=== PATIENT | male | born 1960 | race Caucasian/White ===

== ENCOUNTER 2022-02-07 10:43 | Emergency (ER) | payer MEDICAID ==
[2022-02-07 10:54] VITALS: TEMP 97.6
--- NOTE | 2022-02-07 11:25 | ED ---
General Adult HPI - General Chief complaint: Shortness of Breath Stated complaint: JT Time Seen by Provider: 02/07/22 11:04 Source: patient Mode of arrival: ambulatory Limitations: no limitations - History of Present Illness Initial comments: This 61-year-old male with past medical history of stage III throat cancer. The emergency department with increased shortness of breath. Patient states over the last 3 days he has been having increased trouble breathing. Patient states his breathing gets worse tonight when he lies flat on his back. Patient states he did take an albuterol nebulized treatments morning which did slightly help. Patient states he was diagnosed with throat cancer about one month ago and has an appointment with [facility] oncology department tomorrow morning to possibly start radiation therapy. Patient states he is able to swallow and eat, however he just feels like his throat is swollen. Patient states his throat is sore and painful, however that is not any different from when he was diagnosed with cancer 1 month ago. Patient states he is still drinking plenty of water. Patient denies using any oxygen at home. Patient denies any chest pain, fever, nausea, vomiting, back pain, abdominal pain, change in bowel or bladder, headache, lightheadedness, dizziness, change in vision. - Related Data Home Medications Medication Instructions Recorded Confirmed Atorvastatin Calcium [Lipitor] 40 mg PO DAILY 02/07/22 02/07/22 Cyanocobalamin [Vitamin B-12] 500 mcg PO DAILY 02/07/22 02/07/22 HYDROcodone/APAP 10-325MG [Muse 1 tab PO Q4HR PRN 02/07/22 02/07/22 10-325] Metoprolol Tartrate [Lopressor] 25 mg PO BID 02/07/22 02/07/22 Multivitamins, Thera [Multivitamin 1 tab PO DAILY 02/07/22 02/07/22 (formulary)] Allergies Allergy/AdvReac Type Severity Reaction Status Date / Time No Known Allergies Allergy Verified 02/07/22 14:50 Review of Systems ROS Statement: Those systems with pertinent positive or pertinent negative responses have been documented in the HPI. ROS Other: All systems not noted in ROS Statement are negative. Past Medical History Past Medical History: Hyperlipidemia, Hypertension Additional Past Medical History / Comment(s): Throat CA History of Any Multi-Drug Resistant Organisms: None Reported Past Surgical History: Orthopedic Surgery Past Psychological History: No Psychological Hx Reported Smoking Status: Never smoker Past Alcohol Use History: None Reported Past Drug Use History: Marijuana General Exam Limitations: no limitations General appearance: alert, in no apparent distress Head exam: Present: atraumatic, normocephalic, normal inspection Eye exam: Present: normal appearance, PERRL, EOMI. Absent: scleral icterus, conjunctival injection, periorbital swelling Pupils: Present: normal accommodation ENT exam: Present: normal exam, normal oropharynx (Unable to visualize any lesions, growths, exudates or abscesses. Uvula midline.), mucous membranes moist, other (Painful to palpation on the outside lateral sides and anterior surface of neck) Neck exam: Present: normal inspection, full ROM. Absent: tenderness, meningismus, lymphadenopathy Respiratory exam: Present: normal lung sounds bilaterally, other (Patient mild increased work of breathing, however he states this is how he has been for the last 3 days-no stridor present. Voice slightly raspy- patient states this has been there over the last couple of months as he has been diagnosed with throat cancer.). Absent: respiratory distress, wheezes, rales, rhonchi, stridor, chest wall tenderness Cardiovascular Exam: Present: regular rate, normal rhythm, normal heart sounds. Absent: systolic murmur, diastolic murmur, rubs, gallop, clicks GI/Abdominal exam: Present: soft, normal bowel sounds. Absent: distended, tenderness, guarding, rebound, rigid Extremities exam: Present: normal inspection, full ROM, normal capillary refill. Absent: tenderness, pedal edema, joint swelling, calf tenderness Back exam: Present: normal inspection, full ROM. Absent: CVA tenderness (R), CVA tenderness (L), paraspinal tenderness, vertebral tenderness Neurological exam: Present: alert, oriented X3, CN II-XII intact Psychiatric exam: Present: normal affect, normal mood Skin exam: Present: warm, dry, intact, normal color. Absent: rash Course Vital Signs 02/07/22 02/07/22 02/07/22 10:51 12:37 15:00 Temperature 97.6 F Pulse Rate 76 83 88 Respiratory 24 20 18 Rate Blood Pressure 132/69 123/67 132/70 O2 Sat by Pulse 96 99 96 Oximetry EKG Findings - EKG Comments: EKG Findings:: EKG impression: Sinus rhythm. Ventricular rate 86 bpm. LA interval 135. QRS duration 85. QT/QTc 358/402 Medical Decision Making - Medical Decision Making This 61-year-old male with a past medical history of recent stage III throat cancer presents emergency Department with increased difficulty breathing- worsening over the last 3 days. Vital signs stable. Labs with leukocytosis. Coagulation unremarkable. Chemistry unremarkable. Troponin less than 0.012. Chest x-ray impression: No acute cardiopulmonary process. CT soft tissue neck with contrast impression: Large laryngeal mass markedly restricting and nearly occluding the airway at the level of the cricoid cartilage as described above. There is a large irregular mass of the larynx measuring 4.42.32.7 cm appears to be centered on the left focal cord. It displaces the airway to the right of the midline at the level of the cricoid cartilage, airways markedly restricted and nearly occluded. Spoke with from [facility] who accepted patient to the emergency department. Patient will be life flighted to [facility] for probable tracheostomy placement. Patient verbally agree to be life flighted to [facility] for further evaluation, workup and treatment. Discussed case in detail my attending, Dr. Cruz who agreed to plan. - Lab Data Result diagrams: 02/07/22 11:25 02/07/22 11:25 Lab Results 02/07/22 02/07/22 02/07/22 Range/Units 11:25 11:25 11:25 WBC 9.7 (3.8-10.6) k/uL RBC 3.65 L (4.30-5.90) m/uL Hgb 11.5 L (13.0-17.5) gm/dL Hct 35.0 L (39.0-53.0) % MCV 96.1 (80.0-100.0) fL MCH 31.7 (25.0-35.0) pg MCHC 33.0 (31.0-37.0) g/dL RDW 12.4 (11.5-15.5) % Plt Count 511 H (150-450) k/uL MPV 6.4 Neutrophils % 75 % Lymphocytes % 14 % Monocytes % 7 % Eosinophils % 2 % Basophils % 1 % Neutrophils # 7.3 (1.3-7.7) k/uL Lymphocytes # 1.3 (1.0-4.8) k/uL Monocytes # 0.7 (0-1.0) k/uL Eosinophils # 0.2 (0-0.7) k/uL Basophils # 0.1 (0-0.2) k/uL PT 9.7 (9.0-12.0) sec INR 0.9 (<1.2) APTT 28.6 (22.0-30.0) sec Sodium 138 (137-145) mmol/L Potassium 4.2 (3.5-5.1) mmol/L Chloride 101 (98-107) mmol/L Carbon Dioxide 30 (22-30) mmol/L Anion Gap 7 mmol/L BUN 16 (9-20) mg/dL Creatinine 0.72 (0.66-1.25) mg/dL Est GFR (CKD-EPI)AfAm >90 (>60 ml/min/1.73 sqM) Est GFR (CKD-EPI)NonAf >90 (>60 ml/min/1.73 sqM) Glucose 113 H (74-99) mg/dL Plasma Lactic Acid Marciano (0.7-2.0) mmol/L Calcium 8.8 (8.4-10.2) mg/dL Total Bilirubin 0.4 (0.2-1.3) mg/dL AST 24 (17-59) U/L ALT 20 (4-49) U/L Alkaline Phosphatase 98 (38-126) U/L Troponin I (0.000-0.034) ng/mL Total Protein 6.8 (6.3-8.2) g/dL Albumin 3.8 (3.5-5.0) g/dL 02/07/22 02/07/22 Range/Units 11:25 11:25 WBC (3.8-10.6) k/uL RBC (4.30-5.90) m/uL Hgb (13.0-17.5) gm/dL Hct (39.0-53.0) % MCV (80.0-100.0) fL MCH (25.0-35.0) pg MCHC (31.0-37.0) g/dL RDW (11.5-15.5) % Plt Count (150-450) k/uL MPV Neutrophils % % Lymphocytes % % Monocytes % % Eosinophils % % Basophils % % Neutrophils # (1.3-7.7) k/uL Lymphocytes # (1.0-4.8) k/uL Monocytes # (0-1.0) k/uL Eosinophils # (0-0.7) k/uL Basophils # (0-0.2) k/uL PT (9.0-12.0) sec INR (<1.2) APTT (22.0-30.0) sec Sodium (137-145) mmol/L Potassium (3.5-5.1) mmol/L Chloride (98-107) mmol/L Carbon Dioxide (22-30) mmol/L Anion Gap mmol/L BUN (9-20) mg/dL Creatinine (0.66-1.25) mg/dL Est GFR (CKD-EPI)AfAm (>60 ml/min/1.73 sqM) Est GFR (CKD-EPI)NonAf (>60 ml/min/1.73 sqM) Glucose (74-99) mg/dL Plasma Lactic Acid Marciano 0.9 (0.7-2.0) mmol/L Calcium (8.4-10.2) mg/dL Total Bilirubin (0.2-1.3) mg/dL AST (17-59) U/L ALT (4-49) U/L Alkaline Phosphatase (38-126) U/L Troponin I <0.012 (0.000-0.034) ng/mL Total Protein (6.3-8.2) g/dL Albumin (3.5-5.0) g/dL Disposition Clinical Impression: Laryngeal mass, History of throat cancer, Increasing shortness of breath Disposition: OTHER INSTITUTION NOT DEFINED Condition: Serious Referrals: Nonstaff,Physician [REFERRING] - 1-2 days - Out of Hospital Transfer - Req. Specs Out of Hospital Transfer - Requested Specifics: Other Emergency Center ([facility])
[2022-02-07 11:36] LABS: Basophils # (A) 0.1 k/uL (0-0.2); Basophils % (A) 1 %; Eosinophils # (A) 0.2 k/uL (0-0.7); Eosinophils % (A) 2 %; HGB 11.5 gm/dL (13.0-17.5); Lymphocytes # (A) 1.3 k/uL (1.0-4.8); Lymphocytes % (A) 14 %; MCH 31.7 pg (25.0-35.0); MCV 96.1 fL (80.0-100.0); Mean Platelet Volume 6.4; Monocytes # (A) 0.7 k/uL (0-1.0); Monocytes % (A) 7 %; Neutrophils # (A) 7.3 k/uL (1.3-7.7); Neutrophils % (A) 75 %; Platelet Count 511 k/uL (150-450); RBC 3.65 m/uL (4.30-5.90); RDW 12.4 % (11.5-15.5); WBC 9.7 k/uL (3.8-10.6)
[2022-02-07 11:56] LABS: ALT 20 U/L (4-49); AST 24 U/L (17-59); African American GFR (CKD) >90 (>60 ml/min/1.73 sqM); Albumin 3.8 g/dL (3.5-5.0); Alkaline Phosphatase 98 U/L (38-126); Anion Gap 7 mmol/L; Blood Urea Nitrogen 16 mg/dL (9-20); Calcium 8.8 mg/dL (8.4-10.2); Carbon Dioxide 30 mmol/L (22-30); Chloride 101 mmol/L (98-107); Glucose 113 mg/dL (74-99); Non-African American GFR(CKD) >90 (>60 ml/min/1.73 sqM); Potassium 4.2 mmol/L (3.5-5.1); Sodium 138 mmol/L (137-145); Total Bilirubin 0.4 mg/dL (0.2-1.3); Total Protein 6.8 g/dL (6.3-8.2)
[2022-02-07] MEDS ORDERED: DEXAMETHASONE SOD PHOSPHATE 10 MG/ML 1 ML VIAL IVP STA (11:57)
[2022-02-07] MEDS ORDERED: SODIUM CHLORIDE 0.9% 1,000 ML IV STA (11:58)
--- NOTE | 2022-02-07 12:11 | XR ---
EXAMINATION TYPE: XR chest 2V DATE OF EXAM: 02/07/2022 COMPARISON: NONE HISTORY: Cough TECHNIQUE: Frontal and lateral views of the chest are obtained. FINDINGS: There is no focal air space opacity, pleural effusion, or pneumothorax seen. The cardiac silhouette size is within normal limits. The osseous structures are intact. IMPRESSION: No acute cardiopulmonary process.
[2022-02-07 12:12] LABS: INR 0.9 (<1.2); Partial Thromboplastin Time 28.6 sec (22.0-30.0); Prothrombin Time 9.7 sec (9.0-12.0)
--- NOTE | 2022-02-07 12:29 | CT ---
EXAMINATION TYPE: CT soft tissue neck w con DATE OF EXAM: 02/07/2022 12:20 PM COMPARISON: None HISTORY: DIIB. History of throat cancer. CT DLP: 241.4 mGycm Automated exposure control for dose reduction was used. CONTRAST: CT scan of the neck is performed following with IV Contrast, patient injected with 100 mL of Isovue 3 00. Axial images are obtained, coronal and sagittal reformatted images are reviewed. FINDINGS: There is a large irregular mass of the larynx measuring 4.4 x 2.3 x 2.7 cm.. It appears to be centere d on the left vocal cord. It displaces the airway to the right of midline and, at the level of the cr icoid cartilage, the airway is markedly restricted and nearly occluded. The thyroid, arytenoid and cricoid cartilages are intact. The thyroid gland is normal in size and homogeneous. Tongue base, epiglottis aryepiglottic folds, piriform sinuses and vallecula are normal and symmetric. The parotid and submandibular glands are normal and symmetric. The pharynx and parapharyngeal soft tissues are normal. There is no adenopathy within the neck. Visualized osseous structures are intact. IMPRESSION: Large laryngeal mass markedly restricting and nearly occluding the airway at the level of the cricoid cartilage as described above.
[2022-02-07] MEDS ORDERED: MORPHINE SULFATE 4 MG/ML SYRINGE IVP STA (14:55)
[2022-02-07] MEDS ORDERED: ALBUTEROL HFA INHALER INHALATION STA (14:55)
[2022-02-07 15:06] VITALS: RESP 18
[2022-02-07 16:38] VITALS: BP 134/84; PULSE 82
== END 2022-02-07 16:45 | disposition other institution (70) ==
LOC: EC 10:43
DX: J38.7 Other diseases of larynx (principal); I10 Essential (primary) hypertension; E78.5 Hyperlipidemia, unspecified; F12.90 Cannabis use, unspecified, uncomplicated; Z79.899 Other long term (current) drug therapy; Z85.01 Personal history of malignant neoplasm of esophagus
CPT/HCPCS: 36415; 94640; 93005; 80053; 83605; 84484; 85025; 85610; 85730; 71046; 70491; 99285; 96374; 96375; 96361 ×4; J2270; J1100

== ENCOUNTER 2022-05-30 13:49 | Emergency (ER) | payer OTHER ==
[2022-05-30 14:08] VITALS: TEMP 97.6
--- NOTE | 2022-05-30 14:48 | XR ---
EXAMINATION TYPE: XR KUB DATE OF EXAM: 05/30/2022 COMPARISON: NONE HISTORY: PEG tube placement TECHNIQUE: Single view FINDINGS: 2 views upright were obtained. There is no sign of intestinal obstruction or pneumoperitone um. Fecal pattern is normal. There is gastrostomy tube over the left upper quadrant. Lung bases are c lear. No calcifications seen over the kidneys. IMPRESSION: Nonacute abdomen.
--- NOTE | 2022-05-30 16:04 | ED ---
Recheck HPI - General Chief Complaint: Recheck/Abnormal Lab/Rx Stated Complaint: problems with feeding tube Time Seen by Provider: 05/30/22 15:18 Source: patient, family, RN notes reviewed Mode of arrival: ambulatory - History of Present Illness Initial Comments: This is a 61-year-old male who presents to the emergency department for feeding tube difficulties. Patient had a PEG tube placed 12 weeks ago. This was placed at [facility] in [place]. Patient states that he is being treated for throat cancer and does not currently have much in the way of taste. States that this causes him to have problems eating. The PEG tube will likely be temporary. He has a follow-up with the provider on June 04. States that he has had some abdominal discomfort, and he wonders if the tube may be out of place. States that he accidentally pulled it and believes that it may have become dislodged. Denies any fevers, chills, sore throat, cough, dyspnea, chest pain, palp itations, nausea, vomiting, diarrhea, back pain, or headaches. MD Complaint: other (PEG tube problems) - Related Data Home Medications Medication Instructions Recorded Confirmed Atorvastatin Calcium [Lipitor] 40 mg PO DAILY 02/07/22 02/07/22 Cyanocobalamin [Vitamin B-12] 500 mcg PO DAILY 02/07/22 02/07/22 HYDROcodone/APAP 10-325MG [Chase 1 tab PO Q4HR PRN 02/07/22 02/07/22 10-325] Metoprolol Tartrate [Lopressor] 25 mg PO BID 02/07/22 02/07/22 Multivitamins, Thera [Multivitamin 1 tab PO DAILY 02/07/22 02/07/22 (formulary)] Previous Rx's Medication Instructions Recorded Sulfamethox-Tmp 800-160Mg [Bactrim 2 tab PO Q12HR 7 Days #28 tab 05/30/22 DS 800-160 mg] Allergies Allergy/AdvReac Type Severity Reaction Status Date / Time No Known Allergies Allergy Verified 05/30/22 14:08 Review of Systems ROS Statement: Those systems with pertinent positive or pertinent negative responses have been documented in the HPI. ROS Other: All systems not noted in ROS Statement are negative. Past Medical History Past Medical History: Hyperlipidemia, Hypertension Additional Past Medical History / Comment(s): Throat CA, trach, feeding tbube History of Any Multi-Drug Resistant Organisms: None Reported Past Surgical History: Orthopedic Surgery Past Psychological History: No Psychological Hx Reported Smoking Status: Never smoker Past Alcohol Use History: None Reported Past Drug Use History: Marijuana General Exam General appearance: alert, in no apparent distress Head exam: Present: atraumatic, normocephalic, normal inspection Respiratory exam: Present: normal lung sounds bilaterally. Absent: respiratory distress, wheezes, rales, rhonchi, stridor Cardiovascular Exam: Present: regular rate, normal rhythm, normal heart sounds. Absent: systolic murmur, diastolic murmur, rubs, gallop, clicks GI/Abdominal exam: Present: other (PEG tube in place with healing stoma. Purulent discharge around the stoma and tenderness to palpation.) Neurological exam: Present: alert, oriented X3, CN II-XII intact Psychiatric exam: Present: normal affect, normal mood Skin exam: Present: warm, dry, intact, normal color. Absent: rash Course Vital Signs 05/30/22 14:04 Temperature 97.6 F Pulse Rate 66 Respiratory 16 Rate Blood Pressure 93/59 O2 Sat by Pulse 99 Oximetry Medical Decision Making - Medical Decision Making This is a 61-year-old male who presents to the emergency department for PEG tube difficulties. His PEG tube appeared to have surrounding drainage and erythema, concerning for an infection. Aerobic and anaerobic cultures were obtained. The PEG tube was removed and replaced with a new one of the same size, 20-Mongolian. KUB with dye injection was obtained afterwards, verifying correct placement of the PEG tube. Prescription for Bactrim was provided to be taken for 7 days. Starter pack provided in the emergency department, as the patient's pharmacy is currently closed. Return precautions reviewed in depth, the patient is instructed to return to the emergency department with any new, worsening, or concerning symptoms. Patient verbalized understanding. This case was discussed in detail with the attending ED physician. Presentation, findings, and treatment plan discussed in detail as well. - Radiology Data Radiology results: report reviewed, image reviewed Disposition Clinical Impression: Pain around PEG tube site Disposition: HOME SELF-CARE Instructions (If sedation given, give patient instructions): Percutaneous Endoscopic Gastrostomy (ED), How to Use and Care for Your PEG Tube (ED) Additional Instructions: Return to the emergency department with any new, worsening, or concerning symptoms. Take the antibiotic as prescribed for 7 days. Prescriptions: Sulfamethox-Tmp 800-160Mg [Bactrim DS 800-160 mg] 2 tab PO Q12HR 7 Days #28 tab Is patient prescribed a controlled substance at d/c from ED?: No Referrals: Ye Mane MD [Primary Care Provider] - 1-2 days
--- NOTE | 2022-05-30 16:54 | XR ---
EXAMINATION TYPE: XR KUB DATE OF EXAM: 05/30/2022 COMPARISON: NONE HISTORY: Peg tube placement TECHNIQUE: Single view FINDINGS: Contrast was injected into the gastrostomy tube. There is opacification of the stomach. No evidence of a leak. IMPRESSION: Gastrostomy tube is in good position.
[2022-05-30] MEDS ORDERED: SULFAMETH-TMP DS STARTER PACK 2 TAB BTL PO STA (17:03)
[2022-05-30 17:48] VITALS: BP 107/73; PULSE 72; RESP 15
== END 2022-05-30 17:48 | disposition home or self-care (01) ==
LOC: EC 13:49
DX: K94.23 Gastrostomy malfunction (principal); I10 Essential (primary) hypertension; E78.5 Hyperlipidemia, unspecified; Z79.899 Other long term (current) drug therapy
CPT/HCPCS: 87070; 87205; 87075; 87077; 87186; 74018; 99283; 43762; Q9967

== ENCOUNTER → 2022-07-09 | Outpatient (CLI) | payer OTHER ==
--- NOTE | 2022-07-13 11:51 | PE ---
EXAMINATION TYPE: PET CT fusion skull to thigh DATE OF EXAM: 07/09/2022 CLINICAL INDICATION:Male, 61 years old with history of C76.0 head and neck ca; TECHNIQUE: Following the intravenous administration of 10.8 mCi of F-18 FDG, whole body images are performed from the skull base to the midthigh. Images are reviewed on the computer in the coronal, a xial, and sagittal planes. Reconstructed rotating images are created on independent workstation and reviewed on the computer. A non-contrast CT is performed in conjunction with the PET scan. Glucose level 82 mg/dL COMPARISON: CT 02/07/2022, PET/CT 11/06/2021, FINDINGS: Mediastinal SUV mean is 1.5. Hepatic parenchyma SUV mean is 1.9. SKULL BASE AND NECK: Increased radiotracer uptake around the tracheostomy cannula insertion with max SUV 5.3. Additionally there is FDG uptake around the larynx primarily along the left aspect max SUV 5.5 previously 5.4. Area extends towards the thyroid cartilage on the left. Evaluation slightly limi checo given noncontrast and PET/CT technique. CHEST, MEDIASTINUM, AND HILAR REGION: No suspicious FDG activity. ABDOMEN AND PELVIS: No suspicious FDG activity. OSSEOUS STRUCTURES: No suspicious FDG activity. OTHER CT: Tracheostomy cannula with tip in appropriate position. At sclerosis of the arterial vascula ture including the carotid arteries and carotid bifurcations. Moderate emphysema changes.1 PEG tube i n place in appropriate position. 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 No convincing evidence for metastatic disease within the chest, abdomen or pelvis or osseous structures. Evaluation of the soft tissues is limited given noncontrast and PET/CT technique.
== END | disposition home or self-care (01) ==
LOC: RADXRMAIN 13:11
PROVIDERS: ATTEND Internal Medicine Hematology & Oncology
DX: C76.0 Malignant neoplasm of head, face and neck (principal)
CPT/HCPCS: 78815; A9552

== ENCOUNTER → 2022-11-03 | Outpatient (CLI) | payer OTHER ==
--- NOTE | 2022-11-03 14:09 | CT ---
EXAMINATION TYPE: CT neck chest w con CT DLP: 667.1 mGycm, Automated exposure control for dose reduction was used. 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 Hx of melanoma. TECHNIQUE: Multiple axial images were obtained through the chest. Sagittal and coronal reformats were created for review. Contrast used:70ml mL of Isovue 300 with IV Contrast Oral contrast used: none. FINDINGS: Brain: Visualized portions are grossly unremarkable. Orbits: Unremarkable Sinuses: Grossly unremarkable. Spaces of the neck: Extensive soft tissue fullness within the trachea/larynx region with narrowing of the airway at that level. This is increased from 07/09/2022. There is some soft tissue anasarca along the anterior neck. Musculoskeletal: No acute osseous pathology. Mild multilevel disc degeneration changes. Lymph nodes: Multiple nonenlarged lymph nodes are seen along both anterior chains of the neck. Vascular structures: Visualized major arteries are patent without evidence of aneurysm. Atheroscleros is at the carotid bifurcations. There is at least 50% stenosis of the right carotid bifurcation. The left carotid bifurcation appears patent. Thoracic Inlet/airway: Airway is patent. The lung apices are clear. Soft tissues/Thyroid: Thyroid and remainder of the soft tissues are unremarkable. Other: none. LUNGS/ PLEURA: Anterior right lower lobe opacities. AIRWAY: Tracheostomy tube terminates within the trachea. HEART: Atherosclerosis of the arterial vasculature. There is coronary artery atherosclerosis present. The heart is within normal limits for size. Aortic valve cusp calcifications are present. MEDIASTINUM: No gross evidence of adenopathy. VASCULATURE: No aortic aneurysm. MUSCULOSKELETAL: No acute osseous abnormalities scattered multilevel disc degeneration changes are pr esent. SOFT TISSUES/LYMPH NODES: Unremarkable. UPPER ABDOMEN: No significant findings. IMPRESSION 1. Extensive soft tissue fullness within the trachea/larynx region which is increased from prior PET on 07/09/2022 and could represent progressive disease versus edema. There is narrowing of the airway at that level. Attention on follow-up PET/CT for metabolic activity. 2. No evidence for metastatic disease within the pneumothorax. 3. No greater than 1.0 cm in short axis lymph nodes identified. 4. Anterior aspect of the right lower lobe airspace opacities could represent an infectious/inflamma tory process. Clinical correlation advised. 5. Atherosclerosis at the carotid bifurcations with at least 50% stenosis on the right.
== END | disposition home or self-care (01) ==
LOC: RADCTMAIN 12:59
PROVIDERS: ATTEND Radiology Radiation Oncology
DX: C32.1 Malignant neoplasm of supraglottis (principal); C43.72 Malignant melanoma of left lower limb, including hip; R91.8 Other nonspecific abnormal finding of lung field; I65.21 Occlusion and stenosis of right carotid artery; Z92.3 Personal history of irradiation; Z98.890 Other specified postprocedural states; Z85.820 Personal history of malignant melanoma of skin
CPT/HCPCS: 70491; 71260; Q9967

== ENCOUNTER → 2023-05-13 | Outpatient (CLI) | payer OTHER ==
--- NOTE | 2023-05-16 07:08 | PE ---
EXAMINATION TYPE: PET CT fusion skull to thigh DATE OF EXAM: 05/13/2023 COMPARISON: 11/03/22 CT neck and chest Prior PET/CT: 11/19/2022 HISTORY: Neck cancer TECHNIQUE: Following the intravenous administration of 8.27 mCi of F-18 FDG, whole body images are p erformed from the skull base to the midthigh. Images are reviewed on the computer in the coronal, ax ial, and sagittal planes. Reconstructed rotating images are created on independent workstation and r eviewed on the computer. A localization and attenuation correction CT is performed in conjunction w ith the PET scan. DLP: 395.7 mGycm SCAN: Subsequent Blood glucose: 91 mg/dL Average Mediastinum SUV: 1.3 Average Liver SUV: 1.58 FINDINGS: Head: No suspicious uptake within the head and proximal neck. NECK: There is intense uptake at the level of the vocal cords. The cord level appears asymmetric wit h displacement towards the left. Uptake centrally is 4.23 within the left infrahilar region measures 3.63 SUV. Image 48. Some posterior uptake is present at the level of the vocal cord and the posterior right region, image 52 SUV 4.92. There is a small area of increased uptake within the left posterior lateral larynx and SUV of 3.3, image 53. There is a new focal uptake between the first and second right ribs with an SUV value of 3.11, image 61. THORAX: There is an area of new increased uptake within the posterior lateral right apical infiltrate with an SUV of 2.75. There is intense uptake within the left anterolateral lung mass with an SUV maria guadalupe ue of 3.65. Image 108. There is mild uptake within a punctate nodular density within the left lower l obe. SUV 1.39, image 120. This may not have marked increased intensity due to the small size should b e considered potentially suspicious for neoplastic process. ABDOMEN: No abnormal uptake PELVIS: There is intense uptake within the cecum. This could be physiologic. Evaluation for underlyin g ascending colon neoplasm is recommended. OSSEOUS STRUCTURES: No suspicious uptake LOCALIZATION CT: Tracheostomy tube is present with some adjacent uptake likely related to inflammator y change. This is greater towards the left. COMPARISON: Uptake within the left neck has largely resolved. Uptake at the level of vocal cords is m ore intense but covers a smaller area. Previous peripheral uptake within the adenopathy is not identi fied. Uptake between first and second rib and uptake within the right lateral apex are new. Two areas of uptake within the anterolateral left lower lung field are new. IMPRESSION: 1. On the areas surrounding the abnormal vocal cord are smaller and more discrete but have increased in SUV values. 2. New areas of abnormal uptake within the lungs suspicious for metastasis including lateral right ap ex and lingula. 3. New area of increased uptake within the intercostal space between the first and second right ribs suspicious for metastasis 4. Increasing intensity within the cecum and ascending colon region. While this can be physiologic, c onsider evaluation for neoplasm.
== END | disposition home or self-care (01) ==
LOC: RADPETMAIN 15:10
PROVIDERS: ATTEND Radiology Radiation Oncology
DX: C32.1 Malignant neoplasm of supraglottis (principal); Z98.890 Other specified postprocedural states; Z92.3 Personal history of irradiation
CPT/HCPCS: 78815; A9552

== ENCOUNTER → 2023-06-20 | Outpatient (CLI) | payer OTHER ==
--- NOTE | 2023-06-20 13:14 | CT ---
EXAMINATION TYPE: CT chest w con DATE OF EXAM: 06/20/2023 COMPARISON: November 03, [address] 05/13/2023 HISTORY: abnormal chest findings, hx of throat ca CT DLP: 132.1 mGycm Automated exposure control for dose reduction was used. CONTRAST: CT scan of the chest is performed with IV Contrast, patient injected with 100 mL of Isovue 370. FINDINGS: LUNGS: Thick-walled cystic structure right apical region measuring 5.9 x 3.1 cm with mural thickening noted reflect cavitary neoplasm versus infection. There is adjacent pleural thickening and nodular thickeni ng at the first and second as well as the second and third intercostal spaces. There is a new mass in the region of the left upper lobe with wedge-shaped appearance and central necrosis measuring approx imately 4.2 x 3.5 cm. Additional new mass is noted in the region of the lingula central necrosis seen . The mass measures approximately 7.0 x 5.4 x 5.7 cm. There is adjacent pleural thickening and nodula rity within the adjacent intercostal space. MEDIASTINUM: New subcarinal adenopathy measuring 1.2 cm. AP window adenopathy measuring 9.3 mm. Subce ntimeter low right paratracheal lymph node. No pericardial effusion is seen. Thoracic aorta is of no rmal caliber. The heart is not enlarged. UPPER ABDOMEN: No significant abnormality appreciated. OTHER: No additional significant abnormality is seen. IMPRESSION: 1. New necrotic masses left upper lobe and left lingula as discussed above associated pleural thicken ing and intercostal nodularity. 2. Thick-walled cystic structure right upper lobe may reflect cavitary neoplasm versus infection. The re is associated pleural thickening and intercostal nodularity as discussed. 3. New areas of adenopathy as noted.
== END | disposition home or self-care (01) ==
LOC: RADCTMAIN 12:35
PROVIDERS: ATTEND Radiology Radiation Oncology
DX: C32.1 Malignant neoplasm of supraglottis (principal); C43.72 Malignant melanoma of left lower limb, including hip; J94.8 Other specified pleural conditions; Z85.21 Personal history of malignant neoplasm of larynx; Z92.3 Personal history of irradiation; Z98.890 Other specified postprocedural states; R59.9 Enlarged lymph nodes, unspecified; R91.8 Other nonspecific abnormal finding of lung field
CPT/HCPCS: 71260; Q9967

== ENCOUNTER 2023-07-31 15:16 | Inpatient (IN) | payer OTHER ==
--- NOTE | 2023-07-31 16:10 | ED ---
General Adult HPI - General Chief complaint: Shortness of Breath Stated complaint: pneumonia Time Seen by Provider: 07/31/23 15:43 Source: patient Mode of arrival: wheelchair Limitations: no limitations - History of Present Illness Initial comments: Dictation was produced using [employer] dictation software. please excuse any grammatical, word or spelling errors. Chief Complaint: 62-year-old male with history of lung empyema presents with chest pain and shortness of breath History of Present Illness: 62-year-old male with a history of lung empyema, throat cancer and recent admission for pneumonia presents to the ER for chest pain shortness of breath. Patient was just discharged approximately 2 weeks ago. States that her last one to 2 days he began developing chest pain and shortness of breath denies any fever or constitutional symptoms. The ROS documented in this emergency department record has been reviewed and confirmed by me. Those systems with pertinent positive or negative responses have been documented in the HPI. All other systems are other negative and/or noncontributory. - Related Data Home Medications Medication Instructions Recorded Confirmed Atorvastatin Calcium [Lipitor] 40 mg PO HS 02/07/22 07/31/23 HYDROcodone/APAP 10-325MG [[place] 1 tab PO Q4HR PRN 02/07/22 07/31/23 10-325] Omeprazole [PriLOSEC] 20 mg PO DAILY 07/04/23 07/31/23 Metoprolol Tartrate [Lopressor] 12.5 mg PO BID 07/31/23 07/31/23 oxyCODONE-APAP 10-325MG [Percocet 1 tab PO Q4HR PRN 07/31/23 07/31/23 10-325 mg] Previous Rx's Medication Instructions Recorded Aspirin 81 mg PO DAILY #30 tab 07/15/23 Ipratropium-Albuterol Nebulize 3 ml INHALATION RT-Q4H PRN #100 07/15/23 [Duoneb 0.5 mg-3 mg/3 ml Soln] each Amoxic-Pot Clav 875-125Mg 1 tab PO Q12HR 14 Days #28 tab 07/16/23 [Augmentin 875-125] Furosemide [Lasix] 40 mg PO DAILY #30 tablet 07/16/23 Allergies Allergy/AdvReac Type Severity Reaction Status Date / Time No Known Allergies Allergy Verified 07/31/23 16:48 Review of Systems ROS Statement: Those systems with pertinent positive or pertinent negative responses have been documented in the HPI. ROS Other: All systems not noted in ROS Statement are negative. Past Medical History Past Medical History: Cancer, CVA/TIA, Hyperlipidemia, Hypertension Additional Past Medical History / Comment(s): Throat CA, status post chemotherapy, radiation, tracheostomy tube placement, feeding tube with subsequent removal History of Any Multi-Drug Resistant Organisms: None Reported Past Surgical History: Orthopedic Surgery Additional Past Surgical History / Comment(s): History of left carotid endarterectomy, status post tracheostomy placement Past Anesthesia/Blood Transfusion Reactions: No Reported Reaction Past Psychological History: No Psychological Hx Reported Smoking Status: Former smoker Past Alcohol Use History: None Reported Past Drug Use History: None Reported, Marijuana - Past Family History Mother Family Medical History: Dementia Father Family Medical History: Cancer (Lung cancer) General Exam - General Exam Comments Initial Comments: PHYSICAL EXAM: General Impression: Alert and oriented x3, not in acute distress HEENT: Normocephalic atraumatic, extra-ocular movements intact, pupils equal and reactive to light bilaterally, mucous membranes moist. Cardiovascular: Heart regular rate and rhythm Chest: Able to complete full sentences, no retractions, no tachypnea Abdomen: abdomen soft, non-tender, non-distended, no organomegaly Musculoskeletal: Pulses present and equal in all extremities, no peripheral edema Motor: no focal deficits noted Neurological: CN II-XII grossly intact, no focal motor or sensory deficits noted Skin: Intact with no visualized rashes Psych: Normal affect and mood Limitations: no limitations Course Vital Signs 07/31/23 07/31/23 07/31/23 15:36 15:42 15:46 Temperature 98 F Pulse Rate 109 H 100 Respiratory 22 18 18 Rate Blood Pressure 120/67 128/78 O2 Sat by Pulse 98 98 Oximetry 07/31/23 07/31/23 07/31/23 16:00 16:30 17:00 Temperature Pulse Rate 103 H 108 H 106 H Respiratory 20 18 18 Rate Blood Pressure 128/78 129/81 123/72 O2 Sat by Pulse 96 97 96 Oximetry EKG Findings - EKG Comments: EKG Findings:: My EKG interpretation: Ventricular rate 103, sinus tachycardia,. 124, QRS 87, QTC 378. No DC prolongation, no QTC prolongation, no ST or T-wave changes noted. . Overall, this EKG is unremarkable Medical Decision Making - Medical Decision Making Was pt. sent in by a medical professional or institution ([facility], [facility], urgent care, hospital, or [place] [facility] facility...) When possible be specific @ -No Did you speak to anyone other than the patient for history (EMS, parent, family, police, friend...)? What history was obtained from this source @ -No Did you review nursing and triage notes (agree or disagree)? Why? @ -I reviewed and agree with nursing and triage notes Were old charts reviewed (outside hosp., previous admission, EMS record, old E KG, old radiological studies, urgent care reports/EKG's, [place] [facility] facility records)? Report findings @ -Previous admission notes were reviewed showing the patient has history of loculated pleural fluid Differential Diagnosis (chest pain, altered mental status, abdominal pain women, abdominal pain men, vaginal bleeding, musculoskeletal, weakness, fever, dyspnea, syncope, headache, dizziness, GI bleed, back pain, seizure, CVA, palpatations, mental health)? @ -Differential Dyspnea: Coronary syndrome, arrhythmia, tamponade, asthma, COPD, pulmonary embolism, pneumonia, pneumothorax, pulmonary effusion, anaphylaxis, diabetic ketoacidosis, flailed chest, pulmonary contusion, diaphragmatic rupture, anemia, neuromuscular, this is not meant to be an all-inclusive list. EKG interpreted by me (3pts min.). @ -See above X-rays interpreted by me (1pt min.). @ -Chest x-ray shows interval decrease in size of the loculated left lung base collection CT interpreted by me (1pt min.). @ -Angiography shows persistent loculated air-fluid level at the left lateral lung base. There is also incidental finding of moderately large pericardial effusion U/S interpreted by me (1pt. min.). @ -None done What testing was considered but not performed or refused? (CT, X-rays, U/S, labs)? Why? @ -None What meds were considered but not given or refused? Why? @ -None Did you discuss the management of the patient with other professionals (professionals i.e. [facility], C[facility], lab, RT, psych nurse, clinical social work aide, auto damage trainee, teacher, parking officer, pillowcase cutter)? Give summary @ -Discussed with hospitalist for admission they did request CT angiography for rule out pulmonary embolism Was smoking cessation discussed for >3mins.? @ -No Was critical care preformed (if so, how long)? @ -No Were there social determinants of health that impacted care today? How? (Homelessness, low income, unemployed, alcoholism, drug addiction, transportation, low edu. Level, literacy, decrease access to med. care, half-way, r ehab)? @ -No Was there de-escalation of care discussed even if they declined (Discuss DNR or withdrawal of care, Hospice)? DNR status @ -No What co-morbidities impacted this encounter? (DM, HTN, Smoking, COPD, CAD, Cancer, CVA, ARF, Chemo, Hep., AIDS, mental health diagnosis, sleep apnea, morbid obesity)? @ -None Was patient admitted / discharged? Hospital course, mention meds given and route, prescriptions, significant lab abnormalities, going to OR and other pertinent info. @ -62-year-old male with recent history of complex pleural fluid presents to the ER for chest pain shortness of breath that he is worried about recurrence. He did have this fluid drained by specialist. Laboratory evaluation was obtained. Leukocytosis O.1 hemoglobin 9.2. Metabolic panel within acceptable limits. Imaging studies do not appear to be significantly changed. Given the patient is symptomatic he will be admitted with consultation to pulmonology. Patient put on broad-spectrum antibiotics for concern of recurrence given that patient is having recurrent respiratory symptoms along with constitutional symptoms. Undiagnosed new problem with uncertain prognosis? @ -No Drug Therapy requiring intensive monitoring for toxicity (Heparin, Nitro, Insulin, Cardizem)? @ -No Were any procedures done? @ -No Diagnosis/symptom? Acute, or Chronic, or Acute on Chronic? Uncomplicated (without systemic symptoms) or Complicated (systemic symptoms)? @ -Loculated pleural fluid Side effects of treatment? @ -No Exacerbation, Progression, or Severe Exacerbation? @ -No Poses a threat to life or bodily function? How? (Chest pain, USA, IA, pneumonia, PE, COPD, DKA, ARF, appy, cholecystitis, CVA, Diverticulitis, Homicidal, Suicidal, threat to staff... and all critical care pts) @ -yes - Lab Data Result diagrams: 07/31/23 16:06 07/31/23 16:06 Lab Results 07/31/23 07/31/23 07/31/23 Range/Units 16:06 16:06 16:06 WBC 12.1 H (3.8-10.6) k/uL RBC 3.46 L (4.30-5.90) m/uL Hgb 9.2 L (13.0-17.5) gm/dL Hct 29.6 L (39.0-53.0) % MCV 85.5 (80.0-100.0) fL MCH 26.6 (25.0-35.0) pg MCHC 31.1 (31.0-37.0) g/dL RDW 18.4 H (11.5-15.5) % Plt Count 931 H (150-450) k/uL MPV 6.3 Neutrophils % 85 % Lymphocytes % 5 % Monocytes % 7 % Eosinophils % 1 % Basophils % 0 % Neutrophils # 10.3 H (1.3-7.7) k/uL Lymphocytes # 0.7 L (1.0-4.8) k/uL Monocytes # 0.8 (0-1.0) k/uL Eosinophils # 0.2 (0-0.7) k/uL Basophils # 0.1 (0-0.2) k/uL Hypochromasia Moderate Anisocytosis Slight Sodium 139 (137-145) mmol/L Potassium 4.7 (3.5-5.1) mmol/L Chloride 99 (98-107) mmol/L Carbon Dioxide 26 (22-30) mmol/L Anion Gap 14 mmol/L BUN 25 H (9-20) mg/dL Creatinine 1.01 (0.66-1.25) mg/dL Est GFR (CKD-EPI)AfAm >90 (>60 ml/min/1.73 sqM) Est GFR (CKD-EPI)NonAf 80 (>60 ml/min/1.73 sqM) Glucose 120 H (74-99) mg/dL Plasma Lactic Acid Marciano 1.8 (0.7-2.0) mmol/L Calcium 9.6 (8.4-10.2) mg/dL Total Bilirubin 0.4 (0.2-1.3) mg/dL AST 20 (17-59) U/L ALT 18 (4-49) U/L Alkaline Phosphatase 121 (38-126) U/L Total Protein 8.1 (6.3-8.2) g/dL Albumin 3.8 (3.5-5.0) g/dL Disposition Clinical Impression: Loculated pleural effusion Disposition: ADMITTED IP TO THIS HOSP Condition: Serious Referrals: Ye Mane MD [Primary Care Provider] - 1-2 days Decision Time: 19:27
--- NOTE | 2023-07-31 16:17 | XR ---
EXAMINATION TYPE: XR chest 2V DATE OF EXAM: 07/31/2023 4:15 PM CLINICAL INDICATION:Male, 62 years old with history of chest pain; H COMPARISON: Chest radiographs from TECHNIQUE: XR chest 2V Frontal and lateral views of the chest. FINDINGS: Lungs/Pleura: There is redemonstration of hazy airspace opacity and loculated fluid collection within the left lung base. The gas in the left lung base is decreased in volume compared to prior study. No evidence of pneumothorax. Pulmonary vascularity: Unremarkable. Heart/mediastinum: Cardiomediastinal silhouette is unremarkable. Musculoskeletal: No acute osseous pathology. Other findings: Tracheostomy tube in place. IMPRESSION: Interval decrease in size of the loculated left lung base collection.
[2023-07-31 16:23] LABS: Anisocytosis Slight; Basophils # (A) 0.1 k/uL (0-0.2); Basophils % (A) 0 %; Eosinophils # (A) 0.2 k/uL (0-0.7); Eosinophils % (A) 1 %; HCT 29.6 % (39.0-53.0); HGB 9.2 gm/dL (13.0-17.5); Hypochromasia Moderate; Lymphocytes # (A) 0.7 k/uL (1.0-4.8); Lymphocytes % (A) 5 %; MCH 26.6 pg (25.0-35.0); MCHC 31.1 g/dL (31.0-37.0); MCV 85.5 fL (80.0-100.0); Mean Platelet Volume 6.3; Monocytes # (A) 0.8 k/uL (0-1.0); Monocytes % (A) 7 %; Neutrophils # (A) 10.3 k/uL (1.3-7.7); Neutrophils % (A) 85 %; Platelet Count 931 k/uL (150-450); RBC 3.46 m/uL (4.30-5.90); RDW 18.4 % (11.5-15.5); WBC 12.1 k/uL (3.8-10.6)
[2023-07-31 16:29] LABS: ALT 18 U/L (4-49); AST 20 U/L (17-59); African American GFR (CKD) >90 (>60 ml/min/1.73 sqM); Albumin 3.8 g/dL (3.5-5.0); Alkaline Phosphatase 121 U/L (38-126); Anion Gap 14 mmol/L; Blood Urea Nitrogen 25 mg/dL (9-20); Calcium 9.6 mg/dL (8.4-10.2); Carbon Dioxide 26 mmol/L (22-30); Chloride 99 mmol/L (98-107); Glucose 120 mg/dL (74-99); Non-African American GFR(CKD) 80 (>60 ml/min/1.73 sqM); Potassium 4.7 mmol/L (3.5-5.1); Sodium 139 mmol/L (137-145); Total Bilirubin 0.4 mg/dL (0.2-1.3); Total Protein 8.1 g/dL (6.3-8.2)
[2023-07-31] MEDS ORDERED: MORPHINE SULFATE 4 MG/ML SYRINGE IV STA (16:36)
--- NOTE | 2023-07-31 18:37 | CT ---
CT CHEST FOR PULMONARY EMBOLISM. EXAMINATION TYPE: CT angio chest DATE OF EXAM: 07/31/2023 INDICATION: chest pain and SOB. Recently had pneumonia CT DLP: 233.2 mGycm, Automated exposure control for dose reduction was used. CONTRAST: Patient injected with 63ml mL of Isovue 370. COMPARISON: 07/11/2023, 07/09/2023 TECHNIQUE: CT of the chest is performed on a spiral scan at 2 mm thick sections. Study is performed with intravenous contrast timed for evaluation for pulmonary embolism. This will limit additional po rtions of the evaluation. 3-D MIP images reconstructed by the technologist are reviewed on the compu ter in the coronal and sagittal planes. FINDINGS: Tracheostomy tube is in the midline. Portion of the thyroid visualized appears normal. No persistent filling defects are evident to suggest an acute pulmonary embolism. No mediastinal or hilar adenopathy enlarged by CT criteria is evident. The ascending aorta diameter at the level of the main pulmonary artery is 3.3 cm. The main pulmonary artery diameter at the bifur cation is 2.3 cm. Moderately large pericardial effusion is present. Some minimal residual subcutaneous emphysema is present. The loculated collection, patient's previous empyema, remains present at the left lateral lung base. This is diminished from the prior examinatio n. There is persistence of the cavitary lesion in the anterior lateral left lung. The cavitary lesion at the right apex likewise appears similar. Limited CT section through the upper abdomen are unremarkable. IMPRESSION: 1. Persistent loculated air-fluid level left lateral lung base at the patient's previous empyema. Thi s is smaller than comparison studies. 2. Cavitary lesions remain present anterior lateral left lung and right upper lobe similar to compari son. 3. Developing moderately large pericardial effusion
[2023-07-31] MEDS ORDERED: HYDROmorphone 1 MG/ML 1 ML SYRINGE IVP STA (19:14)
[2023-07-31] MEDS ORDERED: VANCOMYCIN IV PER PHARMACY 1 EACH MISC MISCELLANE PRN (19:17)
[2023-07-31] MEDS ORDERED: VANCOMYCIN 1,000 MG in SODIUM CHLORIDE 0.9% 250 ML IVPB STA (19:21)
[2023-07-31] MEDS ORDERED: NALOXONE 0.4 MG/ML 1 ML VIAL IV PRN (19:22)
[2023-07-31] MEDS ORDERED: AMPICILLIN-SULBACTAM 3 GM in SODIUM CHLORIDE 0.9% 100 ML IVPB ONE (19:30)
[2023-07-31] MEDS: SODIUM CHLORIDE 0.9% 1,000 ML IV SCH (19:41)
[2023-07-31] MEDS: HYDROmorphone 1 MG/ML 1 ML SYRINGE IVP PRN (22:12)
[2023-08-01] MEDS: HYDROmorphone 1 MG/ML 1 ML SYRINGE IVP PRN ×8 (01:29→23:56)
[2023-08-01] MEDS: AMPICILLIN-SULBACTAM 3 GM in SODIUM CHLORIDE 0.9% 100 ML IVPB SCH ×3 (03:10→20:58)
[2023-08-01] MEDS ORDERED: VANCOMYCIN IV PER PHARMACY 1 EACH MISC MISCELLANE PRN (05:38)
--- NOTE | 2023-08-01 05:39 | P.HPIM ---
History of Present Illness H&P Date: 07/31/23 Chief Complaint: shortness of breath 62 year old male with throat cancer s/p trach. patient was recently hospitalized for pneumonia and discharged about 2 weeks ago . now returning for shortness of breath , he reports that he suddenly strated experiencing chest pressure that makes it difficult to breath not related to activity , denies any fever, chills, nausea vomiting, coughing, abd pain or changes in bowel or urinary habits. he reports history of stroke when he was 50 but denies any cardiac history . he does have hypertension and emphysema and claims to be compliant with his meds. he denies any smoking , illicit drugs or alcohol he was concerned regarding recurrent pneumonia and decided to come in for evaluation , as he had a pleural effusion related to his infection last time which was drained and he was concerned that it has recurred review of systems Pertinent positives as noted in HPI. All other systems were reviewed and are negative on exam Constitutional: No acute distress, conversant, pleasant, wearing trach collar Eyes: Anicteric sclerae, moist conjunctiva, Pupils equal round reactive to light ENMT: NC/AT Oropharynx clear, no erythema, or exudates Neck: Supple, no masses, or JVD No carotid bruits No thyromegaly Lungs: decrease breath sounds at lung bases Clear to percussion Normal respiratory effort, no accessory muscle use Cardiovascular: Heart regular in rate and rhythm, No murmurs, gallops, or rubs No peripheral edema Abdominal: Soft Nontender, no guarding, rebound or rigidity Abdomen moving with respiration Normoactive bowel sounds No hepatomegaly, No splenomegaly No palpable mass No abdominal wall hernia noted Extremities: No digital cyanosis No clubbing Pedal pulses intact and symmetrical Radial pulses intact and symmetrical No calf tenderness Psychiatric: Alert and oriented to person, place and time Neuro Muscles Strength 5/5 in all 4 extremities Sensation to light touch grossly present throughout Cranial nerves II-XII grossly intact Lymphatics: no palpable cervical or supraclavicular lymph nodes Past Medical History Past Medical History: Cancer, CVA/TIA, Hyperlipidemia, Hypertension Additional Past Medical History / Comment(s): Throat CA, status post chemotherapy, radiation, tracheostomy tube placement, feeding tube with s ubsequent removal History of Any Multi-Drug Resistant Organisms: None Reported Past Surgical History: Orthopedic Surgery Additional Past Surgical History / Comment(s): History of left carotid endarterectomy, status post tracheostomy placement Past Anesthesia/Blood Transfusion Reactions: No Reported Reaction Past Psychological History: No Psychological Hx Reported Smoking Status: Former smoker Past Alcohol Use History: None Reported Past Drug Use History: None Reported, Marijuana - Past Family History Mother Family Medical History: Dementia Father Family Medical History: Cancer (Lung cancer) Medications and Allergies Home Medications Medication Instructions Recorded Confirmed Type Atorvastatin Calcium [Lipitor] 40 mg PO HS 02/07/22 07/31/23 History HYDROcodone/APAP 10-325MG [[place] 1 tab PO Q4HR PRN 02/07/22 07/31/23 History 10-325] Omeprazole [PriLOSEC] 20 mg PO DAILY 07/04/23 07/31/23 History Aspirin 81 mg PO DAILY #30 tab 07/15/23 07/31/23 Rx Ipratropium-Albuterol Nebulize 3 ml INHALATION RT-Q4H PRN #100 07/15/23 07/31/23 Rx [Duoneb 0.5 mg-3 mg/3 ml Soln] each Amoxic-Pot Clav 875-125Mg 1 tab PO Q12HR 14 Days #28 tab 07/16/23 07/31/23 Rx [Augmentin 875-125] Furosemide [Lasix] 40 mg PO DAILY #30 tablet 07/16/23 07/31/23 Rx Metoprolol Tartrate [Lopressor] 12.5 mg PO BID 07/31/23 07/31/23 History oxyCODONE-APAP 10-325MG [Percocet 1 tab PO Q4HR PRN 07/31/23 07/31/23 History 10-325 mg] Allergies Allergy/AdvReac Type Severity Reaction Status Date / Time No Known Allergies Allergy Verified 07/31/23 16:48 Physical Exam Vitals: Vital Signs Temp Pulse Resp BP Pulse Ox 08/01/23 03:00 95 18 98/72 08/01/23 02:00 95 18 114/74 08/01/23 01:00 96 20 114/74 98 07/31/23 23:00 99 20 129/82 98 07/31/23 19:30 108 H 17 122/73 07/31/23 19:00 99 20 125/76 98 07/31/23 18:00 18 134/75 96 07/31/23 17:30 102 H 18 141/88 96 07/31/23 17:00 106 H 18 123/72 96 07/31/23 16:30 108 H 18 129/81 97 07/31/23 16:00 103 H 20 128/78 96 07/31/23 15:46 100 18 128/78 98 07/31/23 15:42 18 07/31/23 15:36 98 F 109 H 22 120/67 98 Intake and Output 07/31/23 07/31/23 08/01/23 14:59 22:59 06:59 Other: Weight 58.967 kg Results CBC & Chem 7: 07/31/23 16:06 07/31/23 16:06 Labs: Abnormal Lab Results - Last 24 Hours (Table) 07/31/23 07/31/23 Range/Units 16:06 16:06 WBC 12.1 H (3.8-10.6) k/uL RBC 3.46 L (4.30-5.90) m/uL Hgb 9.2 L (13.0-17.5) gm/dL Hct 29.6 L (39.0-53.0) % RDW 18.4 H (11.5-15.5) % Plt Count 931 H (150-450) k/uL Neutrophils # 10.3 H (1.3-7.7) k/uL Lymphocytes # 0.7 L (1.0-4.8) k/uL BUN 25 H (9-20) mg/dL Glucose 120 H (74-99) mg/dL Assessment and Plan Assessment: 62 year old male with throat cancer, s/p trach collar, emphysema , recently hospitalized for pneumonia and pleural effusion which was drained, he returns today with recurrent chest pain and SOB, with concerns regarding recurrence of pneumonia . CT imaging showed moderately large pericardial effusion and recurrence of loculated left plerual effusion however smaller size. I discussed the case with ED doc and I accepted the admission for pulmonary and cardio evaluation of pericardial effusion and recurrent loculated pleural effusion shortness of breath with recurrent pleural effusion new moderately large pericardial effusion check echocardiogram cardio consult pulmonary consult CT of the chest showing recurrent smaller loculated air fluid level left lateral lung base , cavitary lesion remain present anterior lateral left lung and right upper lobe similar to before, and new moderately large pericardial effusion leukocytosis WBC 12 continue with unasyn 3 gm q 8hr continue with vanco dosing by pharma h/o throat cancer s/p tach collar anemia Hgb 9.2 denies any bleeding hypertension controlled resume metoprolol hyperllipidemia resume statin full code DVT PPX heparin sc tid
[2023-08-01] MEDS ORDERED: VANCOMYCIN 1,000 MG in SODIUM CHLORIDE 0.9% 250 ML IVPB SCH ×2 (06:00→12:00)
[2023-08-01] MEDS ORDERED: HEPARIN SODIUM,PORCINE 5,000 UNIT/ML 1 ML VIAL SQ SCH (08:00)
[2023-08-01] MEDS: PANTOPRAZOLE 40 MG TABLET PO SCH (08:11)
[2023-08-01] MEDS: ASPIRIN 81 MG PO SCH (08:11)
[2023-08-01] MEDS: FUROSEMIDE 40 MG TAB PO SCH (08:12)
[2023-08-01] MEDS: METOPROLOL TARTRATE 12.5 MG TAB PO SCH ×2 (08:12→20:56)
[2023-08-01] MEDS: SODIUM CHLORIDE 0.9% 1,000 ML IV SCH ×2 (08:22→23:37)
--- NOTE | 2023-08-01 10:03 | P.CRDCN ---
History of Present Illness Consult date: 08/01/23 Reason for Consult (text): Pericardial effusion History of present illness: History of present illness: This is a 62-year-old man with no previous cardiac history and does not follow with a infection control nurse. Patient has history of laryngeal cancer status post chemotherapy, tracheostomy, PEG tube reversal, hypertension, hyperlipidemia, history of CVA at age 50 with minimal left-sided residual weakness remote history of tobacco use quit 2 years ago. Patient follows with Celestino beard and Dr. Stephens locally. We have been asked to evaluate the patient for pericardial effusion. Patient had a recent hospitalization this month for left lung empyema status post pigtail catheter insertion for drainage, pneumonia, acute kidney injury. Patient states he came in the hospital due to chest pain and low back pain. Chest pain is worse when he takes a breath. He thought it was his pneumonia coming back and he wanted to come in and have it checked. He states he is a little short of breath is baseline. He does have occasional cough but not very much. Wheezing comes and goes. He denies any lower extremity edema at this time. No dizziness or lightheadedness. No palpitations. No syncopal episodes. He denies having any abdominal pain, no nausea or vomiting no blood in the stools. He did have a weight loss of 45 pounds when treated for cancer over the past 2 years but now weight is stable. EKG sinus rhythm at 103 bpm, no acute ST changes Chest x-ray: Interval decrease in size of loculated left lung base collection. CTA of the chest revealed persistent loculated air-fluid level left lateral lung base at patient's previous empyema. This is smaller than comparison studies. Cavitary lesions remain present anterior lateral left lung and right upper lobe similar to comparison. Developing moderately large pericardial effusion WBC 12.1, hemoglobin 9.2, platelet count 931. Electrolytes normal. BUN 25 creatinine 1.01. Blood sugar 120. Lactic acid 1.8. Liver function tests are normal. Pro-calcitonin 0.17. Albumin 3.8. Home cardiac medications: Aspirin 81 mg daily, atorvastatin 40 mg daily, Lasix 40 mg daily, Lopressor 12.5 mg twice daily Review Of Systems: At the time of my evaluation: Constitutional: No fever, no chills. No weakness, fatigue or lethargy. EENT: No headache. No dizziness. Lungs: No shortness of breath, + cough, no sputum production. + intermittent wheezing. Cardiovascular: + chest pain, no lower extremity edema. No palpitations. No paroxysmal nocturnal dyspnea. No orthopnea. No lightheadedness or dizziness. No syncopal episodes. Abdominal: No abdominal pain. No nausea, vomiting. No diarrhea. No constipation. No bloody or tarry stools. Genitourinary: No dysuria. No urinary retention. Musculoskeletal: No myalgias. No muscle weakness, no frequent falls. + low back pain Integumentary: No wounds. No rash. No unusual bruising. Neurologic: No aphasia. No facial droop. No change in mentation. Physical examination: Gen: This is a thin cachectic appearing 62-year-old male. He is resting on the ER stretcher and appears to be in no acute respiratory distress. VS: reviewed HEENT: Head is atraumatic, normocephalic. Pupils equal, round. Sclerae is anicteric. NECK: Supple. No JVD. Tracheostomy LUNGS: Decreased breath sounds to the left base. No intercostal retractions. HEART: Regular rate and rhythm. 2/6 holosystolic murmur at the apex, diastolic murmur at the base ABDOMEN: Soft No tenderness. EXTREMITIES: No pedal edema. No calf tenderness. NEUROLOGICAL: Patient is awake, alert and oriented x3. Assessment: Moderately large pericardial effusion on CT Chest pain with deep breathing, musculoskeletal type Laryngeal cancer Recent hospitalization for empyema Chronic anemia Thrombocytosis Hypertension Hyperlipidemia History of CVA Remote history of tobacco use Plan: Continue patient's home cardiac medications Obtain 2-D echocardiogram and Doppler study to assess cardiac structure and function Further recommendations to follow based upon clinical course Thank you kindly for this consultation. Nurse practitioner note has been reviewed, I agree with documented findings and plan of care. Patient was seen and examined. Past Medical History Past Medical History: Cancer, CVA/TIA, Hyperlipidemia, Hypertension Additional Past Medical History / Comment(s): Throat CA, status post chemotherapy, radiation, tracheostomy tube placement, feeding tube with subsequent removal History of Any Multi-Drug Resistant Organisms: None Reported Past Surgical History: Orthopedic Surgery Additional Past Surgical History / Comment(s): History of left carotid endarterectomy, status post tracheostomy placement Past Anesthesia/Blood Transfusion Reactions: No Reported Reaction Past Psychological History: No Psychological Hx Reported Smoking Status: Former smoker Past Alcohol Use History: None Reported Past Drug Use History: None Reported, Marijuana - Past Family History Mother Family Medical History: Dementia Father Family Medical History: Cancer (Lung cancer) Medications and Allergies Home Medications Medication Instructions Recorded Confirmed Type Atorvastatin Calcium [Lipitor] 40 mg PO HS 02/07/22 07/31/23 History HYDROcodone/APAP 10-325MG [[place] 1 tab PO Q4HR PRN 02/07/22 07/31/23 History 10-325] Omeprazole [PriLOSEC] 20 mg PO DAILY 07/04/23 07/31/23 History Aspirin 81 mg PO DAILY #30 tab 07/15/23 07/31/23 Rx Ipratropium-Albuterol Nebulize 3 ml INHALATION RT-Q4H PRN #100 07/15/23 07/31/23 Rx [Duoneb 0.5 mg-3 mg/3 ml Soln] each Amoxic-Pot Clav 875-125Mg 1 tab PO Q12HR 14 Days #28 tab 07/16/23 07/31/23 Rx [Augmentin 875-125] Furosemide [Lasix] 40 mg PO DAILY #30 tablet 07/16/23 07/31/23 Rx Metoprolol Tartrate [Lopressor] 12.5 mg PO BID 07/31/23 07/31/23 History oxyCODONE-APAP 10-325MG [Percocet 1 tab PO Q4HR PRN 07/31/23 07/31/23 History 10-325 mg] Allergies Allergy/AdvReac Type Severity Reaction Status Date / Time No Known Allergies Allergy Verified 07/31/23 16:48 Physical Exam Vitals: Vital Signs Temp Pulse Resp BP Pulse Ox 08/01/23 08:15 108 H 22 134/74 98 08/01/23 06:00 91 18 128/80 08/01/23 03:00 95 18 98/72 08/01/23 02:00 95 18 114/74 08/01/23 01:00 96 20 114/74 98 07/31/23 23:00 99 20 129/82 98 07/31/23 19:30 108 H 17 122/73 07/31/23 19:00 99 20 125/76 98 07/31/23 18:00 18 134/75 96 07/31/23 17:30 102 H 18 141/88 96 07/31/23 17:00 106 H 18 123/72 96 07/31/23 16:30 108 H 18 129/81 97 07/31/23 16:00 103 H 20 128/78 96 07/31/23 15:46 100 18 128/78 98 07/31/23 15:42 18 07/31/23 15:36 98 F 109 H 22 120/67 98 Intake and Output 07/31/23 08/01/23 08/01/23 22:59 06:59 14:59 Other: Weight 58.967 kg Results 07/31/23 16:06 07/31/23 16:06 Cardiac Enzymes 07/31/23 Range/Units 16:06 AST 20 (17-59) U/L CBC 07/31/23 Range/Units 16:06 WBC 12.1 H (3.8-10.6) k/uL RBC 3.46 L (4.30-5.90) m/uL Hgb 9.2 L (13.0-17.5) gm/dL Hct 29.6 L (39.0-53.0) % Plt Count 931 H (150-450) k/uL Comprehensive Metabolic Panel 07/31/23 Range/Units 16:06 Sodium 139 (137-145) mmol/L Potassium 4.7 (3.5-5.1) mmol/L Chloride 99 (98-107) mmol/L Carbon Dioxide 26 (22-30) mmol/L BUN 25 H (9-20) mg/dL Creatinine 1.01 (0.66-1.25) mg/dL Glucose 120 H (74-99) mg/dL Calcium 9.6 (8.4-10.2) mg/dL AST 20 (17-59) U/L ALT 18 (4-49) U/L Alkaline Phosphatase 121 (38-126) U/L Total Protein 8.1 (6.3-8.2) g/dL Albumin 3.8 (3.5-5.0) g/dL Current Medications Generic Name Dose Route Start Last Admin Trade Name Freq PRN Reason Stop Dose Admin Albuterol/Ipratropium 3 ml 08/01/23 05:36 Ipratropium-Albuterol 3 Ml Neb INHALATION RT-Q4H PRN Shortness Of Breath Or Wheezing Aspirin 81 mg 10/30/23 09:00 08/01/23 08:11 Aspirin 81 Mg PO 81 mg DAILY PATRICIA Administration Atorvastatin Calcium 40 mg 08/01/23 21:00 Atorvastatin 40 Mg Tab PO HS PATRICIA Furosemide 40 mg 08/01/23 09:00 08/01/23 08:12 Furosemide 40 Mg Tab PO 40 mg DAILY PATRICIA Administration Heparin Sodium (Porcine) 5,000 unit 08/01/23 08:00 08/01/23 08:12 Heparin Sodium,Porcine 5,000 Unit/Ml 1 Ml Vial SQ Not Given Q8HR PATRICIA Hydromorphone HCl 1 mg 07/31/23 19:22 08/01/23 08:09 Hydromorphone 1 Mg/Ml 1 Ml Syringe IVP 1 mg Q3HR PRN Administration Severe Pain (Scale 7 to 10) Ampicillin Sodium/Sulbactam 100 mls @ 200 mls/hr 08/01/23 04:00 08/01/23 03:10 Sodium 3 gm/ Sodium Chloride IVPB 200 mls/hr Q8H PATRICIA Administration Protocol Vancomycin HCl 1,000 mg/ 250 mls @ 125 mls/hr 08/01/23 12:00 Sodium Chloride IVPB Q16H PATRICIA Sodium Chloride 1,000 mls @ 75 mls/hr 07/31/23 19:30 08/01/23 08:22 Saline 0.9% IV 75 mls/hr .[id number] PATRICIA Administration Metoprolol Tartrate 12.5 mg 08/01/23 09:00 08/01/23 08:12 Metoprolol Tartrate 12.5 Mg Tab PO 12.5 mg BID PATRICIA Administration Naloxone HCl 0.2 mg 07/31/23 19:22 Naloxone 0.4 Mg/Ml 1 Ml Vial IV Q2M PRN Opioid Reversal Pantoprazole Sodium 40 mg 08/01/23 07:30 08/01/23 08:11 Pantoprazole 40 Mg Tablet PO 40 mg [id number] PATRICIA Administration Intake and Output 07/31/23 08/01/23 08/01/23 22:59 06:59 14:59 Other: Weight 58.967 kg 07/31/23 16:06 07/31/23 16:06
--- NOTE | 2023-08-01 13:40 | P.PN ---
Subjective Progress Note Date: 08/01/23 Hospital Course: 62-year-old male with history of throat cancer status post trach, CAD status post stents, permanent pacemaker, aortic valve replacement, chronic systolic heart failure with EF 40-45%, hypertension, dyslipidemia, and COPD presented with shortness of breath and chest pressure. Vital signs have been within normal limits. WBC 12.1, hemoglobin 9.2 at baseline, platelet 931, creatinine 1.01, lactate 1.8, pro-calcitonin 0.15. CTA chest showed persistent loculated air-fluid level left lateral lung base consistent with prior empyema, cavitary lesion present in the anterior lateral left lung and right upper lobe, and well- being moderately large pericardial effusion. EKG showed sinus tachycardia. Cardiology consulted. Subjective: Patient seen and examined at bedside. No acute events overnight. Pertinent positives and negatives as discussed above, a complete review of systems was performed and all other systems are negative. Vitals Signs Reviewed. General: nontoxic, no distress, appears at stated age, thin appearing Derm: warm, dry Head: atraumatic, normocephalic, symmetric Eyes: EOMI, no lid lag, anicteric sclera Mouth: no lip lesion, mucus membranes moist, trach in place Cardiovascular: S1S2 reg, no murmur Lungs: CTA bilateral, no rhonchi, no rales , no accessory muscle use Abdominal: soft, nontender to palpation, no guarding, no appreciable organomegaly Ext: no gross muscle atrophy, no edema, no contractures Neuro: CN II-XI grossly intact, no focal neuro deficits Psych: Alert, oriented, appropriate affect Data Reviewed Today: Pertinent Labs: No new labs Imaging: No new imaging Assessment and Plan: Dyspnea Moderately large pericardial effusion Recent hospitalization for empyema -Echocardiogram pending -Cardiology note reviewed, continue home cardiac meds -Pulmonology also consulted -In light of increased white count and empyema on CT, continue IV antibiotics, currently on IV Unasyn 3 g every 8 hours, and vancomycin dosed per pharmacy, monitor renal function -Was on Augmentin outpatient h/o throat cancer s/p tach collar Cavitary lung lesion concerning for pulmonary metastases versus new primary -Patient was supposed to see his oncologist outpatient Chronic normocytic anemia -denies any bleeding -Continue to monitor CBC Chronic: COPD Systolic CHF Hypertension Dyslipidemia CAD status post stent DVT ppx: SCDs Code status: Full code Anticipated discharge place: Pending clinical course Anticipated discharge time: Pending clinical course Objective - Vital Signs Vital signs: Vital Signs Temp 98 F 07/31/23 15:36 Pulse 100 08/01/23 13:00 Resp 20 08/01/23 13:00 BP 130/79 08/01/23 13:00 Pulse Ox 99 08/01/23 13:00 FiO2 Intake & Output 07/31/23 08/01/23 08/01/23 18:59 06:59 18:59 Weight 58.967 kg - Labs CBC & Chem 7: 07/31/23 16:06 07/31/23 16:06 Labs: Abnormal Lab Results - Last 24 Hours (Table) 07/31/23 07/31/23 07/31/23 Range/Units 16:06 16:06 16:06 WBC 12.1 H (3.8-10.6) k/uL RBC 3.46 L (4.30-5.90) m/uL Hgb 9.2 L (13.0-17.5) gm/dL Hct 29.6 L (39.0-53.0) % RDW 18.4 H (11.5-15.5) % Plt Count 931 H (150-450) k/uL Neutrophils # 10.3 H (1.3-7.7) k/uL Lymphocytes # 0.7 L (1.0-4.8) k/uL BUN 25 H (9-20) mg/dL Glucose 120 H (74-99) mg/dL Procalcitonin 0.15 H (0.02-0.09) ng/mL
--- NOTE | 2023-08-01 15:31 | P.PN ---
Subjective Progress Note Date: 08/01/23 This is a pleasant 62-year-old male with past medical history significant for laryngeal cancer status post chemoradiation and tracheostomy, PEG tube reversal, hyperlipidemia, hypertension, and ex-tobacco smoker. Patient follows with Celestino Kulkarni and Dr. Stephens for radiation. PET scan from 05/13/2023 which showed areas surrounding abnormal vocal cord smaller more discrete but have increased SUV values, new areas of abnormal uptake within the lateral right apex and lingula suspicious for metastasis, new areas of increased uptake within intercostal space between the first and second ribs, and possible physiological uptake within the cecum and ascending colon. He was just discharged from here on 07/16/2023 after being found to have a left lung empyema requiring pigtail catheter insertion and 5 doses of ultimately/dornase infusions with subsequent improvement. Culture was positive for alpha hemolytic streptococcus. He was discharged home on Augmentin for 2 weeks. He presented back to the emergency room yesterday with complaints of chest pain and shortness of breath. Chest x- ray showed interval decrease in the size of a loculated left lung fluid collection. White count 12.1. Hemoglobin 9.2. Platelets 931. Sodium 139. Potassium 4.6. Bicarb 26. BUN 25. Creatinine 1.01. Pro-calcitonin 0.15. CT angiogram of the chest ruled out pulmonary embolism. There is persistent locul ated air-fluid level left lateral lung base. Smaller compared to prior studies. Cavitary lesions remain present anterior lateral left lung and right upper lobe similar to previous. Developing moderately large pericardial effusion. He is seen today in the emergency department. He is currently sitting up on the stretcher. Awake and alert in no acute distress. He has a loose nonproductive cough. No fever or chills. Maintaining good O2 saturations in the mid 90s on room air. Afebrile. Hemodynamically stable. Echocardiogram pending. Objective - Vital Signs Vital signs: Vital Signs Temp 99.4 F 08/01/23 14:00 Pulse 105 H 08/01/23 14:00 Resp 18 08/01/23 14:00 BP 105/67 08/01/23 14:00 Pulse Ox 95 08/01/23 14:00 FiO2 Intake & Output 07/31/23 08/01/23 08/01/23 18:59 06:59 18:59 Weight 58.967 kg - Exam GENERAL EXAM: Alert, pleasant 62-year-old male, in no distress. On room air. HEAD: Normocephalic and atraumatic EYES: Normal reaction of pupils, equal size. NOSE: Clear with pink turbinates. THROAT: No erythema or exudates. NECK: No masses, no JVD. Tracheostomy present CHEST: The patient has a subcutaneous emphysema over the chest and the back area LUNGS: Diminished left lateral lung sounds. Left chest pigtail catheter removed CVS: S1 and S2 normal with no audible murmur, regular rhythm. No extra heart sounds ABDOMEN: No hepatosplenomegaly, active bowel sounds, no guarding or rigidity. Postsurgical scarring SPINE: No scoliosis or deformity SKIN: No rashes CENTRAL NERVOUS SYSTEM: No focal deficits, tone is normal in all 4 extremities. EXTREMITIES: There is no peripheral edema, clubbing, or cyanosis. Peripheral pulses are intact. - Labs CBC & Chem 7: 07/31/23 16:06 07/31/23 16:06 Labs: Abnormal Lab Results - Last 24 Hours (Table) 07/31/23 07/31/23 07/31/23 Range/Units 16:06 16:06 16:06 WBC 12.1 H (3.8-10.6) k/uL RBC 3.46 L (4.30-5.90) m/uL Hgb 9.2 L (13.0-17.5) gm/dL Hct 29.6 L (39.0-53.0) % RDW 18.4 H (11.5-15.5) % Plt Count 931 H (150-450) k/uL Neutrophils # 10.3 H (1.3-7.7) k/uL Lymphocytes # 0.7 L (1.0-4.8) k/uL BUN 25 H (9-20) mg/dL Glucose 120 H (74-99) mg/dL Procalcitonin 0.15 H (0.02-0.09) ng/mL Assessment and Plan Assessment: Chest pain and shortness of breath secondary to moderately large pericardial effusion. CT angiogram of the chest ruled out pulmonary embolism. There is persistent loculated air-fluid level left lateral lung base. Smaller compared to prior studies. Cavitary lesions remain present anterior lateral left lung and right upper lobe similar to previous. Developing moderately large pericardial effusion. Recent admission for left lung empyema post pigtail catheter insertion for dr stewart. The culture was positive for alpha hemolytic strep. He was treated with Unasyn and discharged to home on 2 weeks of Augmentin. He had also received alteplase/dornase infusions 5. History of laryngeal cancer, status post chemoradiation and tracheostomy. PET scan available from 05/13/2023 showed areas surrounding abnormal vocal cord smaller more discrete but have increased SUV values, new areas of abnormal uptake within the lateral right apex and lingula suspicious for metastasis, new areas of increased uptake within intercostal space between the first and second ribs, and possible physiological uptake within the cecum and ascending colon. Acute kidney injury, and the creatinine is stable for now Normocytic normochromic anemia Polycythemia History of hypertension History of hyperlipidemia Ex-tobacco smoker Plan: The patient was seen and evaluated Chest x-ray, computed tomography scan, labs and medications reviewed Echocardiogram pending Procalcitonin 0.15 Initiated on Unasyn and vancomycin in ER Consult infectious disease Continued on bronchodilators as needed We will continue to follow and make further recommendations based on his clinical status I have personally seen and examined the patient, performed the documentation and the assessment and plan as written. Number of minutes spent on the visit: 20.
--- NOTE | 2023-08-01 19:33 | CA ---
Transthoracic Echo Report Name: Azeem Gray Age: 62 Gender: M : 1960 Exam Date: 08/01/2023 14:15 Exam Location: [facility] Ht (in): 70 Wt (lb): 130 Ordering Physician: Suhas Cummings MD Attending/Referring Phys: Check Viewer Ahmet Casey Procedure CPT: Indications: pericardial effusion/large Cardiac Hx: Technical Quality: Fair Contrast 1: Total Dose (mL): Contrast 2: Total Dose (mL): MEASUREMENTS (Male / Female) Normal Values 2D ECHO LV Diastolic Diameter PLAX 4.0 cm 4.2 - 5.9 / 3.9 - 5.3 cm LV Systolic Diameter PLAX 2.8 cm IVS Diastolic Thickness 0.9 cm 0.6 - 1.0 / 0.6 - 0.9 cm LVPW Diastolic Thickness 1.0 cm 0.6 - 1.0 / 0.6 - 0.9 cm LV Relative Wall Thickness 0.5 RV Internal Dim ED PLAX 2.3 cm LVOT Diameter 1.8 cm Aortic Root Diameter 2.6 cm LA Systolic Diameter LX 2.3 cm 3.0 - 4.0 / 2.7 - 3.8 cm LV Diastolic Volume MOD BP 50.1 cm??? 67 - 155 / 56 - 104 cm??? LV Systolic Volume MOD BP 16.0 cm??? - 58 / 19 - 49 cm??? LV Ejection Fraction MOD BP 68.0 % >= 55 % LV Cardiac Index MOD BP 2032.7 cm???/min???m??? LV Diastolic Volume MOD 4C 57.2 cm??? LV Systolic Volume MOD 4C 15.6 cm??? LV Ejection Fraction MOD 4C 72.8 % LV Cardiac Index MOD 4C 2479.7 cm???/min???m??? LV Diastolic Length 4C 7.2 cm LV Systolic Length 4C 5.2 cm LV Diastolic Volume MOD 2C 43.9 cm??? LV Systolic Volume MOD 2C 15.7 cm??? LV Ejection Fraction MOD 2C 64.2 % LV Cardiac Index MOD 2C 1679.6 cm???/min???m??? LV Diastolic Length 2C 7.2 cm LV Systolic Length 2C 5.6 cm LA Volume 36.5 cm??? 18 - 58 / 22 - 52 cm??? LA Volume Index 21.6 cm???/m??? 16 - 28 cm???/m??? DOPPLER AV Peak Velocity 222.0 cm/s AV Peak Gradient 19.7 mmHg AI Peak Velocity 350.6 cm/s AI Peak Gradient 49.2 mmHg AI Pressure Half Time 774.8 ms MV Peak Velocity 102.1 cm/s MV Peak Gradient 4.2 mmHg MV Mean Velocity 67.0 cm/s MV Mean Gradient 2.1 mmHg MV Velocity Time Integral 21.8 cm Mitral E Point Velocity 101.5 cm/s Mitral A Point Velocity 91.8 cm/s Mitral E to A Ratio 1.1 MV Deceleration Time 143.1 ms TR Peak Velocity 159.2 cm/s TR Peak Gradient 10.1 mmHg Right Ventricular Systolic Press 15.1 mmHg FINDINGS Left Ventricle Normal LV size and wall thickness. Left ventricular ejection fraction is estimated at 55-60 %.normal left ventricular wall motion. Right Ventricle Normal right ventricular size. Right Atrium Normal right atrial size. Left Atrium Normal left atrial size. LA volume index= 21ml/m2 Mitral Valve Structurally normal mitral valve. No mitral regurgitation. No mitral stenosis. Aortic Valve Aortic valve not well visualized. Mild AV calcification. Mild to Moderate AI. Tricuspid Valve Structurally normal tricuspid valve. Mild TR. Pulmonic Valve Pulmonic valve not well visualized. No pulmonic regurgitation. Pericardium Moderate pericardial effusion. No evidence of tamponade Aorta Normal size aortic root. CONCLUSIONS 1. Normal left ventricular size and systolic function 2. [id number] aortic regurgitation 3. Moderate global pericardial effusion with no evidence of tamponade Previewed by: Dr. Charissa Taylor MD (Electronically Signed) Final Date: 01 August 2023 19:32
[2023-08-01] MEDS: ATORVASTATIN 40 MG TAB PO SCH (20:56)
[2023-08-01] MEDS: IPRATROPIUM-ALBUTEROL 3 ML NEB INHALATION PRN (21:16)
--- NOTE | 2023-08-01 21:32 | P.CONS ---
History of Present Illness - Reason for Consult Consult date: 08/01/23 - History of Present Illness Patient is a 62-year-old male with a past medical history sniffing and for laryngeal cancer in this patient who is status post tracheostomy chemoradiation PEG tube hyperlipidemia hypertension patient was recently admitted at this facility and the patient was diagnosed with a left lung empyema requiring a pig tail catheter placement patient culture positive for alpha hemolytic Streptococcus patient was discharged home on 2-week course of oral Augmentin with the patient was still taking patient is presenting to [facility] ER last night complaining of increasing shortness of breath and chest pain patient also having cough which is moderate intensity with occasional sputu m production also complaining of pain to the left side of the chest pleomorphic sharp in nature about 8 out of 10 no radiation patient denies any nausea vomiting no abdominal pain or diarrhea patient did have a low-grade fever of 99.4 patient was not hypoxic or need for supplemental oxygen white count was 12.1 with a left shift creatinine was 1.01 liver enzymes are normal procalcitonin 0.15 patient did have a chest x-ray interval decrease size of the loculated left lung base collection patient did have a CT angiogram of the chest persistent loculated air-fluid level left lateral lung base smaller than comparison studies cavitated lesion remains present anterior left lung and right upper lobe developing moderate to large pericardial effusion patient was started on vancomycin and Unasyn infectious disease was consulted for further management of antibiotic therapy Past Medical History Past Medical History: Cancer, CVA/TIA, Hyperlipidemia, Hypertension Additional Past Medical History / Comment(s): Throat CA, status post lona motherapy, radiation, tracheostomy tube placement, feeding tube with subsequent removal History of Any Multi-Drug Resistant Organisms: None Reported Past Surgical History: Orthopedic Surgery Additional Past Surgical History / Comment(s): History of left carotid endarterectomy, status post tracheostomy placement Past Anesthesia/Blood Transfusion Reactions: No Reported Reaction Past Psychological History: No Psychological Hx Reported Smoking Status: Former smoker Past Alcohol Use History: None Reported Past Drug Use History: None Reported, Marijuana - Past Family History Mother Family Medical History: Dementia Father Family Medical History: Cancer (Lung cancer) Medications and Allergies Home Medications Medication Instructions Recorded Confirmed Type Atorvastatin Calcium [Lipitor] 40 mg PO HS 02/07/22 07/31/23 History HYDROcodone/APAP 10-325MG [Hill 1 tab PO Q4HR PRN 02/07/22 07/31/23 History 10-325] Omeprazole [PriLOSEC] 20 mg PO DAILY 07/04/23 07/31/23 History Aspirin 81 mg PO DAILY #30 tab 07/15/23 07/31/23 Rx Ipratropium-Albuterol Nebulize 3 ml INHALATION RT-Q4H PRN #100 07/15/23 07/31/23 Rx [Duoneb 0.5 mg-3 mg/3 ml Soln] each Amoxic-Pot Clav 875-125Mg 1 tab PO Q12HR 14 Days #28 tab 07/16/23 07/31/23 Rx [Augmentin 875-125] Furosemide [Lasix] 40 mg PO DAILY #30 tablet 07/16/23 07/31/23 Rx Metoprolol Tartrate [Lopressor] 12.5 mg PO BID 07/31/23 07/31/23 History Allergies Allergy/AdvReac Type Severity Reaction Status Date / Time No Known Allergies Allergy Verified 07/31/23 16:48 Physical Exam Vitals: Vital Signs Temp Pulse Resp BP Pulse Ox 08/01/23 15:00 108 H 112 H 105/67 98 08/01/23 14:00 99.4 F 105 H 18 105/67 95 08/01/23 13:00 100 20 130/79 99 08/01/23 11:37 95 18 121/70 98 08/01/23 08:15 108 H 22 134/74 98 08/01/23 06:00 91 18 128/80 08/01/23 03:00 95 18 98/72 08/01/23 02:00 95 18 114/74 08/01/23 01:00 96 20 114/74 98 07/31/23 23:00 99 20 129/82 98 07/31/23 19:30 108 H 17 122/73 07/31/23 19:00 99 20 125/76 98 07/31/23 18:00 18 134/75 96 07/31/23 17:30 102 H 18 141/88 96 07/31/23 17:00 106 H 18 123/72 96 07/31/23 16:30 108 H 18 129/81 97 Results CBC & Chem 7: 08/02/23 05:53 08/02/23 05:53 Labs: Abnormal Lab Results - Last 24 Hours (Table) 07/31/23 07/31/23 Range/Units 16:06 16:06 BUN 25 H (9-20) mg/dL Glucose 120 H (74-99) mg/dL Procalcitonin 0.15 H (0.02-0.09) ng/mL Assessment and Plan Plan: 1patient with recent admission to the hospital and was diagnosed with a left- sided empyema requiring pigtail catheter placement culture positive for alphahemolytic Streptococcus and the patient was treated with oral Augmentin and presented to hospital with left-sided chest pain shortness of breath and a cough both the CT and the chest x-ray showing decrease in size of the left-sided pleural fluid however did shows moderate pericardial effusion questionably responsible for his present symptoms 2-we will continue patient on Unasyn 3 g however changed to every 6 hours and discontinue vancomycin 3check inflammatory markers We will follow on clinical condition and cultures to further adjust medication if needed Thank you for this consultation we will follow the patient along with you Dictation was produced using [employer] dictation software. please excuse any grammatical, word or spelling errors. Time with Patient: Greater than 30
[2023-08-02] MEDS: HYDROmorphone 1 MG/ML 1 ML SYRINGE IVP PRN ×5 (02:58→20:47)
[2023-08-02] MEDS: AMPICILLIN-SULBACTAM 3 GM in SODIUM CHLORIDE 0.9% 100 ML IVPB SCH ×4 (02:59→20:48)
[2023-08-02] MEDS: PANTOPRAZOLE 40 MG TABLET PO SCH (06:31)
[2023-08-02 07:05] LABS: African American GFR (CKD) >90 (>60 ml/min/1.73 sqM); Anion Gap 10 mmol/L; Blood Urea Nitrogen 23 mg/dL (9-20); Calcium 9.1 mg/dL (8.4-10.2); Carbon Dioxide 27 mmol/L (22-30); Chloride 100 mmol/L (98-107); Glucose 103 mg/dL (74-99); Non-African American GFR(CKD) 83 (>60 ml/min/1.73 sqM); Potassium 4.6 mmol/L (3.5-5.1); Sodium 137 mmol/L (137-145)
[2023-08-02] MEDS: METOPROLOL TARTRATE 12.5 MG TAB PO SCH ×2 (09:17→20:48)
[2023-08-02] MEDS: FUROSEMIDE 40 MG TAB PO SCH (09:17)
[2023-08-02] MEDS: ASPIRIN 81 MG PO SCH (09:17)
[2023-08-02] MEDS: HYDROcodone/APAP 10-325MG 1 EACH TAB PO PRN ×2 (11:03→19:04)
[2023-08-02] MEDS: SODIUM CHLORIDE 0.9% 1,000 ML IV SCH (11:06)
--- NOTE | 2023-08-02 11:10 | P.PN ---
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 Patient has history of laryngeal cancer status post chemotherapy, tracheostomy, PEG tube reversal, hypertension, hyperlipidemia, history of CVA at age 50 with minimal left-sided residual weakness remote history of tobacco use quit 2 years ago. Patient follows with Celestino beard and Dr. Stephens locally. We have been asked to evaluate the patient for pericardial effusion. Patient had a recent hospitalization this month for left lung empyema status post pigtail catheter insertion for drainage, pneumonia, acute kidney injury. Patient states he came in the hospital due to chest pain and low back pain. Chest pain is worse when he takes a breath. He thought it was his pneumonia coming back and he wanted to come in and have it checked. He states he is a little short of breath is baseline. He does have occasional cough but not very much. Wheezing comes and goes. He denies any lower extremity edema at this time. No dizziness or lightheadedness. No palpitations . No syncopal episodes. He denies having any abdominal pain, no nausea or vomiting no blood in the stools. He did have a weight loss of 45 pounds when treated for cancer over the past 2 years but now weight is stable. EKG sinus rhythm at 103 bpm, no acute ST changes Chest x-ray: Interval decrease in size of loculated left lung base collection. CTA of the chest revealed persistent loculated air-fluid level left lateral lung base at patient's previous empyema. This is smaller than comparison studies. Cavitary lesions remain present anterior lateral left lung and right upper lobe similar to comparison. Developing moderately large pericardial effusion WBC 12.1, hemoglobin 9.2, platelet count 931. Electrolytes normal. BUN 25 creatinine 1.01. Blood sugar 120. Lactic acid 1.8. Liver function tests are normal. Pro-calcitonin 0.17. Albumin 3.8. Home cardiac medications: Aspirin 81 mg daily, atorvastatin 40 mg daily, Lasix 40 mg daily, Lopressor 12.5 mg twice daily 08/02 Patient is seen today in follow-up on the [facility] floor. Echocardiogram revealed normal left ventricular size and systolic function. Mild to moderate aortic regurgitation, moderate global pericardial effusion with no tamponade. Patient feels his breathing is about the same as yesterday. He is currently on IV antibiotics per Dr. Wilkerson. Heart rate is running in the 90s, blood pressure 108/74, pulse ox 96% on room air, afebrile. Repeat blood work reveals potassium 4.6, BUN 23 creatinine 0.98. C-reactive protein 13.3. Physical examination: Gen: This is a thin cachectic appearing 62-year-old male. He is resting in bed and appears to be in no acute respiratory distress. VS: reviewed HEENT: Head is atraumatic, normocephalic. Pupils equal, round. Sclerae is anicteric. NECK: Supple. No JVD. Tracheostomy LUNGS: Decreased breath sounds to the left base. No intercostal retractions. HEART: Regular rate and rhythm. 2/6 holosystolic murmur at the apex, diastolic murmur at the base ABDOMEN: Soft No tenderness. EXTREMITIES: No pedal edema. No calf tenderness. NEUROLOGICAL: Patient is awake, alert and oriented x3. Assessment: Moderately large pericardial effusion on CT Chest pain with deep breathing, musculoskeletal type Laryngeal cancer Recent hospitalization for empyema Chronic anemia Thrombocytosis Hypertension Hyperlipidemia History of CVA Remote history of tobacco use Plan: Continue patient's home cardiac medications Obtain limited echocardiogram tomorrow morning to assess cardiac effusion Further recommendations to follow based upon clinical course Nurse practitioner note has been reviewed, I agree with documented findings and plan of care. Patient was seen and examined. Objective - Vital Signs Vital signs: Vital Signs Temp 98.2 F 08/02/23 07:02 Pulse 93 08/02/23 07:02 Resp 19 08/02/23 07:02 BP 108/74 08/02/23 07:02 Pulse Ox 96 08/02/23 07:02 FiO2 Intake & Output 08/01/23 08/02/23 08/02/23 18:59 06:59 18:59 Intake Total 240 Balance 240 Weight 58.967 kg Intake: Oral 240 Other: Voiding Method Toilet Urinal # Voids 2 - Labs CBC & Chem 7: 07/31/23 16:06 08/02/23 05:53 Labs: Abnormal Lab Results - Last 24 Hours (Table) 08/02/23 Range/Units 05:53 BUN 23 H (9-20) mg/dL Glucose 103 H (74-99) mg/dL Microbiology - Last 24 Hours (Table) 07/31/23 19:50 Blood Culture - Preliminary Blood 07/31/23 19:35 Blood Culture - Preliminary Blood
[2023-08-02 11:21] LABS: Basophils # (A) 0.08 X 10*3/uL (0.00-0.10); Basophils % (A) 0.9 %; Eosinophils # (A) 0.23 X 10*3/uL (0.04-0.35); Eosinophils % (A) 2.6 %; HCT 25.3 % (39.6-50.0); HGB 7.6 d/dL (13.0-17.0); Lymphocytes # (A) 0.77 X 10*3/uL (0.90-5.00); Lymphocytes % (A) 8.6 %; MCH 25.9 pg (27.0-32.0); MCV 86.3 FL (80.0-97.0); Mean Platelet Volume 7.9 FL (9.5-12.2); Monocytes # (A) 1.07 X 10*3/uL (0.20-1.00); Monocytes % (A) 11.9 %; NRBC Per 100 WBC 0 X 10*3/uL (0.00-0.01); Neutrophils # (A) 6.79 X 10*3/uL (1.80-7.70); Neutrophils % (A) 75.7 %; Platelet Count 723 X 10*3/uL (140-440); RBC 2.93 X 10*6/uL (4.40-5.60); RDW 19.4 % (11.5-14.5); WBC 8.97 X 10*3/uL (4.50-10.00)
--- NOTE | 2023-08-02 11:30 | P.PN ---
Subjective Progress Note Date: 08/02/23 Hospital Course: 62-year-old male with history of throat cancer status post trach, CAD status p ost stents, permanent pacemaker, aortic valve replacement, chronic systolic heart failure with EF 40-45%, hypertension, dyslipidemia, and COPD presented with shortness of breath and chest pressure. Vital signs have been within normal limits. WBC 12.1, hemoglobin 9.2 at baseline, platelet 931, creatinine 1.01, lactate 1.8, pro-calcitonin 0.15. CTA chest showed persistent loculated air-fluid level left lateral lung base consistent with prior empyema, cavitary lesion present in the anterior lateral left lung and right upper lobe, and well- being moderately large pericardial effusion. EKG showed sinus tachycardia. Cardiology consulted. Echocardiogram showed moderate global pericardial effus ion with no evidence of tamponade. Cardiology recommending a repeat echocardiogram tomorrow. Pulmonology also following. ID also following. Currently on IV Unasyn. Subjective: Patient seen and examined at bedside. No acute events overnight. Still getting occasional chest tightness. Pertinent positives and negatives as discussed above, a complete review of systems was performed and all other systems are negative. Vitals Signs Reviewed. General: nontoxic, no distress, appears at stated age, thin appearing Derm: warm, dry Head: atraumatic, normocephalic, symmetric Eyes: EOMI, no lid lag, anicteric sclera Mouth: no lip lesion, mucus membranes moist, trach in place Cardiovascular: S1S2 reg, no murmur Lungs: CTA bilateral, no rhonchi, no rales , no accessory muscle use Abdominal: soft, nontender to palpation, no guarding, no appreciable organomegaly Ext: no gross muscle atrophy, no edema, no contractures Neuro: CN II-XI grossly intact, no focal neuro deficits Psych: Alert, oriented, appropriate affect Data Reviewed Today: Pertinent Labs: Hemoglobin 7.6, platelets 723, creatinine 0.98, CRP 13.3 Imaging: Echocardiogram report reviewed, shows moderate global pericardial effusion with no evidence Assessment and Plan: Dyspnea Moderately large pericardial effusion Recent hospitalization for empyema -Cardiology note reviewed, repeat echocardiogram tomorrow -Pulmonology and ID following -Vancomycin discontinued, continued on IV Unasyn 3 g every 6 hours -For pain, restarted on home norco 10 every 4 hours as needed, IV Dilaudid decreased to 1 mg every 6 hours as needed h/o throat cancer s/p tach collar Cavitary lung lesion concerning for pulmonary metastases versus new primary -Patient was supposed to see his oncologist outpatient Chronic normocytic anemia Thrombocytosis -denies any bleeding -Continue to monitor CBC Chronic: COPD Systolic CHF Hypertension Dyslipidemia CAD status post stent DVT ppx: lovenox Code status: Full code Anticipated discharge place: Pending clinical course Anticipated discharge time: Pending clinical course Objective - Vital Signs Vital signs: Vital Signs Temp 98.2 F 08/02/23 07:02 Pulse 93 08/02/23 07:02 Resp 19 08/02/23 07:02 BP 108/74 08/02/23 07:02 Pulse Ox 96 08/02/23 07:02 FiO2 Intake & Output 08/01/23 08/02/23 08/02/23 18:59 06:59 18:59 Intake Total 240 Balance 240 Weight 58.967 kg Intake: Oral 240 Other: Voiding Method Toilet Urinal # Voids 2 - Labs CBC & Chem 7: 08/02/23 05:53 08/02/23 05:53 Labs: Abnormal Lab Results - Last 24 Hours (Table) 08/02/23 08/02/23 08/02/23 Range/Units 05:53 05:53 05:53 RBC 2.93 L (4.40-5.60) X 10*6/uL Hgb 7.6 L (13.0-17.0) d/dL Hct 25.3 L (39.6-50.0) % MCH 25.9 L (27.0-32.0) pg MCHC 30.0 L (32.0-37.0) d/dL RDW 19.4 H (11.5-14.5) % Plt Count 723 H (140-440) X 10*3/uL MPV 7.9 L (9.5-12.2) FL Lymphocytes # 0.77 L (0.90-5.00) X 10*3/uL Monocytes # 1.07 H (0.20-1.00) X 10*3/uL BUN 23 H (9-20) mg/dL Glucose 103 H (74-99) mg/dL C-Reactive Protein 13.3 H (<1.0) mg/dL Microbiology - Last 24 Hours (Table) 07/31/23 19:50 Blood Culture - Preliminary Blood 07/31/23 19:35 Blood Culture - Preliminary Blood
[2023-08-02] MEDS: IPRATROPIUM-ALBUTEROL 3 ML NEB INHALATION PRN (11:48)
--- NOTE | 2023-08-02 14:03 | P.PN ---
Subjective Progress Note Date: 08/02/23 This is a pleasant 62-year-old male with past medical history significant for laryngeal cancer status post chemoradiation and tracheostomy, PEG tube reversal, hyperlipidemia, hypertension, and ex-tobacco smoker. Patient follows with Celestino Kulkarni and Dr. Stephens for radiation. PET scan from 05/13/2023 which showed areas surrounding abnormal vocal cord smaller more discrete but have increased SUV values, new areas of abnormal uptake within the lateral right apex and lingula suspicious for metastasis, new areas of increased uptake within intercostal space between the first and second ribs, and possible physiological uptake within the cecum and ascending colon. He was just discharged from here on 07/16/2023 after being found to have a left lung empyema requiring pigtail catheter insertion and 5 doses of ultimately/dornase infusions with subsequent improvement. Culture was positive for alpha hemolytic streptococcus. He was discharged home on Augmentin for 2 weeks. He presented back to the emergency room yesterday with complaints of chest pain and shortness of breath. Chest x- ray showed interval decrease in the size of a loculated left lung fluid collection. White count 12.1. Hemoglobin 9.2. Platelets 931. Sodium 139. Potassium 4.6. Bicarb 26. BUN 25. Creatinine 1.01. Pro-calcitonin 0.15. CT angiogram of the chest ruled out pulmonary embolism. There is persistent locul ated air-fluid level left lateral lung base. Smaller compared to prior studies. Cavitary lesions remain present anterior lateral left lung and right upper lobe similar to previous. Developing moderately large pericardial effusion. He is seen today in the emergency department. He is currently sitting up on the stretcher. Awake and alert in no acute distress. He has a loose nonproductive cough. No fever or chills. Maintaining good O2 saturations in the mid 90s on room air. Afebrile. Hemodynamically stable. Echocardiogram pending. The patient is seen today 08/02/2023 in follow-up on the regular medical floor. He is currently resting comfortably in bed. Awake and alert in no acute distress. He is maintaining good O2 saturations in the 90s on room air. Pro- calcitonin, 0.15. He is currently on Unasyn. He has normal saline at 75 ML's per hour. He is having less left-sided chest discomfort. Echocardiogram revealed normal left ventricular size and systolic function with mild to moderate aortic regurgitation. There is noted moderate global pericardial effusion with no evidence of tamponade. Blood cultures revealed no growth. White count 8.9. Hemoglobin 7.6. Platelets 723. Sodium 137. Potassium 4.6. Bicarb 27. BUN 23. Creatinine 0.98. Glucose 103. He is on oral diuretics. Lovenox for DVT prophylaxis. Bronchodilators as needed. Objective - Vital Signs Vital signs: Vital Signs Temp 98.0 F 08/02/23 13:40 Pulse 82 08/02/23 13:40 Resp 20 08/02/23 13:40 BP 96/63 08/02/23 13:40 Pulse Ox 97 08/02/23 13:40 FiO2 Intake & Output 08/01/23 08/02/23 08/02/23 18:59 06:59 18:59 Intake Total 240 Balance 240 Weight 58.967 kg Intake: Oral 240 Other: Voiding Method Toilet Urinal # Voids 2 - Exam GENERAL EXAM: Alert, 62-year-old male, resting comfortably in bed, in no distress. On room air. HEAD: Normocephalic and atraumatic EYES: Normal reaction of pupils, equal size. NOSE: Clear with pink turbinates. THROAT: No erythema or exudates. NECK: No masses, no JVD. Tracheostomy present CHEST: The patient has a subcutaneous emphysema over the chest and the back area LUNGS: Diminished left lateral lung sounds. Left chest pigtail catheter removed CVS: S1 and S2 normal with no audible murmur, regular rhythm. No extra heart sounds ABDOMEN: No hepatosplenomegaly, active bowel sounds, no guarding or rigidity. Postsurgical scarring SPINE: No scoliosis or deformity SKIN: No rashes CENTRAL NERVOUS SYSTEM: No focal deficits, tone is normal in all 4 extremities. EXTREMITIES: There is no peripheral edema, clubbing, or cyanosis. Peripheral pulses are intact. - Labs CBC & Chem 7: 08/02/23 05:53 08/02/23 05:53 Labs: Abnormal Lab Results - Last 24 Hours (Table) 08/02/23 08/02/23 08/02/23 Range/Units 05:53 05:53 05:53 RBC 2.93 L (4.40-5.60) X 10*6/uL Hgb 7.6 L (13.0-17.0) d/dL Hct 25.3 L (39.6-50.0) % MCH 25.9 L (27.0-32.0) pg MCHC 30.0 L (32.0-37.0) d/dL RDW 19.4 H (11.5-14.5) % Plt Count 723 H (140-440) X 10*3/uL MPV 7.9 L (9.5-12.2) FL Lymphocytes # 0.77 L (0.90-5.00) X 10*3/uL Monocytes # 1.07 H (0.20-1.00) X 10*3/uL BUN 23 H (9-20) mg/dL Glucose 103 H (74-99) mg/dL C-Reactive Protein 13.3 H (<1.0) mg/dL Microbiology - Last 24 Hours (Table) 07/31/23 19:50 Blood Culture - Preliminary Blood 07/31/23 19:35 Blood Culture - Preliminary Blood Assessment and Plan Assessment: Chest pain and shortness of breath secondary to moderately large pericardial effusion. CT angiogram of the chest ruled out pulmonary embolism. There is persistent loculated air-fluid level left lateral lung base. Smaller compared to prior studies. Cavitary lesions remain present anterior lateral left lung and right upper lobe similar to previous. Developing moderately large pericardial effusion. Echocardiogram revealed normal left ventricular size and systolic function with mild to moderate aortic regurgitation. There is noted moderate global pericardial effusion with no evidence of tamponade. Recent admission for left lung empyema post pigtail catheter insertion for drainage. The culture was positive for alpha hemolytic strep. He was treated with Unasyn and discharged to home on 2 weeks of Augmentin. He had also receive d alteplase/dornase infusions 5. History of laryngeal cancer, status post chemoradiation and tracheostomy. PET scan available from 05/13/2023 showed areas surrounding abnormal vocal cord smaller more discrete but have increased SUV values, new areas of abnormal uptake within the lateral right apex and lingula suspicious for metastasis, new areas of increased uptake within intercostal space between the first and second ribs, and possible physiological uptake within the cecum and ascending colon. Acute kidney injury, and the creatinine is stable for now Normocytic normochromic anemia Polycythemia History of hypertension History of hyperlipidemia Ex-tobacco smoker Plan: The patient was seen and evaluated Echocardiogram, labs and medications reviewed Remains on Unasyn per ID service Continued on bronchodilators as needed Currently stable and on room air We will continue to follow I have personally seen and examined the patient, performed the documentation and the assessment and plan as written. Number of minutes spent on the visit: 10.
[2023-08-02] MEDS: ENOXAPARIN 40 MG/0.4 ML SYRINGE SQ SCH (14:37)
--- NOTE | 2023-08-02 15:04 | P.PN ---
Subjective Progress Note Date: 08/02/23 Principal diagnosis: Empyema Patient is a 62-year-old male with a past medical history sniffing and for laryngeal cancer in this patient who is status post tracheostomy c hemoradiation PEG tube hyperlipidemia hypertension patient was recently admitted at this facility and the patient was diagnosed with a left lung empyema requiring a pig tail catheter placement patient culture positive for alpha hemolytic Streptococcus patient was discharged home on 2-week course of oral Augmentin, patient presented to hospital with worsening shortness of breath and cough. On today's evaluation that is08/02/2023, the patient remains to be afebrile , the patient is breathing comfortably on room air without need for supplemental oxygen, the patient left-sided chest pain has decreased in intensity cough is decreased as well and no sputum production, patient denies abdominal pain and no nausea/vomiting or diarrhea. Patient white count normalized to 8.97, creatinine 0.98 CRP is 13.3 Objective - Vital Signs Vital signs: Vital Signs Temp 98.0 F 08/02/23 13:40 Pulse 82 08/02/23 13:40 Resp 20 08/02/23 13:40 BP 96/63 08/02/23 13:40 Pulse Ox 97 08/02/23 13:40 FiO2 Intake & Output 08/01/23 08/02/23 08/02/23 18:59 06:59 18:59 Intake Total 240 Balance 240 Weight 58.967 kg Intake: Oral 240 Other: Voiding Method Toilet Urinal # Voids 2 - Exam GENERAL DESCRIPTION: Middle-age male lying in bed in no distress RESPIRATORY SYSTEM: Unlabored breathing , clear to auscultation anteriorly HEART: S1 S2 regular rate and rhythm , ABDOMEN: Soft , no tenderness EXTREMITIES: No edema feet - Labs CBC & Chem 7: 08/02/23 05:53 08/02/23 05:53 Labs: Abnormal Lab Results - Last 24 Hours (Table) 08/02/23 08/02/23 08/02/23 Range/Units 05:53 05:53 05:53 RBC 2.93 L (4.40-5.60) X 10*6/uL Hgb 7.6 L (13.0-17.0) d/dL Hct 25.3 L (39.6-50.0) % MCH 25.9 L (27.0-32.0) pg MCHC 30.0 L (32.0-37.0) d/dL RDW 19.4 H (11.5-14.5) % Plt Count 723 H (140-440) X 10*3/uL MPV 7.9 L (9.5-12.2) FL Lymphocytes # 0.77 L (0.90-5.00) X 10*3/uL Monocytes # 1.07 H (0.20-1.00) X 10*3/uL BUN 23 H (9-20) mg/dL Glucose 103 H (74-99) mg/dL C-Reactive Protein 13.3 H (<1.0) mg/dL Microbiology - Last 24 Hours (Table) 07/31/23 19:50 Blood Culture - Preliminary Blood 07/31/23 19:35 Blood Culture - Preliminary Blood Assessment and Plan (1) Empyema Current Visit: Yes Status: Acute Code(s): J86.9 - PYOTHORAX WITHOUT FISTULA SNOMED Code(s): 315658790 (2) Pleural effusion Current Visit: No Status: Acute Priority: High Code(s): J90 - PLEURAL EFFUSION, NOT ELSEWHERE CLASSIFIED SNOMED Code(s): 99531263 Plan: 1patient with recent admission to the hospital and was diagnosed with a left- sided empyema requiring pigtail catheter placement culture positive for alphahemolytic Streptococcus and the patient was treated with oral Augmentin and presented to hospital with left-sided chest pain shortness of breath and a cough both the CT and the chest x-ray showing decrease in size of the left-sided pleural fluid however did shows moderate pericardial effusion questionably responsible for his present symptoms 2-patient has shown some clinical improvement and will continue patient on Unasyn 3 g every 6 hours and may benefit from short course of IV antibiotics on discharge Dictation was produced using [employer] software. please excuse any grammatical, word or spelling errors. Time with Patient: Less than 30
[2023-08-02] MEDS: ATORVASTATIN 40 MG TAB PO SCH (20:48)
[2023-08-03] MEDS: HYDROcodone/APAP 10-325MG 1 EACH TAB PO PRN ×5 (00:09→19:54)
[2023-08-03] MEDS: HYDROmorphone 1 MG/ML 1 ML SYRINGE IVP PRN ×5 (02:37→23:44)
[2023-08-03] MEDS: AMPICILLIN-SULBACTAM 3 GM in SODIUM CHLORIDE 0.9% 100 ML IVPB SCH ×4 (02:37→19:54)
[2023-08-03] MEDS: PANTOPRAZOLE 40 MG TABLET PO SCH (05:48)
[2023-08-03] MEDS: METOPROLOL TARTRATE 12.5 MG TAB PO SCH ×2 (07:10→19:54)
[2023-08-03] MEDS ORDERED: METOPROLOL TARTRATE 25 MG TAB PO STA (07:12)
[2023-08-03] MEDS: FUROSEMIDE 40 MG TAB PO SCH (07:48)
[2023-08-03] MEDS: ENOXAPARIN 40 MG/0.4 ML SYRINGE SQ SCH (07:49)
[2023-08-03] MEDS: ASPIRIN 81 MG PO SCH (07:49)
[2023-08-03 09:08] LABS: Blood Urea Nitrogen 20.5 mg/dL (9.0-27.0); Calcium 9.1 mg/dL (8.7-10.3); Carbon Dioxide 26.1 mmol/L (21.6-31.8); Chloride 99 mmol/L (96-109); Glucose 92 mg/dL (70-110); Potassium 4.3 mmol/L (3.5-5.5); Sodium 137 mmol/L (135-145)
[2023-08-03 10:08] LABS: Basophils # (A) 0.07 X 10*3/uL (0.00-0.10); Eosinophils # (A) 0.36 X 10*3/uL (0.04-0.35); Eosinophils % (A) 5.2 %; HCT 22.9 % (39.6-50.0); HGB 6.9 d/dL (13.0-17.0); Lymphocytes # (A) 0.87 X 10*3/uL (0.90-5.00); Lymphocytes % (A) 12.6 %; MCH 25.7 pg (27.0-32.0); MCHC 30.1 d/dL (32.0-37.0); MCV 85.4 FL (80.0-97.0); Monocytes # (A) 0.82 X 10*3/uL (0.20-1.00); Monocytes % (A) 11.9 %; NRBC Per 100 WBC 0 X 10*3/uL (0.00-0.01); Neutrophils # (A) 4.76 X 10*3/uL (1.80-7.70); Platelet Count 641 X 10*3/uL (140-440); RBC 2.68 X 10*6/uL (4.40-5.60); RDW 18.8 % (11.5-14.5)
--- NOTE | 2023-08-03 11:23 | P.PN ---
Subjective Progress Note Date: 08/03/23 Principal diagnosis: Atypical chest pain, chronic empyema with a loculated air fluid level left lung base. This is a pleasant 62-year-old male with past medical history significant for laryngeal cancer status post chemoradiation and tracheostomy, PEG tube reversal, hyperlipidemia, hypertension, and ex-tobacco smoker. Patient follows with Celestino Kulkarni and Dr. Stephens for radiation. PET scan from 05/13/2023 which showed areas surrounding abnormal vocal cord smaller more discrete but have increased SUV values, new areas of abnormal uptake within the lateral right apex and lingula suspicious for metastasis, new areas of increased uptake within intercostal space between the first and second ribs, and possible physiological uptake within the cecum and ascending colon. He was just discharged from here on 07/16/2023 after being found to have a left lung empyema requiring pigtail catheter insertion and 5 doses of ultimately/dornase infusions with subsequent improvement. Culture was positive for alpha hemolytic streptococcus. He was discharged home on Augmentin for 2 weeks. He presented back to the emergency room yesterday with complaints of chest pain and shortness of breath. Chest x- ray showed interval decrease in the size of a loculated left lung fluid co llection. White count 12.1. Hemoglobin 9.2. Platelets 931. Sodium 139. Potassium 4.6. Bicarb 26. BUN 25. Creatinine 1.01. Pro-calcitonin 0.15. CT angiogram of the chest ruled out pulmonary embolism. There is persistent loculated air-fluid level left lateral lung base. Smaller compared to prior studies. Cavitary lesions remain present anterior lateral left lung and right upper lobe similar to previous. Developing moderately large pericardial effusion. He is seen today in the emergency department. He is currently sitting up on the stretcher. Awake and alert in no acute distress. He has a loose nonproductive cough. No fever or chills. Maintaining good O2 saturations in the mid 90s on room air. Afebrile. Hemodynamically stable. Echocardiogram pending. The patient is seen today 08/02/2023 in follow-up on the regular medical floor. He is currently resting comfortably in bed. Awake and alert in no acute distress. He is maintaining good O2 saturations in the 90s on room air. Pro- calcitonin, 0.15. He is currently on Unasyn. He has normal saline at 75 ML's per hour. He is having less left-sided chest discomfort. Echocardiogram revealed normal left ventricular size and systolic function with mild to moderate aortic regurgitation. There is noted moderate global pericardial effusion with no evidence of tamponade. Blood cultures revealed no growth. White count 8.9. Hemoglobin 7.6. Platelets 723. Sodium 137. Potassium 4.6. Bicarb 27. BUN 23. Creatinine 0.98. Glucose 103. He is on oral diuretics. Lovenox for DVT prophylaxis. Bronchodilators as needed. Patient was reevaluated today on 08/03/2023, apparently the patient was transferred to ICU as an overflow from 3 S., patient developed an episode of atrial fibrillation with RVR, and he was given Lopressor, but at time I saw the patient he was in sinus rhythm. Patient is hemodynamically stable, does not seem to be any distress, cardiology is addressing his cardiac arrhythmia episode. Pulmonary-rodrigues the patient remains on Unasyn, his blood cultures are showing coagulase-negative staph, most likely contamination, nonetheless the patient is on Unasyn for his chronic pulmonary infection/empyema he had previous pigtail catheter placement, drainage, and did not require decortication. His WBC count today is 6.9 hemoglobin is 6.9 basic metabolic profile is normal. Pro-calcitonin level is 0.15. For his low blood count a unit of packed RBCs was ordered. It is yet to be transfused clinically the patient seems to be comfortable, not in distress, on room air with O2 saturations were 99%. Objective - Vital Signs Vital signs: Vital Signs Temp 98 F 08/03/23 09:19 Pulse 97 08/03/23 09:19 Resp 18 08/03/23 09:19 BP 95/52 08/03/23 09:19 Pulse Ox 99 08/03/23 09:19 FiO2 Intake & Output 08/02/23 08/03/23 08/03/23 18:59 06:59 18:59 Output Total 1000 Balance -1000 Output: Urine 1000 Other: Voiding Method Urinal # Voids 4 0 - Exam GENERAL EXAM: Alert, 62-year-old male, resting comfortably in bed, in no distres s. On room air. PERRLA, EOMI, anicteric, moist mucous membranes. NECK: No masses, no JVD. Tracheostomy present CHEST: The patient has a subcutaneous emphysema over the chest and the back area LUNGS: Diminished left lateral lung sounds. Left chest pigtail catheter removed CVS: S1 and S2 normal with no audible murmur, regular rhythm. No extra heart sounds ABDOMEN: No hepatosplenomegaly, active bowel sounds, no guarding or rigidity. Postsurgical scarring SKIN: No rashes CENTRAL NERVOUS SYSTEM: No focal deficits, tone is normal in all 4 extremities. EXTREMITIES: There is no peripheral edema, clubbing, or cyanosis. Peripheral pulses are intact. - Labs CBC & Chem 7: 08/03/23 04:42 08/03/23 04:42 Labs: Abnormal Lab Results - Last 24 Hours (Table) 08/02/23 08/03/23 08/03/23 Range/Units 05:53 04:42 04:42 RBC 2.93 L 2.68 L (4.40-5.60) X 10*6/uL Hgb 7.6 L 6.9 H* (13.0-17.0) d/dL Hct 25.3 L 22.9 L (39.6-50.0) % MCH 25.9 L 25.7 L (27.0-32.0) pg MCHC 30.0 L 30.1 L (32.0-37.0) d/dL RDW 19.4 H 18.8 H (11.5-14.5) % Plt Count 723 H 641 H (140-440) X 10*3/uL MPV 7.9 L 8.0 L (9.5-12.2) FL Lymphocytes # 0.77 L 0.87 L (0.90-5.00) X 10*3/uL Monocytes # 1.07 H (0.20-1.00) X 10*3/uL Eosinophils # 0.36 H (0.04-0.35) X 10*3/uL BUN/Creatinine Ratio 20.50 H (12.00-20.00) Ratio Microbiology - Last 24 Hours (Table) 07/31/23 19:35 Blood Culture Gram Stain - Preliminary Blood Blood Culture - Preliminary 07/31/23 19:50 Blood Culture - Preliminary Blood Assessment and Plan Assessment: Impression: Atypical chest pain, recent history of empyema requiring pigtail catheter placement and drainage as well as IV antibiotics, discharged home but then readmitted with chest pain, presently on antibiotics./Unasyn New-onset atrial fibrillation, being addressed by cardiology patient is now in sinus rhythm History of laryngeal cancer, status post chemoradiation and tracheostomy. PET scan available from 05/13/2023 showed areas surrounding abnormal vocal cord sm aller more discrete but have increased SUV values, new areas of abnormal uptake within the lateral right apex and lingula suspicious for metastasis, new areas of increased uptake within intercostal space between the first and second ribs, and possible physiological uptake within the cecum and ascending colon. Acute kidney injury, and the creatinine is stable for now Normocytic normochromic anemia, patient has low hemoglobin today below 7 hence we'll transfuse 1 unit of packed RBC Polycythemia History of hypertension History of hyperlipidemia Ex-tobacco smoker Recommendation: Continue present supportive care measures Continue antibiotics as recommended by infectious disease on the case. Consider transitioning to oral antibiotics, however that decision will be left to infectious disease Continue cardiac meds and cardiology is addressing that paroxysmal atrial fibrillation with RVR We will continue to follow. Time with Patient: Less than 30
--- NOTE | 2023-08-03 11:40 | CA ---
Transthoracic Echo Report Name: Azeem Gray Age: 62 Gender: M : 1960 Exam Date: 08/03/2023 07:50 Exam Location: [facility] Ht (in): 70 Wt (lb): 130 Ordering Physician: Mel Mead Attending/Referring Phys: [id number], [place] [employer] Operator Sheila San [facility] Procedure CPT: Indications: effusion, f/u on Tuesday Cardiac Hx: Technical Quality: Fair Contrast 1: Total Dose (mL): Contrast 2: Total Dose (mL): MEASUREMENTS (Male / Female) Normal Values 2D ECHO LV Diastolic Diameter PLAX 3.8 cm 4.2 - 5.9 / 3.9 - 5.3 cm LV Systolic Diameter PLAX 2.6 cm IVS Diastolic Thickness 1.0 cm 0.6 - 1.0 / 0.6 - 0.9 cm LVPW Diastolic Thickness 1.0 cm 0.6 - 1.0 / 0.6 - 0.9 cm LV Relative Wall Thickness 0.6 FINDINGS Left Ventricle Left ventricular wall thickness normal. Left ventricular cavity size normal. Left ventricular ejection fraction is estimated at 55-60%. Right Ventricle Right Atrium Left Atrium Mitral Valve Aortic Valve Tricuspid Valve Pulmonic Valve Pericardium Moderate pericardial effusion. Aorta CONCLUSIONS 1. Normal size and systolic function 2. Moderate pericardial effusion with no clear evidence of temponade Previewed by: Dr. Charissa Taylor MD (Electronically Signed) Final Date: 03 August 2023 11:39
[2023-08-03] MEDS: SODIUM CHLORIDE 0.9% 1,000 ML IV SCH (11:58)
--- NOTE | 2023-08-03 12:46 | P.PN ---
Subjective Progress Note Date: 08/03/23 Hospital Course: 62-year-old male with history of throat cancer status post trach, CAD status p ost stents, permanent pacemaker, aortic valve replacement, chronic systolic heart failure with EF 40-45%, hypertension, dyslipidemia, and COPD presented with shortness of breath and chest pressure. Vital signs have been within normal limits. WBC 12.1, hemoglobin 9.2 at baseline, platelet 931, creatinine 1.01, lactate 1.8, pro-calcitonin 0.15. CTA chest showed persistent loculated air-fluid level left lateral lung base consistent with prior empyema, cavitary lesion present in the anterior lateral left lung and right upper lobe, and well- being moderately large pericardial effusion. EKG showed sinus tachycardia. Cardiology consulted. Echocardiogram showed moderate global pericardial effus ion with no evidence of tamponade. Cardiology recommending a repeat echocardiogram tomorrow. Pulmonology also following. ID also following. Currently on IV Unasyn. Patient went into atrial fibrillation with RVR, he was subsequently transferred to [facility], but no beds available, went to medical ICU. Subjective: Patient seen and examined at bedside. He was in A. fib with RVR, was feeling clammy and diaphoretic, palpitations, ended up going to medical ICU. Now asymptomatic. Pertinent positives and negatives as discussed above, a complete review of systems was performed and all other systems are negative. Vitals Signs Reviewed. General: nontoxic, no distress, appears at stated age, thin appearing Derm: warm, dry Head: atraumatic, normocephalic, symmetric Eyes: EOMI, no lid lag, anicteric sclera Mouth: no lip lesion, mucus membranes moist, trach in place Cardiovascular: S1S2 reg, no murmur Lungs: CTA bilateral, no rhonchi, no rales , no accessory muscle use Abdominal: soft, nontender to palpation, no guarding, no appreciable organomegaly Ext: no gross muscle atrophy, no edema, no contractures Neuro: CN II-XI grossly intact, no focal neuro deficits Psych: Alert, oriented, appropriate affect Data Reviewed Today: Pertinent Labs: Hemoglobin 6.9, platelets 641, potassium 4.3, creatinine 1 Imaging: EKG independently interpreted from this morning, shows atrial fibrillation with RVR Echocardiogram report reviewed, continues to show moderate pericardial effusion Assessment and Plan: Dyspnea Moderately large pericardial effusion Recent hospitalization for empyema -Cardiology following, repeat echocardiogram continues to show moderate pericardial effusion -Pulmonology note reviewed, continue supportive care -ID following -Vancomycin discontinued, continued on IV Unasyn 3 g every 6 hours -For pain, restarted on home norco 10 every 4 hours as needed, IV Dilaudid decr eased to 1 mg every 6 hours as needed Atrial fibrillation with RVR, now converted -On metoprolol 12.5 mg twice a day -Consider anticoagulation -Cardiology following h/o throat cancer s/p tach collar Cavitary lung lesion concerning for pulmonary metastases versus new primary -Patient was supposed to see his oncologist outpatient Acute on chronic Chronic normocytic anemia Thrombocytosis -denies any bleeding -1 of PRBCs ordered -Anemia workup ordered -Continue to monitor CBC Chronic: COPD Systolic CHF Hypertension Dyslipidemia CAD status post stent DVT ppx: lovenox Code status: Full code Anticipated discharge place: Pending clinical course Anticipated discharge time: Pending clinical course Objective - Vital Signs Vital signs: Vital Signs Temp 97.6 F 08/03/23 12:00 Pulse 95 08/03/23 12:00 Resp 18 08/03/23 12:00 BP 97/68 08/03/23 12:00 Pulse Ox 96 08/03/23 12:00 FiO2 Intake & Output 08/02/23 08/03/23 08/03/23 18:59 06:59 18:59 Output Total 1000 Balance -1000 Output: Urine 1000 Other: Voiding Method Urinal # Voids 4 0 - Labs CBC & Chem 7: 08/03/23 04:42 08/03/23 04:42 Labs: Abnormal Lab Results - Last 24 Hours (Table) 08/03/23 08/03/23 Range/Units 04:42 04:42 RBC 2.68 L (4.40-5.60) X 10*6/uL Hgb 6.9 H* (13.0-17.0) d/dL Hct 22.9 L (39.6-50.0) % MCH 25.7 L (27.0-32.0) pg MCHC 30.1 L (32.0-37.0) d/dL RDW 18.8 H (11.5-14.5) % Plt Count 641 H (140-440) X 10*3/uL MPV 8.0 L (9.5-12.2) FL Lymphocytes # 0.87 L (0.90-5.00) X 10*3/uL Eosinophils # 0.36 H (0.04-0.35) X 10*3/uL BUN/Creatinine Ratio 20.50 H (12.00-20.00) Ratio Microbiology - Last 24 Hours (Table) 07/31/23 19:35 Blood Culture Gram Stain - Preliminary Blood Blood Culture - Preliminary 07/31/23 19:50 Blood Culture - Preliminary Blood
--- NOTE | 2023-08-03 12:59 | P.PN ---
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 Patient has history of laryngeal cancer status post chemotherapy, tracheostomy, PEG tube reversal, hypertension, hyperlipidemia, history of CVA at age 50 with minimal left-sided residual weakness remote history of tobacco use quit 2 years ago. Patient follows with Celestino beard and Dr. Stephens locally. We have been asked to evaluate the patient for pericardial effusion. Patient had a recent hospitalization this month for left lung empyema status post pigtail catheter insertion for drainage, pneumonia, acute kidney injury. Patient states he came in the hospital due to chest pain and low back pain. Chest pain is worse when he takes a breath. He thought it was his pneumonia coming back and he wanted to come in and have it checked. He states he is a little short of breath is baseline. He does have occasional cough but not very much. Wheezing comes and goes. He denies any lower extremity edema at this time. No dizziness or lightheadedness. No palpitations. No syncopal episodes. He denies having any abdominal pain, no nausea or vomiting no blood in the stools. He did have a weight loss of 45 pounds when treated for cancer over the past 2 years but now weight is stable. EKG sinus rhythm at 103 bpm, no acute ST changes Chest x-ray: Interval decrease in size of loculated left lung base collection. CTA of the chest revealed persistent loculated air-fluid level left lateral lung base at patient's previous empyema. This is smaller than comparison studies. Cavitary lesions remain present anterior lateral left lung and right upper lobe similar to comparison. Developing moderately large pericardial effusion WBC 12.1, hemoglobin 9.2, platelet count 931. Electrolytes normal. BUN 25 creatinine 1.01. Blood sugar 120. Lactic acid 1.8. Liver function tests are normal. Pro-calcitonin 0.17. Albumin 3.8. Home cardiac medications: Aspirin 81 mg daily, atorvastatin 40 mg daily, Lasix 40 mg daily, Lopressor 12.5 mg twice daily 08/02 Patient is seen today in follow-up on the [facility] floor. Echocardiogram revealed normal left ventricular size and systolic function. Mild to moderate aortic regurgitation, moderate global pericardial effusion with no tamponade. Patient feels his breathing is about the same as yesterday. He is currently on IV antibiotics per Dr. Wilkerson. Heart rate is running in the 90s, blood pressure 108/74, pulse ox 96% on room air, afebrile. Repeat blood work reveals potassium 4.6, BUN 23 creatinine 0.98. C-reactive protein 13.3. 08/03/2023 Patient went into A. fib with RVR today. He was given an additional dose of 25 mg of metoprolol and transferred to the intensive care unit. At the time of examination, the patient is maintaining sinus mechanism with a heart rate in the 70s. Patient denies a history of atrial fibrillation. He currently denies any chest pain or pressure. He denies shortness of breath. Repeat echocardiogram performed ejection fraction 55-60% and moderate pericardial effusion with no evidence of tamponade. Hemoglobin today 6.9. He is to receive 1 unit of packed RBCs. PHYSICAL EXAM: VITAL SIGNS: Reviewed. GENERAL: Well-developed in no acute distress. Thin. NECK: Supple. No JVD or thyromegaly LUNGS: Trach noted. Respirations even and unlabored. Lungs essentially clear to auscultation bilaterally. HEART: Regular rate and rhythm. S1 and S2 heard. Systolic murmur noted. EXTREMITIES: Normal range of motion. No clubbing or cyanosis. Peripheral puls es intact. No lower extremity edema ASSESSMENT: Moderate pericardial effusion New-onset paroxysmal atrial fibrillation with RVR, currently maintaining sinus mechanism Chest pain with deep breathing, musculoskeletal in nature Laryngeal cancer with tracheostomy Recent hospitalization for empyema Acute on chronic anemia Thrombocytosis Hypertension Hyperlipidemia History of CVA Remote history of tobacco use PLAN: Continue current dose of metoprolol tartrate 12.5 mg twice a day No anticoagulation secondary to acute anemia requiring RBC transfusion Continue telemetry monitoring Check TSH Patient is currently stable from a cardiac perspective Further recommendations pending patient's course Nurse practitioner note has been reviewed by physician. Signing provider agrees with the documented findings, assessment, and plan of care. Objective - Vital Signs Vital signs: Vital Signs Temp 97.6 F 08/03/23 12:00 Pulse 95 08/03/23 12:00 Resp 18 08/03/23 12:00 BP 97/68 08/03/23 12:00 Pulse Ox 96 08/03/23 12:00 FiO2 Intake & Output 08/02/23 08/03/23 08/03/23 18:59 06:59 18:59 Output Total 1000 Balance -1000 Output: Urine 1000 Other: Voiding Method Urinal # Voids 4 0 - Labs CBC & Chem 7: 08/03/23 04:42 08/03/23 04:42 Labs: Abnormal Lab Results - Last 24 Hours (Table) 08/03/23 08/03/23 Range/Units 04:42 04:42 RBC 2.68 L (4.40-5.60) X 10*6/uL Hgb 6.9 H* (13.0-17.0) d/dL Hct 22.9 L (39.6-50.0) % MCH 25.7 L (27.0-32.0) pg MCHC 30.1 L (32.0-37.0) d/dL RDW 18.8 H (11.5-14.5) % Plt Count 641 H (140-440) X 10*3/uL MPV 8.0 L (9.5-12.2) FL Lymphocytes # 0.87 L (0.90-5.00) X 10*3/uL Eosinophils # 0.36 H (0.04-0.35) X 10*3/uL BUN/Creatinine Ratio 20.50 H (12.00-20.00) Ratio Microbiology - Last 24 Hours (Table) 07/31/23 19:35 Blood Culture Gram Stain - Preliminary Blood Blood Culture - Preliminary 07/31/23 19:50 Blood Culture - Preliminary Blood
[2023-08-03 13:09] LABS: Reticulocyte % 3.8 % (0.5-2.0)
[2023-08-03 13:20] LABS: C Reactive Protein 7.7 mg/dL (<1.0)
[2023-08-03 14:55] VITALS: BMI 18.6
[2023-08-03 16:40] LABS: % Iron Saturation 7.72 (15.00-50.00)
[2023-08-03 17:33] LABS: Anisocytosis Slight; Basophils % (A) 0 %; Eosinophils # (A) 0.3 k/uL (0-0.7); Eosinophils % (A) 4 %; HCT 28.8 % (39.0-53.0); HGB 9.2 gm/dL (13.0-17.5); Hypochromasia Marked; Lymphocytes # (A) 0.6 k/uL (1.0-4.8); Lymphocytes % (A) 7 %; MCH 27.9 pg (25.0-35.0); MCHC 31.9 g/dL (31.0-37.0); MCV 87.5 fL (80.0-100.0); Mean Platelet Volume 6.6; Monocytes # (A) 0.6 k/uL (0-1.0); Monocytes % (A) 7 %; Neutrophils # (A) 6.7 k/uL (1.3-7.7); Neutrophils % (A) 81 %; Platelet Count 750 k/uL (150-450); RDW 17.3 % (11.5-15.5); WBC 8.3 k/uL (3.8-10.6)
[2023-08-03] MEDS: ATORVASTATIN 40 MG TAB PO SCH (19:54)
[2023-08-04] MEDS: HYDROcodone/APAP 10-325MG 1 EACH TAB PO PRN ×5 (02:04→21:25)
[2023-08-04] MEDS: AMPICILLIN-SULBACTAM 3 GM in SODIUM CHLORIDE 0.9% 100 ML IVPB SCH ×4 (02:38→21:26)
[2023-08-04] MEDS: HYDROmorphone 1 MG/ML 1 ML SYRINGE IVP PRN ×6 (03:50→23:43)
[2023-08-04 05:38] LABS: Anisocytosis Slight; Basophils % (A) 1 %; Eosinophils # (A) 0.4 k/uL (0-0.7); Eosinophils % (A) 6 %; HCT 27.5 % (39.0-53.0); HGB 8.5 gm/dL (13.0-17.5); Hypochromasia Moderate; Lymphocytes # (A) 0.7 k/uL (1.0-4.8); Lymphocytes % (A) 10 %; MCH 26.7 pg (25.0-35.0); MCV 85.9 fL (80.0-100.0); Mean Platelet Volume 6.5; Monocytes # (A) 0.6 k/uL (0-1.0); Monocytes % (A) 9 %; Neutrophils # (A) 4.8 k/uL (1.3-7.7); Neutrophils % (A) 72 %; Platelet Count 706 k/uL (150-450); RDW 17.4 % (11.5-15.5); WBC 6.7 k/uL (3.8-10.6)
[2023-08-04] MEDS: PANTOPRAZOLE 40 MG TABLET PO SCH (06:14)
[2023-08-04] MEDS: METOPROLOL TARTRATE 12.5 MG TAB PO SCH ×2 (08:48→20:03)
[2023-08-04] MEDS: FUROSEMIDE 40 MG TAB PO SCH (08:48)
[2023-08-04] MEDS: ASPIRIN 81 MG PO SCH (08:48)
[2023-08-04] MEDS: ENOXAPARIN 40 MG/0.4 ML SYRINGE SQ SCH (08:48)
--- NOTE | 2023-08-04 09:34 | XR ---
EXAMINATION TYPE: XR chest 1V portable DATE OF EXAM: 08/04/2023 9:02 AM CLINICAL INDICATION:Male, 62 years old with history of pleural effusion; [facility] COMPARISON: Chest radiographs from 07/31/2023 TECHNIQUE: XR chest 1V portable Frontal view of the chest. FINDINGS: Lungs/Pleura: Loculated left pleural effusion with pneumothorax present. There is no evidence of righ t pleural effusion, focal consolidation, or pneumothorax. Pulmonary vascularity: Unremarkable. Heart/mediastinum: Cardiomediastinal silhouette is unremarkable. Musculoskeletal: No acute osseous pathology. Other findings: None Lines/Tubes: Tracheostomy cannula tip projecting over the trachea. IMPRESSION: Stable appearing left pleural space with suspected loculated fluid and pneumothorax.
--- NOTE | 2023-08-04 11:28 | P.GSCN ---
History of Present Illness Consult date: 08/04/23 Reason for Consult: Pericardial effusion Requesting physician: Meron Mane History of present illness: This is a 62-year-old gentleman who follows him in outpatient basis with Dr. Ye Mane for his primary care. 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 The patient presented to the emergency department here at [facility] on 07/31/2023 with complaints of chest pain and shortness of breath. He denies any fever, chills, nausea, vomiting, hemoptysis, hematemesis, diaphoretic, constipation, diarrhea, headache, presyncope or syncope. The patient was recently admitted to the hospital with a loculated left pleural effusion/empyema which was treated with alteplase/dornase pleural i nstillation. He was subsequently discharged home on oral antibiotic therapy. Due to the patient's presenting symptoms with shortness of breath and chest pain a chest x-ray was completed which demonstrated an interval decrease in size of the loculated left lung base collection. For further evaluation a CT Angio chest was completed which demonstrated a persistent loculated air-fluid level left lateral lung base at the patient's previous empyema, smaller than his previous study, cavitary lesions remain present anterior lateral left lung and right upper lobe similar to comparison and a developing moderately large pericardial effusion. Due to the findings of a moderate pericardial effusion on the computed tomography scan, on 08/01/2023 a transthoracic 2-D echocardiogram was completed which demonstrated a normal left ventricular size and wall thickness, and estimated ejection fraction of 55-60%, mild to moderate aortic regurgitation, and a moderate global pericardial effusion with no evidence of tamponade. A repeat limited transthoracic 2-D echocardiogram was completed today 08/03/2023 which demonstrated a normal left ventricular size and systolic function with an ejection fraction of 55-60%, and a moderate pericardial effusion with no clear evidence of tamponade. Laboratory results today show a WBC count is 6.7, hemoglobin 8.5, hematocrit 27.5, and platelets 706. The patient has been afebrile since admission with a T-max temperature of 99.4F. The patient is currently hemodynamically stable, and is on no inotropic or pressor support. Oxygen saturations are 95% on room air and he denies any complaints of shortness of breath at this time. The patient does continue to c omplain of some left-sided aching chest pain where his previous pigtail catheter was placed. Subsequently, due to the findings of a pericardial effusion on the computed tomography scan and the transthoracic 2-D echocardiogram a consult was placed to Dr. Jose Dominique from cardiothoracic surgery for further evaluation and treatment recommendations. Review of Systems 14 point review of systems was completed and was negative except as mentioned in the HPI. Past Medical History Past Medical History: Cancer, CVA/TIA, Hyperlipidemia, Hypertension Additional Past Medical History / Comment(s): Throat CA, status post chemotherapy, radiation, tracheostomy tube placement, feeding tube with subsequent removal History of Any Multi-Drug Resistant Organisms: None Reported Past Surgical History: Orthopedic Surgery Additional Past Surgical History / Comment(s): History of left carotid endarterectomy, status post tracheostomy placement Past Anesthesia/Blood Transfusion Reactions: No Reported Reaction Past Psychological History: No Psychological Hx Reported Smoking Status: Former smoker Past Alcohol Use History: None Reported Past Drug Use History: Marijuana - Past Family History Mother Family Medical History: Dementia Father Family Medical History: Cancer (Lung cancer) Medications and Allergies Home Medications Medication Instructions Recorded Confirmed Type Atorvastatin Calcium [Lipitor] 40 mg PO HS 02/07/22 07/31/23 History HYDROcodone/APAP 10-325MG [[place] 1 tab PO Q4HR PRN 02/07/22 07/31/23 History 10-325] Omeprazole [PriLOSEC] 20 mg PO DAILY 07/04/23 07/31/23 History Aspirin 81 mg PO DAILY #30 tab 07/15/23 07/31/23 Rx Ipratropium-Albuterol Nebulize 3 ml INHALATION RT-Q4H PRN #100 07/15/23 07/31/23 Rx [Duoneb 0.5 mg-3 mg/3 ml Soln] each Amoxic-Pot Clav 875-125Mg 1 tab PO Q12HR 14 Days #28 tab 07/16/23 07/31/23 Rx [Augmentin 875-125] Furosemide [Lasix] 40 mg PO DAILY #30 tablet 07/16/23 07/31/23 Rx Metoprolol Tartrate [Lopressor] 12.5 mg PO BID 07/31/23 07/31/23 History Allergies Allergy/AdvReac Type Severity Reaction Status Date / Time No Known Allergies Allergy Verified 07/31/23 16:48 Surgical - Exam Vital Signs Temp Pulse Resp BP Pulse Ox 98 F 109 H 22 120/67 98 07/31/23 15:36 07/31/23 15:36 07/31/23 15:36 07/31/23 15:36 07/31/23 15:36 - General no distress, cachectic, chronically ill - Eyes PERRL, normal ocular movement, no pale, no icteric - ENT normal nares, normal mucosa, no hearing loss, no congestion, poor prison - Neck Tracheostomy tube midline and intact with speaking valve in place no masses, no bruits, trachea midline, no venous distension - Respiratory Lungs sounds essentially clear throughout, diminished to his bilateral bases left greater than right. No wheezes, rhonchi or crackles. Respirations are symmetrical and nonlabored. Oxygen saturation are 95% on room air. - Cardiovascular Regular rhythm and rate. S1 and S2 present, negative for S3, gallop or murmur. No edema present. - Abdomen Abdomen is soft, nontender and nondistended. Active bowel sounds present in all 4 abdominal quadrants. No guarding or rigidity. No organomegaly appreciated. - Genitourinary Deferred - Rectum Deferred - Integumentary Skin is warm and dry. No clubbing or cyanosis is present. no rash, no growths, no abnormal pigmentation - Neurologic No focal deficits. normal coordination, normal sensation - Musculoskeletal normal gait, normal posture - Psychiatric oriented to time, oriented to person, oriented to place, speech is normal, memory intact Results - Labs 08/04/23 05:10 08/03/23 04:42 Abnormal Lab Results - Last 24 Hours (Table) 08/03/23 08/03/23 08/03/23 Range/Units 10:58 10:58 10:58 RBC (4.30-5.90) m/uL Hgb (13.0-17.5) gm/dL Hct (39.0-53.0) % RDW (11.5-15.5) % Plt Count (150-450) k/uL Lymphocytes # (1.0-4.8) k/uL Retic Count 3.8 H (0.5-2.0) % Haptoglobin 609.0 H (31.2-198.0) mg/dL Iron 20 L (65-175) UG/DL % Saturation 7.72 L (15.00-50.00) Transferrin 185.0 L 193.0 L (204.0-354.0) mg/dL Ferritin 1981.0 H (22.0-322.0) ng/mL C-Reactive Protein (<1.0) mg/dL Procalcitonin (0.02-0.09) ng/mL Crossmatch 08/03/23 08/03/23 08/03/23 Range/Units 10:58 12:49 12:49 RBC (4.30-5.90) m/uL Hgb (13.0-17.5) gm/dL Hct (39.0-53.0) % RDW (11.5-15.5) % Plt Count (150-450) k/uL Lymphocytes # (1.0-4.8) k/uL Retic Count (0.5-2.0) % Haptoglobin (31.2-198.0) mg/dL Iron (65-175) UG/DL % Saturation (15.00-50.00) Transferrin (204.0-354.0) mg/dL Ferritin (22.0-322.0) ng/mL C-Reactive Protein 7.7 H (<1.0) mg/dL Procalcitonin 0.10 H (0.02-0.09) ng/mL Crossmatch See Detail 08/03/23 08/04/23 Range/Units 17:25 05:10 RBC 3.30 L 3.20 L (4.30-5.90) m/uL Hgb 9.2 L 8.5 L (13.0-17.5) gm/dL Hct 28.8 L 27.5 L (39.0-53.0) % RDW 17.3 H 17.4 H (11.5-15.5) % Plt Count 750 H 706 H (150-450) k/uL Lymphocytes # 0.6 L 0.7 L (1.0-4.8) k/uL Retic Count (0.5-2.0) % Haptoglobin (31.2-198.0) mg/dL Iron (65-175) UG/DL % Saturation (15.00-50.00) Transferrin (204.0-354.0) mg/dL Ferritin (22.0-322.0) ng/mL C-Reactive Protein (<1.0) mg/dL Procalcitonin (0.02-0.09) ng/mL Crossmatch Microbiology - Last 24 Hours (Table) 07/31/23 19:50 Blood Culture - Preliminary Blood 07/31/23 19:35 Blood Culture Gram Stain - Final Blood Blood Culture - Final Coagulase Negative Staph Thyroid panel 08/03/23 Range/Units 12:49 TSH 2.980 (0.465-4.680) mIU/L Pituitary panel 08/03/23 Range/Units 12:49 TSH 2.980 (0.465-4.680) mIU/L - Imaging Chest x-ray: report reviewed, image reviewed CT scan - chest: report reviewed, image reviewed Additional studies: Transthoracic 2-D echocardiogram films reviewed by Dr. Jose Dominique. Assessment and Plan Assessment: Moderate pericardial effusion without tamponade per transthoracic 2-D echo cardiogram New-onset paroxysmal atrial fibrillation with RVR, currently in normal sinus rhythm History of Left lung loculated pleural effusion, empyema status post left chest pigtail catheter placement by interventional radiology, and lytic treatment Dyspnea, and atypical chest pain likely secondary to above History of laryngeal cancer, status post chemotherapy and radiation treatments, status post tracheostomy placement. PET scan available from 05/13/2023 showed areas surrounding abnormal vocal cord smaller more discrete but have increased SUV values, new areas of abnormal uptake within the lateral right apex and lingula suspicious for metastasis, new areas of increased uptake within inte rcostal space between the first and second ribs, and possible physiological uptake within the cecum and ascending colon. History of hypertension History of hyperlipidemia History of CVA at age 50 Remote history of nicotine dependence, quit smoking 2 years ago Plan: The patient was seen and examined at his bedside in the intensive care unit. Discharge diagnostics were reviewed. Dr. Dominique reviewed his transthoracic 2-D echocardiogram films and CT angio chest films. Dr. Dominique discussed the findings of moderate pericardial effusion with Dr. Cummings from pulmonary/cr itical care medicine. At this time no surgical intervention is recommended as the patient is hemodynamically stable and the transthoracic 2-D echocardiogram shows no evidence of tamponade. There is no evidence of pyocardium, the patient is afebrile, and has a normal WBC count. Due to the patient's stage IV laryngeal cancer recommend palliative measures. This was discussed with the patient and the patient reports that he feels much improved from admission. Medical management and other comorbidities per primary care service and other consultants. We will continue to follow the patient on an as-needed basis, please feel free to reconsult for any further concerns regarding the pericardial effusion. Thank you Dr. Mane for this consult. I have personally seen and examined the patient, performed the documentation and the assessment and plan as written. 30 minutes spent on the visit . Arnold FINNEY
--- NOTE | 2023-08-04 11:38 | PN ---
PROGRESS NOTE SUBJECTIVE: This gentleman is currently in sinus rhythm, yesterday in atrial fib, rapid rate, transferred from medical floor. He also has had history of empyema with a pigtail catheter and drainage in the past. He now has moderate-sized pericardial effusion. I am recommending evaluation by cardiac surgery for possible pericardial window. There is a question of infection as well, probably loculated. We will also do chest x-ray. He has history of a functioning tracheotomy, which has been placed because of history of malignancy probably of the larynx, details are unclear. OBJECTIVE: VITAL SIGNS: Blood pressure is 114/70, pulse rate is about 70, sinus. NECK: JVD is not evident. HEART: S1 and S2 heard normally with a short systolic murmur. Regular rhythm. LUNGS: Bilateral diminished air entry. IMPRESSION: 1. Paroxysmal atrial fibrillation, now in sinus rhythm. 2. History of laryngeal cancer, status post chemotherapy, tracheostomy. 3. Hypertension. 4. Hyperlipidemia. 5. History of pneumonia with empyema in the past. Details unavailable. 6. Moderate-sized pericardial effusion. RECOMMENDATIONS: Advised to have cardiac surgery evaluation and chest x-ray. Discussed my thoughts in detail with the patient. Thank you very much for the consult. MMODL / IJN: [id number] /
--- NOTE | 2023-08-04 11:40 | P.PN ---
Subjective Progress Note Date: 08/04/23 Principal diagnosis: Atypical chest pain, chronic empyema with a loculated air fluid level left lung base. This is a pleasant 62-year-old male with past medical history significant for laryngeal cancer status post chemoradiation and tracheostomy, PEG tube reversal, hyperlipidemia, hypertension, and ex-tobacco smoker. Patient follows with Celestino Kulkarni and Dr. Stephens for radiation. PET scan from 05/13/2023 which showed areas surrounding abnormal vocal cord smaller more discrete but have increased SUV values, new areas of abnormal uptake within the lateral right apex and lingula suspicious for metastasis, new areas of increased uptake within intercostal space between the first and second ribs, and possible physiological uptake within the cecum and ascending colon. He was just discharged from here on 07/16/2023 after being found to have a left lung empyema requiring pigtail catheter insertion and 5 doses of ultimately/dornase infusions with subsequent improvement. Culture was positive for alpha hemolytic streptococcus. He was discharged home on Augmentin for 2 weeks. He presented back to the emergency room yesterday with complaints of chest pain and shortness of breath. Chest x- ray showed interval decrease in the size of a loculated left lung fluid co llection. White count 12.1. Hemoglobin 9.2. Platelets 931. Sodium 139. Potassium 4.6. Bicarb 26. BUN 25. Creatinine 1.01. Pro-calcitonin 0.15. CT angiogram of the chest ruled out pulmonary embolism. There is persistent loculated air-fluid level left lateral lung base. Smaller compared to prior studies. Cavitary lesions remain present anterior lateral left lung and right upper lobe similar to previous. Developing moderately large pericardial effusion. He is seen today in the emergency department. He is currently sitting up on the stretcher. Awake and alert in no acute distress. He has a loose nonproductive cough. No fever or chills. Maintaining good O2 saturations in the mid 90s on room air. Afebrile. Hemodynamically stable. Echocardiogram pending. The patient is seen today 08/02/2023 in follow-up on the regular medical floor. He is currently resting comfortably in bed. Awake and alert in no acute distress. He is maintaining good O2 saturations in the 90s on room air. Pro- calcitonin, 0.15. He is currently on Unasyn. He has normal saline at 75 ML's per hour. He is having less left-sided chest discomfort. Echocardiogram revealed normal left ventricular size and systolic function with mild to moderate aortic regurgitation. There is noted moderate global pericardial effusion with no evidence of tamponade. Blood cultures revealed no growth. White count 8.9. Hemoglobin 7.6. Platelets 723. Sodium 137. Potassium 4.6. Bicarb 27. BUN 23. Creatinine 0.98. Glucose 103. He is on oral diuretics. Lovenox for DVT prophylaxis. Bronchodilators as needed. Patient was reevaluated today on 08/03/2023, apparently the patient was transferred to ICU as an overflow from 3 S., patient developed an episode of atrial fibrillation with RVR, and he was given Lopressor, but at time I saw the patient he was in sinus rhythm. Patient is hemodynamically stable, does not seem to be any distress, cardiology is addressing his cardiac arrhythmia episode. Pulmonary-rodrigues the patient remains on Unasyn, his blood cultures are showing coagulase-negative staph, most likely contamination, nonetheless the patient is on Unasyn for his chronic pulmonary infection/empyema he had previous pigtail catheter placement, drainage, and did not require decortication. His WBC count today is 6.9 hemoglobin is 6.9 basic metabolic profile is normal. Pro-calcitonin level is 0.15. For his low blood count a unit of packed RBCs was ordered. It is yet to be transfused clinically the patient seems to be comfortable, not in distress, on room air with O2 saturations were 99%. Reevaluated today on 08/04/23, remains in the ICU, doing well, on room air, tracheostomy is intact, patient is relatively asymptomatic, his moderate pericardial effusion was evaluated by thoracic surgery and I fully agree that clinically this is not pyo pericardial effusion, does not need any intervention at this point. Although if the effusion gets any larger could be considered malignant pleural effusion and at that point may need diagnostic and therapeutic drainage for the time being I believe the patient should continue on antibiotics orally as per infectious disease and should be considered for discharge planning and follow-up on outpatient basis. Patient should also have follow-up regarding his laryngeal cancer with oncology and radiation oncology. WBC count today is 6.7 hemoglobin 8.5, haptoglobin done yesterday was elevated at 609 which may implicate poor prognostic picture in solid tumors Objective - Vital Signs Vital signs: Vital Signs Temp 98 F 08/04/23 08:00 Pulse 82 08/04/23 08:00 Resp 18 08/04/23 08:00 BP 103/57 08/04/23 08:00 Pulse Ox 95 08/04/23 04:00 FiO2 Intake & Output 08/03/23 08/04/23 08/04/23 18:59 06:59 18:59 Intake Total 910 200 Output Total 1000 600 Balance -90 -400 Weight 58.967 kg Intake: Intake, IV Titration 200 200 Amount Ampicillin-Sulbactam 3 gm 200 200 In Sodium Chloride 0.9% 100 ml @ 200 mls/hr IVPB Q6H [facility] Rx#:[id number] Oral 400 Blood Product 310 Rc As-1 Unit 310 [id number] Output: Urine 1000 600 Other: Voiding Method Urinal Urinal Urinal - Exam GENERAL EXAM: Alert, 62-year-old male, resting comfortably in bed, in no distress. On room air. PERRLA, EOMI, anicteric, moist mucous membranes. NECK: No masses, no JVD. Tracheostomy present CHEST: The patient has a subcutaneous emphysema over the chest and the back area LUNGS: Diminished left lateral lung sounds. Left chest pigtail catheter removed CVS: S1 and S2 normal with no audible murmur, regular rhythm. No extra heart sounds ABDOMEN: No hepatosplenomegaly, active bowel sounds, no guarding or rigidity. Postsurgical scarring SKIN: No rashes CENTRAL NERVOUS SYSTEM: No focal deficits, tone is normal in all 4 extremities. EXTREMITIES: There is no peripheral edema, clubbing, or cyanosis. Peripheral pulses are intact. - Labs CBC & Chem 7: 08/04/23 05:10 08/03/23 04:42 Labs: Abnormal Lab Results - Last 24 Hours (Table) 08/03/23 08/03/23 08/03/23 Range/Units 10:58 10:58 10:58 RBC (4.30-5.90) m/uL Hgb (13.0-17.5) gm/dL Hct (39.0-53.0) % RDW (11.5-15.5) % Plt Count (150-450) k/uL Lymphocytes # (1.0-4.8) k/uL Retic Count 3.8 H (0.5-2.0) % Haptoglobin 609.0 H (31.2-198.0) mg/dL Iron 20 L (65-175) UG/DL % Saturation 7.72 L (15.00-50.00) Transferrin 185.0 L 193.0 L (204.0-354.0) mg/dL Ferritin 1981.0 H (22.0-322.0) ng/mL C-Reactive Protein (<1.0) mg/dL Procalcitonin (0.02-0.09) ng/mL Crossmatch 08/03/23 08/03/23 08/03/23 Range/Units 10:58 12:49 12:49 RBC (4.30-5.90) m/uL Hgb (13.0-17.5) gm/dL Hct (39.0-53.0) % RDW (11.5-15.5) % Plt Count (150-450) k/uL Lymphocytes # (1.0-4.8) k/uL Retic Count (0.5-2.0) % Haptoglobin (31.2-198.0) mg/dL Iron (65-175) UG/DL % Saturation (15.00-50.00) Transferrin (204.0-354.0) mg/dL Ferritin (22.0-322.0) ng/mL C-Reactive Protein 7.7 H (<1.0) mg/dL Procalcitonin 0.10 H (0.02-0.09) ng/mL Crossmatch See Detail 08/03/23 08/04/23 Range/Units 17:25 05:10 RBC 3.30 L 3.20 L (4.30-5.90) m/uL Hgb 9.2 L 8.5 L (13.0-17.5) gm/dL Hct 28.8 L 27.5 L (39.0-53.0) % RDW 17.3 H 17.4 H (11.5-15.5) % Plt Count 750 H 706 H (150-450) k/uL Lymphocytes # 0.6 L 0.7 L (1.0-4.8) k/uL Retic Count (0.5-2.0) % Haptoglobin (31.2-198.0) mg/dL Iron (65-175) UG/DL % Saturation (15.00-50.00) Transferrin (204.0-354.0) mg/dL Ferritin (22.0-322.0) ng/mL C-Reactive Protein (<1.0) mg/dL Procalcitonin (0.02-0.09) ng/mL Crossmatch Microbiology - Last 24 Hours (Table) 07/31/23 19:50 Blood Culture - Preliminary Blood 07/31/23 19:35 Blood Culture Gram Stain - Final Blood Blood Culture - Final Coagulase Negative Staph Assessment and Plan Assessment: Impression: Atypical chest pain, recent history of empyema requiring pigtail catheter placement and drainage as well as IV antibiotics, discharged home but then readmitted with chest pain, presently on antibiotics./Unasyn New-onset atrial fibrillation, being addressed by cardiology patient is now in sinus rhythm History of laryngeal cancer, status post chemoradiation and tracheostomy. PET scan available from 05/13/2023 showed areas surrounding abnormal vocal cord smaller more discrete but have increased SUV values, new areas of abnormal uptake within the lateral right apex and lingula suspicious for metastasis, new areas of increased uptake within intercostal space between the first and second ribs, and possible physiological uptake within the cecum and ascending colon. Acute kidney injury, and the creatinine is stable for now Normocytic normochromic anemia, patient has low hemoglobin today below 7 hence we'll transfuse 1 unit of packed RBC Polycythemia History of hypertension History of hyperlipidemia Ex-tobacco smoker Moderate pericardial effusion, without tamponade, could be malignant, but clinically very unlikely to be pyo pericardial effusion, recommend continue to observe and if it does get any larger drainage will be diagnostic and therap eutic Recommendation: Transfer patient out of the ICU to a cardiac floor and even consider discharge planning Continue present supportive care measures Continue antibiotics as recommended by infectious disease on the case. Consider transitioning to oral antibiotics, however that decision will be left to infectious disease Continue cardiac meds and cardiology is addressing that paroxysmal atrial fibrillation with RVR Discussed this patient's condition and pericardium/effusion issue with thoracic surgery on the case. We will continue to follow. Time with Patient: Less than 30
[2023-08-04] MEDS: SODIUM CHLORIDE 0.9% 1,000 ML IV SCH (12:51)
--- NOTE | 2023-08-04 13:05 | P.PN ---
Subjective Progress Note Date: 08/03/23 Principal diagnosis: Empyema Patient is a 62-year-old male with a past medical history sniffing and for laryngeal cancer in this patient who is status post tracheostomy c hemoradiation PEG tube hyperlipidemia hypertension patient was recently admitted at this facility and the patient was diagnosed with a left lung empyema requiring a pig tail catheter placement patient culture positive for alpha hemolytic Streptococcus patient was discharged home on 2-week course of oral Augmentin, patient presented to hospital with worsening shortness of breath and cough. Patient got transferred to the ICU because of A. fib On today's evaluation that is 08/03/2023, the patient continues to be afebrile , the patient is breathing comfortably on room air and denies any shortness of breath, the patient denies any worsening left-sided chest pain and denies significant cough or sputum production, patient denies abdominal pain and no nausea/vomiting or diarrhea , Patient white count normalized to 8.3, creatinine is 1.0, CRP is 13.3, blood cultures with staph epi Objective - Vital Signs Vital signs: Vital Signs Temp 98 F 08/03/23 09:19 Pulse 97 08/03/23 09:19 Resp 18 08/03/23 09:19 BP 95/52 08/03/23 09:19 Pulse Ox 99 08/03/23 09:19 FiO2 Intake & Output 08/02/23 08/03/23 08/03/23 18:59 06:59 18:59 Output Total 1000 Balance -1000 Output: Urine 1000 Other: Voiding Method Urinal # Voids 4 0 - Exam GENERAL DESCRIPTION: Middle-age male lying in bed in no distress RESPIRATORY SYSTEM: Unlabored breathing , clear to auscultation anteriorly HEART: S1 S2 regular rate and rhythm , ABDOMEN: Soft , no tenderness EXTREMITIES: No edema feet - Labs CBC & Chem 7: 08/04/23 05:10 08/03/23 04:42 Labs: Abnormal Lab Results - Last 24 Hours (Table) 08/03/23 08/03/23 Range/Units 04:42 04:42 RBC 2.68 L (4.40-5.60) X 10*6/uL Hgb 6.9 H* (13.0-17.0) d/dL Hct 22.9 L (39.6-50.0) % MCH 25.7 L (27.0-32.0) pg MCHC 30.1 L (32.0-37.0) d/dL RDW 18.8 H (11.5-14.5) % Plt Count 641 H (140-440) X 10*3/uL MPV 8.0 L (9.5-12.2) FL Lymphocytes # 0.87 L (0.90-5.00) X 10*3/uL Eosinophils # 0.36 H (0.04-0.35) X 10*3/uL BUN/Creatinine Ratio 20.50 H (12.00-20.00) Ratio Microbiology - Last 24 Hours (Table) 07/31/23 19:35 Blood Culture Gram Stain - Preliminary Blood Blood Culture - Preliminary 07/31/23 19:50 Blood Culture - Preliminary Blood Assessment and Plan (1) Empyema Current Visit: Yes Status: Acute Code(s): J86.9 - PYOTHORAX WITHOUT FISTULA SNOMED Code(s): 575675478 (2) Pleural effusion Current Visit: No Status: Acute Priority: High Code(s): J90 - PLEURAL EFFUSION, NOT ELSEWHERE CLASSIFIED SNOMED Code(s): 20876070 Plan: 1patient with recent admission to the hospital and was diagnosed with a left- sided empyema requiring pigtail catheter placement culture positive for alphahemolytic Streptococcus and the patient was treated with oral Augmentin and presented to hospital with left-sided chest pain shortness of breath and a cough both the CT and the chest x-ray showing decrease in size of the left-sided pleural fluid however did shows moderate pericardial effusion questionably responsible for his present symptoms 2-positive blood culture was staph epi with a question of possible skin contamination. We will repeat a blood culture and hold on adding vancomycin at this point 3-patient has shown some clinical improvement and will continue patient on Unasyn 3 g every 6 hours and monitor clinical course closely Dictation was produced using [employer] dictation software. please excuse any grammatical, word or spelling errors. Time with Patient: Less than 30
--- NOTE | 2023-08-04 13:09 | P.PN ---
Subjective Progress Note Date: 08/04/23 Principal diagnosis: Empyema Patient is a 62-year-old male with a past medical history sniffing and for laryngeal cancer in this patient who is status post tracheostomy c hemoradiation PEG tube hyperlipidemia hypertension patient was recently admitted at this facility and the patient was diagnosed with a left lung empyema requiring a pig tail catheter placement patient culture positive for alpha hemolytic Streptococcus patient was discharged home on 2-week course of oral Augmentin, patient presented to hospital with worsening shortness of breath and cough. Patient got transferred to the ICU because of A. fib On today's evaluation that is 08/04/2023, the patient denies any fever or any chills , the patient is breathing comfortably on room air and no need for baker pplemental oxygen, the patient denies any chest pain or worsening or sputum production, patient denies abdominal pain and no nausea/vomiting or diarrhea , no new symptoms Patient white count is 6.7, creatinine is 1.0, CRP is 13.3, blood cultures with staph epi , repeat pending Objective - Vital Signs Vital signs: Vital Signs Temp 98.6 F 08/04/23 12:00 Pulse 84 08/04/23 12:00 Resp 18 08/04/23 12:00 BP 108/73 08/04/23 12:00 Pulse Ox 95 08/04/23 12:00 FiO2 Intake & Output 08/03/23 08/04/23 08/04/23 18:59 06:59 18:59 Intake Total 910 200 700 Output Total 0384 732 4107 Balance -90 -400 -400 Weight 58.967 kg Intake: Intake, IV Titration 200 200 100 Amount Ampicillin-Sulbactam 3 gm 200 200 100 In Sodium Chloride 0.9% 100 ml @ 200 mls/hr IVPB Q6H REPLACED BY [facility] Rx#:[id number] Oral 400 600 Blood Product 310 Rc As-1 Unit 310 [id number] Output: Urine 6772 602 7671 Other: Voiding Method Urinal Urinal Urinal - Exam GENERAL DESCRIPTION: Middle-age male lying in bed in no distress RESPIRATORY SYSTEM: Unlabored breathing , clear to auscultation anteriorly HEART: S1 S2 regular rate and rhythm , ABDOMEN: Soft , no tenderness EXTREMITIES: No edema feet - Labs CBC & Chem 7: 08/04/23 05:10 08/03/23 04:42 Labs: Abnormal Lab Results - Last 24 Hours (Table) 08/03/23 08/03/23 08/03/23 Range/Units 10:58 10:58 10:58 RBC (4.30-5.90) m/uL Hgb (13.0-17.5) gm/dL Hct (39.0-53.0) % RDW (11.5-15.5) % Plt Count (150-450) k/uL Lymphocytes # (1.0-4.8) k/uL Retic Count 3.8 H (0.5-2.0) % Haptoglobin 609.0 H (31.2-198.0) mg/dL Iron 20 L (65-175) UG/DL % Saturation 7.72 L (15.00-50.00) Transferrin 185.0 L 193.0 L (204.0-354.0) mg/dL Ferritin 1981.0 H (22.0-322.0) ng/mL C-Reactive Protein (<1.0) mg/dL Procalcitonin (0.02-0.09) ng/mL Crossmatch 08/03/23 08/03/23 08/03/23 Range/Units 10:58 12:49 12:49 RBC (4.30-5.90) m/uL Hgb (13.0-17.5) gm/dL Hct (39.0-53.0) % RDW (11.5-15.5) % Plt Count (150-450) k/uL Lymphocytes # (1.0-4.8) k/uL Retic Count (0.5-2.0) % Haptoglobin (31.2-198.0) mg/dL Iron (65-175) UG/DL % Saturation (15.00-50.00) Transferrin (204.0-354.0) mg/dL Ferritin (22.0-322.0) ng/mL C-Reactive Protein 7.7 H (<1.0) mg/dL Procalcitonin 0.10 H (0.02-0.09) ng/mL Crossmatch See Detail 08/03/23 08/04/23 Range/Units 17:25 05:10 RBC 3.30 L 3.20 L (4.30-5.90) m/uL Hgb 9.2 L 8.5 L (13.0-17.5) gm/dL Hct 28.8 L 27.5 L (39.0-53.0) % RDW 17.3 H 17.4 H (11.5-15.5) % Plt Count 750 H 706 H (150-450) k/uL Lymphocytes # 0.6 L 0.7 L (1.0-4.8) k/uL Retic Count (0.5-2.0) % Haptoglobin (31.2-198.0) mg/dL Iron (65-175) UG/DL % Saturation (15.00-50.00) Transferrin (204.0-354.0) mg/dL Ferritin (22.0-322.0) ng/mL C-Reactive Protein (<1.0) mg/dL Procalcitonin (0.02-0.09) ng/mL Crossmatch Microbiology - Last 24 Hours (Table) 07/31/23 19:50 Blood Culture - Preliminary Blood 07/31/23 19:35 Blood Culture Gram Stain - Final Blood Blood Culture - Final Coagulase Negative Staph Assessment and Plan (1) Empyema Current Visit: Yes Status: Acute Code(s): J86.9 - PYOTHORAX WITHOUT FISTULA SNOMED Code(s): 856093015 (2) Pleural effusion Current Visit: No Status: Acute Priority: High Code(s): J90 - PLEURAL EFFUSION, NOT ELSEWHERE CLASSIFIED SNOMED Code(s): 80129692 Plan: 1patient with recent admission to the hospital and was diagnosed with a left- sided empyema requiring pigtail catheter placement culture positive for alphahemolytic Streptococcus and the patient was treated with oral Augmentin and presented to hospital with left-sided chest pain shortness of breath and a cough both the CT and the chest x-ray showing decrease in size of the left-sided pleural fluid however did shows moderate pericardial effusion questionably responsible for his present symptoms 2-positive blood culture was staph epi likely skin contamination. Blood culture has been repeated 3-patient has shown some clinical improvement and will continue patient on Unasyn 3 g every 6 hours and monitor his clinical course closely Dictation was produced using [employer] dictation software. please excuse any grammatical, word or spelling errors. Time with Patient: Less than 30
--- NOTE | 2023-08-04 13:27 | P.PN ---
Subjective Progress Note Date: 08/04/23 Hospital Course: 62-year-old male with history of throat cancer status post trach, CAD status post stents, permanent pacemaker, aortic valve replacement, chronic systolic heart failure with EF 40-45%, hypertension, dyslipidemia, and COPD presented with shortness of breath and chest pressure. Vital signs have been within normal limits. WBC 12.1, hemoglobin 9.2 at baseline, platelet 931, creatinine 1.01, lactate 1.8, pro-calcitonin 0.15. CTA chest showed persistent loculated air-fluid level left lateral lung base consistent with prior empyema, cavitary lesion present in the anterior lateral left lung and right upper lobe, and well- being moderately large pericardial effusion. EKG showed sinus tachycardia. Cardiology consulted. Echocardiogram showed moderate global pericardial effusion with no evidence of tamponade. Repeat echocardiogram also shows similar effusion. Pulmonology also following. ID also following. Currently on IV Unasyn. Patient went into atrial fibrillation with RVR, he was subsequently transferred to 3 S, but no beds available, went to medical ICU. Currently stable. Cardiothoracic surgery was consulted. Not recommending any further interventions. Subjective: Patient seen and examined at bedside. No acute events overnight. Denies any s ignificant chest pain or shortness of breath. Pertinent positives and negatives as discussed above, a complete review of systems was performed and all other systems are negative. Vitals Signs Reviewed. General: nontoxic, no distress, appears at stated age, thin appearing Derm: warm, dry Head: atraumatic, normocephalic, symmetric Eyes: EOMI, no lid lag, anicteric sclera Mouth: no lip lesion, mucus membranes moist, trach in place Cardiovascular: S1S2 reg, no murmur Lungs: CTA bilateral, no rhonchi, no rales , no accessory muscle use Abdominal: soft, nontender to palpation, no guarding, no appreciable organomegaly Ext: no gross muscle atrophy, no edema, no contractures Neuro: CN II-XI grossly intact, no focal neuro deficits Psych: Alert, oriented, appropriate affect Data Reviewed Today: Pertinent Labs: Hemoglobin 8.5, platelet 706, iron 20, percent saturation 7.71, TIBC 259 Imaging: Chest x-ray independently interpreted, shows left pleural loculated effusion slightly worsening Assessment and Plan: Dyspnea Moderately large pericardial effusion Recent hospitalization for empyema -Cardiology note reviewed, no recommendations with regards to anticoagulation due to anemia, recommended cardiac surgery evaluation -Pulmonology note reviewed, continue supportive care, consider transitioning to oral antibiotics, transferred to the ICU -ID note reviewed, continue IV Unasyn 3 g every 6 hours -For pain, restarted on home norco 10 every 4 hours as needed, IV Dilaudid decreased to 1 mg every 6 hours as needed -Cardiac thoracic surgery note reviewed, not recommending any interventions with mom Atrial fibrillation with RVR, now converted to sinus -On metoprolol 12.5 mg twice a day -Cardiology following h/o throat cancer s/p tach collar Cavitary lung lesion concerning for pulmonary metastases versus new primary -Patient was supposed to see his oncologist outpatient Acute on chronic Chronic normocytic anemia status post 1 unit of PRBCs Iron deficiency anemia Thrombocytosis -Monitor CBC -GI consulted, patient claims that he had colonoscopies in the past and was found to have polyps Chronic: COPD Systolic CHF Hypertension Dyslipidemia CAD status post stent DVT ppx: lovenox Code status: Full code Anticipated discharge place: Pending clinical course Anticipated discharge time: Pending clinical course Objective - Vital Signs Vital signs: Vital Signs Temp 98.6 F 08/04/23 12:00 Pulse 84 08/04/23 12:00 Resp 18 08/04/23 12:00 BP 108/73 08/04/23 12:00 Pulse Ox 95 08/04/23 12:00 FiO2 Intake & Output 08/03/23 08/04/23 08/04/23 18:59 06:59 18:59 Intake Total 910 200 700 Output Total 0189 552 3087 Balance -90 -400 -400 Weight 58.967 kg Intake: Intake, IV Titration 200 200 100 Amount Ampicillin-Sulbactam 3 gm 200 200 100 In Sodium Chloride 0.9% 100 ml @ 200 mls/hr IVPB Q6H [facility] Rx#:[id number] Oral 400 600 Blood Product 310 Rc As-1 Unit 310 [id number] Output: Urine 7868 963 7912 Other: Voiding Method Urinal Urinal Urinal - Labs CBC & Chem 7: 08/04/23 05:10 08/03/23 04:42 Labs: Abnormal Lab Results - Last 24 Hours (Table) 08/03/23 08/03/23 08/03/23 Range/Units 10:58 10:58 10:58 RBC (4.30-5.90) m/uL Hgb (13.0-17.5) gm/dL Hct (39.0-53.0) % RDW (11.5-15.5) % Plt Count (150-450) k/uL Lymphocytes # (1.0-4.8) k/uL Haptoglobin 609.0 H (31.2-198.0) mg/dL Iron 20 L (65-175) UG/DL % Saturation 7.72 L (15.00-50.00) Transferrin 185.0 L 193.0 L (204.0-354.0) mg/dL Ferritin 1981.0 H (22.0-322.0) ng/mL Procalcitonin (0.02-0.09) ng/mL Crossmatch See Detail 08/03/23 08/03/23 08/04/23 Range/Units 12:49 17:25 05:10 RBC 3.30 L 3.20 L (4.30-5.90) m/uL Hgb 9.2 L 8.5 L (13.0-17.5) gm/dL Hct 28.8 L 27.5 L (39.0-53.0) % RDW 17.3 H 17.4 H (11.5-15.5) % Plt Count 750 H 706 H (150-450) k/uL Lymphocytes # 0.6 L 0.7 L (1.0-4.8) k/uL Haptoglobin (31.2-198.0) mg/dL Iron (65-175) UG/DL % Saturation (15.00-50.00) Transferrin (204.0-354.0) mg/dL Ferritin (22.0-322.0) ng/mL Procalcitonin 0.10 H (0.02-0.09) ng/mL Crossmatch Microbiology - Last 24 Hours (Table) 07/31/23 19:50 Blood Culture - Preliminary Blood 07/31/23 19:35 Blood Culture Gram Stain - Final Blood Blood Culture - Final Coagulase Negative Staph
[2023-08-04] MEDS: ATORVASTATIN 40 MG TAB PO SCH (20:03)
[2023-08-05] MEDS: HYDROcodone/APAP 10-325MG 1 EACH TAB PO PRN ×3 (01:59→12:15)
[2023-08-05] MEDS: AMPICILLIN-SULBACTAM 3 GM in SODIUM CHLORIDE 0.9% 100 ML IVPB SCH ×2 (02:50→08:32)
[2023-08-05] MEDS: HYDROmorphone 1 MG/ML 1 ML SYRINGE IVP PRN ×2 (03:43→10:05)
[2023-08-05] MEDS: PANTOPRAZOLE 40 MG TABLET PO SCH (06:07)
[2023-08-05 06:39] LABS: Anisocytosis Slight; Basophils % (A) 0 %; Eosinophils # (A) 0.5 k/uL (0-0.7); Eosinophils % (A) 7 %; HCT 30.8 % (39.0-53.0); HGB 9.2 gm/dL (13.0-17.5); Hypochromasia Marked; Lymphocytes # (A) 0.7 k/uL (1.0-4.8); Lymphocytes % (A) 9 %; MCH 26.2 pg (25.0-35.0); MCV 87.4 fL (80.0-100.0); Mean Platelet Volume 7.1; Monocytes # (A) 0.8 k/uL (0-1.0); Monocytes % (A) 10 %; Neutrophils # (A) 5.7 k/uL (1.3-7.7); Neutrophils % (A) 73 %; Platelet Count 727 k/uL (150-450); RBC 3.52 m/uL (4.30-5.90); RDW 17.1 % (11.5-15.5); WBC 7.9 k/uL (3.8-10.6)
--- NOTE | 2023-08-05 08:34 | P.CONS ---
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 The patient presented to the emergency department on 07/31/2023 with complaints of chest pain and shortness of breath. He was recently admitted to the hospital with a loculated left pleural effusion/empyema which was treated with alteplase/dornase pleural instillation. He was subsequently discharged home on oral antibiotic therapy. Due to the patient's presenting symptoms with shortness of breath and chest pain a chest x-ray was completed which demonstrated an interval decrease in size of the loculated left lung base collection. For further evaluation a CT Angio chest was completed which demonstrated a persistent loculated air-fluid level left lateral lung base at the patient's previous empyema, smaller than his previous study, cavitary l esions remain present anterior lateral left lung and right upper lobe similar to comparison and a developing moderately large pericardial effusion. Due to the findings of a moderate pericardial effusion on the computed tomography scan, on 08/01/2023 a transthoracic 2-D echocardiogram was completed which demonstrated a normal left ventricular size and wall thickness, and estimated ejection fraction of 55-60%, mild to moderate aortic regurgitation, and a moderate global pericardial effusion with no evidence of tamponade. A repeat limited transthoracic 2-D echocardiogram was completed today 08/03/2023 which demonstrated a normal left ventricular size and systolic function with an ejection fraction of 55-60%, and a moderate pericardial effusion with no clear evidence of tamponade. Patient was admitted to the ICU required some pressor support however currently is hemodynamically stable. Patient was noted to be anemic on admission however looking back patient has a history of chronic ane niko. During this admission he did have a drop in hemoglobin to 6.9 requiring 1 unit of PRBC transfusion. Gastroenterology was consulted for iron deficiency anemia. Patient denies any blood in his stool, black stool, diarrhea, nausea, vomiting, abdominal pain, hematemesis and states that shortness of breath is improved. He is sitting up eating a regular breakfast. Iron studies were completed with iron level at 20 TIBC 259 saturation 7.7 ferritin 1980. Today's labs WBC 7.9 hemoglobin 9.2 hematocrit 30.8 platelet count 727,000. Review of Systems REVIEW OF SYSTEMS: CARDIOPULMONARY: No chest pain or shortness of breath. Gastrointestinal: No abdominal pain. No nausea or vomiting. No hematemesis, coffee-ground emesis. No rectal bleeding, or melena. GENITOURINARY: No dysuria or hematuria. MUSCULOSKELETAL: Reports normal range of motion. SKIN: No rashes. No jaundice. ENDOCRINE: No chills, fevers. No excessive weight gain or loss. No polydipsia or polyuria. PSYCHIATRIC: Unremarkable. NEUROLOGY: No change in mental status. Denies dizziness, headache. ENT: Vision unremarkable. CONSTITUTIONAL: No recent weight loss. No fever, chills, night sweats. Past Medical History Past Medical History: Cancer, CVA/TIA, Hyperlipidemia, Hypertension Additional Past Medical History / Comment(s): Throat CA, status post chemotherapy, radiation, tracheostomy tube placement, feeding tube with sub sequent removal History of Any Multi-Drug Resistant Organisms: None Reported Past Surgical History: Orthopedic Surgery Additional Past Surgical History / Comment(s): History of left carotid endarterectomy, status post tracheostomy placement Past Anesthesia/Blood Transfusion Reactions: No Reported Reaction Past Psychological History: No Psychological Hx Reported Smoking Status: Former smoker Past Alcohol Use History: None Reported Past Drug Use History: Marijuana - Past Family History Mother Family Medical History: Dementia Father Family Medical History: Cancer (Lung cancer) Medications and Allergies Home Medications Medication Instructions Recorded Confirmed Type Atorvastatin Calcium [Lipitor] 40 mg PO HS 02/07/22 07/31/23 History HYDROcodone/APAP 10-325MG [[place] 1 tab PO Q4HR PRN 02/07/22 07/31/23 History 10-325] Omeprazole [PriLOSEC] 20 mg PO DAILY 07/04/23 07/31/23 History Aspirin 81 mg PO DAILY #30 tab 07/15/23 07/31/23 Rx Ipratropium-Albuterol Nebulize 3 ml INHALATION RT-Q4H PRN #100 07/15/23 07/31/23 Rx [Duoneb 0.5 mg-3 mg/3 ml Soln] each Amoxic-Pot Clav 875-125Mg 1 tab PO Q12HR 14 Days #28 tab 07/16/23 07/31/23 Rx [Augmentin 875-125] Furosemide [Lasix] 40 mg PO DAILY #30 tablet 07/16/23 07/31/23 Rx Metoprolol Tartrate [Lopressor] 12.5 mg PO BID 07/31/23 07/31/23 History Allergies Allergy/AdvReac Type Severity Reaction Status Date / Time No Known Allergies Allergy Verified 07/31/23 16:48 Physical Exam Vitals: Vital Signs Temp Pulse Pulse Resp BP BP Pulse Ox 08/05/23 04:00 98.6 F 71 14 98/60 95 08/05/23 00:00 98.1 F 78 19 100/67 98 08/04/23 20:00 97.7 F 90 16 106/78 96 08/04/23 16:00 98.2 F 85 20 124/100 94 L 08/04/23 12:00 98.6 F 84 18 108/73 95 08/04/23 08:00 98 F 82 18 103/57 94 L Intake and Output 08/04/23 08/04/23 08/05/23 14:59 22:59 06:59 Intake Total 700 200 Output Total 1100 550 400 Balance -400 -550 -200 Intake: Intake, IV Titration 100 200 Amount Ampicillin-Sulbactam 3 gm 100 200 In Sodium Chloride 0.9% 100 ml @ 200 mls/hr IVPB Q6H [facility] Rx#:[id number] Oral 600 Output: Urine 1100 550 400 Other: Voiding Method Urinal Urinal Urinal Weight 54 kg General appearance: The patient is alert, oriented, appears in no acute dis tress. HET: Head is normocephalic and atraumatic. Conjunctiva pink. Sclera anicteric. Neck: Supple without lymphadenopathy. Trachea midline. Tracheostomy tube. Heart: Regular. Lungs: Equal expansion, normal respiratory effort. Abdomen: Soft, nontender, nondistended with bowel sounds. No guarding or rigidity. Skin: No rashes. No jaundice. Extremities: Normal skin color and turgor. No pedal edema. Neurological: No focal deficits. Alert and oriented x3. Results CBC & Chem 7: 08/05/23 05:22 08/03/23 04:42 Labs: Abnormal Lab Results - Last 24 Hours (Table) 08/05/23 Range/Units 05:22 RBC 3.52 L (4.30-5.90) m/uL Hgb 9.2 L (13.0-17.5) gm/dL Hct 30.8 L (39.0-53.0) % MCHC 30.0 L (31.0-37.0) g/dL RDW 17.1 H (11.5-15.5) % Plt Count 727 H (150-450) k/uL Lymphocytes # 0.7 L (1.0-4.8) k/uL Microbiology - Last 24 Hours (Table) 08/03/23 12:49 Blood Culture - Preliminary Blood CT scan - chest: report reviewed Assessment and Plan (1) Chronic anemia Narrative/Plan: A 62-year-old male with multiple comorbidities history of laryngeal cancer status post chemotherapy and radiation treatments status post tracheostomy placement. A recent PET scan from 05/13/2023 showed areas concerning for recurrence with areas of abnormal uptake within the lateral right apex and lingula suspicious for metastasis. Patient denies any signs or symptoms of GI bleed. He denies any blood in the stool or black stool, no abdominal pain, nausea or vomiting. He has had no hematemesis. Patient was anemic on admission, and looking back has been anemic for some time. She did have a drop in his hemoglobin during this admission to 6.9 requiring 1 unit of blood. Iron iron studies completed with iron level at 20 however ferritin was 1981. Anemia multifactorial likely anemia of chronic disease. No plan for an endoscopic evaluation at this time. Patient can follow-up with hematology. Patient does state last colonoscopy 3-5 years ago With findings of colon polyp. Patient can have repeat colonoscopy done as an outpatient once he is more medically stable. Current Visit: Yes Status: Acute Code(s): D64.9 - ANEMIA, UNSPECIFIED SNOMED Code(s): 431688643 (2) Empyema Current Visit: Yes Status: Acute Code(s): J86.9 - PYOTHORAX WITHOUT FISTULA SNOMED Code(s): 188818091 (3) Pericardial effusion Current Visit: Yes Status: Acute Code(s): I31.39 - OTHER PERICARDIAL EFFUSION (NONINFLAMMATORY) SNOMED Code(s): 573363111 (4) Loculated pleural effusion Current Visit: Yes Status: Acute Code(s): J90 - PLEURAL EFFUSION, NOT ELSEWHERE CLASSIFIED SNOMED Code(s): 211555199 (5) Squamous cell carcinoma of head and neck Current Visit: No Status: Acute Priority: High Code(s): C76.0 - MALIGNANT NEOPLASM OF HEAD, FACE AND NECK SNOMED Code(s): 326373021 (6) Atrial fibrillation Current Visit: Yes Status: Acute Code(s): I48.91 - UNSPECIFIED ATRIAL FIBRILLATION SNOMED Code(s): 94054612 Plan: 1. Continue symptomatic and supportive care 2. Daily CBC, transfuse for hemoglobin less than 7 3. Protonix 40 mg daily for GI prophylaxis 4. No indication for EGD or colonoscopy at this time. Anemia multifactorial, likely anemia of chronic disease. Patient may follow-up with gastroenterology as an outpatient when more medically stable. 5. Rest of medical management per primary medical team and other consultants. Thank you for this consultation, we will sign off at this time. Dr. Alex Lamb I agree with the dictator's note, documented as a scribe by Nicole Blue.
--- NOTE | 2023-08-05 10:02 | PN ---
PROGRESS NOTE SUBJECTIVE: Mr. Gray has history of laryngeal CA with a tracheostomy. He was transferred from main medical floor to ICU for atrial fib. He also has a moderate pericardial effusion, seen by Dr. Dominique yesterday who felt conservative management is necessary. He is not in any tamponade type picture. OBJECTIVE: VITAL SIGNS: Blood pressure is about 108/70, pulse rate is 70, sinus. HEART: S1, S2 heard normally, short systolic murmur noted. LUNGS: Reveal diminished air entry. ABDOMEN: Unchanged. EXTREMITIES: Lower extremities unchanged. PLAN: To continue current medical therapy, move him to telemetry. MMODL / IJN: [id number] /
[2023-08-05] MEDS: ENOXAPARIN 40 MG/0.4 ML SYRINGE SQ SCH (10:06)
[2023-08-05] MEDS: FUROSEMIDE 40 MG TAB PO SCH (10:07)
[2023-08-05] MEDS: ASPIRIN 81 MG PO SCH (10:07)
[2023-08-05] MEDS: METOPROLOL TARTRATE 12.5 MG TAB PO SCH (10:09)
[2023-08-05 11:51] VITALS: BP 95/75; PULSE 94; RESP 16; TEMP 98.4
--- NOTE | 2023-08-05 12:28 | P.DS ---
Providers Date of admission: 07/31/23 19:22 Expected date of discharge: 08/05/23 Attending physician: Lorena Montgomery, Consults: 07/31/23 19:22 Consult Physician Routine Consulting Provider: Christopher Thayer Consult Reason/Comments: loculated pleural fluid Do you want consulting provider notified?: Yes 08/01/23 05:42 Consult Physician Routine Consulting Provider: Macario Zaragoza Consult Reason/Comments: pericaridal effusion Do you want consulting provider notified?: Yes, Notify in am 08/01/23 15:32 Consult Physician Routine Consulting Provider: Marc Wilkerson Consult Reason/Comments: Empyema left lung Do you want consulting provider notified?: Yes 08/04/23 08:30 Consult Physician Routine Consulting Provider: Jose Dominique Consult Reason/Comments: pericardial effusion Do you want consulting provider notified?: Yes 08/04/23 13:19 Consult Physician Routine Consulting Provider: Janett Lamb Consult Reason/Comments: iron deficiency anemia, hx of head and neck cancer Do you want consulting provider notified?: Yes Primary care physician: Ye Mane MD Hospital Course: Discharge Diagnosis: Dyspnea Moderately large pericardial effusion Recent hospitalization for empyema Atrial fibrillation with RVR, now converted to sinus h/o throat cancer s/p tach collar Acute on chronic Chronic normocytic anemia status post 1 unit of PRBCs Iron deficiency anemia Anemia of chronic disease Thrombocytosis Hospital Course: 62-year-old male with history of throat cancer status post trach, CAD status post stents, permanent pacemaker, aortic valve replacement, chronic systolic heart failure with EF 40-45%, hypertension, dyslipidemia, and COPD presented with shortness of breath and chest pressure. Vital signs have been within normal limits. WBC 12.1, hemoglobin 9.2 at baseline, platelet 931, creatinine 1.01, lactate 1.8, pro-calcitonin 0.15. CTA chest showed persistent loculated air-fluid level left lateral lung base consistent with prior empyema, cavitary lesion present in the anterior lateral left lung and right upper lobe, and well- being moderately large pericardial effusion. EKG showed sinus tachycardia. Cardiology consulted. Echocardiogram showed moderate global pericardial effusion with no evidence of tamponade. Repeat echocardiogram also shows similar effusion. Pulmonology also following. ID also following. Patient was restarted on IV Unasyn. Patient went into atrial fibrillation with RVR, now back to normal sinus rhythm. Currently stable. Cardiothoracic surgery was consulted. Not recommending any further interventions. Patient having anemia as well. Likely multifactorial including iron deficiency anemia as well as anemia of chronic disease. Not started on any anticoagulation. GI was consulted. He will need to follow-up with GI outpatient for further workup. Being discharged on 2 weeks of oral antibiotics. Follow-up with oncology, cardiology, GI. Patient seen and examined at bedside.[] Vital signs reviewed and stable. General: nontoxic, no distress, appears at stated age, thin appearing Derm: warm, dry Head: atraumatic, normocephalic, symmetric Eyes: EOMI, no lid lag, anicteric sclera Mouth: no lip lesion, mucus membranes moist, trach in place Cardiovascular: S1S2 reg, no murmur Lungs: CTA bilateral, no rhonchi, no rales , no accessory muscle use Abdominal: soft, nontender to palpation, no guarding, no appreciable organomegaly Ext: no gross muscle atrophy, no edema, no contractures Neuro: CN II-XI grossly intact, no focal neuro deficits Psych: Alert, oriented, appropriate affect A total of 33 minutes of time were spent preparing this complex discharge summary. Patient was discharged on 08/05/23 at 11:26. Patient Condition at Discharge: Stable Plan - Discharge Summary Discharge Rx Participant: Yes New Discharge Prescriptions: Continue Ipratropium-Albuterol Nebulize [Duoneb 0.5 mg-3 mg/3 ml Soln] 3 ml INHALATION RT-Q4H PRN #100 each PRN Reason: Shortness Of Breath Or Wheezing Furosemide [Lasix] 40 mg PO DAILY #30 tablet Amoxic-Pot Clav 875-125Mg [Augmentin 875-125] 1 tab PO Q12HR 14 Days #28 tab Atorvastatin Calcium [Lipitor] 40 mg PO HS Omeprazole [PriLOSEC] 20 mg PO DAILY Aspirin 81 mg PO DAILY #30 tab Metoprolol Tartrate [Lopressor] 12.5 mg PO BID HYDROcodone/APAP 10-325MG [[place] 10-325] 1 tab PO Q4HR PRN #20 tab PRN Reason: Pain Discharge Medication List Atorvastatin Calcium [Lipitor] 40 mg PO HS 02/07/22 [History] Omeprazole [PriLOSEC] 20 mg PO DAILY 07/04/23 [History] Aspirin 81 mg PO DAILY #30 tab 07/15/23 [Rx] Ipratropium-Albuterol Nebulize [Duoneb 0.5 mg-3 mg/3 ml Soln] 3 ml INHALATION RT-Q4H PRN #100 each 07/15/23 [Rx] Furosemide [Lasix] 40 mg PO DAILY #30 tablet 07/16/23 [Rx] Metoprolol Tartrate [Lopressor] 12.5 mg PO BID 07/31/23 [History] Amoxic-Pot Clav 875-125Mg [Augmentin 875-125] 1 tab PO Q12HR 14 Days #28 tab 08/05/23 [Rx] HYDROcodone/APAP 10-325MG [[place] 10-325] 1 tab PO Q4HR PRN #20 tab 08/05/23 [Rx] Follow up Appointment(s)/Referral(s): Adin Dixon [STAFF PHYSICIAN] - 1 Week Merno Mane MD [STAFF PHYSICIAN] - 1 Week Ye Mane MD [Primary Care Provider] - 1-2 days Janett Lamb MD [STAFF PHYSICIAN] - 1 Week Patient Instructions/Handouts: Pericardial Effusion (DC) Activity/Diet/Wound Care/Special Instructions: Please see your PCP, oncologist and desk interviewer. Also see GI specialist. Discharge Disposition: HOME SELF-CARE
--- NOTE | 2023-08-05 13:14 | P.PN ---
Subjective Progress Note Date: 08/05/23 Principal diagnosis: Atypical chest pain, chronic empyema with a loculated air fluid level left lung base. This is a pleasant 62-year-old male with past medical history significant for laryngeal cancer status post chemoradiation and tracheostomy, PEG tube reversal, hyperlipidemia, hypertension, and ex-tobacco smoker. Patient follows with Celestino Kulkarni and Dr. Stephens for radiation. PET scan from 05/13/2023 which showed areas surrounding abnormal vocal cord smaller more discrete but have increased SUV values, new areas of abnormal uptake within the lateral right apex and lingula suspicious for metastasis, new areas of increased uptake within intercostal space between the first and second ribs, and possible physiological uptake within the cecum and ascending colon. He was just discharged from here on 07/16/2023 after being found to have a left lung empyema requiring pigtail catheter insertion and 5 doses of ultimately/dornase infusions with subsequent improvement. Culture was positive for alpha hemolytic streptococcus. He was discharged home on Augmentin for 2 weeks. He presented back to the emergency room yesterday with complaints of chest pain and shortness of breath. Chest x- ray showed interval decrease in the size of a loculated left lung fluid co llection. White count 12.1. Hemoglobin 9.2. Platelets 931. Sodium 139. Potassium 4.6. Bicarb 26. BUN 25. Creatinine 1.01. Pro-calcitonin 0.15. CT angiogram of the chest ruled out pulmonary embolism. There is persistent loculated air-fluid level left lateral lung base. Smaller compared to prior studies. Cavitary lesions remain present anterior lateral left lung and right upper lobe similar to previous. Developing moderately large pericardial effusion. He is seen today in the emergency department. He is currently sitting up on the stretcher. Awake and alert in no acute distress. He has a loose nonproductive cough. No fever or chills. Maintaining good O2 saturations in the mid 90s on room air. Afebrile. Hemodynamically stable. Echocardiogram pending. The patient is seen today 08/02/2023 in follow-up on the regular medical floor. He is currently resting comfortably in bed. Awake and alert in no acute distress. He is maintaining good O2 saturations in the 90s on room air. Pro- calcitonin, 0.15. He is currently on Unasyn. He has normal saline at 75 ML's per hour. He is having less left-sided chest discomfort. Echocardiogram revealed normal left ventricular size and systolic function with mild to moderate aortic regurgitation. There is noted moderate global pericardial effusion with no evidence of tamponade. Blood cultures revealed no growth. White count 8.9. Hemoglobin 7.6. Platelets 723. Sodium 137. Potassium 4.6. Bicarb 27. BUN 23. Creatinine 0.98. Glucose 103. He is on oral diuretics. Lovenox for DVT prophylaxis. Bronchodilators as needed. Patient was reevaluated today on 08/03/2023, apparently the patient was transferred to ICU as an overflow from 3 S., patient developed an episode of atrial fibrillation with RVR, and he was given Lopressor, but at time I saw the patient he was in sinus rhythm. Patient is hemodynamically stable, does not seem to be any distress, cardiology is addressing his cardiac arrhythmia episode. Pulmonary-rodrigues the patient remains on Unasyn, his blood cultures are showing coagulase-negative staph, most likely contamination, nonetheless the patient is on Unasyn for his chronic pulmonary infection/empyema he had previous pigtail catheter placement, drainage, and did not require decortication. His WBC count today is 6.9 hemoglobin is 6.9 basic metabolic profile is normal. Pro-calcitonin level is 0.15. For his low blood count a unit of packed RBCs was ordered. It is yet to be transfused clinically the patient seems to be comfortable, not in distress, on room air with O2 saturations were 99%. Reevaluated today on 08/04/23, remains in the ICU, doing well, on room air, tracheostomy is intact, patient is relatively asymptomatic, his moderate pericardial effusion was evaluated by thoracic surgery and I fully agree that clinically this is not pyo pericardial effusion, does not need any intervention at this point. Although if the effusion gets any larger could be considered malignant pleural effusion and at that point may need diagnostic and therapeutic drainage for the time being I believe the patient should continue on antibiotics orally as per infectious disease and should be considered for discharge planning and follow-up on outpatient basis. Patient should also have follow-up regarding his laryngeal cancer with oncology and radiation oncology. WBC count today is 6.7 hemoglobin 8.5, haptoglobin done yesterday was elevated at 609 which may implicate poor prognostic picture in solid tumors Reevaluated today on 08/05/23, patient was evaluated in the ICU, he is an overflo w in the ICU, doing well, relatively asymptomatic, no major pattern changer the last 24 hours, yesterday I discussed his condition and his pericardial effusion with thoracic surgery, no plans for any intervention at this point. Hence I will clear the patient for discharge on oral antibiotics as recommended by infectious disease. CBC today is relatively unremarkable hemoglobin is 9.2. His pro-calci tonin level is down to 0.1 Objective - Vital Signs Vital signs: Vital Signs Temp 98.4 F 08/05/23 10:00 Pulse 94 08/05/23 10:00 Resp 16 08/05/23 10:00 BP 95/75 08/05/23 10:00 Pulse Ox 97 08/05/23 10:00 FiO2 Intake & Output 08/04/23 08/05/23 08/05/23 18:59 06:59 18:59 Intake Total 700 200 Output Total 1100 950 Balance -400 -750 Weight 54 kg Intake: Intake, IV Titration 100 200 Amount Ampicillin-Sulbactam 3 gm 100 200 In Sodium Chloride 0.9% 100 ml @ 200 mls/hr IVPB Q6H [facility] Rx#:[id number] Oral 600 Output: Urine 1100 950 Other: Voiding Method Urinal Urinal Urinal - Exam GENERAL EXAM: Alert, 62-year-old male, resting comfortably in bed, in no distress. On room air. PERRLA, EOMI, anicteric, moist mucous membranes. NECK: No masses, no JVD. Tracheostomy present CHEST: The patient has a subcutaneous emphysema over the chest and the back area LUNGS: Diminished left lateral lung sounds. Left chest pigtail catheter removed CVS: S1 and S2 normal with no audible murmur, regular rhythm. No extra heart sounds ABDOMEN: No hepatosplenomegaly, active bowel sounds, no guarding or rigidity. Postsurgical scarring SKIN: No rashes CENTRAL NERVOUS SYSTEM: No focal deficits, tone is normal in all 4 extremities. EXTREMITIES: There is no peripheral edema, clubbing, or cyanosis. Peripheral pulses are intact. - Labs CBC & Chem 7: 08/05/23 05:22 08/03/23 04:42 Labs: Abnormal Lab Results - Last 24 Hours (Table) 08/05/23 Range/Units 05:22 RBC 3.52 L (4.30-5.90) m/uL Hgb 9.2 L (13.0-17.5) gm/dL Hct 30.8 L (39.0-53.0) % MCHC 30.0 L (31.0-37.0) g/dL RDW 17.1 H (11.5-15.5) % Plt Count 727 H (150-450) k/uL Lymphocytes # 0.7 L (1.0-4.8) k/uL Microbiology - Last 24 Hours (Table) 08/03/23 12:49 Blood Culture - Preliminary Blood Assessment and Plan Assessment: Impression: Atypical chest pain, recent history of empyema requiring pigtail catheter placement and drainage as well as IV antibiotics, discharged home but then readmitted with chest pain, presently on antibiotics./Unasyn New-onset atrial fibrillation, being addressed by cardiology patient is now in sinus rhythm History of laryngeal cancer, status post chemoradiation and tracheostomy. PET scan available from 05/13/2023 showed areas surrounding abnormal vocal cord smaller more discrete but have increased SUV values, new areas of abnormal uptake within the lateral right apex and lingula suspicious for metastasis, new areas of increased uptake within intercostal space between the first and second ribs, and possible physiological uptake within the cecum and ascending colon. Acute kidney injury, and the creatinine is stable for now Normocytic normochromic anemia, patient has low hemoglobin today below 7 hence we'll transfuse 1 unit of packed RBC Polycythemia History of hypertension History of hyperlipidemia Ex-tobacco smoker Moderate pericardial effusion, without tamponade, could be malignant, but clinically very unlikely to be pyo pericardial effusion, recommend continue to observe and if it does get any larger drainage will be diagnostic and therapeutic Recommendation: We will clear the patient for discharge if cleared by other consultants Continue present supportive care measures Oral antibiotics on outpatient as advised by infectious disease on the case Outpatient follow-up Time with Patient: Less than 30
== END 2023-08-05 12:59 | disposition home or self-care (01) | DRG 207 ==
LOC: EC 15:16 → 4SSUR 19:22 → 2SICU 08-03 08:08 → 3SCARD 08-05 09:10
PROVIDERS: ADMIT Internal Medicine; ATTEND Internal Medicine
PROC: 30233N1 Transfusion of Nonautologous Red Blood Cells into Peripheral Vein, Percutaneous Approach (ICD-10-PCS; principal; 2023-08-03)
DX: I31.39 Other pericardial effusion (noninflammatory) (principal); J18.9 Pneumonia, unspecified organism; D50.9 Iron deficiency anemia, unspecified; D63.8 Anemia in other chronic diseases classified elsewhere; D75.1 Secondary polycythemia; D75.839 Thrombocytosis, unspecified; E78.5 Hyperlipidemia, unspecified; I11.0 Hypertensive heart disease with heart failure; I50.22 Chronic systolic (congestive) heart failure; I25.10 Atherosclerotic heart disease of native coronary artery without angina pectoris; I35.1 Nonrheumatic aortic (valve) insufficiency; I48.0 Paroxysmal atrial fibrillation; J43.9 Emphysema, unspecified; J86.9 Pyothorax without fistula; N17.9 Acute kidney failure, unspecified; Z79.82 Long term (current) use of aspirin; Z79.899 Other long term (current) drug therapy; Z80.1 Family history of malignant neoplasm of trachea, bronchus and lung; Z85.21 Personal history of malignant neoplasm of larynx; Z85.819 Personal history of malignant neoplasm of unspecified site of lip, oral cavity, and pharynx; Z85.89 Personal history of malignant neoplasm of other organs and systems; Z86.73 Personal history of transient ischemic attack (TIA), and cerebral infarction without residual deficits; Z87.01 Personal history of pneumonia (recurrent); Z87.19 Personal history of other diseases of the digestive system; Z87.891 Personal history of nicotine dependence; Z92.21 Personal history of antineoplastic chemotherapy; Z92.3 Personal history of irradiation; Z95.2 Presence of prosthetic heart valve; Z95.5 Presence of coronary angioplasty implant and graft; Z95.0 Presence of cardiac pacemaker
CPT/HCPCS: 36415; 71045; 71046; 71275; 80048; 80053; 82607; 82728; 82746; 83010; 83540; 83550; 83605; 83615; 84145; 84443; 84466; 85025; 85045; 86140; 86850; 86900; 86901; 86920; 87040; 93005; 93306; 93308; 94640; 96365; 96366; 96368; 96375; 96376; 99285

== ENCOUNTER 2023-10-24 17:12 | Emergency (ER) | payer OTHER ==
[2023-10-24 17:32] VITALS: TEMP 98.8
--- NOTE | 2023-10-24 17:56 | ED ---
General Adult HPI - General Source: patient Mode of arrival: ambulatory Limitations: no limitations <Alysia Carter - Last Filed: 10/24/23 17:55> - History of Present Illness -: days(s) Location: abdomen (Abdominal wall) Radiation: non-radiation Quality: burning, aching, sharp Consistency: intermittent Improves with: none Worsens with: none Associated Symptoms: denies other symptoms Treatments Prior to Arrival: none <Azeem Bentley - Last Filed: 10/25/23 05:03> - General Chief complaint: Abdominal Pain Stated complaint: Abd pain Time Seen by Provider: 10/24/23 17:55 - History of Present Illness Initial comments: Patient is a 62-year-old gentleman who presents emergency room with complaints of pain redness and drainage from an old PEG tube site. Does not currently have a PEG tube placed and does not get feedings. (Alysia Carter) This patient is 62-year-old man presenting to have evaluation of the abdominal wall at the site of a previous PEG tube. The patient has noted redness and localized pain. The patient notes that the tube was discontinued months ago. He states that every now and then he does get drainage from the tube. He had gone weeks or months without any drainage but then this started happening again 2 days ago. He is now having redness and pain. Patient denies systemic symptoms, no fever or chills. No abdominal pain. (Azeem Bentley) - Related Data Home Medications Medication Instructions Recorded Confirmed Atorvastatin Calcium [Lipitor] 40 mg PO HS 02/07/22 07/31/23 Omeprazole [PriLOSEC] 20 mg PO DAILY 07/04/23 07/31/23 Metoprolol Tartrate [Lopressor] 12.5 mg PO BID 07/31/23 07/31/23 Previous Rx's Medication Instructions Recorded Aspirin 81 mg PO DAILY #30 tab 07/15/23 Ipratropium-Albuterol Nebulize 3 ml INHALATION RT-Q4H PRN #100 07/15/23 [Duoneb 0.5 mg-3 mg/3 ml Soln] each Furosemide [Lasix] 40 mg PO DAILY #30 tablet 07/16/23 Amoxic-Pot Clav 875-125Mg 1 tab PO Q12HR 14 Days #28 tab 08/05/23 [Augmentin 875-125] HYDROcodone/APAP 10-325MG [[place] 1 tab PO Q4HR PRN #20 tab 08/05/23 10-325] Cephalexin [Keflex] 500 mg PO Q6HR #20 cap 10/24/23 HYDROcodone/APAP 5-325MG [[place] 1 tab PO Q6H PRN 3 Days #12 tab 10/24/23 5-325] Allergies Allergy/AdvReac Type Severity Reaction Status Date / Time No Known Allergies Allergy Verified 10/24/23 17:18 Review of Systems ROS Other: All systems not noted in ROS Statement are negative. <Alysia Carter - Last Filed: 10/24/23 17:55> ROS Other: All systems not noted in ROS Statement are negative. Constitutional: Denies: fever, chills, weakness Respiratory: Denies: cough, dyspnea Cardiovascular: Denies: chest pain, palpitations Gastrointestinal: Denies: abdominal pain, vomiting, diarrhea Skin: Reports: as per HPI, change in color Neurological: Denies: headache, weakness <Azeem Bentley - Last Filed: 10/25/23 05:03> ROS Statement: Those systems with pertinent positive or pertinent negative responses have been documented in the HPI. Past Medical History Past Medical History: Cancer, CVA/TIA, Hyperlipidemia, Hypertension Additional Past Medical History / Comment(s): Throat CA, status post chemotherapy, radiation, tracheostomy tube placement, feeding tube with subsequent removal History of Any Multi-Drug Resistant Organisms: None Reported Past Surgical History: Orthopedic Surgery Additional Past Surgical History / Comment(s): History of left carotid endar terectomy, status post tracheostomy placement Past Anesthesia/Blood Transfusion Reactions: No Reported Reaction Past Psychological History: No Psychological Hx Reported Smoking Status: Former smoker Past Alcohol Use History: None Reported Past Drug Use History: None Reported, Marijuana - Past Family History Mother Family Medical History: Dementia Father Family Medical History: Cancer (Lung cancer) <Alysia Carter - Last Filed: 10/24/23 17:55> General Exam Limitations: no limitations <Alysia Carter - Last Filed: 10/24/23 17:55> General appearance: alert, in no apparent distress Head exam: Present: atraumatic, normocephalic Eye exam: Present: normal appearance. Absent: scleral icterus, conjunctival injection Neck exam: Present: normal inspection Respiratory exam: Present: wheezes. Absent: respiratory distress, rales, rhonchi, stridor Cardiovascular Exam: Present: regular rate, normal rhythm, normal heart sounds. Absent: systolic murmur, diastolic murmur, rubs, gallop GI/Abdominal exam: Present: soft, other (The patient does have small amount of gastric drainage from site of previous PEG tube in the left upper quadrant. There is some adjacent erythema. There is no palpable abscess. No abdominal tenderness.). Absent: distended, tenderness, guarding, rebound, rigid, mass Extremities exam: Present: normal inspection, normal capillary refill. Absent: pedal edema, calf tenderness Back exam: Present: normal inspection Neurological exam: Present: alert Skin exam: Present: warm, dry, normal color, erythema (At PEG site) <Azeem Bentley - Last Filed: 10/25/23 05:03> - General Exam Comments Initial Comments: Visual Physical Exam Vital signs reviewed General: Well-appearing, nontoxic, no acute distress. Head: Normocephalic, atraumatic Eyes: PERRLA, EOMI ENT: Trach Chest: Nonlabored breathing Skin: No visual rash, normal skin tone Neuro: Alert and oriented 3 Musculoskeletal: No gross abnormalities (Alysia Carter) Course Vital Signs 10/24/23 10/24/23 10/24/23 17:16 19:50 20:37 Temperature 98.8 F Pulse Rate 99 95 69 Respiratory 20 19 19 Rate Blood Pressure 149/88 145/89 118/69 O2 Sat by Pulse 99 95 100 Oximetry 10/24/23 22:43 Temperature Pulse Rate 72 Respiratory 17 Rate Blood Pressure 120/74 O2 Sat by Pulse 98 Oximetry Medical Decision Making <Alysia Carter - Last Filed: 10/24/23 17:55> - Lab Data Result diagrams: 10/24/23 19:52 10/24/23 19:52 <Azeem Bentley - Last Filed: 10/25/23 05:03> - Medical Decision Making Quick note portion completed by myself, electronically signed CLARK [place]. (Alysia Carter) The patient had computed tomography scan of the abdomen to rule out abscess formation in the abdominal wall, and I interpreted the study as not showing any evidence of intra-abdominal wall infection Patient is 62-year-old man with pain and redness at site of previous PEG tube. At this point I suspect that there is mainly chemical irritation related to gastric drainage, however will give patient course of antibiotic coverage against possible localized cellulitis. Counseled to attempt to keep this area clean and dry. Patient to have close follow-up. Was pt. sent in by a medical professional or institution (, CHAS, RESEARCH LIBRARIAN, urgent care, hospital, or group home...) When possible be specific @ -[No] Did you speak to anyone other than the patient for history (EMS, parent, family, police, friend...)? What history was obtained from this source @ -[No] Did you review nursing and triage notes (agree or disagree)? Why? @ -[I reviewed and agree with nursing and triage notes] Were old charts reviewed (outside hosp., previous admission, EMS record, old EKG, old radiological studies, urgent care reports/EKG's, group home records)? Report findings @ -[No old charts were reviewed] Differential Diagnosis (chest pain, altered mental status, abdominal pain women, abdominal pain men, vaginal bleeding, weakness, fever, dyspnea, syncope, headache, dizziness, GI bleed, back pain, seizure, CVA, palpatations, mental health, musculoskeletal)? @ -[Differential Abdominal Pain Men: Appendicitis, cholecystitis, diverticulosis, ischemic bowel, pancreatitis, hepatitis, UTI, gastroenteritis, AAA, incarcerated hernia, bowel obstruction, constipation, inflammatory bowel, hepatitis, peptic ulcer disease, splenic infarction, perforated viscus, testicular torsion, this is not meant to be an all-inclusive list EKG interpreted by me (3pts min.). @ -[As above] X-rays interpreted by me (1pt min.). @ -[None done] CT interpreted by me (1pt min.). @ -[I interpreted as above U/S interpreted by me (1pt. min.). @ -[None done] What testing was considered but not performed or refused? (CT, X-rays, U/S, labs)? Why? @ -[None] What meds were considered but not given or refused? Why? @ -[None] Did you discuss the management of the patient with other professionals (professionals i.e. , CHAS, RESEARCH LIBRARIAN, lab, RT, psych nurse, rn social work, divorce lawyer, teacher, public relations officer, case management manager)? Give summary @ -[No] Was smoking cessation discussed for >3mins.? @ -[No] Was critical care preformed (if so, how long)? @ -[No] Were there social determinants of health that impacted care today? How? (Homelessness, low income, unemployed, alcoholism, drug addiction, transporta tion, low edu. Level, literacy, decrease access to med. care, intermediate, rehab)? @ -[No] Was there de-escalation of care discussed even if they declined (Discuss DNR or withdrawal of care, Hospice)? DNR status @ -[No] What co-morbidities impacted this encounter? (DM, HTN, Smoking, COPD, CAD, Cancer, CVA, ARF, Chemo, Hep., AIDS, mental health diagnosis, sleep apnea, morbid obesity)? @ -[None] Was patient admitted / discharged? Hospital course, mention meds given and route, prescriptions, significant lab abnormalities, going to OR and other pertinent info. @ -[As above Undiagnosed new problem with uncertain prognosis? @ -[No] Drug Therapy requiring intensive monitoring for toxicity (Heparin, Nitro, Insulin, Cardizem)? @ -[No] Were any procedures done? @ -[No] Diagnosis/symptom? @ -[Abdominal wall cellulitis versus dermatitis Acute, or Chronic, or Acute on Chronic? @ -[Acute Uncomplicated (without systemic symptoms) or Complicated (systemic symptoms)? @ -[Uncomplicated Side effects of treatment? @ -[No] Exacerbation, Progression, or Severe Exacerbation? @ -[No] Poses a threat to life or bodily function? How? (Chest pain, USA, ID, pneumonia, PE, COPD, DKA, ARF, appy, cholecystitis, CVA, Diverticulitis, Homicidal, Suicidal, threat to staff... and all critical care pts) @ -[No] (Azeem Bentley) - Lab Data Lab Results 10/24/23 10/24/23 10/24/23 Range/Units 19:52 19:52 19:52 WBC 8.9 (3.8-10.6) k/uL RBC 4.97 (4.30-5.90) m/uL Hgb 13.3 (13.0-17.5) gm/dL Hct 40.5 (39.0-53.0) % MCV 81.5 (80.0-100.0) fL MCH 26.8 (25.0-35.0) pg MCHC 32.9 (31.0-37.0) g/dL RDW 16.6 H (11.5-15.5) % Plt Count 523 H (150-450) k/uL MPV 6.3 Neutrophils % 82 % Lymphocytes % 10 % Monocytes % 5 % Eosinophils % 2 % Basophils % 0 % Neutrophils # 7.3 (1.3-7.7) k/uL Lymphocytes # 0.8 L (1.0-4.8) k/uL Monocytes # 0.4 (0-1.0) k/uL Eosinophils # 0.2 (0-0.7) k/uL Basophils # 0.0 (0-0.2) k/uL Anisocytosis Slight Sodium 137 (137-145) mmol/L Potassium 4.4 (3.5-5.1) mmol/L Chloride 103 (98-107) mmol/L Carbon Dioxide 24 (22-30) mmol/L Anion Gap 10 mmol/L BUN 19 (9-20) mg/dL Creatinine 1.14 (0.66-1.25) mg/dL Est GFR (CKD-EPI)AfAm 80 (>60 ml/min/1.73 sqM) Est GFR (CKD-EPI)NonAf 69 (>60 ml/min/1.73 sqM) Glucose 97 (74-99) mg/dL Calcium 9.3 (8.4-10.2) mg/dL Total Bilirubin 0.5 (0.2-1.3) mg/dL AST 47 (17-59) U/L ALT 34 (4-49) U/L Alkaline Phosphatase 133 H (38-126) U/L Total Protein 7.6 (6.3-8.2) g/dL Albumin 4.2 (3.5-5.0) g/dL Lipase 33 (23-300) U/L Urine Color Colorless Urine Appearance Clear (Clear) Urine pH 6.5 (5.0-8.0) Ur Specific [place] 1.010 (1.001-1.035) Urine Protein Negative (Negative) Urine Glucose (UA) Negative (Negative) Urine Ketones Negative (Negative) Urine Blood Negative (Negative) Urine Nitrite Negative (Negative) Urine Bilirubin Negative (Negative) Urine Urobilinogen <2.0 (<2.0) mg/dL Ur Leukocyte Esterase Negative (Negative) Disposition <EmmaDavidn - Last Filed: 10/24/23 17:55> Is patient prescribed a controlled substance at d/c from ED?: Yes When asked, does pt state using other controlled substances?: No If prescribed controlled substance>3 days was MAPS reviewed?: Prescribed <3 Days If opioid is for acute pain is fill amount 7 days or less?: Yes If Rx opioid, was Start Talking consent form obtained?: Yes <Azeem Bentley - Last Filed: 10/25/23 05:03> Clinical Impression: Cellulitis Disposition: HOME SELF-CARE Condition: Good Instructions (If sedation given, give patient instructions): Cellulitis (ED) Prescriptions: Cephalexin [Keflex] 500 mg PO Q6HR #20 cap HYDROcodone/APAP 5-325MG [[place] 5-325] 1 tab PO Q6H PRN 3 Days #12 tab PRN Reason: Pain Referrals: None,Stated [Primary Care Provider] - 1-2 days Marlo Milian MD [STAFF PHYSICIAN] - 1-2 days
[2023-10-24 20:04] LABS: Anisocytosis Slight; Basophils % (A) 0 %; Eosinophils # (A) 0.2 k/uL (0-0.7); Eosinophils % (A) 2 %; HCT 40.5 % (39.0-53.0); HGB 13.3 gm/dL (13.0-17.5); Lymphocytes # (A) 0.8 k/uL (1.0-4.8); Lymphocytes % (A) 10 %; MCH 26.8 pg (25.0-35.0); MCHC 32.9 g/dL (31.0-37.0); MCV 81.5 fL (80.0-100.0); Mean Platelet Volume 6.3; Monocytes # (A) 0.4 k/uL (0-1.0); Monocytes % (A) 5 %; Neutrophils # (A) 7.3 k/uL (1.3-7.7); Neutrophils % (A) 82 %; Platelet Count 523 k/uL (150-450); RBC 4.97 m/uL (4.30-5.90); RDW 16.6 % (11.5-15.5); WBC 8.9 k/uL (3.8-10.6)
[2023-10-24 20:15] LABS: ALT 34 U/L (4-49); AST 47 U/L (17-59); African American GFR (CKD) 80 (>60 ml/min/1.73 sqM); Albumin 4.2 g/dL (3.5-5.0); Alkaline Phosphatase 133 U/L (38-126); Anion Gap 10 mmol/L; Blood Urea Nitrogen 19 mg/dL (9-20); Calcium 9.3 mg/dL (8.4-10.2); Carbon Dioxide 24 mmol/L (22-30); Chloride 103 mmol/L (98-107); Glucose 97 mg/dL (74-99); Lipase 33 U/L (23-300); Non-African American GFR(CKD) 69 (>60 ml/min/1.73 sqM); Potassium 4.4 mmol/L (3.5-5.1); Sodium 137 mmol/L (137-145); Total Bilirubin 0.5 mg/dL (0.2-1.3); Total Protein 7.6 g/dL (6.3-8.2)
[2023-10-24 20:16] LABS: Appearance,Urine Clear (Clear); Bilirubin,Urine Negative (Negative); Blood,Urine Negative (Negative); Color,Urine Colorless; Glucose,Urine (UA) Negative (Negative); Ketones,Urine Negative (Negative); Leukocyte Esterase,Urine Negative (Negative); Nitrite,Urine Negative (Negative); PH, Urine 6.5 (5.0-8.0); Protein,Urine Negative (Negative); Urobilinogen,Urine <2.0 mg/dL (<2.0)
[2023-10-24] MEDS ORDERED: MORPHINE SULFATE 4 MG/ML SYRINGE IV STA (20:27)
--- NOTE | 2023-10-24 20:46 | CT ---
EXAMINATION TYPE: CT abdomen pelvis w con DATE OF EXAM: 10/24/2023 COMPARISON: CT chest dated 06/20/2023 HISTORY: Redness, drainage and pain from old PEG site. CT DLP: 569.7 mGycm Automated exposure control for dose reduction was used. TECHNIQUE: Helical acquisition of images was performed from the lung bases through the pelvis. CONTRAST: Performed without Oral Contrast and with IV Contrast, patient injected with 100 ml mL of Isovue 300. FINDINGS: A 7 x 5.4 cm mass in the left lingula is markedly decreased in size and now measures approximately 1. 9 x 1.0 cm. The prior PEG tube insertion site is identified by slight dimpling in the skin in the anterior upper abdomen. The subcutaneous soft tissues beneath the skin dimple is slightly increased density but ther e is no discrete fluid collection or abscess or gas. Gallbladder is normal and there is no biliary ductal dilatation. There is no focal mass or organomegaly involving the liver, pancreas, spleen and adrenal glands. There is no solid renal mass or hydronephrosis. Caliber of the abdominal aorta is normal. The bowel loops normal in caliber no dilatation or obstruction. No inflammatory changes identified in the mesentery or bowel wall. There is no free intraperitoneal air or fluid. No pelvic mass, free fluid, abscess or adenopathy. No focal osseous lesions are seen. IMPRESSION: 1. Marked reduction in the left lingula lung mass described above. 2. Mild subcutaneous hazy density in the prior PEG insertion site but there is no soft tissue gas, an d discrete fluid collection or abscess. 3. No acute changes within the abdomen or pelvis.
[2023-10-24] MEDS ORDERED: CEPHALEXIN 500 MG CAP PO STA (22:27)
[2023-10-24 22:48] VITALS: BP 120/74; PULSE 72; RESP 17
== END 2023-10-24 22:51 | disposition home or self-care (01) ==
LOC: EC 17:12
DX: L03.311 Cellulitis of abdominal wall (principal); R06.2 Wheezing; I10 Essential (primary) hypertension; E78.5 Hyperlipidemia, unspecified; F12.90 Cannabis use, unspecified, uncomplicated; Z79.899 Other long term (current) drug therapy; Z87.891 Personal history of nicotine dependence; Z86.73 Personal history of transient ischemic attack (TIA), and cerebral infarction without residual deficits; Z93.1 Gastrostomy status
CPT/HCPCS: 36415; 80053; 83690; 85025; 81003; 74177; 99284; 96374; J2270; Q9967

== ENCOUNTER → 2023-11-10 | Outpatient (CLI) | payer OTHER ==
--- NOTE | 2023-11-13 17:32 | PE ---
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 Images are reviewed on the computer in the coronal, axial, and sagittal planes. Reconstructed rotating images are created on independent workstation and reviewed on the computer. A non-contrast CT is performed in conjunction with the PET scan. Glucose level 93 mg/dL CT DLP: 328 mGycm, Automated exposure control for dose reduction was used. COMPARISON: CT 10/24/2023, 07/31/2023, PET/CT 08/22/2023, FINDINGS: Mediastinal SUV mean is 1.7. Hepatic parenchyma SUV mean is 2.1 . SKULL BASE AND NECK: * New Left supraclavicular lymph node with increased or tracer activity Max SUV 5.8 measuring 12 mm in short axis. * Posterior right larynx max SUV 8.3 * No uptake within the pharynx mucosa or other areas of the neck. CHEST, MEDIASTINUM, AND HILAR REGION: * Right upper lung streaky consolidation/scarring with cavitation. * Enlarging Right lower lung pulmonary nodule measuring 9 mm, previously 4 mm on 07/31/2023, Max SUV 3.1 * Enlarging, Left lower lobe superior segment pulmonary nodule measuring 6 mm previously 3 mm Max PALMER V 1.6 * Additional left upper lobe pulmonary nodule Max SUV 2.5, right middle lobe pulmonary nodule Max PALMER V 1.4 and left lower lobe superior segment or inferior nodule Max SUV 0.6. * Right paratracheal lymph node which is new Max SUV 3.7 * Consolidation changes in the left near the diaphragm not significantly changed in morphology ruslan red to 10/24/2023. This is an area of prior complex pleural effusion/hydropneumothorax with scarring a nd 07/31/2023. ABDOMEN AND PELVIS: * Asymmetric focal uptake within the right posterior kidney superior renal pole Max SUV 17.3 is like ly physiologic given lack of corresponding finding on 10/24/2023 CT with IV contrast. * Uptake near the falciform ligament max SUV 5.1. This is indeterminate. There may be some misregist ration artifact present. MUSCULOSKELETAL STRUCTURES: No suspicious radiotracer activity. OTHER CT: Atherosclerosis of the carotid bifurcation recurrent left. Tracheostomy cannula terminates in the trachea. Moderate calcifications of the coronary arteries. There is mild renee changes. IMPRESSION: 1. Left lower neck and mediastinal lymph nodes as well as at least 2 pulmonary nodules which have in creased in size with increased FDG activity in other pulmonary nodules which have elevated FDG activi ty. Constellation of findings are compatible with progression of disease. 2. Indeterminate uptake near the falciform ligament possibly secondary to misregistration artifact. Attention on follow-up imaging.
== END | disposition home or self-care (01) ==
LOC: RADPETMAIN 09:26
PROVIDERS: ATTEND Radiology Radiation Oncology
DX: R91.8 Other nonspecific abnormal finding of lung field (principal); C32.1 Malignant neoplasm of supraglottis; C43.72 Malignant melanoma of left lower limb, including hip; Z98.890 Other specified postprocedural states
CPT/HCPCS: 78815; A9552

== ENCOUNTER 2024-03-17 16:58 | Emergency (ER) | payer OTHER ==
--- NOTE | 2024-03-17 18:23 | ED ---
SOB HPI - General Source: patient, RN notes reviewed Mode of arrival: ambulatory Limitations: no limitations <Kacy Du - Last Filed: 03/17/24 18:21> <Sofia Rosas - Last Filed: 03/22/24 23:52> - General Chief Complaint: Shortness of Breath Stated Complaint: SOB - History of Present Illness Initial Comments: Quick [id number] male presented to the ER with chief complaint of shortness of breath x 2 days with cough and back pain. He is also complaining of left-sided neck swelling. States he has a history of throat cancer with tracheostomy. The tracheostomy was removed about 3 weeks ago. States this feels like previous pneumonia. (Kacy Du) 63-year-old male presents to the emergency department for evaluation of mid to low back pain with some associated shortness of breath. Patient states that this has been going on for the past week or 2 but has been getting worse over the past couple of days. Patient also notes a lump on the left side of his neck which he noticed 2 days ago. 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 He denies recent fever, chills. He denies any recent imaging of his neck or chest. He is not c urrently receiving any radiation or chemotherapy. (Sofia Rosas) - Related Data Home Medications Medication Instructions Recorded Confirmed Atorvastatin Calcium [Lipitor] 40 mg PO HS 02/07/22 07/31/23 Omeprazole [PriLOSEC] 20 mg PO DAILY 07/04/23 07/31/23 Metoprolol Tartrate [Lopressor] 12.5 mg PO BID 07/31/23 07/31/23 Previous Rx's Medication Instructions Recorded Aspirin 81 mg PO DAILY #30 tab 07/15/23 Ipratropium-Albuterol Nebulize 3 ml INHALATION RT-Q4H PRN #100 07/15/23 [Duoneb 0.5 mg-3 mg/3 ml Soln] each Furosemide [Lasix] 40 mg PO DAILY #30 tablet 07/16/23 Amoxic-Pot Clav 875-125Mg 1 tab PO Q12HR 14 Days #28 tab 08/05/23 [Augmentin 875-125] HYDROcodone/APAP 10-325MG [[place] 1 tab PO Q4HR PRN #20 tab 08/05/23 10-325] Cephalexin [Keflex] 500 mg PO Q6HR #20 cap 10/24/23 HYDROcodone/APAP 5-325MG [[place] 1 tab PO Q6H PRN 3 Days #12 tab 10/24/23 5-325] oxyCODONE-APAP 7.5-325MG [Percocet 1 tab PO Q6HR PRN 3 Days #12 tab 03/17/24 7.5-325 mg] Allergies Allergy/AdvReac Type Severity Reaction Status Date / Time No Known Allergies Allergy Verified 03/17/24 17:30 Review of Systems ROS Other: All systems not noted in ROS Statement are negative. <Kacy Du - Last Filed: 03/17/24 18:21> ROS Other: All systems not noted in ROS Statement are negative. <Sofia Rosas - Last Filed: 03/22/24 23:52> ROS Statement: Those systems with pertinent positive or pertinent negative responses have been documented in the HPI. Past Medical History Past Medical History: Cancer, CVA/TIA, Hyperlipidemia, Hypertension Additional Past Medical History / Comment(s): Throat CA, status post chemotherapy, radiation, tracheostomy tube placement, feeding tube with subsequent removal History of Any Multi-Drug Resistant Organisms: None Reported Past Surgical History: Orthopedic Surgery Additional Past Surgical History / Comment(s): History of left carotid endarterectomy, status post tracheostomy placement Past Anesthesia/Blood Transfusion Reactions: No Reported Reaction Past Psychological History: No Psychological Hx Reported Smoking Status: Former smoker Past Alcohol Use History: None Reported Past Drug Use History: None Reported, Marijuana - Past Family History Mother Family Medical History: Dementia Father Family Medical History: Cancer (Lung cancer) <Kacy Du - Last Filed: 03/17/24 18:21> General Exam Limitations: no limitations <Kacy Du - Last Filed: 03/17/24 18:21> Limitations: no limitations General appearance: alert, in no apparent distress Head exam: Present: atraumatic, normocephalic, normal inspection Eye exam: Present: normal appearance, PERRL, EOMI. Absent: scleral icterus, conjunctival injection, periorbital swelling ENT exam: Present: normal exam, mucous membranes moist Neck exam: Present: lymphadenopathy. Absent: tenderness, meningismus Respiratory exam: Present: normal lung sounds bilaterally. Absent: respiratory distress, wheezes, rales, rhonchi, stridor Cardiovascular Exam: Present: regular rate, normal rhythm, normal heart sounds. Absent: systolic murmur, diastolic murmur, rubs, gallop, clicks Extremities exam: Present: normal inspection, full ROM, normal capillary refill. Absent: tenderness, pedal edema, joint swelling, calf tenderness Back exam: Present: normal inspection Neurological exam: Present: alert, oriented X3, CN II-XII intact Psychiatric exam: Present: normal affect, normal mood Skin exam: Present: warm, dry, intact, normal color. Absent: rash <Sofia Rosas - Last Filed: 03/22/24 23:52> - General Exam Comments Initial Comments: Visual Physical Exam Vital signs reviewed General: Well-appearing, nontoxic, no acute distress. Head: Normocephalic, atraumatic Eyes: PERRLA, EOMI ENT: Airway patent Chest: Nonlabored breathing Skin: No visual rash, normal skin tone Neuro: Alert and oriented 3 Musculoskeletal: No gross abnormalities (Kacy Du) Course Vital Signs 03/17/24 03/17/24 03/17/24 17:27 19:46 21:16 Temperature 97.9 F Pulse Rate 88 92 101 H Respiratory 24 18 20 Rate Blood Pressure 134/75 138/84 128/69 O2 Sat by Pulse 97 99 Oximetry 03/17/24 22:57 Temperature 98.6 F Pulse Rate 105 H Respiratory 20 Rate Blood Pressure 137/81 O2 Sat by Pulse 97 Oximetry Medical Decision Making <Kacy Du - Last Filed: 03/17/24 18:21> - Lab Data Result diagrams: 03/17/24 19:35 03/17/24 19:35 <Sofia Rosas - Last Filed: 03/22/24 23:52> - Medical Decision Making I completed the quick note portion of this chart signed Kacy Du PA-C (Kacy Du) Was pt. sent in by a medical professional or institution ([facility], [employer], urgent care, hospital, or snf...) When possible be specific @ -No Did you speak to anyone other than the patient for history (EMS, parent, family, police, friend...)? What history was obtained from this source @ -No Did you review nursing and triage notes (agree or disagree)? Why? @ -I reviewed and agree with nursing and triage notes Were old charts reviewed (outside hosp., previous admission, EMS record, old EKG, old radiological studies, urgent care reports/EKG's, snf records)? Report findings @ -No old charts were reviewed Differential Diagnosis (chest pain, altered mental status, abdominal pain women, abdominal pain men, vaginal bleeding, weakness, fever, dyspnea, syncope, headache, dizziness, GI bleed, back pain, seizure, CVA, palpatations, mental health, musculoskeletal)? @ -Differential Dyspnea: Coronary syndrome, arrhythmia, tamponade, asthma, COPD, pulmonary embolism, pneumonia, pneumothorax, pulmonary effusion, anaphylaxis, diabetic ketoacidosis, flailed chest, pulmonary contusion, diaphragmatic rupture, anemia, neuromuscular, this is not meant to be an all-inclusive list. EKG interpreted by me (3pts min.). @ -None X-rays interpreted by me (1pt min.). @ -None done CT interpreted by me (1pt min.). @ -CT of chest and soft tissue neck show possible progression of patient's cancer with increasing size pulmonary nodules, left-sided neck mass, evidence of osseous and liver metastatic disease U/S interpreted by me (1pt. min.). @ -None done What testing was considered but not performed or refused? (CT, X-rays, U/S, labs)? Why? @ -None What meds were considered but not given or refused? Why? @ -None Did you discuss the management of the patient with other professionals (professionals i.e. , PA, ASSET PROTECTION LEAD, lab, RT, psych nurse, social sciences department chair, apparel sales leader, t eacher, aoc airspace control officer, case monitor)? Give summary @ -No Was smoking cessation discussed for >3mins.? @ -No Was critical care preformed (if so, how long)? @ -No Were there social determinants of health that impacted care today? How? (Homelessness, low income, unemployed, alcoholism, drug addiction, transportation, low edu. Level, literacy, decrease access to med. care, longterm, rehab)? @ -No Was there de-escalation of care discussed even if they declined (Discuss DNR or withdrawal of care, Hospice)? DNR status @ -No What co-morbidities impacted this encounter? (DM, HTN, Smoking, COPD, CAD, Cancer, CVA, ARF, Chemo, Hep., AIDS, mental health diagnosis, sleep apnea, morbid obesity)? @ -Head and neck cancer Was patient admitted / discharged? Hospital course, mention meds given and route, prescriptions, significant lab abnormalities, going to OR and other pertinent info. @ -Discharge. Patient presented to the emergency department for evaluation of back pain, increased shortness of breath. Laboratory studies obtained. CBC shows no significant leukocytosis, normal hemoglobin, for normal coagulation studies negative troponin, negative for COVID, influenza, RSV. Because of patient's history of head and neck cancer with new shortness of breath he underwent a chest CTA and soft tissue neck CT which showed no evidence of PE but there appears to be progression of disease with enlarging left neck mass, increasing size of pulmonary nodules and evidence of osseous and liver metastat ic disease. Patient was advised on these findings and discussed inpatient for symptom control versus outpatient follow-up with his oncologist. Patient will be provided p.o. pain medication for symptoms and follow-up with his oncologist outpatient. He is understanding and agreeable with this plan. Patient stable at time of discharge. Undiagnosed new problem with uncertain prognosis? @ -No Drug Therapy requiring intensive monitoring for toxicity (Heparin, Nitro, Insulin, Cardizem)? @ -No Were any procedures done? @ -No Diagnosis/symptom? @ -Pulmonary nodules Acute, or Chronic, or Acute on Chronic? @ -Acute on chronic Uncomplicated (without systemic symptoms) or Complicated (systemic symptoms)? @ -Complicated Side effects of treatment? @ -No Exacerbation, Progression, or Severe Exacerbation? @ -No Poses a threat to life or bodily function? How? (Chest pain, [place], [place], pneumonia, PE, COPD, DKA, ARF, appy, cholecystitis, CVA, Diverticulitis, Homicidal, Suicidal, threat to staff... and all critical care pts) @ -No (Sofia Rosas) - Lab Data Lab Results 03/17/24 03/17/24 03/17/24 Range/Units 19:35 19:35 19:35 WBC 7.4 (3.8-10.6) k/uL RBC 4.49 (4.30-5.90) m/uL Hgb 13.2 (13.0-17.5) gm/dL Hct 40.3 (39.0-53.0) % MCV 89.9 (80.0-100.0) fL MCH 29.5 (25.0-35.0) pg MCHC 32.8 (31.0-37.0) g/dL RDW 13.2 (11.5-15.5) % Plt Count 614 H (150-450) k/uL MPV 6.9 Neutrophils % 83 % Lymphocytes % 8 % Monocytes % 6 % Eosinophils % 1 % Basophils % 0 % Neutrophils # 6.2 (1.3-7.7) k/uL Lymphocytes # 0.6 L (1.0-4.8) k/uL Monocytes # 0.5 (0-1.0) k/uL Eosinophils # 0.1 (0-0.7) k/uL Basophils # 0.0 (0-0.2) k/uL PT 10.7 (10.0-12.5) sec INR 1.0 (<1.2) APTT 28.3 (22.0-30.0) sec Sodium 136 L (137-145) mmol/L Potassium 4.4 (3.5-5.1) mmol/L Chloride 98 (98-107) mmol/L Carbon Dioxide 30 (22-30) mmol/L Anion Gap 8 mmol/L BUN 19 (9-20) mg/dL Creatinine 1.12 (0.66-1.25) mg/dL Est GFR (CKD-EPI)AfAm 81 (>60 ml/min/1.73 sqM) Est GFR (CKD-EPI)NonAf 70 (>60 ml/min/1.73 sqM) Glucose 98 (74-99) mg/dL Calcium 9.7 (8.4-10.2) mg/dL Magnesium 2.0 (1.6-2.3) mg/dL Total Bilirubin 0.5 (0.2-1.3) mg/dL AST 34 (17-59) U/L ALT 20 (4-49) U/L Alkaline Phosphatase 126 (38-126) U/L Troponin I (0.000-0.034) ng/mL Total Protein 7.5 (6.3-8.2) g/dL Albumin 4.6 (3.5-5.0) g/dL Influenza Type A (PCR) (Not Detectd) Influenza Type B (PCR) (Not Detectd) RSV (PCR) (Not Detectd) SARS-CoV-2 (PCR) (Not Detectd) 03/17/24 03/17/24 Range/Units 19:35 19:35 WBC (3.8-10.6) k/uL RBC (4.30-5.90) m/uL Hgb (13.0-17.5) gm/dL Hct (39.0-53.0) % MCV (80.0-100.0) fL MCH (25.0-35.0) pg MCHC (31.0-37.0) g/dL RDW (11.5-15.5) % Plt Count (150-450) k/uL MPV Neutrophils % % Lymphocytes % % Monocytes % % Eosinophils % % Basophils % % Neutrophils # (1.3-7.7) k/uL Lymphocytes # (1.0-4.8) k/uL Monocytes # (0-1.0) k/uL Eosinophils # (0-0.7) k/uL Basophils # (0-0.2) k/uL PT (10.0-12.5) sec INR (<1.2) APTT (22.0-30.0) sec Sodium (137-145) mmol/L Potassium (3.5-5.1) mmol/L Chloride (98-107) mmol/L Carbon Dioxide (22-30) mmol/L Anion Gap mmol/L BUN (9-20) mg/dL Creatinine (0.66-1.25) mg/dL Est GFR (CKD-EPI)AfAm (>60 ml/min/1.73 sqM) Est GFR (CKD-EPI)NonAf (>60 ml/min/1.73 sqM) Glucose (74-99) mg/dL Calcium (8.4-10.2) mg/dL Magnesium (1.6-2.3) mg/dL Total Bilirubin (0.2-1.3) mg/dL AST (17-59) U/L ALT (4-49) U/L Alkaline Phosphatase (38-126) U/L Troponin I <0.012 (0.000-0.034) ng/mL Total Protein (6.3-8.2) g/dL Albumin (3.5-5.0) g/dL Influenza Type A (PCR) Not Detected (Not Detectd) Influenza Type B (PCR) Not Detected (Not Detectd) RSV (PCR) Not Detected (Not Detectd) SARS-CoV-2 (PCR) Not Detected (Not Detectd) Disposition <Kacy Du - Last Filed: 03/17/24 18:21> Is patient prescribed a controlled substance at d/c from ED?: No <Sofia Rosas - Last Filed: 03/22/24 23:52> Clinical Impression: Back pain Disposition: HOME SELF-CARE Condition: Stable Additional Instructions: Please follow up with your oncologist. Return to the emergency department for new or worsening symptoms. Prescriptions: oxyCODONE-APAP 7.5-325MG [Percocet 7.5-325 mg] 1 tab PO Q6HR PRN 3 Days #12 tab PRN Reason: Pain Referrals: Ye Mane MD [Primary Care Provider] - 1-2 days
[2024-03-17 20:03] LABS: Basophils % (A) 0 %; Eosinophils # (A) 0.1 k/uL (0-0.7); Eosinophils % (A) 1 %; HCT 40.3 % (39.0-53.0); HGB 13.2 gm/dL (13.0-17.5); Lymphocytes # (A) 0.6 k/uL (1.0-4.8); Lymphocytes % (A) 8 %; MCH 29.5 pg (25.0-35.0); MCHC 32.8 g/dL (31.0-37.0); MCV 89.9 fL (80.0-100.0); Mean Platelet Volume 6.9; Monocytes # (A) 0.5 k/uL (0-1.0); Monocytes % (A) 6 %; Neutrophils # (A) 6.2 k/uL (1.3-7.7); Neutrophils % (A) 83 %; Platelet Count 614 k/uL (150-450); RBC 4.49 m/uL (4.30-5.90); RDW 13.2 % (11.5-15.5); WBC 7.4 k/uL (3.8-10.6)
[2024-03-17 20:13] LABS: Partial Thromboplastin Time 28.3 sec (22.0-30.0); Prothrombin Time 10.7 sec (10.0-12.5)
[2024-03-17 20:18] LABS: ALT 20 U/L (4-49); AST 34 U/L (17-59); African American GFR (CKD) 81 (>60 ml/min/1.73 sqM); Albumin 4.6 g/dL (3.5-5.0); Alkaline Phosphatase 126 U/L (38-126); Anion Gap 8 mmol/L; Blood Urea Nitrogen 19 mg/dL (9-20); Calcium 9.7 mg/dL (8.4-10.2); Carbon Dioxide 30 mmol/L (22-30); Chloride 98 mmol/L (98-107); Glucose 98 mg/dL (74-99); Non-African American GFR(CKD) 70 (>60 ml/min/1.73 sqM); Potassium 4.4 mmol/L (3.5-5.1); Sodium 136 mmol/L (137-145); Total Bilirubin 0.5 mg/dL (0.2-1.3); Total Protein 7.5 g/dL (6.3-8.2)
[2024-03-17 21:18] VITALS: RESP 20
[2024-03-17] MEDS: HYDROmorphone 0.5 MG/0.5 ML SYRINGE IVP STA (21:18)
--- NOTE | 2024-03-17 21:21 | CT ---
EXAMINATION TYPE: CT chest angio for PE, CT soft tissue neck w con CT DLP: Combined DLP of 498.9 mGycm, Automated exposure control for dose reduction was used. DATE OF EXAM: 03/17/2024 9:01 PM COMPARISON: 11/10/2023 CLINICAL INDICATION:Male, 63 years old with history of dyspnea, swelling, hx neck ca; Dyspnea, hx of neck CA. TECHNIQUE/CONTRAST: CTA scan of the thorax is performed with IV Contrast, patient injected with 100 mL of Isovue 370, MIP images are created and reviewed these are created on a separate workstation.. CT imaging of the neck with sagittal coronal reformats. FINDINGS: Pulmonary Artery: There is no evidence for a filling defect within the pulmonary vasculature to sugge st acute pulmonary embolism. The pulmonary artery is of normal size. Lungs/Pleura: Scattered pulmonary nodules are seen throughout the lungs including right lower lung 14 mm, left upper lung r 12 mm left lower lung 9 mm right middle lobe 21 mm. No evidence of focal conso lidation, pleural effusion or pneumothorax. Airway: Large airways are patent. Heart: Heart is within normal limits for size. Vasculature: No evidence of aortic aneurysm. Mediastinum: No gross evidence of adenopathy. Musculoskeletal: No acute osseous abnormalities scattered areas within the bones which are suspicious for metastatic disease including the T2 vertebral body with possible inferior endplate fracture seri es 403 image 100. T8 vertebral body measuring 17 mm. Soft Tissues/lymph nodes: Other enlarged lymph nodes in size of left neck mass. There is conglomerate soft tissue around the larynx with narrowed airway at the level of vocal cords series 501 image 58 neck: Conglomerate left neck soft tissue mass series 411 image 8 measuring 4.5 x 4.0 x 2.9 cm which c ould contain muscle in that measurement. Visualized intracranial structures are grossly unremarkable. There is atherosclerosis of the intracranial vasculature. The orbits and globes are intact. No signi ficant paranasal sinus disease. The carotid bifurcations are patent. Left common carotid artery is sl ightly narrowed as it passes the left neck mass. Thyroid gland is grossly unremarkable. Tracheostomy cannula is not visualized. Upper Abdomen: Scattered metastatic disease throughout the liver. IMPRESSION: 1. No definitive evidence of pulmonary embolism. 2. Progression of disease with enlarging left neck mass, larynx abnormal soft tissue with evidence of increasing size of pulmonary nodules and evidence of osseous and liver metastatic disease.
[2024-03-17 22:58] VITALS: BP 137/81; PULSE 105; TEMP 98.6
[2024-03-17] MEDS: HYDROmorphone 1 MG/ML 1 ML SYRINGE IVP STA (22:58)
== END 2024-03-17 23:06 | disposition home or self-care (01) ==
LOC: EC 16:58
DX: M54.6 Pain in thoracic spine (principal); M54.50 Low back pain, unspecified; R91.1 Solitary pulmonary nodule; C76.0 Malignant neoplasm of head, face and neck; Z87.891 Personal history of nicotine dependence; Z86.73 Personal history of transient ischemic attack (TIA), and cerebral infarction without residual deficits
CPT/HCPCS: 36415; 93005; 80053; 83735; 84484; 85025; 85610; 85730; 87636; 70491; 71275; 99285; 96374; 96376; J1170 ×2; Q9967

== ENCOUNTER 2024-03-26 03:05 | Inpatient (IN) | payer OTHER ==
--- NOTE | 2024-03-26 03:11 | ED ---
SOB HPI - General Stated Complaint: Difficulty Breathing Time Seen by Provider: 03/26/24 03:09 Source: RN notes reviewed, old records reviewed Mode of arrival: EMS Limitations: no limitations - History of Present Illness Initial Comments: This is a 63-year-old male to the ER for evaluation of severe chest pain anterior chest pain body aches and pains weakness shortness of breath and severe cancer related chest pain MD Complaint: shortness of breath, cough, chest pain, "asthma attack", anxiety -: days(s) Severity: severe Severity scale (1-10): 8 Consistency: constant Improves With: nothing Worsens With: nothing Context: recent URI, anxiety, recent illness Associated Symptoms: chest pain - Related Data Home Medications Medication Instructions Recorded Confirmed Albuterol Sulfate [Ventolin HFA] 2 puff INHALATION RT-QID PRN 03/26/24 03/26/24 HYDROcodone/APAP 10-325MG [[place] 1 tab PO Q4HR 03/26/24 03/26/24 10-325] Pantoprazole [Protonix] 40 mg PO BID 03/26/24 03/26/24 Previous Rx's Medication Instructions Recorded Aspirin 81 mg PO DAILY tab 03/27/24 Atorvastatin [Lipitor] 80 mg PO HS tab 03/27/24 Budesonide [Pulmicort] 1 mg INHALATION RT-BID ml 03/27/24 Calcium Carbonate [Tums] 1,000 mg PO Q4HR PRN tab 03/27/24 Docusate [Colace] 100 mg PO BID PRN cap 03/27/24 Formoterol Fumarate [Perforomist] 20 mcg INHALATION RT-BID ml 03/27/24 Ipratropium-Albuterol Nebulize 3 ml INHALATION RT-QID each 03/27/24 [Duoneb 0.5 mg-3 mg/3 ml Soln] LORazepam [Ativan] 1 mg PO Q8HR PRN tab 03/27/24 Lactulose [Cephulac] 20 gm PO DAILY PRN ml 03/27/24 Magnesium Hydroxide [Milk of 2,400 mg PO DAILY PRN ml 03/27/24 Magnesia] Metoprolol Tartrate [Lopressor] 25 mg PO BID tab 03/27/24 bisacodyL [Dulcolax] 10 mg RECTAL ONCE PRN suppositor 03/27/24 Allergies Allergy/AdvReac Type Severity Reaction Status Date / Time No Known Allergies Allergy Verified 03/26/24 07:44 Review of Systems ROS Statement: Those systems with pertinent positive or pertinent negative responses have been documented in the HPI. ROS Other: All systems not noted in ROS Statement are negative. Past Medical History Past Medical History: Cancer, CVA/TIA, Hyperlipidemia, Hypertension Additional Past Medical History / Comment(s): Throat CA, status post chemotherapy, radiation, tracheostomy tube placement, feeding tube with subsequent removal History of Any Multi-Drug Resistant Organisms: None Reported Past Surgical History: Orthopedic Surgery Additional Past Surgical History / Comment(s): History of left carotid endarte rectomy, status post tracheostomy placement Past Anesthesia/Blood Transfusion Reactions: No Reported Reaction Past Psychological History: No Psychological Hx Reported Smoking Status: Former smoker Past Alcohol Use History: None Reported Past Drug Use History: None Reported, Marijuana - Past Family History Mother Family Medical History: Dementia Father Family Medical History: Cancer (Lung cancer) General Exam General appearance: alert, in no apparent distress, anxious, in distress Head exam: Present: atraumatic, normocephalic, normal inspection Eye exam: Present: normal appearance, PERRL, EOMI. Absent: scleral icterus, conjunctival injection, periorbital swelling ENT exam: Present: normal exam, mucous membranes moist Neck exam: Present: normal inspection. Absent: tenderness, meningismus, lymphadenopathy Respiratory exam: Present: respiratory distress, accessory muscle use, decreased breath sounds, prolonged expiratory. Absent: wheezes, rales, rhonchi, stridor Cardiovascular Exam: Present: normal rhythm, tachycardia, normal heart sounds. Absent: systolic murmur, diastolic murmur, rubs, gallop, clicks GI/Abdominal exam: Present: soft, normal bowel sounds. Absent: distended, tenderness, guarding, rebound, rigid Extremities exam: Present: normal inspection, full ROM, normal capillary refill. Absent: tenderness, pedal edema, joint swelling, calf tenderness Back exam: Present: normal inspection Neurological exam: Present: alert, oriented X3, CN II-XII intact Psychiatric exam: Present: normal affect, normal mood Skin exam: Present: warm, dry, intact, normal color. Absent: rash Course Vital Signs 03/26/24 03/26/24 03/26/24 03:08 03:22 03:29 Temperature 98.2 F Pulse Rate 118 H 75 74 Respiratory 22 Rate Blood Pressure 117/68 O2 Sat by Pulse 96 Oximetry 03/26/24 03/26/24 03/26/24 03:50 05:06 05:42 Temperature Pulse Rate 114 H 120 H 113 H Respiratory 22 20 20 Rate Blood Pressure 114/77 116/72 110/64 O2 Sat by Pulse 96 96 99 Oximetry 03/26/24 03/26/24 03/26/24 06:50 07:44 08:11 Temperature Pulse Rate 107 H 104 H 96 Respiratory 20 20 Rate Blood Pressure 120/77 110/69 O2 Sat by Pulse 96 96 Oximetry 03/26/24 03/26/24 03/26/24 08:26 09:00 11:41 Temperature Pulse Rate 88 100 104 H Respiratory 18 Rate Blood Pressure 107/68 O2 Sat by Pulse 96 Oximetry 03/26/24 03/26/24 03/26/24 11:48 15:28 15:36 Temperature Pulse Rate 101 H 92 96 Respiratory Rate Blood Pressure O2 Sat by Pulse Oximetry 03/26/24 16:12 Temperature 97.8 F Pulse Rate 87 Respiratory 24 Rate Blood Pressure 106/66 O2 Sat by Pulse 96 Oximetry - Reevaluation(s) Reevaluation #1: 03/26/24 06:55 Medical records reviewed Reevaluation #2: 03/26/24 06:55 Patient has severely difficult to control pain here in the emergency department requiring multiple doses of Dilaudid Reevaluation #3: 03/26/24 06:55 Patient informed of results questions answered Reevaluation #4: Was pt. sent in by a medical professional or institution (, PA, ROD STRAIGHTENER, urgent care, hospital, or long-term...) When possible be specific @ -no Did you speak to anyone other than the patient for history (EMS, parent, family, police, friend...)? What history was obtained from this source @ -no Did you review nursing and triage notes (agree or disagree)? Why? @ -agree Are old charts reviewed (outside hosp., previous admission, EMS record, old EKG, old radiological studies, urgent care reports/EKG's, long-term records)? Report findings @ -yes Differential Diagnosis (chest pain, altered mental status, abdominal pain women, abdominal pain men, vaginal bleeding, weakness, fever, dyspnea, syncope, headache, dizziness, GI bleed, back pain, seizure, CVA, palpatations, mental health, musculoskeletal)? @ -prior EKG interpreted by me (3pts min.). @ -yes X-rays interpreted by me (1pt min.). @ -yes negative for acute disease CT interpreted by me (1pt min.). @ -Yes chronic cancer changes no PE U/S interpreted by me (1pt. min.). @ -no What testing was considered but not performed or refused? (CT, X-rays, U/S, labs )? Why? @ -none What meds were considered but not given or refused? Why? @ -none Did you discuss the management of the patient with other professionals (professionals i.e. , PA, ROD STRAIGHTENER, lab, RT, psych nurse, social studies department chair, curtain hemmer automatic, teacher, donor relations officer, community case manager)? Give summary @ -no Was smoking cessation discussed for >3mins.? @ -no Was critical care preformed (if so, how long)? @ -no Were there social determinants of health that impacted care today? How? (Homelessness, low income, unemployed, alcoholism, drug addiction, transportation, low edu. Level, literacy, decrease access to med. care, half-way, rehab)? @ -none Was there de-escalation of care discussed even if they declined (Discuss DNR or withdrawal of care, Hospice)? DNR status @ -no What co-morbidities impacted this encounter? (DM, HTN, Smoking, COPD, CAD, Cancer, CVA, ARF, Chemo, Hep., AIDS, mental health diagnosis, sleep apnea, morbid obesity)? @ -none Was patient admitted / discharged? Hospital course, mention meds given and route, prescriptions, significant lab abnormalities, going to OR and other pertinent info. @ - 63 male will be admitted for severe cancer pain chest pain elevated troponin. Admitted Undiagnosed new problem with uncertain prognosis? @ -no Drug Therapy requiring intensive monitoring for toxicity (Heparin, Nitro, Insulin, Cardizem)? @ -no Were any procedures done? @ -no Diagnosis/symptom? @ -Chest pain, NSTEMI, cancer pain Acute, or Chronic, or Acute on Chronic? @ -Acute Uncomplicated (without systemic symptoms) or Complicated (systemic symptoms)? @ -Complicated Side effects of treatment? @ -no Exacerbation, Progression, or Severe Exacerbation? @ -exacerbation Poses a threat to life or bodily function? How? (Chest pain, [place], [place], pneumonia, PE, COPD, DKA, ARF, appy, cholecystitis, CVA, Diverticulitis, Homicidal, Suicidal, threat to staff... and all critical care pts) @ -yes with significant chest pain Reevaluation #5: Differential Chest Pain: Stable Angina, Unstable Angina, STEMI, NSTEMI Aortic Dissection, Pneumothorax, Musculoskeletal, Esophageal Spasm GERD, Cholecystitis, Pancreatitis, Zoster, this is not meant to be an all-inclusive list. - Consultations Consultation #1: Spoke with [facility] who will admit this patient Medical Decision Making - Medical Decision Making 63 male will be admitted for severe cancer pain chest pain elevated troponin. - Lab Data Result diagrams: 03/27/24 07:21 03/27/24 07:21 Lab Results 03/26/24 03/26/24 03/26/24 Range/Units 03:24 03:24 03:24 WBC 12.5 H (3.8-10.6) k/uL RBC 3.76 L (4.30-5.90) m/uL Hgb 11.3 L (13.0-17.5) gm/dL Hct 34.7 L (39.0-53.0) % MCV 92.2 (80.0-100.0) fL MCH 30.1 (25.0-35.0) pg MCHC 32.7 (31.0-37.0) g/dL RDW 13.0 (11.5-15.5) % Plt Count 500 H (150-450) k/uL MPV 6.9 Neutrophils % 92 % Lymphocytes % 3 % Monocytes % 4 % Eosinophils % 1 % Basophils % 0 % Neutrophils # 11.5 H (1.3-7.7) k/uL Lymphocytes # 0.3 L (1.0-4.8) k/uL Monocytes # 0.5 (0-1.0) k/uL Eosinophils # 0.1 (0-0.7) k/uL Basophils # 0.0 (0-0.2) k/uL PT 10.8 (10.0-12.5) sec INR 1.0 (<1.2) APTT 20.9 L (22.0-30.0) sec Sodium 136 L (137-145) mmol/L Potassium 3.6 (3.5-5.1) mmol/L Chloride 101 (98-107) mmol/L Carbon Dioxide 27 (22-30) mmol/L Anion Gap 8 mmol/L BUN 25 H (9-20) mg/dL Creatinine 1.09 (0.66-1.25) mg/dL Est GFR (CKD-EPI)AfAm 83 (>60 ml/min/1.73 sqM) Est GFR (CKD-EPI)NonAf 72 (>60 ml/min/1.73 sqM) Glucose 116 H (74-99) mg/dL Lactic Ac Sepsis Rflx Plasma Lactic Acid Marciano (0.7-2.0) mmol/L Calcium 9.3 (8.4-10.2) mg/dL Magnesium 1.9 (1.6-2.3) mg/dL Total Bilirubin 0.4 (0.2-1.3) mg/dL AST 32 (17-59) U/L ALT 17 (4-49) U/L Alkaline Phosphatase 118 (38-126) U/L Troponin I (0.000-0.034) ng/mL NT-Pro-B Natriuret Pep 1070 pg/mL Total Protein 6.2 L (6.3-8.2) g/dL Albumin 3.7 (3.5-5.0) g/dL 03/26/24 03/26/24 03/26/24 Range/Units 03:24 03:24 05:40 WBC (3.8-10.6) k/uL RBC (4.30-5.90) m/uL Hgb (13.0-17.5) gm/dL Hct (39.0-53.0) % MCV (80.0-100.0) fL MCH (25.0-35.0) pg MCHC (31.0-37.0) g/dL RDW (11.5-15.5) % Plt Count (150-450) k/uL MPV Neutrophils % % Lymphocytes % % Monocytes % % Eosinophils % % Basophils % % Neutrophils # (1.3-7.7) k/uL Lymphocytes # (1.0-4.8) k/uL Monocytes # (0-1.0) k/uL Eosinophils # (0-0.7) k/uL Basophils # (0-0.2) k/uL PT (10.0-12.5) sec INR (<1.2) APTT (22.0-30.0) sec Sodium (137-145) mmol/L Potassium (3.5-5.1) mmol/L Chloride (98-107) mmol/L Carbon Dioxide (22-30) mmol/L Anion Gap mmol/L BUN (9-20) mg/dL Creatinine (0.66-1.25) mg/dL Est GFR (CKD-EPI)AfAm (>60 ml/min/1.73 sqM) Est GFR (CKD-EPI)NonAf (>60 ml/min/1.73 sqM) Glucose (74-99) mg/dL Lactic Ac Sepsis Rflx Y Plasma Lactic Acid Marciano 2.4 H* (0.7-2.0) mmol/L Calcium (8.4-10.2) mg/dL Magnesium (1.6-2.3) mg/dL Total Bilirubin (0.2-1.3) mg/dL AST (17-59) U/L ALT (4-49) U/L Alkaline Phosphatase (38-126) U/L Troponin I 0.409 H* (0.000-0.034) ng/mL NT-Pro-B Natriuret Pep pg/mL Total Protein (6.3-8.2) g/dL Albumin (3.5-5.0) g/dL - EKG Data -: EKG Interpreted by Me (EKG is sinus tachycardia 121 TN 160 QRS 92 QTc 396) - Radiology Data Radiology results: report reviewed (Chest x-ray CTA chest shows cancer changes but no acute disease), image reviewed Critical Care Time Critical Care Time: Yes Total Critical Care Time: 31 Disposition Clinical Impression: Back pain, Chest pain, Pain, cancer, NSTEMI (non-ST elevated myocardial infarction) Disposition: ADMITTED IP TO THIS HOSP Condition: Stable Is patient prescribed a controlled substance at d/c from ED?: No
[2024-03-26] MEDS: SODIUM CHLORIDE 0.9% 1,000 ML IV STA (03:17)
[2024-03-26] MEDS: IPRATROPIUM-ALBUTEROL 3 ML NEB INHALATION STA ×2 (03:22→08:08)
[2024-03-26] MEDS: HYDROmorphone 1 MG/ML 1 ML SYRINGE IVP STA ×3 (03:26→04:18)
[2024-03-26 03:37] LABS: Basophils % (A) 0 %; Eosinophils # (A) 0.1 k/uL (0-0.7); Eosinophils % (A) 1 %; HCT 34.7 % (39.0-53.0); HGB 11.3 gm/dL (13.0-17.5); Lymphocytes # (A) 0.3 k/uL (1.0-4.8); Lymphocytes % (A) 3 %; MCH 30.1 pg (25.0-35.0); MCHC 32.7 g/dL (31.0-37.0); MCV 92.2 fL (80.0-100.0); Mean Platelet Volume 6.9; Monocytes # (A) 0.5 k/uL (0-1.0); Monocytes % (A) 4 %; Neutrophils # (A) 11.5 k/uL (1.3-7.7); Neutrophils % (A) 92 %; Platelet Count 500 k/uL (150-450); RBC 3.76 m/uL (4.30-5.90); WBC 12.5 k/uL (3.8-10.6)
[2024-03-26 03:53] LABS: Prothrombin Time 10.8 sec (10.0-12.5)
[2024-03-26 04:03] LABS: ALT 17 U/L (4-49); AST 32 U/L (17-59); African American GFR (CKD) 83 (>60 ml/min/1.73 sqM); Albumin 3.7 g/dL (3.5-5.0); Alkaline Phosphatase 118 U/L (38-126); Anion Gap 8 mmol/L; Blood Urea Nitrogen 25 mg/dL (9-20); Calcium 9.3 mg/dL (8.4-10.2); Carbon Dioxide 27 mmol/L (22-30); Chloride 101 mmol/L (98-107); Glucose 116 mg/dL (74-99); Magnesium 1.9 mg/dL (1.6-2.3); Non-African American GFR(CKD) 72 (>60 ml/min/1.73 sqM); Potassium 3.6 mmol/L (3.5-5.1); Sodium 136 mmol/L (137-145); Total Bilirubin 0.4 mg/dL (0.2-1.3); Total Protein 6.2 g/dL (6.3-8.2)
[2024-03-26 04:09] LABS: Partial Thromboplastin Time 20.9 sec (22.0-30.0)
[2024-03-26 04:11] LABS: NT-Pro-B-Type Natriuretic Pept 1070 pg/mL
[2024-03-26] MEDS: diphenhydrAMINE 50 MG/ML 1 ML VIAL IVP STA (05:05)
[2024-03-26] MEDS ORDERED: NALOXONE 0.4 MG/ML 1 ML VIAL IV PRN ×2 (06:52→10:42)
[2024-03-26] MEDS ORDERED: ONDANSETRON 4 MG/2 ML VIAL IVP PRN (06:52)
[2024-03-26] MEDS: HEPARIN SOD,PORK IN 0.45% NACL 25,000 UNIT in 0.45% NACL 1 250ML.BAG IV SCH (07:40)
[2024-03-26] MEDS: HEPARIN SODIUM 1,000 UN/ML (10ML VL) IV ONE (07:41)
[2024-03-26] MEDS: SODIUM CHLORIDE 0.9% 1,000 ML IV SCH (07:47)
[2024-03-26] MEDS: ASPIRIN 81 MG PO SCH (10:11)
[2024-03-26] MEDS: METOPROLOL TARTRATE 25 MG TAB PO SCH (10:11)
[2024-03-26] MEDS: HYDROmorphone 1 MG/ML 1 ML SYRINGE IVP PRN (10:11)
[2024-03-26] MEDS ORDERED: CALCIUM CARBONATE 500 MG CHEWABLE PO PRN (10:42)
[2024-03-26] MEDS ORDERED: bisacodyL 10 MG SUPP RECTAL PRN (10:42)
[2024-03-26] MEDS ORDERED: DOCUSATE 100 MG CAP PO PRN (10:42)
[2024-03-26] MEDS ORDERED: LACTULOSE 20 GM/30 ML CUP PO PRN (10:42)
[2024-03-26] MEDS ORDERED: MAGNESIUM HYDROXIDE 2,400 MG/30 ML CUP PO PRN (10:42)
--- NOTE | 2024-03-26 10:57 | P.CRDCN ---
History of Present Illness History of present illness: HISTORY OF PRESENT ILLNESS: This is a 63-year-old male with a past medical history significant for CVA, laryngeal cancer s/p chemotherapy and radiation, tracheostomy, PEG tube with reversal, hypertension, hyperlipidemia, and former nicotine dependence. Patient does not follow with a vice president sales. We have been asked to see the patient in consultation for NSTEMI. Patient examined at the bedside in the emergency room. Patient states that he got up this morning and was very short of breath. He reports having significant back pain today which he usually does not have. He also reports having pain down both sides of his lateral chest and abdomen. He also reports a frequent cough. He thought that he had pneumonia again so he came to the hospital for further evaluation. He currently denies any chest pain or pressure. He denies having any chest pain or pressure under within the past week. He denies a history of CAD. He is a former cigarette smoker. DIAGNOSTICS: - EKG reveals sinus tachycardia with no signs of acute ischemia - Chest xray and chest CT are pending at the time of examination - Laboratory data: WBC 12.5. Hemoglobin 11.3. Platelet count 500. Sodium 136. Potassium 3.6. BUN 25. Creatinine 1.09. Lactic acid 2.4. - Most recent echocardiogram obtained in July 2023 revealed ejection fraction 55 to 60%, mild to moderate aortic regurgitation, and moderate global pericardial effusion with no evidence of tamponade. REVIEW OF SYSTEMS: At the time of my exam: CONSTITUTIONAL: Denies fever or chills. HEENT: Denies blurred vision, vision changes, or eye pain. Denies hemoptysis CARDIOVASCULAR: Denies chest pain. Denies orthopnea. Denies PND. Denies p alpitations RESPIRATORY: Denies shortness of breath. GASTROINTESTINAL: Denies abdominal pain. Denies nausea or vomiting. HEMATOLOGIC: Denies bleeding disorders. GENITOURINARY: Denies any blood in urine. SKIN: Denies pruitis. Denies rash. PHYSICAL EXAM: VITAL SIGNS: Reviewed. GENERAL: Well-developed in no acute distress. HEENT: Tracheostomy site noted. Head is normocephalic. Pupils are equal, round. Sclerae anicteric. Mucous membranes of the mouth are moist. Neck supple. No JVD or thyromegaly LUNGS: Respirations even and unlabored. Lungs essentially clear to auscultation bilaterally. HEART: Tachycardic. Regular rate and rhythm. S1 and S2 heard. Systolic murmur noted. ABDOMEN: Soft. Nondistended. Nontender. EXTREMITIES: Normal range of motion. No clubbing or cyanosis. Peripheral pulses intact. No lower extremity edema NEUROLOGIC: Awake and alert. Oriented x 3. ASSESSMENT: Shortness of breath of breath Non-STEMI History of laryngeal cancer with chemotherapy and radiation History of tracheostomy History of PEG tube with reversal Hypertension Hyperlipidemia History of CVA History of large pericardial effusion Mild to moderate aortic regurgitation COPD Former nicotine dependence PLAN: Obtain 2D echo to assess cardiac structure and function Begin aspirin, atorvastatin, and metoprolol Continue IV heparin Patient symptoms are concerning for pulmonary embolism. Await results of CTA. If no pulmonary embolism noted on CTA, will plan for cardiac catheterization with Dr. Zaragoza Further recommendations pending patient course Nurse practitioner note has been reviewed by physician. Signing provider agrees with the documented findings, assessment, and plan of care documented by ADMINISTRATIVE EXECUTIVE as a scribe. Past Medical History Past Medical History: Cancer, CVA/TIA, Hyperlipidemia, Hypertension Additional Past Medical History / Comment(s): Throat CA, status post chemotherapy, radiation, tracheostomy tube placement, feeding tube with subsequent removal History of Any Multi-Drug Resistant Organisms: None Reported Past Surgical History: Orthopedic Surgery Additional Past Surgical History / Comment(s): History of left carotid endarterectomy, status post tracheostomy placement Past Anesthesia/Blood Transfusion Reactions: No Reported Reaction Past Psychological History: No Psychological Hx Reported Smoking Status: Former smoker Past Alcohol Use History: None Reported Past Drug Use History: None Reported, Marijuana - Past Family History Mother Family Medical History: Dementia Father Family Medical History: Cancer (Lung cancer) Medications and Allergies Home Medications Medication Instructions Recorded Confirmed Type Atorvastatin Calcium [Lipitor] 40 mg PO HS 02/07/22 03/26/24 History Metoprolol Tartrate [Lopressor] 12.5 mg PO BID 07/31/23 03/26/24 History Albuterol Sulfate [Ventolin HFA] 2 puff INHALATION RT-QID PRN 03/26/24 03/26/24 History HYDROcodone/APAP 10-325MG [[place] 1 tab PO Q4HR 03/26/24 03/26/24 History 10-325] Pantoprazole [Protonix] 40 mg PO BID 03/26/24 03/26/24 History Allergies Allergy/AdvReac Type Severity Reaction Status Date / Time No Known Allergies Allergy Verified 03/26/24 07:44 Physical Exam Vitals: Vital Signs Temp Pulse Resp BP Pulse Ox 03/26/24 08:11 96 03/26/24 07:44 104 H 20 110/69 96 03/26/24 06:50 107 H 20 120/77 96 03/26/24 05:42 113 H 20 110/64 99 03/26/24 05:06 120 H 20 116/72 96 03/26/24 03:50 114 H 22 114/77 96 03/26/24 03:29 74 03/26/24 03:22 75 03/26/24 03:08 98.2 F 118 H 22 117/68 96 Intake and Output 03/25/24 03/26/24 03/26/24 22:59 06:59 14:59 Other: Weight 58.967 kg Results 03/26/24 03:24 03/26/24 03:24 Cardiac Enzymes 03/26/24 03/26/24 Range/Units 03:24 03:24 AST 32 (17-59) U/L Troponin I 0.409 H* (0.000-0.034) ng/mL Coagulation 03/26/24 Range/Units 03:24 PT 10.8 (10.0-12.5) sec APTT 20.9 L (22.0-30.0) sec CBC 03/26/24 Range/Units 03:24 WBC 12.5 H (3.8-10.6) k/uL RBC 3.76 L (4.30-5.90) m/uL Hgb 11.3 L (13.0-17.5) gm/dL Hct 34.7 L (39.0-53.0) % Plt Count 500 H (150-450) k/uL Comprehensive Metabolic Panel 03/26/24 Range/Units 03:24 Sodium 136 L (137-145) mmol/L Potassium 3.6 (3.5-5.1) mmol/L Chloride 101 (98-107) mmol/L Carbon Dioxide 27 (22-30) mmol/L BUN 25 H (9-20) mg/dL Creatinine 1.09 (0.66-1.25) mg/dL Glucose 116 H (74-99) mg/dL Calcium 9.3 (8.4-10.2) mg/dL AST 32 (17-59) U/L ALT 17 (4-49) U/L Alkaline Phosphatase 118 (38-126) U/L Total Protein 6.2 L (6.3-8.2) g/dL Albumin 3.7 (3.5-5.0) g/dL Current Medications Generic Name Dose Route Start Last Admin Trade Name Freq PRN Reason Stop Dose Admin Heparin Sodium (Porcine) 0 unit 03/26/24 06:52 Heparin Sodium 1,000 Un/Ml (10ml Vl) IV PER PROTOCOL PRN Low PTT Protocol Hydromorphone HCl 1 mg 03/26/24 06:52 Hydromorphone 1 Mg/Ml 1 Ml Syringe IVP Q3HR PRN Severe Pain (Scale 7 to 10) Heparin Sodium/Sodium Chloride 250 mls @ 7.076 mls/hr 03/26/24 07:00 03/26/24 07:40 25,000 unit/ Sodium Chloride IV 12 units/kg/hr .Q24H PATRICIA 7.076 mls/hr Administration Protocol 12 UNITS/KG/HR Sodium Chloride 1,000 mls @ 75 mls/hr 03/26/24 07:00 03/26/24 07:47 Saline 0.9% IV 75 mls/hr .[id number] PATRICIA Administration Naloxone HCl 0.2 mg 03/26/24 06:52 Naloxone 0.4 Mg/Ml 1 Ml Vial IV Q2M PRN Opioid Reversal Ondansetron HCl 4 mg 03/26/24 06:52 Ondansetron 4 Mg/2 Ml Vial IVP Q8HR PRN Nausea And Vomiting Intake and Output 03/25/24 03/26/24 03/26/24 22:59 06:59 14:59 Other: Weight 58.967 kg 03/26/24 03:24 03/26/24 03:24
[2024-03-26] MEDS: ALBUTEROL NEBULIZED 2.5 MG/3 ML INHALATION PRN (11:39)
--- NOTE | 2024-03-26 13:01 | CT ---
EXAMINATION TYPE: CT soft tissue neck wo con DATE OF EXAM: 03/26/2024 COMPARISON: 03/17/2024 HISTORY: 63-year-old male shortness of breath, R/O AIRWAY OBSTRUCTION TECHNIQUE: Contiguous axial scanning of the soft tissues of the neck without IV contrast. Coronal and sagittal reconstructions performed. CT DLP: 253.4 mGycm Automated exposure control for dose reduction was used. FINDINGS: Lack of IV contrast limits assessment of the cervical mucosal space, lymph nodes, and vascular struct ures of the neck. Leftward nasal septal deviation. Paranasal sinuses and mastoid air cells appear clear. Nasopharynx appears clear. Oropharynx appears clear. Redemonstrated abnormal soft tissue circumferentially narrowing the hypopharyngeal airway and larynx, similar to prior exam. There is a tracheostomy present with similar mild to moderate tracheal narrowing at the ostomy. Abnormal soft tissue lower left neck/left supraclavicular region measuring up to 5.7 cm craniocaudal by 4.9 cm wide versus 5.5 x 4.8 cm, previously. Not significant changed but detailed assessment limit ed due to lack of contrast. Epiglottis and prevertebral soft tissues are satisfactory. In the visualized upper chest, partially visualized known nodules in the left lung and pneumatocele r ight upper lobe with some associated stranding thickening. Bones: Redemonstrated osseous destruction of the T2 vertebral body especially towards the left and mi ld overall height loss. IMPRESSION: 1. SIMILAR COMPROMISE OF THE HYPOPHARYNGEAL AND LARYNGEAL AIRWAY SECONDARY TO ABNORMAL SOFT TISSUE. 2. THERE IS A DOWN STREAM TRACHEOSTOMY STOMA WITH SIMILAR MILD TO MODERATE TRACHEAL STENOSIS AT THE L EVEL OF THE STOMA. 3. ABNORMAL SOFT TISSUE/LYMPHADENOPATHY LOWER LEFT NECK MEASURING UP TO 5.7 CM, RELATIVELY UNCHANGED COMPARED TO 03/17/2024. 4. PARTIALLY VISUALIZED, KNOWN PULMONARY METASTASES. 5. DESTRUCTIVE METASTATIC LESION T2 VERTEBRAL BODY REDEMONSTRATED.
[2024-03-26] MEDS: HEPARIN SODIUM 1,000 UN/ML (10ML VL) IV PRN (14:23)
--- NOTE | 2024-03-26 14:45 | P.HPIM ---
History of Present Illness H&P Date: 03/26/24 Chief Complaint: Dyspnea Mr. Moulton is an unfortunate 63-year-old gentleman with a medical history significant for throat cancer status post trach and PEG, with recent decannulation of trach and PEG removal, CHF with EF 40 to 45%, hypertension, COPD, PPM, AVR and CAD status post stents. He presents today with dyspnea. He states since his trach tube was removed 2 months ago he has been progressively more short of breath prompting his family to call EMS today. He denies having any chest pain. He has not had any increase in his baseline cough. He has not had any hemoptysis. He does have pains in his ribs and back which has progressively worsened. He has known metastatic disease. No orthopnea, PND or lower extremity edema. In the ED, his vitals showed mild tachycardia with heart rate of 88-1 04, BP 107/68 and O2 saturation 96% on nasal cannula oxygen. Labs were significant for lactate of 2.4 now 2.3. Troponin initially was 0.409 and now 4.4. EKG revealed sinus tachycardia with no acute ischemia per my interpretation. CTA was done and read is pending, per my interpretation he does have chronic lung changes with right-sided large bleb without any aortic dissection or PE identified. CT neck soft tissue showed compromise of the hypopharyngeal and laryngeal airway that is unchanged from previous, he does have some lymphadenopathy in left lower neck measuring up to 5.7 cm that is unchanged from previous as well. He does have destructive T2 lesion which was present previously. Review of Systems Complete review of systems, pertinent positives and negatives in HPI Past Medical History Past Medical History: Cancer, CVA/TIA, Hyperlipidemia, Hypertension Additional Past Medical History / Comment(s): Throat CA, status post chemother apy, radiation, tracheostomy tube placement, feeding tube with subsequent removal History of Any Multi-Drug Resistant Organisms: None Reported Past Surgical History: Orthopedic Surgery Additional Past Surgical History / Comment(s): History of left carotid endarterectomy, status post tracheostomy placement Past Anesthesia/Blood Transfusion Reactions: No Reported Reaction Past Psychological History: No Psychological Hx Reported Smoking Status: Former smoker Past Alcohol Use History: None Reported Past Drug Use History: None Reported, Marijuana - Past Family History Mother Family Medical History: Dementia Father Family Medical History: Cancer (Lung cancer) Medications and Allergies Home Medications Medication Instructions Recorded Confirmed Type Atorvastatin Calcium [Lipitor] 40 mg PO HS 02/07/22 03/26/24 History Metoprolol Tartrate [Lopressor] 12.5 mg PO BID 07/31/23 03/26/24 History Albuterol Sulfate [Ventolin HFA] 2 puff INHALATION RT-QID PRN 03/26/24 03/26/24 History HYDROcodone/APAP 10-325MG [[place] 1 tab PO Q4HR 03/26/24 03/26/24 History 10-325] Pantoprazole [Protonix] 40 mg PO BID 03/26/24 03/26/24 History Allergies Allergy/AdvReac Type Severity Reaction Status Date / Time No Known Allergies Allergy Verified 03/26/24 07:44 Physical Exam Vitals: Vital Signs Temp Pulse Resp BP Pulse Ox 03/26/24 11:48 101 H 03/26/24 11:41 104 H 03/26/24 09:00 100 18 107/68 96 03/26/24 08:26 88 03/26/24 08:11 96 03/26/24 07:44 104 H 20 110/69 96 03/26/24 06:50 107 H 20 120/77 96 03/26/24 05:42 113 H 20 110/64 99 03/26/24 05:06 120 H 20 116/72 96 03/26/24 03:50 114 H 22 114/77 96 03/26/24 03:29 74 03/26/24 03:22 75 03/26/24 03:08 98.2 F 118 H 22 117/68 96 Intake and Output 03/25/24 03/26/24 03/26/24 22:59 06:59 14:59 Intake Total 47.645 Balance 47.645 Intake: Intake, IV Titration 47.645 Amount Heparin Sod,Pork in 0.45% 47.645 NaCl 25,000 unit In 0.45 % NaCl 1 250ml.bag @ 12 UNITS/KG/HR 7.076 mls/hr IV .Q24H [facility] Rx#: [id number] Other: Weight 58.967 kg Vitals: Reviewed General: Cachectic appearing gentleman in no acute distress HEENT: Left-sided cervical lymphadenopathy Cardiovascular: RRR, S1-S2 Lungs: Breath sounds equal diminished without wheezing Abdomen: Soft, nontender, nondistended Extremities: No lower extremity edema Results CBC & Chem 7: 03/26/24 03:24 03/26/24 03:24 Labs: Abnormal Lab Results - Last 24 Hours (Table) 03/26/24 03/26/24 03/26/24 Range/Units 03:24 03:24 03:24 WBC 12.5 H (3.8-10.6) k/uL RBC 3.76 L (4.30-5.90) m/uL Hgb 11.3 L (13.0-17.5) gm/dL Hct 34.7 L (39.0-53.0) % Plt Count 500 H (150-450) k/uL Neutrophils # 11.5 H (1.3-7.7) k/uL Lymphocytes # 0.3 L (1.0-4.8) k/uL APTT 20.9 L (22.0-30.0) sec Sodium 136 L (137-145) mmol/L BUN 25 H (9-20) mg/dL Glucose 116 H (74-99) mg/dL Plasma Lactic Acid Marciano (0.7-2.0) mmol/L Troponin I (0.000-0.034) ng/mL Total Protein 6.2 L (6.3-8.2) g/dL 03/26/24 03/26/24 03/26/24 Range/Units 03:24 03:24 10:14 WBC (3.8-10.6) k/uL RBC (4.30-5.90) m/uL Hgb (13.0-17.5) gm/dL Hct (39.0-53.0) % Plt Count (150-450) k/uL Neutrophils # (1.3-7.7) k/uL Lymphocytes # (1.0-4.8) k/uL APTT (22.0-30.0) sec Sodium (137-145) mmol/L BUN (9-20) mg/dL Glucose (74-99) mg/dL Plasma Lactic Acid Marciano 2.4 H* (0.7-2.0) mmol/L Troponin I 0.409 H* 4.430 H* (0.000-0.034) ng/mL Total Protein (6.3-8.2) g/dL 03/26/24 03/26/24 03/26/24 Range/Units 10:14 13:37 13:37 WBC (3.8-10.6) k/uL RBC (4.30-5.90) m/uL Hgb (13.0-17.5) gm/dL Hct (39.0-53.0) % Plt Count (150-450) k/uL Neutrophils # (1.3-7.7) k/uL Lymphocytes # (1.0-4.8) k/uL APTT 35.5 H (22.0-30.0) sec Sodium (137-145) mmol/L BUN (9-20) mg/dL Glucose (74-99) mg/dL Plasma Lactic Acid Marciano 2.3 H* (0.7-2.0) mmol/L Troponin I 4.860 H* (0.000-0.034) ng/mL Total Protein (6.3-8.2) g/dL Assessment and Plan Assessment: # NSTEMI Heparin drip. Aspirin and statin. Echocardiogram pending. Cardiology currently not planning on any cardiac catheterization. # Stage IV throat cancer Oncology on board. Status post previous chemo and radiation. Unclear whether he would be a candidate for palliative chemotherapy. # Dyspnea CTA negative for any dissection or PE per my read, await official read. Echo ordered. Pulmonology consulted. # History of A-fib Currently in sinus rhythm. Continue home metoprolol. On heparin drip.
[2024-03-26] MEDS: IPRATROPIUM-ALBUTEROL 3 ML NEB INHALATION SCH (15:28)
--- NOTE | 2024-03-26 17:07 | CA ---
Transthoracic Echo Report Name: Azeem Gray Age: 63 Gender: M : 1960 Exam Date: 03/26/2024 13:03 Exam Location: [facility] Ht (in): 70 Wt (lb): 130 Ordering Physician: Zuleyma León Attending/Referring Phys: [id number], Romelia [employer] Clerk Priscila Cook RDCS Procedure CPT: Indications: elevated trops, SOB, LV function Cardiac Hx: Technical Quality: Technically difficult study Contrast 1: Definity Total Dose (mL): 2 Contrast 2: Total Dose (mL): MEASUREMENTS (Male / Female) Normal Values 2D ECHO LV Diastolic Diameter PLAX 4.3 cm 4.2 - 5.9 / 3.9 - 5.3 cm LV Systolic Diameter PLAX 2.6 cm IVS Diastolic Thickness 0.8 cm 0.6 - 1.0 / 0.6 - 0.9 cm LVPW Diastolic Thickness 1.3 cm 0.6 - 1.0 / 0.6 - 0.9 cm LV Relative Wall Thickness 0.5 LVOT Diameter 1.6 cm LV Diastolic Volume MOD BP 78.8 cm??? 67 - 155 / 56 - 104 cm??? LV Systolic Volume MOD BP 51.4 cm??? 22 - 58 / 19 - 49 cm??? LV Ejection Fraction MOD BP 34.8 % >= 55 % LV Cardiac Index MOD BP 1523.7 cm???/min???m??? LV Diastolic Volume MOD 4C 90.1 cm??? LV Systolic Volume MOD 4C 53.5 cm??? LV Ejection Fraction MOD 4C 40.6 % LV Cardiac Index MOD 4C 2029.0 cm???/min???m??? LV Diastolic Length 4C 8.2 cm LV Systolic Length 4C 7.4 cm LV Diastolic Volume MOD 2C 68.0 cm??? LV Systolic Volume MOD 2C 44.0 cm??? LV Ejection Fraction MOD 2C 35.3 % LV Cardiac Index MOD 2C 1331.6 cm???/min???m??? LV Diastolic Length 2C 8.4 cm LV Systolic Length 2C 6.5 cm LA Volume 41.1 cm??? 18 - 58 / 22 - 52 cm??? LA Volume Index 24.3 cm???/m??? 16 - 28 cm???/m??? M-MODE Aortic Root Diameter MM 3.3 cm LA Systolic Diameter MM 2.3 cm LA Ao Ratio MM 0.7 AV Cusp Separation MM 1.3 cm DOPPLER AV Peak Velocity 227.1 cm/s AV Peak Gradient 20.6 mmHg AV Mean Velocity 157.3 cm/s AV Mean Gradient 11.4 mmHg AV Velocity Time Integral 42.2 cm AI Peak Velocity 318.7 cm/s AI Peak Gradient 40.6 mmHg AI Pressure Half Time 457.6 ms LVOT Peak Velocity 117.6 cm/s LVOT Peak Gradient 5.5 mmHg LVOT Velocity Time Integral 22.3 cm LVOT Stroke Volume 44.3 cm??? LVOT Stroke Volume Index 25.5 ml/m??? LVOT Cardiac Index 2455.2 cm???/min???m??? AV Area Cont Eq vti 1.0 cm??? AV Area Cont Eq pk 1.0 cm??? MV Area PHT 5.7 cm??? Mitral E Point Velocity 118.8 cm/s Mitral A Point Velocity 100.1 cm/s Mitral E to A Ratio 1.2 MV Deceleration Time 132.5 ms MV E' Velocity 7.3 cm/s Mitral E to MV E' Ratio 16.3 FINDINGS Left Ventricle Mildly increased left ventricular wall thickness. Left ventricular cavity size normal. Left ventricular ejection fraction is estimated at 50-55 %. Right Ventricle Normal right ventricular size and function. Right ventricular systolic pressure within normal limits. Right Atrium Normal right atrial size. Left Atrium Normal left atrial size. Mitral Valve Structurally normal mitral valve. Mild mitral annular calcification. Aortic Valve Trileaflet aortic valve. Mild aortic stenosis with a peak gradient of 21 mmHg and a mean gradient of 11.4 mmHg. Mild aortic regurgitation. Tricuspid Valve Structurally normal tricuspid valve. Mild tricuspid regurgitation. Pulmonic Valve Structurally normal pulmonic valve. Pericardium No pericardial effusion. Aorta Normal size aortic root and proximal ascending aorta. CONCLUSIONS LVEF 50 to 55% Mild concentric LVH No obvious resting regional wall motion abnormality Mild valvular calcification. Mild aortic regurgitation and mild stenosis Previewed by: Dr Dilan Camargo (Electronically Signed) Final Date: 26 March 2024 17:05
--- NOTE | 2024-03-26 17:28 | XR ---
EXAM: XR Chest, 1 View CLINICAL HISTORY: pt called EMS for JT. Pt had trach removed 2 months ago. Per EMS pt had diminished breath sounds all the way around. O2 saturation 90% on RA at home. TECHNIQUE: Frontal view of the chest. COMPARISON: 08/04/2023 FINDINGS: Lungs: Linear scarring over the right upper lung zone. Small amount of opacities over left middle and lower lung zone, decreased, suggest atelectasis, scarring, and/or pneumonia. Pleural space: Unremarkable. Mediastinum: Unremarkable. Normal mediastinal contour. Bones/joints: No acute findings. IMPRESSION: Small amount of opacities over left middle and lower lung zone, decreased, suggest atelectasis, scarring, and/or pneumonia.
--- NOTE | 2024-03-26 17:29 | CT ---
EXAM: CT Angiography Chest With Intravenous Contrast CLINICAL HISTORY: JT. Pt had trach removed 2 months ago. per EMS pt had diminished breath sounds all the way around. chest pain. pt unable to keep arms above head and couldn't sit still TECHNIQUE: Axial computed tomographic angiography images of the chest with intravenous contrast. CTDI is 17.4 mGy and DLP is 254.1 mGy-cm. This CT exam was performed using one or more of the following dose reduction techniques: automated exposure control, adjustment of the mA and/or kV according to patient size, and/or use of iterative reconstruction technique. MIP reconstructed images were created and reviewed. Coronal and sagittal reformatted images were created and reviewed. 765 images COMPARISON: 07/31/2023 FINDINGS: Artifacts: Motion artifact decreases the sensitivity of this exam. Pulmonary arteries: Unremarkable. No pulmonary embolism. Aorta: Small to moderate amount of atherosclerotic calcifications. Large amount of atherosclerotic calcifications. Lungs: Several lung metastases. Many are new. Largest is best seen in right cardiophrenic angle region measuring up to 3.2 cm, best seen on series 401 image 110. Large bullous formation of right lung apex with surrounding scar. No consolidation. Pleural space: Unremarkable. No significant effusion. No pneumothorax. Heart: Unremarkable. No cardiomegaly. No significant pericardial effusion. No evidence of RV dysfunction. Bones/joints: Osteopenia. Moderate degenerative changes. Lytic Bone metastases are new. Anterior wedge shaped compression defect at T2, T8 are pathological related to metastasis. Mild upper thoracic scoliosis convexed to the left. Soft tissues: Unremarkable. Lymph nodes: Unremarkable. No enlarged lymph nodes. Liver: Multiple liver metastases, new. IMPRESSION: 1. No pulmonary embolism. No aortic aneurysm or dissection. 2. new liver and bone metastases. Anterior wedge shaped compression defect at T2, T8 are pathological related to bone metastasis. 3. Lung metastases are worse.
[2024-03-26] MEDS: ATORVASTATIN 80 MG TAB PO SCH (20:45)
--- NOTE | 2024-03-26 23:38 | P.CONS ---
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 He is a patient of Dr. 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 He underwent treatment with concurrent chemo/RT, and completed treatment April 2022. Patient had repeat PET scan on 05/13/2023 which revealed areas of surrounding abnormal vocal cord were smaller and more discrete but showed increased SUV values. New areas of abnormal uptake within the lungs including lateral right apex and lingula. New area of increased uptake within the intercostal space between the first and second right ribs. And increasing intensity within the cecum and ascending colon, which could be physiologic versus neoplasm. CT chest on 06/20/2023 revealed new necrotic masses in the left upper lobe and left lingula with associated pleural thickening and intercostal nodularity. Thick walled cystic structure of the right upper lobe and subcarinal adenopathy and subcentimeter low right paratracheal lymph node. He had subseqent follow up scheduled but had missed multiple follow up appts. He then f/u in clinic on 09/2023 and was scheduled for repeat PET CT in 11/2023. PET scan obtained by rad onc on revealed left lower neck and mediastinal lymph nodes as well as at least 2 pulmonary nodules which increased in size with increased FDG activity and number of pulmonary nodules which have elevated FDG activity. Indeterminate uptake near the falciform ligament possibly secondary to misregistration artifact. Patient has been following with radiation oncology, Dr. Stephens. Patient missed last follow-up in clinic on 03/13/2024. He has not followed up since September 2023. Of note patient was seen in the ER on 03/17/2024 for shortness of breath and underwent CTA chest and CT soft tissue of neck, scans revealed no evidence for PE. Progression of disease with enlarging left neck mass, larynx abnormal soft tissue with evidence of increasing size of pulmonary nodules and evidence of osseous and liver metastatic disease. Patient presented to the emergency room with chest pain and shortness of breath. Patient also reporting right upper back pain progressing right upper back pain. Denies dysphagia. Denies nausea or vomiting. He states shortness of breath has been worsening over the last couple months. He does not use home oxygen. At today's visit patient is experiencing conversational dyspnea and reporting persisting SOB. On admission troponin was elevated, cardiology following. Patient was then started on heparin drip. Chest x-ray and CTA chest pending. CBC reviewed, WBC 12.5, hemoglobin 11.3, platelets 500,000. Creatinine 1.09, GFR 72. Patient is afebrile, SpO2 96% on 2L. Review of Systems 10 point ROS is negative except as stated in the HPI Past Medical History Past Medical History: Cancer, CVA/TIA, Hyperlipidemia, Hypertension Additional Past Medical History / Comment(s): Throat CA, status post chemotherapy, radiation, tracheostomy tube placement, feeding tube with subsequent removal History of Any Multi-Drug Resistant Organisms: None Reported Past Surgical History: Orthopedic Surgery Additional Past Surgical History / Comment(s): History of left carotid endarterectomy, status post tracheostomy placement Past Anesthesia/Blood Transfusion Reactions: No Reported Reaction Past Psychological History: No Psychological Hx Reported Smoking Status: Former smoker Past Alcohol Use History: None Reported Past Drug Use History: None Reported, Marijuana - Past Family History Mother Family Medical History: Dementia Father Family Medical History: Cancer (Lung cancer) Medications and Allergies Home Medications Medication Instructions Recorded Confirmed Type Atorvastatin Calcium [Lipitor] 40 mg PO HS 02/07/22 03/26/24 History Metoprolol Tartrate [Lopressor] 12.5 mg PO BID 07/31/23 03/26/24 History Albuterol Sulfate [Ventolin HFA] 2 puff INHALATION RT-QID PRN 03/26/24 03/26/24 History HYDROcodone/APAP 10-325MG [[place] 1 tab PO Q4HR 03/26/24 03/26/24 History 10-325] Pantoprazole [Protonix] 40 mg PO BID 03/26/24 03/26/24 History Allergies Allergy/AdvReac Type Severity Reaction Status Date / Time No Known Allergies Allergy Verified 03/26/24 07:44 Physical Exam Vitals: Vital Signs Temp Pulse Resp BP Pulse Ox 03/26/24 11:48 101 H 03/26/24 11:41 104 H 03/26/24 08:26 88 03/26/24 08:11 96 03/26/24 07:44 104 H 20 110/69 96 03/26/24 06:50 107 H 20 120/77 96 03/26/24 05:42 113 H 20 110/64 99 03/26/24 05:06 120 H 20 116/72 96 03/26/24 03:50 114 H 22 114/77 96 03/26/24 03:29 74 03/26/24 03:22 75 03/26/24 03:08 98.2 F 118 H 22 117/68 96 Intake and Output 03/25/24 03/26/24 03/26/24 22:59 06:59 14:59 Other: Weight 58.967 kg - Constitutional General appearance: no acute distress, thin - EENT Eyes: anicteric sclerae, EOMI ENT: hearing grossly normal - Respiratory Respiratory: bilateral: wheezing - Cardiovascular Rhythm: regular Heart sounds: normal: S1, S2 - Gastrointestinal General gastrointestinal: soft, no tenderness - Integumentary Integumentary: no cyanotic - Musculoskeletal Musculoskeletal: strength equal bilaterally - Psychiatric Psychiatric: A&O x's 3 Results CBC & Chem 7: 03/26/24 03:24 03/26/24 03:24 Labs: Abnormal Lab Results - Last 24 Hours (Table) 03/26/24 03/26/24 03/26/24 Range/Units 03:24 03:24 03:24 WBC 12.5 H (3.8-10.6) k/uL RBC 3.76 L (4.30-5.90) m/uL Hgb 11.3 L (13.0-17.5) gm/dL Hct 34.7 L (39.0-53.0) % Plt Count 500 H (150-450) k/uL Neutrophils # 11.5 H (1.3-7.7) k/uL Lymphocytes # 0.3 L (1.0-4.8) k/uL APTT 20.9 L (22.0-30.0) sec Sodium 136 L (137-145) mmol/L BUN 25 H (9-20) mg/dL Glucose 116 H (74-99) mg/dL Plasma Lactic Acid Marciano (0.7-2.0) mmol/L Troponin I (0.000-0.034) ng/mL Total Protein 6.2 L (6.3-8.2) g/dL 03/26/24 03/26/24 03/26/24 Range/Units 03:24 03:24 10:14 WBC (3.8-10.6) k/uL RBC (4.30-5.90) m/uL Hgb (13.0-17.5) gm/dL Hct (39.0-53.0) % Plt Count (150-450) k/uL Neutrophils # (1.3-7.7) k/uL Lymphocytes # (1.0-4.8) k/uL APTT (22.0-30.0) sec Sodium (137-145) mmol/L BUN (9-20) mg/dL Glucose (74-99) mg/dL Plasma Lactic Acid Marciano 2.4 H* (0.7-2.0) mmol/L Troponin I 0.409 H* 4.430 H* (0.000-0.034) ng/mL Total Protein (6.3-8.2) g/dL 03/26/24 Range/Units 10:14 WBC (3.8-10.6) k/uL RBC (4.30-5.90) m/uL Hgb (13.0-17.5) gm/dL Hct (39.0-53.0) % Plt Count (150-450) k/uL Neutrophils # (1.3-7.7) k/uL Lymphocytes # (1.0-4.8) k/uL APTT (22.0-30.0) sec Sodium (137-145) mmol/L BUN (9-20) mg/dL Glucose (74-99) mg/dL Plasma Lactic Acid Marciano 2.3 H* (0.7-2.0) mmol/L Troponin I (0.000-0.034) ng/mL Total Protein (6.3-8.2) g/dL Assessment and Plan (1) Chest pain Current Visit: Yes Status: Acute Priority: High Code(s): R07.9 - CHEST PAIN, UNSPECIFIED SNOMED Code(s): 71756595 (2) NSTEMI (non-ST elevated myocardial infarction) Current Visit: Yes Status: Acute Priority: High Code(s): I21.4 - NON-ST ELEVATION (NSTEMI) MYOCARDIAL INFARCTION SNOMED Code(s): 01958982 (3) Squamous cell carcinoma of head and neck Current Visit: No Status: Acute Priority: High Code(s): C76.0 - MALIGNANT NEOPLASM OF HEAD, FACE AND NECK SNOMED Code(s): 967114520 Plan: NSTEMI: Presented with progressing chest pain and SOB -Serial troponins elevated. Heparin drip started -Cardiology consulted -Plan to await CTA chest and echo prior to cardiac cath -Defer management to cardiology and admitting team Squamous cell carcinoma head and neck: -Completed concurrent chemo/RT in April 2022. Patient follows with Dr. Newell and Dr. Stephens -Repeat PET scan on 05/13/2023 revealed areas of surrounding abnormal vocal cord were smaller and more discrete but showed increased SUV values. New areas of abnormal uptake within the lungs including lateral right apex and lingula. New area of increased uptake within the intercostal space between the first and second right ribs. And increasing intensity within the cecum and ascending colon, which could be physiologic versus neoplasm. CT chest on 06/20/2023 revealed new necrotic masses in the left upper lobe and left lingula with associated pleural thickening and intercostal nodularity. Thick walled cystic structure of the right upper lobe and subcarinal adenopathy and subcentimeter low right paratracheal lymph node. -Had admission in 07/2023 for loculated pleural effusion and empyema. Cytology from pleural fluid was negative for malignancy. -PET scan obtained by rad onc on revealed left lower neck and mediastinal lymph nodes as well as at least 2 pulmonary nodules which increased in size with increased FDG activity and number of pulmonary nodules which have elevated FDG activity. Indeterminate uptake near the falciform ligament possibly secondary to misregistration artifact. -Patient has been following with radiation oncology, Dr. Stephens. Patient missed last follow-up in clinic on 03/13/2024. He has not followed up since September 2023. Of note patient was seen in the ER on 03/17/2024 for shortness of breath and underwent CTA chest and CT soft tissue of neck, scans revealed no evidence for PE. Progression of disease with enlarging left neck mass, larynx abnormal soft tissue with evidence of increasing size of pulmonary nodules and evidence of osseous and liver metastatic disease -Radiation oncology consulted. Spoke with Dr. Stephens regarding case and fi ndings on CT scans. He will further review imaging and evaluate for palliative RT -CT AP ordered for staging -Due to history of melanoma, will need to obtain biopsy to evaluate for disease recurrence vs metastatic melanoma vs new primary. As noted on CT soft tissue neck on 03/17/24, there is left neck mass that would likely be obtainable by percutaneous biopsy. Will speak to IR, as well as cardiology as pt will need to be off anticoagulation for procedure Pt updated on POC and is agreeable. All questions were answered attests: I have seen and examined patient, performed H&P, developed i mpression and plan of care. Discussed with dictator. Agree with documentation, dictated as a scribe.
[2024-03-26] MEDS: LORazepam 1 MG TAB PO PRN (23:52)
--- NOTE | 2024-03-27 02:08 | P.CNPUL ---
History of Present Illness Consult date: 03/27/24 Requesting physician: Tahmina Vazquez Reason for consult: other (Previous tracheostomy and laryngeal CA, shortness of breath) Chief complaint: Severe back pain radiating to the left shoulder and associated SOB History of present illness: Patient is a 63-year-old white male with past medical history significant for laryngeal cancer status post chemoradiation and tracheostomy, PEG tube reversal, prior empyema, atrial fibrillation, hyperlipidemia, hypertension, COPD, and ex tobacco smoker. In regards to his metastatic laryngeal CA, he follows with Celestino Kulkarni. Also, sees Dr. Newell locally; as well as, Dr. Stephens for radiation. He is reportedly not currently undergoing any treatments. Patient was reportedly decannulated a couple months ago. He has had disease progression. Most recent PET scan done 11/10/2023 showed left lower neck and mediastinal lymph nodes as well as at least 2 pulmonary nodules which have increased in size with increased FDG activity and other pulmonary nodules which have elevated FDG activity. Constellation of findings are compatible with progression of disease. Chief complaint on arrival to the emergency department was thoracic level back pain which reportedly radiated to his left shoulder. Associated with shortness of breath and diaphoresis. He did immediately come to the emergency department. On admission patient did have a chest CTA which did not show any evidence of pulmonary embolism. It did show new liver and bone metastasis. Anterior wedge shaped compression defect at T2/T8 are pathologic related to bone metastasis. Lung metastasis seems to be progressing with bilateral pulmonary nodules and a cavitating lesion in the right upper lobe. No focal infiltrates, pleural effusions, or pneumothoraces. EKG on arrival showed sinus tachycardia with a rate of [address] depressions. Troponins are elevated at 0.41, 4.43, and 4.9 respectively. He is currently on a heparin infusion per protocol. Echocardiogram done this admission shows a preserved left ventricular ejection fraction of 50 to 55% as well as mild concentric LVH and mild aortic regurgitation/stenosis. CBC: WBC count 12.5, hemoglobin 11.3, hematocrit 34.7, platelets 500. Most recent APTT subtherapeutic, and heparin infusion to be adjusted per protocol. CMP: Sodium 136, potassium 3.6, chloride 101, serum bicarb 27, BUN 25, creatinine 1.09, glucose 116. Lactic acid 1.7. LFTs unremarkable. NT proBNP 1070. Patient is currently lying in bed, on 6 L/min nasal cannula, intermittent amount of respiratory distress. He has conversational dyspnea. Tracheostomy is decannulated with a small stoma opening. No audible stridor. Patient has a palpable left sided neck mass. CT soft tissue of neck demonstrated similar compromise of the hypopharyngeal and laryngeal airway secondary to abnormal soft tissue. There is downstream tracheostomy stoma with similar mild to moderate tracheal stenosis at the level of the stoma. Abnormal soft tissue/lymphadenopathy lower left neck measuring up to 5.7 cm. And other previously discussed metastatic lesions. Patient denies any fevers, chills, change in his cough, hemoptysis. Reportedly does not wear home oxygen. Vital signs are stable at this time. Review of Systems REVIEW OF SYSTEMS: CONSTITUTIONAL: Denies any recent significant weight loss or weight gain. EYES: Denies change in vision. EARS, NOSE, MOUTH, THROAT: Denies headaches, denies sore throat. CARDIOVASCULAR: Denies anterior chest pain, palpitations or syncopal episodes. Admits thoracic level back pain radiating to left shoulder with associated nausea and diaphoresis. RESPIRATORY: Admits associated shortness of breath. Denies change in chronic cough, significant purulent sputum, or hemoptysis. Chest is tight. GASTROINTESTINAL: Denies change in appetite, abdominal pain, nausea and vomiting, or diarrhea GENITOURINARY: Denies hematuria, denies infections. MUSKULOSKELETAL: Denies pain, denies swelling. INTEGUMENTARY: Denies rash, denies eczema. NEUROLOGICAL: Denies recent memory loss, no recent seizure activity. PSYCHIATRIC: Denies anxiety, denies depression. HEMATOLOGIC/LYMPHATIC: Denies anemia, admits left neck mass Past Medical History Past Medical History: Cancer, CVA/TIA, Hyperlipidemia, Hypertension Additional Past Medical History / Comment(s): Throat CA, status post chemotherapy, radiation, tracheostomy tube placement, feeding tube with subsequent removal History of Any Multi-Drug Resistant Organisms: None Reported Past Surgical History: Orthopedic Surgery Additional Past Surgical History / Comment(s): History of left carotid endartere ctomy, status post tracheostomy placement Past Anesthesia/Blood Transfusion Reactions: No Reported Reaction Past Psychological History: No Psychological Hx Reported Smoking Status: Former smoker Past Alcohol Use History: None Reported Past Drug Use History: None Reported, Marijuana - Past Family History Mother Family Medical History: Dementia Father Family Medical History: Cancer (Lung cancer) Medications and Allergies Home Medications Medication Instructions Recorded Confirmed Type Atorvastatin Calcium [Lipitor] 40 mg PO HS 02/07/22 03/26/24 History Metoprolol Tartrate [Lopressor] 12.5 mg PO BID 07/31/23 03/26/24 History Albuterol Sulfate [Ventolin HFA] 2 puff INHALATION RT-QID PRN 03/26/24 03/26/24 History HYDROcodone/APAP 10-325MG [[place] 1 tab PO Q4HR 03/26/24 03/26/24 History 10-325] Pantoprazole [Protonix] 40 mg PO BID 03/26/24 03/26/24 History Allergies Allergy/AdvReac Type Severity Reaction Status Date / Time No Known Allergies Allergy Verified 03/26/24 07:44 Physical Exam Vitals: Vital Signs Temp Pulse Pulse Resp BP BP Pulse Ox 03/27/24 00:00 70 24 159/76 100 03/26/24 20:30 92 03/26/24 20:20 96 03/26/24 20:00 98.1 F 70 24 109/68 100 03/26/24 16:45 98.1 F 86 20 109/68 100 03/26/24 16:12 97.8 F 87 24 106/66 96 03/26/24 15:36 96 03/26/24 15:28 92 03/26/24 11:48 101 H 03/26/24 11:41 104 H 03/26/24 09:00 100 18 107/68 96 03/26/24 08:26 88 03/26/24 08:11 96 03/26/24 07:44 104 H 20 110/69 96 03/26/24 06:50 107 H 20 120/77 96 03/26/24 05:42 113 H 20 110/64 99 03/26/24 05:06 120 H 20 116/72 96 03/26/24 03:50 114 H 22 114/77 96 03/26/24 03:29 74 03/26/24 03:22 75 03/26/24 03:08 98.2 F 118 H 22 117/68 96 Intake and Output 03/26/24 03/26/24 03/27/24 14:59 22:59 06:59 Intake Total 47.645 Balance 47.645 Intake: Intake, IV Titration 47.645 Amount Heparin Sod,Pork in 0.45% 47.645 NaCl 25,000 unit In 0.45 % NaCl 1 250ml.bag @ 12 UNITS/KG/HR 7.076 mls/hr IV .Q24H COUNT INCLUDES THE [facility] Rx#: [id number] Other: Weight 58.967 kg GENERAL EXAM: Alert, 63-year-old white male, currently on 6 L/min nasal cannula, mildly dyspneic at rest. Conversational dyspnea. Mild diaphoresis. HEAD: Normocephalic and atraumatic EYES: Normal reaction of pupils, equal size. NOSE: Clear with pink turbinates. THROAT: Small stoma opening, previously decannulated NECK: Left hard neck mass palpable CHEST: No chest wall deformity. LUNGS: Equal air entry with scattered rhonchi. No wheezes, crackles, or focal dullness. On 6 L/min nasal cannula. Speaks in short phrases.. CVS: S1 and S2 normal with no audible murmur, regular rhythm. No extra heart sounds ABDOMEN: No hepatosplenomegaly, active bowel sounds, no guarding or rigidity. SPINE: No scoliosis or deformity SKIN: No rashes CENTRAL NERVOUS SYSTEM: No focal deficits, tone is normal in all 4 extremities. EXTREMITIES: There is no peripheral edema, clubbing, or cyanosis. Peripheral pulses are intact. Results - Laboratory Findings CBC and BMP: 03/26/24 03:24 03/26/24 03:24 PT/INR, D-dimer PT 10.8 sec (10.0-12.5) 03/26/24 03:24 INR 1.0 (<1.2) 03/26/24 03:24 Abnormal lab findings: Abnormal Labs 03/26/24 03/26/24 03/26/24 03:24 03:24 03:24 WBC 12.5 H RBC 3.76 L Hgb 11.3 L Hct 34.7 L Plt Count 500 H Neutrophils # 11.5 H Lymphocytes # 0.3 L APTT 20.9 L Sodium 136 L BUN 25 H Glucose 116 H Plasma Lactic Acid Marciano Troponin I Total Protein 6.2 L 03/26/24 03/26/24 03/26/24 03:24 03:24 10:14 WBC RBC Hgb Hct Plt Count Neutrophils # Lymphocytes # APTT Sodium BUN Glucose Plasma Lactic Acid Marciano 2.4 H* Troponin I 0.409 H* 4.430 H* Total Protein 03/26/24 03/26/24 03/26/24 10:14 13:37 13:37 WBC RBC Hgb Hct Plt Count Neutrophils # Lymphocytes # APTT 35.5 H Sodium BUN Glucose Plasma Lactic Acid Marciano 2.3 H* Troponin I 4.860 H* Total Protein 03/26/24 20:10 WBC RBC Hgb Hct Plt Count Neutrophils # Lymphocytes # APTT 36.9 H Sodium BUN Glucose Plasma Lactic Acid Marciano Troponin I Total Protein - Diagnostic Findings Chest x-ray: image reviewed CT scan - chest: image reviewed Assessment and Plan Assessment: Acute Non-ST elevation WI Acute COPD exacerbation Stage IV laryngeal cancer, with history of previous chemoradiation, and subsequent disease progression. Most recent PET scan done 11/10/2023 showed left lower neck and mediastinal lymph nodes as well as at least 2 pulmonary nodules which have increased in size with increased FDG activity and other pulmonary nodules which have elevated FDG activity. Constellation of findings are compatible with progression of disease. On this hospital admission, patient did have a follow-up chest CTA which did not show any evidence of pulmonary embolism. It did show new liver and bone metastasis. Anterior wedge shaped compression defect at T2/T8 are pathologic related to bone metastasis. Lung metastasis seems to be progressing with bilateral pulmonary nodules and a cavitating lesion in the right upper lobe. No focal infiltrates, pleural effusions, or pneumothoraces. Acute hypoxemic respiratory failure, currently on 6 L/min nasal cannula, secondary to a combination of above History of tracheostomy and PEG tube, status post decannulation and PEG tube reversal, CT soft tissue of neck demonstrated similar compromise of the hypopharyngeal and laryngeal airway secondary to abnormal soft tissue. There is downstream tracheostomy stoma with similar mild to moderate tracheal stenosis at the level of the stoma. Abnormal soft tissue/lymphadenopathy lower left neck measuring up to 5.7 cm. And other previously discussed suspected metastatic lesions. Mild to moderate tracheal stenosis Left neck mass History of left lung empyema, status post pigtail insertion and IV antibiotics History of hypertension History of hyperlipidemia History of atrial fibrillation, currently normal sinus Former tobacco smoker Plan: Patient's medications, labs, imaging reviewed Patient continues on the high intensity heparin infusion. Cardiology is considering patient for possible heart catheterization Continue supplemental oxygen to maintain oxygen saturation of 92% or greater Continue DuoNebs [id number] Viral panel negative for influenza, RSV, COVID Medical oncology and radiation oncologist have been consulted. Overall prognosis is poor, secondary to above-mentioned comorbidities We will continue to follow, and additional recommendations are forthcoming I have personally seen and examined the patient, performed the documentation and the assessment and plan as written. Number of minutes spent on the visit:20 Time with Patient: Greater than 30
[2024-03-27] MEDS: BUDESONIDE 1 MG/2 ML NEBU INHALATION SCH (08:01)
[2024-03-27] MEDS: FORMOTEROL FUMARATE 20 MCG/2 ML NEBU INHALATION SCH (08:01)
[2024-03-27] MEDS: methylPREDNISolone SOD SUCCI 40 MG/ML 1 ML VIAL IV SCH (08:19)
[2024-03-27] MEDS: HYDROcodone/APAP 10-325MG 1 EACH TAB PO PRN (08:20)
[2024-03-27 08:26] LABS: HCT 43.5 % (39.0-53.0); HGB 13.2 gm/dL (13.0-17.5); Hypochromasia Slight; MCH 29.4 pg (25.0-35.0); MCHC 30.4 g/dL (31.0-37.0); MCV 96.8 fL (80.0-100.0); Mean Platelet Volume 7.4; Neutrophils % (A) 87 %; Platelet Count 627 k/uL (150-450); RBC 4.49 m/uL (4.30-5.90); RDW 13.1 % (11.5-15.5); WBC 8.8 k/uL (3.8-10.6)
[2024-03-27 08:27] LABS: Basophils % (A) 0 %; Eosinophils # (A) 0.1 k/uL (0-0.7); Eosinophils % (A) 1 %; Lymphocytes # (A) 0.6 k/uL (1.0-4.8); Lymphocytes % (A) 7 %; Monocytes # (A) 0.5 k/uL (0-1.0); Monocytes % (A) 5 %; Neutrophils # (A) 7.6 k/uL (1.3-7.7)
[2024-03-27 08:53] LABS: ALT 33 U/L (4-49); AST 70 U/L (17-59); African American GFR (CKD) >90 (>60 ml/min/1.73 sqM); Alkaline Phosphatase 187 U/L (38-126); Anion Gap 11 mmol/L; Blood Urea Nitrogen 14 mg/dL (9-20); Carbon Dioxide 27 mmol/L (22-30); Chloride 101 mmol/L (98-107); Glucose 96 mg/dL (74-99); Magnesium 1.7 mg/dL (1.6-2.3); Non-African American GFR(CKD) >90 (>60 ml/min/1.73 sqM); Phosphorus 3.4 mg/dL (2.5-4.5); Potassium 4.6 mmol/L (3.5-5.1); Sodium 139 mmol/L (137-145); Total Bilirubin 0.7 mg/dL (0.2-1.3); Total Protein 6.8 g/dL (6.3-8.2)
[2024-03-27] MEDS: IOPAMIDOL CONTRAST (ORAL USE) VIAL PO PRN (10:09)
--- NOTE | 2024-03-27 11:59 | P.CONS ---
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 Prior to starting radiotherapy he required emergent trach placement due to airway compromise. 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 He underwent a course of concurrent chemoradiation for his larynx cancer finishing on 04/22/22. Unfortunately, he now presents with imaging evidence concerning for metastatic disease with left neck adenopathy, suspicious lung nodules and bone metastases. The patient was seen in our clinic 1 week prior. He previously had not been seen for some time, and was recently found to have evidence of metastatic disease based on imaging from March 17. The patient presented to the ER ye sterday secondary to increased dyspnea and pain. He was found to have an NSTEMI, and was started on aspirin and IV heparin. He underwent a computed tomography scan of the neck and a CTA of the chest on March 26. This revealed no evidence of PE. Lytic bone lesions are redemonstrated in T2 and T8. He has a 5.7 cm left lymph node conglomerate involving the neck. At the time of my consultation, the patient reports he is having 8 out of 10 pain. It seems to be in the upper back, radiating towards the left shoulder. He is also still reporting left-sided hip pain. The patient reports he is still feeling dyspneic as well. Review of Systems Constitutional: Denies chills, Denies fever Ears, nose, mouth and throat: Reports as per HPI Cardiovascular: Reports chest pain Respiratory: Reports cough, Reports dyspnea Gastrointestinal: Denies abdominal pain Genitourinary: Denies flank pain Integumentary: Denies rash Neurological: Denies aphasia, Denies ataxia Psychiatric: Denies anxiety Past Medical History Past Medical History: Cancer, CVA/TIA, Hyperlipidemia, Hypertension Additional Past Medical History / Comment(s): Throat CA, status post chemotherapy, radiation, tracheostomy tube placement, feeding tube with subsequent removal History of Any Multi-Drug Resistant Organisms: None Reported Past Surgical History: Orthopedic Surgery Additional Past Surgical History / Comment(s): History of left carotid endarterectomy, status post tracheostomy placement Past Anesthesia/Blood Transfusion Reactions: No Reported Reaction Past Psychological History: No Psychological Hx Reported Smoking Status: Former smoker Past Alcohol Use History: None Reported Past Drug Use History: None Reported, Marijuana - Past Family History Mother Family Medical History: Dementia Father Family Medical History: Cancer (Lung cancer) Medications and Allergies Home Medications Medication Instructions Recorded Confirmed Type Albuterol Sulfate [Ventolin HFA] 2 puff INHALATION RT-QID PRN 03/26/24 03/26/24 History HYDROcodone/APAP 10-325MG [[place] 1 tab PO Q4HR 03/26/24 03/26/24 History 10-325] Pantoprazole [Protonix] 40 mg PO BID 03/26/24 03/26/24 History Aspirin 81 mg PO DAILY tab 03/27/24 Rx Atorvastatin [Lipitor] 80 mg PO HS tab 03/27/24 Rx Budesonide [Pulmicort] 1 mg INHALATION RT-BID ml 03/27/24 Rx Calcium Carbonate [Tums] 1,000 mg PO Q4HR PRN tab 03/27/24 Rx Docusate [Colace] 100 mg PO BID PRN cap 03/27/24 Rx Formoterol Fumarate [Perforomist] 20 mcg INHALATION RT-BID ml 03/27/24 Rx Ipratropium-Albuterol Nebulize 3 ml INHALATION RT-QID each 03/27/24 Rx [Duoneb 0.5 mg-3 mg/3 ml Soln] LORazepam [Ativan] 1 mg PO Q8HR PRN tab 03/27/24 Rx Lactulose [Cephulac] 20 gm PO DAILY PRN ml 03/27/24 Rx Magnesium Hydroxide [Milk of 2,400 mg PO DAILY PRN ml 03/27/24 Rx Magnesia] Metoprolol Tartrate [Lopressor] 25 mg PO BID tab 03/27/24 Rx bisacodyL [Dulcolax] 10 mg RECTAL ONCE PRN suppositor 03/27/24 Rx Allergies Allergy/AdvReac Type Severity Reaction Status Date / Time No Known Allergies Allergy Verified 03/26/24 07:44 Physical Exam Vitals: Vital Signs Temp Pulse Pulse Resp BP BP Pulse Ox 03/27/24 11:15 104 H 03/27/24 11:08 100 03/27/24 11:03 74 22 120/67 95 03/27/24 08:23 108 H 03/27/24 08:15 99 03/27/24 08:14 99 03/27/24 08:04 96 100 03/27/24 08:00 20 03/27/24 07:59 98.2 F 109 H 20 110/75 100 03/27/24 04:00 20 152/88 100 03/27/24 00:00 70 24 159/76 100 03/26/24 20:30 92 03/26/24 20:20 96 03/26/24 20:00 98.1 F 70 24 109/68 100 03/26/24 16:45 98.1 F 86 20 109/68 100 03/26/24 16:12 97.8 F 87 24 106/66 96 03/26/24 15:36 96 03/26/24 15:28 92 Intake and Output 03/26/24 03/27/24 03/27/24 22:59 06:59 14:59 Output Total 600 100 Balance -600 -100 Output: Urine 600 100 Other: Voiding Method Urinal Weight 58.967 kg - Constitutional General appearance: no acute distress - EENT Eyes: EOMI, PERRLA ENT: hearing grossly normal - Neck Neck: lymphadenopathy (Left lower neck 5 cm firm palpable adenopathy. ) - Respiratory Respiratory: bilateral: wheezing - Cardiovascular Rhythm: regular - Gastrointestinal General gastrointestinal: no distended, no tenderness - Integumentary Integumentary: no calor, no cellulitis - Neurologic Neurologic: CNII-XII intact - Psychiatric Psychiatric: A&O x's 3, appropriate affect Results CBC & Chem 7: 03/27/24 07:21 03/27/24 07:21 Labs: Abnormal Lab Results - Last 24 Hours (Table) 03/26/24 03/26/24 03/26/24 Range/Units 13:37 13:37 20:10 MCHC (31.0-37.0) g/dL Plt Count (150-450) k/uL Lymphocytes # (1.0-4.8) k/uL APTT 35.5 H 36.9 H (22.0-30.0) sec AST (17-59) U/L Alkaline Phosphatase (38-126) U/L Troponin I 4.860 H* (0.000-0.034) ng/mL 03/27/24 03/27/24 03/27/24 Range/Units 07:21 07:21 07:21 MCHC 30.4 L (31.0-37.0) g/dL Plt Count 627 H (150-450) k/uL Lymphocytes # 0.6 L (1.0-4.8) k/uL APTT 32.6 H (22.0-30.0) sec AST 70 H (17-59) U/L Alkaline Phosphatase 187 H (38-126) U/L Troponin I (0.000-0.034) ng/mL CT scan - chest: report reviewed, image reviewed Assessment and Plan Assessment: The patient is a 63-year-old male with a history of a clinical stage III (cT3, cN0, 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 Prior to starting radiotherapy he required emergent trach placement due to airway compromise. 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 He underwent a course of concurrent chemoradiation for his larynx cancer finishing on 04/22/22. Unfortunately, he now presents with imaging evidence concerning for metastatic disease with left neck adenopathy, suspicious lung nodules and bone metastases. Plan: 1. Dyspnea: Patient likely having underlying COPD exacerbation - notable bilateral wheezing. Pulmonary on board to manage. I do not think this is obstruction from the upper airway, but will review films with ENT. 2. NSTEMI: Patient has started IV Heparin. Cardiology following - likely to manage medically. 3. Metastatic carcinoma: Awaiting imaging from CT A/P. Med-onc has requested biopsy. Recurrence is suspicious for metastatic squamous cell carcinoma from the head and neck, but the patient has a history of melanoma as well. The patient has symptomatic bone metastasis, including a likely painful lesion involving T2. The patient is also having left-sided hip pain, and we are awaiting the images of his CT abdomen and pelvis to assess this further. I discussed with the patient that we could certainly initiate a palliative course of radiation to the affected areas. I explained that this might help with his pain, but that ultimately 1-2 weeks until pain relief is typical and the patient therefore should be medically optimized during his hospitalization. Time with Patient: Greater than 30
--- NOTE | 2024-03-27 12:03 | CT ---
EXAMINATION TYPE: CT abdomen pelvis w con DATE OF EXAM: 03/27/2024 COMPARISON: 03/26/2024 HISTORY: metatstatic disease, staging CT DLP: 563.2 mGycm CONTRAST: CT scan of the abdomen and pelvis is performed with Oral Contrast and with IV Contrast, patient injec checo with 100 mL of Isovue 300. FINDINGS: LUNG BASES-: Partially imaged cardio phrenic angle mass measuring 4.1 cm. Nodular infiltrates left lo wer lobe measures 2 cm. Small bilateral pleural effusions are evident. LIVER/GB: No calcified gallstones. Multiple hepatic masses too numerous to count identified largest within the dome of the liver measuring 3.9 cm. 3.8 cm mass anterior segment right hepatic lobe at it s medial periphery.. Biliary tree is of normal caliber. PANCREAS: No inflammation. No distinct mass. SPLEEN: No splenic enlargement. No lesion seen. ADRENALS: No nodule. No thickening. KIDNEYS/BLADDER: No hydronephrosis. No nephrolithiasis. No distinct renal mass. Urinary bladder g rossly unremarkable. BOWEL: Normal appendix. Normal bowel caliber. No inflammation. GENITAL ORGANS: No gross abnormality. LYMPH NODES: No greater than 1cm abdominal or pelvic lymph nodes are appreciated. Surgical clips lef t groin. 1.2 cm left external iliac lymph node image 55. AORTA: No significant abnormality. OSSEOUS STRUCTURES: Ill-defined osseous lesion posterior left ilium adjacent to the SI joint on the l eft with possible pathologic fracture image 45 of 95. Additional subtle lesions of L4 and L5 vertebra l bodies difficult to exclude. Focal sclerosis inferior endplate of T12. OTHER: No significant additional abnormality is seen. IMPRESSION: 1. Metastatic disease to the chest, liver and osseous structures as discussed above.
--- NOTE | 2024-03-27 12:40 | P.PN ---
Subjective HISTORY OF PRESENT ILLNESS: This is a 63-year-old male with a past medical history significant for CVA, laryngeal cancer s/p chemotherapy and radiation, tracheostomy, PEG tube with reversal, hypertension, hyperlipidemia, and former nicotine dependence. 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 We have been asked to see the patient in consultation for NSTEMI. Patient examined at the bedside in the emergency room. Patient states that he got up this morning and was very short of breath. He reports having significant back pain today which he usually does not have. He also reports having pain down both sides of his lateral chest and abdomen. He also reports a frequent cough. He thought that he had pneumonia again so he came to the hospital for further evaluation. He currently denies any chest pain or pressure. He denies having any chest pain or pressure under within the past week. He denies a history of CAD. He is a former cigarette smoker. DIAGNOSTICS: - EKG reveals sinus tachycardia with no signs of acute ischemia - Chest xray and chest CT are pending at the time of examination - Laboratory data: WBC 12.5. Hemoglobin 11.3. Platelet count 500. Sodium 136. Potassium 3.6. BUN 25. Creatinine 1.09. Lactic acid 2.4. - Most recent echocardiogram obtained in July 2023 revealed ejection fraction 55 to 60%, mild to moderate aortic regurgitation, and moderate global pericardial effusion with no evidence of tamponade. Addendum entered and electronically signed by Zuleyma León NP-C 03/26/24 11:52: CTA report not available in [employer]. Spoke with nursing who spoke with radiology and states reports were not pulling through to [employer]. Nursing stated CTA showed no evidence of pulmonary embolism, no aortic aneurysm or dissection, new liver and bone metastasis and lung metastasis are worsened. Discussed with Dr. Zaragoza and due to above findings, will will defer cardiac catheterization at this time and treat patient medically. Continue IV heparin and await results of echocardiogram. 03/27/2024 Patient examined this morning the bedside. Patient currently denies chest pain or pressure. He continues to report shortness of breath. CTA completed yesterday was negative for pulmonary embolism. No aortic aneurysm or dissection. New bone and liver metastasis. Lung metastasis are worsened. Echocardiogram completed revealing ejection fraction 50 to 55%, mild , mild TR. PHYSICAL EXAM: VITAL SIGNS: Reviewed. GENERAL: Well-developed in no acute distress. HEENT: Tracheostomy site noted. Head is normocephalic. Pupils are equal, round. Sclerae anicteric. Mucous membranes of the mouth are moist. Neck supple. No JVD or thyromegaly LUNGS: Respirations even and unlabored. Lungs essentially clear to auscultation bilaterally. HEART: Tachycardic. Regular rate and rhythm. S1 and S2 heard. Systolic murmur noted. ABDOMEN: Soft. Nondistended. Nontender. EXTREMITIES: Normal range of motion. No clubbing or cyanosis. Peripheral pulses intact. No lower extremity edema NEUROLOGIC: Awake and alert. Oriented x 3. ASSESSMENT: Shortness of breath Non-STEMI History of laryngeal cancer with chemotherapy and radiation with metastasis to bone, lung, and liver History of tracheostomy History of PEG tube with reversal Hypertension Hyperlipidemia History of CVA History of large pericardial effusion Mild to moderate aortic regurgitation COPD Former nicotine dependence PLAN: Continue aspirin, atorvastatin, and metoprolol Discontinue IV heparin No plans for cardiac catheterization at this time Continue further management per pulmonary and oncology We will sign off. Please reconsult if needed. Nurse practitioner note has been reviewed by physician. Signing provider agrees with the documented findings, assessment, and plan of care documented by BETTING AGENCY COUNTER CLERK as a scribe. Objective - Vital Signs Vital signs: Vital Signs Temp 98.2 F 03/27/24 07:59 Pulse 104 H 03/27/24 11:15 Resp 22 03/27/24 11:03 BP 120/67 03/27/24 11:03 Pulse Ox 95 03/27/24 11:03 FiO2 Intake & Output 03/26/24 03/27/24 03/27/24 18:59 06:59 18:59 Intake Total 47.645 Output Total 600 100 Balance 47.645 -600 -100 Weight 58.967 kg Intake: Intake, IV Titration 47.645 Amount Heparin Sod,Pork in 0.45% 47.645 NaCl 25,000 unit In 0.45 % NaCl 1 250ml.bag @ 12 UNITS/KG/HR 7.076 mls/hr IV .Q24H [facility] Rx#: [id number] Output: Urine 600 100 Other: Voiding Method Urinal - Labs CBC & Chem 7: 03/27/24 07:21 03/27/24 07:21 Labs: Abnormal Lab Results - Last 24 Hours (Table) 03/26/24 03/26/24 03/26/24 Range/Units 13:37 13:37 20:10 MCHC (31.0-37.0) g/dL Plt Count (150-450) k/uL Lymphocytes # (1.0-4.8) k/uL APTT 35.5 H 36.9 H (22.0-30.0) sec AST (17-59) U/L Alkaline Phosphatase (38-126) U/L Troponin I 4.860 H* (0.000-0.034) ng/mL 03/27/24 03/27/24 03/27/24 Range/Units 07:21 07:21 07:21 MCHC 30.4 L (31.0-37.0) g/dL Plt Count 627 H (150-450) k/uL Lymphocytes # 0.6 L (1.0-4.8) k/uL APTT 32.6 H (22.0-30.0) sec AST 70 H (17-59) U/L Alkaline Phosphatase 187 H (38-126) U/L Troponin I (0.000-0.034) ng/mL
--- NOTE | 2024-03-27 13:22 | P.PN ---
Subjective Progress Note Date: 03/27/24 Principal diagnosis: NSTEMI Mr. Gray was seen and examined. Breathing is unchanged. Family requesting transfer to [facility]. Discussed with [facility] ENT and medicine today who accept transfer. Objective - Vital Signs Vital signs: Vital Signs Temp 98.2 F 03/27/24 07:59 Pulse 104 H 03/27/24 11:15 Resp 22 03/27/24 11:03 BP 120/67 03/27/24 11:03 Pulse Ox 95 03/27/24 11:03 FiO2 Intake & Output 03/26/24 03/27/24 03/27/24 18:59 06:59 18:59 Intake Total 47.645 Output Total 600 100 Balance 47.645 -600 -100 Weight 58.967 kg Intake: Intake, IV Titration 47.645 Amount Heparin Sod,Pork in 0.45% 47.645 NaCl 25,000 unit In 0.45 % NaCl 1 250ml.bag @ 12 UNITS/KG/HR 7.076 mls/hr IV .Q24H [facility] Rx#: [id number] Output: Urine 600 100 Other: Voiding Method Urinal - Exam Vitals: Reviewed General: Cachectic appearing gentleman with some mild conversational dyspnea Cardiovascular: RRR, S1-S2 Lungs: Breath sounds equal, diminished without any wheezing appreciated Extremities: No lower extremity edema - Labs CBC & Chem 7: 03/27/24 07:21 03/27/24 07:21 Labs: Abnormal Lab Results - Last 24 Hours (Table) 03/26/24 03/26/24 03/26/24 Range/Units 13:37 13:37 20:10 MCHC (31.0-37.0) g/dL Plt Count (150-450) k/uL Lymphocytes # (1.0-4.8) k/uL APTT 35.5 H 36.9 H (22.0-30.0) sec AST (17-59) U/L Alkaline Phosphatase (38-126) U/L Troponin I 4.860 H* (0.000-0.034) ng/mL 03/27/24 03/27/24 03/27/24 Range/Units 07:21 07:21 07:21 MCHC 30.4 L (31.0-37.0) g/dL Plt Count 627 H (150-450) k/uL Lymphocytes # 0.6 L (1.0-4.8) k/uL APTT 32.6 H (22.0-30.0) sec AST 70 H (17-59) U/L Alkaline Phosphatase 187 H (38-126) U/L Troponin I (0.000-0.034) ng/mL Assessment and Plan Plan: # NSTEMI Heparin drip. Aspirin and statin. Echocardiogram with preserved EF and no wall motion abnormalities. Cardiology currently not planning on any cardiac catheterization. # Stage IV throat cancer Oncology on board. Status post previous chemo and radiation. Unclear whether he would be a candidate for palliative chemotherapy. # Dyspnea CTA negative for any dissection or PE but does show increased lung mets. Pulmonology started IV steroids. Shortness of breath may be secondary to upper airway obstruction from his carcinoma. Discussed with ENT and medicine at [facility], accept transfer for trach tube evaluation. # History of A-fib Currently in sinus rhythm. Continue home metoprolol.
[2024-03-27 13:54] VITALS: BMI 18.6
--- NOTE | 2024-03-27 13:57 | P.PN ---
Subjective Progress Note Date: 03/27/24 At today's visit patient is resting comfortably in bed. Breathing is labored, SpO2 95% on 4 L. Family is requesting transfer to [facility]. Internal medicine has initiated transfer. Objective - Vital Signs Vital signs: Vital Signs Temp 98.2 F 03/27/24 07:59 Pulse 104 H 03/27/24 11:15 Resp 22 03/27/24 11:03 BP 120/67 03/27/24 11:03 Pulse Ox 95 03/27/24 11:03 FiO2 Intake & Output 03/26/24 03/27/24 03/27/24 18:59 06:59 18:59 Intake Total 47.645 Output Total 600 100 Balance 47.645 -600 -100 Weight 58.967 kg Intake: Intake, IV Titration 47.645 Amount Heparin Sod,Pork in 0.45% 47.645 NaCl 25,000 unit In 0.45 % NaCl 1 250ml.bag @ 12 UNITS/KG/HR 7.076 mls/hr IV .[facility] Rx#: [id number] Output: Urine 600 100 Other: Voiding Method Urinal - Constitutional General appearance: Present: thin - EENT ENT: Present: hearing grossly normal - Respiratory Details: breathing is labored - Cardiovascular Details: skin warm and dry - Integumentary Integumentary: Absent: cyanotic - Musculoskeletal Musculoskeletal: Present: generalized weakness - Psychiatric Psychiatric: Present: A&O x's 3 - Labs CBC & Chem 7: 03/27/24 07:21 03/27/24 07:21 Labs: Abnormal Lab Results - Last 24 Hours (Table) 03/26/24 03/26/24 03/26/24 Range/Units 13:37 13:37 20:10 MCHC (31.0-37.0) g/dL Plt Count (150-450) k/uL Lymphocytes # (1.0-4.8) k/uL APTT 35.5 H 36.9 H (22.0-30.0) sec AST (17-59) U/L Alkaline Phosphatase (38-126) U/L Troponin I 4.860 H* (0.000-0.034) ng/mL 03/27/24 03/27/24 03/27/24 Range/Units 07:21 07:21 07:21 MCHC 30.4 L (31.0-37.0) g/dL Plt Count 627 H (150-450) k/uL Lymphocytes # 0.6 L (1.0-4.8) k/uL APTT 32.6 H (22.0-30.0) sec AST 70 H (17-59) U/L Alkaline Phosphatase 187 H (38-126) U/L Troponin I (0.000-0.034) ng/mL Assessment and Plan (1) Chest pain Current Visit: Yes Status: Acute Priority: High Code(s): R07.9 - CHEST PAIN, UNSPECIFIED SNOMED Code(s): 44948463 (2) NSTEMI (non-ST elevated myocardial infarction) Current Visit: Yes Status: Acute Priority: High Code(s): I21.4 - NON-ST ELEVATION (NSTEMI) MYOCARDIAL INFARCTION SNOMED Code(s): 96967047 (3) Squamous cell carcinoma of head and neck Current Visit: No Status: Acute Priority: High Code(s): C76.0 - MALIGNANT NEOPLASM OF HEAD, FACE AND NECK SNOMED Code(s): 679345868 Plan: NSTEMI: Presented with progressing chest pain and SOB -Serial troponins elevated. Heparin drip started -Cardiology consulted -CTA chest negative for PE. No aortic aneurysm or dissection -No plan for cardiac cath -Defer management to cardiology and admitting team Squamous cell carcinoma head and neck: -Completed concurrent chemo/RT in April 2022. Patient follows with Dr. Newell and Dr. Stephens -PET scan obtained by rad onc on 11/10/2023 revealed left lower neck and mediastinal lymph nodes as well as at least 2 pulmonary nodules which increased in size with increased FDG activity and number of pulmonary nodules which have elevated FDG activity. Indeterminate uptake near the falciform ligament possibly secondary to misregistration artifact. -Patient followed up with with radiation oncology, Dr. Stephens last week. Patient missed last follow-up with Dr. Newell on 03/13/2024. He has not followed up since September 2023. -Patient was seen in the ER on 03/17/2024 for shortness of breath and underwent CTA chest and CT soft tissue of neck, scans revealed no evidence for PE. Pr ogression of disease with enlarging left neck mass, larynx abnormal soft tissue with evidence of increasing size of pulmonary nodules and evidence of osseous and liver metastatic disease -Radiation oncology consulted. Spoke with Dr. Stephens regarding case and findings on CT scans. He will further review imaging and evaluate for palliative RT -CT AP ordered for staging. Scan showed metastatic disease to the chest, liver and osseous structures. Multiple hepatic masses too numerous to count identi fied, largest within the dome of the liver measuring 3.9 cm. Ill-defined osseous lesion posterior left ilium with possible pathological fracture. Additional subtle lesions of L4 and L5 vertebral bodies. CT chest also noted anterior wedge shaped compression defect at T2 and T8. -CT soft tissue neck showed similar compromise of the hypopharyngeal and laryngeal airway secondary to abnormal soft tissue. Downstream tracheostomy stoma with similar mild to moderate tracheal stenosis at the level of the stoma. Abnormal soft tissue/lymphadenopathy lower left neck measuring up to 5.7 cm. -Plan is to transfer patient to [facility] to be evaluated by his surgeon, Dr. Brumfield for tracheostomy placement -Due to history of melanoma, will need to obtain biopsy to evaluate for disease recurrence vs metastatic melanoma vs new primary. As noted on CT soft tissue neck, there is a large left neck mass that would likely be obtainable by percutaneous biopsy. Plan was for IR to evaluate for possible biopsy, but patient being transferred so this has been held. Dr. Stephens will be speaking to Dr. Brumfield, and will see if a biopsy can be obtained during his admission at [facility] -Will schedule clinic f/u pending course of hospitalization. Unfortunately, his PS is rather poor; hopefully once patient begins to recover we will be able to schedule f/u and discuss treatment options/goals of care Pt and family updated on results, concerns for recurrence of disease and POC. All questions were answered
--- NOTE | 2024-03-27 14:07 | P.DS ---
Providers Date of admission: 03/26/24 06:52 Expected date of discharge: 03/27/24 Attending physician: Karen Hernandez MD Consults: 03/26/24 06:52 Consult Physician Routine Consulting Provider: Adin Dixon Consult Reason/Comments: [place] Do you want consulting provider notified?: Yes 03/26/24 09:30 Consult Physician Urgent Consulting Provider: Joe Sal Consult Reason/Comments: previous trach, dyspnea Do you want consulting provider notified?: Yes 03/26/24 11:54 Consult Physician Routine Consulting Provider: Kenny Stephens Consult Reason/Comments: metatstatic disease, thoracic lesions Do you want consulting provider notified?: Already Contacted 03/27/24 09:32 Consult Physician Urgent Consulting Provider: Adarsh Izaguirre Consult Reason/Comments: throat cancer, assess need for trach tube Do you want consulting provider notified?: Yes Primary care physician: Stated None Hospital Course: Mr. Moulton is an unfortunate 63-year-old gentleman with a medical history significant for throat cancer status post trach and PEG, with recent decannulation of trach and PEG removal, COPD, and CAD status post stents. He presented with dyspnea. He states since his trach tube was removed 2 months ago he has been progressively more short of breath prompting his family to call EMS . He was found to have elevated troponins on admission and admitted with a diagnosis of NSTEMI. He was treated with a heparin drip. He was evaluated by cardiology and they have decided on medical management as he has multiple other comorbidities. He had an echo done which showed preserved EF without any significant wall motion abnormalities. CTA on admission showed no PE or aortic dissection but did show new liver and bone mets along with anterior wedge shaped compression defect at T2, T8. He also had worsening lung mets. CT neck soft tissue showed similar compromise of the hypopharyngeal and laryngeal airway along with lymphadenopathy in the left lower neck measuring up to 5.7 cm which was relatively unchanged compared to 03/17. CT abdomen/pelvis redemonstrated metastatic disease to the liver and of osseous structures. He was seen by pulmonology and oncology during his hospital admission. Pulmonology started him on steroids for COPD exacerbation. Oncology is in talks with him about possible radiation therapy. Family requested transfer back to [facility] for continuity of care. Discussed with [facility], they have accepted transfer. Awaiting bed. Transfer diagnoses NSTEMI Dyspnea likely multifactorial, may need trach tube reinserted COPD exacerbation History of A-fib Transfer coordination time greater than 30 minutes Patient Condition at Discharge: Stable Plan - Discharge Summary Discharge Rx Participant: No New Discharge Prescriptions: New Aspirin 81 mg PO DAILY tab LORazepam [Ativan] 1 mg PO Q8HR PRN tab PRN Reason: Anxiety Lactulose [Cephulac] 20 gm PO DAILY PRN ml PRN Reason: Constipation Docusate [Colace] 100 mg PO BID PRN cap PRN Reason: Constipation bisacodyL [Dulcolax] 10 mg RECTAL ONCE PRN suppositor PRN Reason: Constipation Atorvastatin [Lipitor] 80 mg PO HS tab Metoprolol Tartrate [Lopressor] 25 mg PO BID tab Magnesium Hydroxide [Milk of Magnesia] 2,400 mg PO DAILY PRN ml PRN Reason: Constipation Budesonide [Pulmicort] 1 mg INHALATION RT-BID ml Calcium Carbonate [Tums] 1,000 mg PO Q4HR PRN tab PRN Reason: Dyspepsia Ipratropium-Albuterol Nebulize [Duoneb 0.5 mg-3 mg/3 ml Soln] 3 ml INHALATION RT-QID each Formoterol Fumarate [Perforomist] 20 mcg INHALATION RT-BID ml Continue Albuterol Sulfate [Ventolin HFA] 2 puff INHALATION RT-QID PRN PRN Reason: Shortness Of Breath HYDROcodone/APAP 10-325MG [[place] 10-325] 1 tab PO Q4HR Pantoprazole [Protonix] 40 mg PO BID Discontinued Atorvastatin Calcium [Lipitor] 40 mg PO HS Metoprolol Tartrate [Lopressor] 12.5 mg PO BID Discharge Medication List Albuterol Sulfate [Ventolin HFA] 2 puff INHALATION RT-QID PRN 03/26/24 [History] HYDROcodone/APAP 10-325MG [[place] 10-325] 1 tab PO Q4HR 03/26/24 [History] Pantoprazole [Protonix] 40 mg PO BID 03/26/24 [History] Aspirin 81 mg PO DAILY tab 03/27/24 [Rx] Atorvastatin [Lipitor] 80 mg PO HS tab 03/27/24 [Rx] Budesonide [Pulmicort] 1 mg INHALATION RT-BID ml 03/27/24 [Rx] Calcium Carbonate [Tums] 1,000 mg PO Q4HR PRN tab 03/27/24 [Rx] Docusate [Colace] 100 mg PO BID PRN cap 03/27/24 [Rx] Formoterol Fumarate [Perforomist] 20 mcg INHALATION RT-BID ml 03/27/24 [Rx] Ipratropium-Albuterol Nebulize [Duoneb 0.5 mg-3 mg/3 ml Soln] 3 ml INHALATION RT-QID each 03/27/24 [Rx] LORazepam [Ativan] 1 mg PO Q8HR PRN tab 03/27/24 [Rx] Lactulose [Cephulac] 20 gm PO DAILY PRN ml 03/27/24 [Rx] Magnesium Hydroxide [Milk of Magnesia] 2,400 mg PO DAILY PRN ml 03/27/24 [Rx] Metoprolol Tartrate [Lopressor] 25 mg PO BID tab 03/27/24 [Rx] bisacodyL [Dulcolax] 10 mg RECTAL ONCE PRN suppositor 03/27/24 [Rx] Follow up Appointment(s)/Referral(s): None,Stated [Primary Care Provider] - 1-2 days Discharge Disposition: OTHER INSTITUTION NOT DEFINED
[2024-03-27] MEDS: FAMOTIDINE 20 MG TAB PO SCH (14:30)
[2024-03-27] MEDS: HEPARIN SODIUM,PORCINE 5,000 UNIT/ML 1 ML VIAL SQ SCH (15:29)
[2024-03-27 15:34] VITALS: BP 121/77; PULSE 102; RESP 20; TEMP 98.1
== END 2024-03-27 19:13 | disposition short-term general hospital (02) | DRG 190 ==
LOC: EC 03:05 → 3SCARD 06:52
PROVIDERS: ADMIT Internal Medicine; ATTEND Internal Medicine
DX: I21.4 Non-ST elevation (NSTEMI) myocardial infarction (principal); G89.3 Neoplasm related pain (acute) (chronic); F41.9 Anxiety disorder, unspecified; I50.9 Heart failure, unspecified; I11.0 Hypertensive heart disease with heart failure; I25.10 Atherosclerotic heart disease of native coronary artery without angina pectoris; I35.1 Nonrheumatic aortic (valve) insufficiency; I48.91 Unspecified atrial fibrillation; J44.1 Chronic obstructive pulmonary disease with (acute) exacerbation; J96.01 Acute respiratory failure with hypoxia; E78.5 Hyperlipidemia, unspecified; R13.10 Dysphagia, unspecified; J39.8 Other specified diseases of upper respiratory tract; Z85.21 Personal history of malignant neoplasm of larynx; R59.0 Localized enlarged lymph nodes; Z71.3 Dietary counseling and surveillance; C79.51 Secondary malignant neoplasm of bone; C78.7 Secondary malignant neoplasm of liver and intrahepatic bile duct; C78.02 Secondary malignant neoplasm of left lung; C78.01 Secondary malignant neoplasm of right lung; Z79.899 Other long term (current) drug therapy; Z85.820 Personal history of malignant melanoma of skin; Z86.73 Personal history of transient ischemic attack (TIA), and cerebral infarction without residual deficits; Z87.891 Personal history of nicotine dependence; Z92.21 Personal history of antineoplastic chemotherapy; Z92.3 Personal history of irradiation; Z79.82 Long term (current) use of aspirin; Z79.51 Long term (current) use of inhaled steroids; Z95.5 Presence of coronary angioplasty implant and graft
CPT/HCPCS: 36415; 70490; 71045; 71275; 74177; 80053; 83605; 83735; 83880; 84100; 84484; 85025; 85610; 85730; 93005; 93306; 94640; 94760; 96361; 96374; 96375; 96376; 99291

== ENCOUNTER 2024-04-21 20:01 | Inpatient (IN) | payer OTHER ==
--- NOTE | 2024-04-21 20:12 | ED ---
General Adult HPI - General Chief complaint: Shortness of Breath Stated complaint: Difficulty Breathing Time Seen by Provider: 04/21/24 20:04 Source: patient, EMS, RN notes reviewed Mode of arrival: EMS Limitations: no limitations - History of Present Illness Initial comments: Patient is a 63-year-old male present to the emergency department with diffic ulty breathing. Onset of symptoms was today. Patient does have occasional cough. Patient has history of COPD.. Patient has history of trach secondary to throat cancer, metastatic. No fever. No chest pain. No leg swelling. - Related Data Home Medications Medication Instructions Recorded Confirmed Albuterol Sulfate [Ventolin HFA] 2 puff INHALATION RT-QID PRN 03/26/24 03/26/24 HYDROcodone/APAP 10-325MG [[place] 1 tab PO Q4HR 03/26/24 03/26/24 10-325] Pantoprazole [Protonix] 40 mg PO BID 03/26/24 03/26/24 Previous Rx's Medication Instructions Recorded Aspirin 81 mg PO DAILY tab 03/27/24 Atorvastatin [Lipitor] 80 mg PO HS tab 03/27/24 Budesonide [Pulmicort] 1 mg INHALATION RT-BID ml 03/27/24 Calcium Carbonate [Tums] 1,000 mg PO Q4HR PRN tab 03/27/24 Docusate [Colace] 100 mg PO BID PRN cap 03/27/24 Formoterol Fumarate [Perforomist] 20 mcg INHALATION RT-BID ml 03/27/24 Ipratropium-Albuterol Nebulize 3 ml INHALATION RT-QID each 03/27/24 [Duoneb 0.5 mg-3 mg/3 ml Soln] LORazepam [Ativan] 1 mg PO Q8HR PRN tab 03/27/24 Lactulose [Cephulac] 20 gm PO DAILY PRN ml 03/27/24 Magnesium Hydroxide [Milk of 2,400 mg PO DAILY PRN ml 03/27/24 Magnesia] Metoprolol Tartrate [Lopressor] 25 mg PO BID tab 03/27/24 bisacodyL [Dulcolax] 10 mg RECTAL ONCE PRN suppositor 03/27/24 Allergies Allergy/AdvReac Type Severity Reaction Status Date / Time No Known Allergies Allergy Verified 03/26/24 07:44 Review of Systems ROS Statement: Those systems with pertinent positive or pertinent negative responses have been documented in the HPI. ROS Other: All systems not noted in ROS Statement are negative. Constitutional: Denies: fever Eyes: Denies: eye pain ENT: Denies: ear pain Respiratory: Reports: as per HPI, cough, dyspnea Cardiovascular: Denies: chest pain Endocrine: Denies: fatigue Gastrointestinal: Denies: abdominal pain Past Medical History Past Medical History: Cancer, CVA/TIA, Hyperlipidemia, Hypertension Additional Past Medical History / Comment(s): Throat CA, status post chemotherapy, radiation, tracheostomy tube placement, feeding tube with subsequent removal History of Any Multi-Drug Resistant Organisms: None Reported Past Surgical History: Orthopedic Surgery Additional Past Surgical History / Comment(s): History of left carotid endarterectomy, status post tracheostomy placement Past Anesthesia/Blood Transfusion Reactions: No Reported Reaction Past Psychological History: No Psychological Hx Reported Smoking Status: Former smoker Past Alcohol Use History: None Reported Past Drug Use History: None Reported, Marijuana - Past Family History Mother Family Medical History: Dementia Father Family Medical History: Cancer (Lung cancer) General Exam Limitations: no limitations General appearance: alert, in no apparent distress Head exam: Present: normocephalic Eye exam: Present: normal appearance ENT exam: Present: other (Trach is present) Neck exam: Present: normal inspection Respiratory exam: Present: wheezes Cardiovascular Exam: Present: regular rate, normal rhythm GI/Abdominal exam: Present: soft. Absent: tenderness Extremities exam: Present: normal inspection. Absent: pedal edema, calf tenderness Neurological exam: Present: alert Psychiatric exam: Present: normal affect, normal mood Skin exam: Present: normal color Course Vital Signs 04/21/24 04/21/24 04/21/24 20:04 20:19 20:29 Temperature 97.6 F Pulse Rate 101 H 104 H Respiratory 19 Rate Blood Pressure 162/89 O2 Sat by Pulse 97 Oximetry Fraction of 40 Inspired Oxygen (FIO2) 04/21/24 04/21/24 20:31 21:27 Temperature Pulse Rate 109 H 102 H Respiratory 18 Rate Blood Pressure 168/94 O2 Sat by Pulse 97 Oximetry Fraction of Inspired Oxygen (FIO2) EKG Findings - EKG Results: EKG: interpreted by ERMD (Left axis. LVH. T wave inversion in V6.), sinus rhythm EKG shows: tachycardia Medical Decision Making - Medical Decision Making Was pt. sent in by a medical professional or institution ([facility], [employer], urgent care, hospital, or halfway...) When possible be specific @ -No Did you speak to anyone other than the patient for history (EMS, parent, family, police, friend...)? What history was obtained from this source @ -Family is present and provides additional history that patient has not been eating and drinking well lately Did you review nursing and triage notes (agree or disagree)? Why? @ -I reviewed and agree with nursing and triage notes Were old charts reviewed (outside hosp., previous admission, EMS record, old EKG, old radiological studies, urgent care reports/EKG's, halfway records)? Report findings @ - Differential Diagnosis (chest pain, altered mental status, abdominal pain women, abdominal pain men, vaginal bleeding, weakness, fever, dyspnea, syncope, headache, dizziness, GI bleed, back pain, seizure, CVA, palpatations, mental health, musculoskeletal)? @ -Differential Dyspnea: Coronary syndrome, arrhythmia, tamponade, asthma, COPD, pulmonary embolism, pneumonia, pneumothorax, pulmonary effusion, anaphylaxis, diabetic ketoacidosis, flailed chest, pulmonary contusion, diaphragmatic rupture, anemia, ne uromuscular, this is not meant to be an all-inclusive list. EKG interpreted by me (3pts min.). @ -As above X-rays interpreted by me (1pt min.). @ -Chest x-ray shows chronic changes CT interpreted by me (1pt min.). @ -None done U/S interpreted by me (1pt. min.). @ -None done What testing was considered but not performed or refused? (CT, X-rays, U/S, labs)? Why? @ -None What meds were considered but not given or refused? Why? @ -None Did you discuss the management of the patient with other professionals (professionals i.e. [facility], [employer], lab, RT, psych nurse, social services technician, package delivery room service runner, teacher, adult probation officer, human services case manager)? Give summary @ -Case was discussed with Dr. Gatito Henry who will admit covering hospital call Was smoking cessation discussed for >3mins.? @ -No Was critical care preformed (if so, how long)? @ -No Were there social determinants of health that impacted care today? How? (Homelessness, low income, unemployed, alcoholism, drug addiction, transportation, low edu. Level, literacy, decrease access to med. care, m[facility], rehab)? @ -No Was there de-escalation of care discussed even if they declined (Discuss DNR or withdrawal of care, Hospice)? DNR status @ -No What co-morbidities impacted this encounter? (DM, HTN, Smoking, COPD, CAD, Cancer, CVA, ARF, Chemo, Hep., AIDS, mental health diagnosis, sleep apnea, morbid obesity)? @ -None Was patient admitted / discharged? Hospital course, mention meds given and route, prescriptions, significant lab abnormalities, going to OR and other pertinent info. @ -Patient presents with dyspnea. Patient does have some wheezing consistent with COPD history. Patient also presents with decreased oral intake and has dehydration and hypercalcemia. Patient will be admitted with pulmonary consult. Admission orders written. Undiagnosed new problem with uncertain prognosis? @ -No Drug Therapy requiring intensive monitoring for toxicity (Heparin, Nitro, Insulin, Cardizem)? @ -No Were any procedures done? @ -No Diagnosis/symptom? @ -Dehydration, COPD, hypercalcemia Acute, or Chronic, or Acute on Chronic? @ -Acute, acute, acute Uncomplicated (without systemic symptoms) or Complicated (systemic symptoms)? @ -Complicated with hypercalcemia Side effects of treatment? @ -No Exacerbation, Progression, or Severe Exacerbation? @ -No Poses a threat to life or bodily function? How? (Chest pain, [place], [place], pneumonia, PE, COPD, DKA, ARF, appy, cholecystitis, CVA, Diverticulitis, Homicidal, Suicidal, threat to staff... and all critical care pts) @ -No - Lab Data Result diagrams: 04/21/24 21:10 04/21/24 20:23 Lab Results 04/21/24 04/21/24 04/21/24 Range/Units 20:23 20:23 20:55 WBC (3.8-10.6) k/uL RBC (4.30-5.90) m/uL Hgb (13.0-17.5) gm/dL Hct (39.0-53.0) % MCV (80.0-100.0) fL MCH (25.0-35.0) pg MCHC (31.0-37.0) g/dL RDW (11.5-15.5) % Plt Count (150-450) k/uL MPV Neutrophils % % Lymphocytes % % Monocytes % % Eosinophils % % Basophils % % Neutrophils # (1.3-7.7) k/uL Lymphocytes # (1.0-4.8) k/uL Monocytes # (0-1.0) k/uL Eosinophils # (0-0.7) k/uL Basophils # (0-0.2) k/uL Hypochromasia PT (10.0-12.5) sec INR (<1.2) APTT (22.0-30.0) sec Sodium 134 L (137-145) mmol/L Potassium 5.1 (3.5-5.1) mmol/L Chloride 96 L (98-107) mmol/L Carbon Dioxide 31 H (22-30) mmol/L Anion Gap 7 mmol/L BUN 54 H (9-20) mg/dL Creatinine 1.14 (0.66-1.25) mg/dL Est GFR (CKD-EPI)AfAm 79 (>60 ml/min/1.73 sqM) Est GFR (CKD-EPI)NonAf 68 (>60 ml/min/1.73 sqM) Glucose 136 H (74-99) mg/dL Lactic Ac Sepsis Rflx Y Plasma Lactic Acid Marciano 2.2 H* (0.7-2.0) mmol/L Calcium 13.7 H* (8.4-10.2) mg/dL Magnesium 1.9 (1.6-2.3) mg/dL Total Bilirubin 1.8 H (0.2-1.3) mg/dL AST 445 H (17-59) U/L ALT 220 H (4-49) U/L Alkaline Phosphatase 1088 H (38-126) U/L Total Protein 6.5 (6.3-8.2) g/dL Albumin 3.5 (3.5-5.0) g/dL 04/21/24 04/21/24 Range/Units 21:10 21:10 WBC 15.6 H (3.8-10.6) k/uL RBC 3.29 L (4.30-5.90) m/uL Hgb 9.7 L D (13.0-17.5) gm/dL Hct 29.7 L (39.0-53.0) % MCV 90.4 D (80.0-100.0) fL MCH 29.6 (25.0-35.0) pg MCHC 32.7 (31.0-37.0) g/dL RDW 14.4 (11.5-15.5) % Plt Count 802 H (150-450) k/uL MPV 6.9 Neutrophils % 94 % Lymphocytes % 2 % Monocytes % 3 % Eosinophils % 0 % Basophils % 0 % Neutrophils # 14.6 H (1.3-7.7) k/uL Lymphocytes # 0.4 L (1.0-4.8) k/uL Monocytes # 0.5 (0-1.0) k/uL Eosinophils # 0.1 (0-0.7) k/uL Basophils # 0.0 (0-0.2) k/uL Hypochromasia Slight PT 11.5 (10.0-12.5) sec INR 1.1 (<1.2) APTT 20.7 L (22.0-30.0) sec Sodium (137-145) mmol/L Potassium (3.5-5.1) mmol/L Chloride (98-107) mmol/L Carbon Dioxide (22-30) mmol/L Anion Gap mmol/L BUN (9-20) mg/dL Creatinine (0.66-1.25) mg/dL Est GFR (CKD-EPI)AfAm (>60 ml/min/1.73 sqM) Est GFR (CKD-EPI)NonAf (>60 ml/min/1.73 sqM) Glucose (74-99) mg/dL Lactic Ac Sepsis Rflx Plasma Lactic Acid Marciano (0.7-2.0) mmol/L Calcium (8.4-10.2) mg/dL Magnesium (1.6-2.3) mg/dL Total Bilirubin (0.2-1.3) mg/dL AST (17-59) U/L ALT (4-49) U/L Alkaline Phosphatase (38-126) U/L Total Protein (6.3-8.2) g/dL Albumin (3.5-5.0) g/dL Disposition Clinical Impression: Acute exacerbation of chronic obstructive pulmonary disease, Hypercalcemia, Dehydration Disposition: ADMITTED IP TO THIS [facility] Is patient prescribed a controlled substance at d/c from ED?: No Referrals: None,Stated [REFERRING] - 1-2 days Time of Disposition: 23:01
[2024-04-21] MEDS: methylPREDNISolone SOD SUCCI 125 MG/2 ML VIAL IV STA (20:13)
[2024-04-21] MEDS: IPRATROPIUM-ALBUTEROL 3 ML NEB INHALATION STA (20:19)
[2024-04-21 20:53] LABS: ALT 220 U/L (4-49); AST 445 U/L (17-59); African American GFR (CKD) 79 (>60 ml/min/1.73 sqM); Albumin 3.5 g/dL (3.5-5.0); Alkaline Phosphatase 1088 U/L (38-126); Anion Gap 7 mmol/L; Blood Urea Nitrogen 54 mg/dL (9-20); Carbon Dioxide 31 mmol/L (22-30); Chloride 96 mmol/L (98-107); Glucose 136 mg/dL (74-99); Magnesium 1.9 mg/dL (1.6-2.3); Non-African American GFR(CKD) 68 (>60 ml/min/1.73 sqM); Sodium 134 mmol/L (137-145); Total Bilirubin 1.8 mg/dL (0.2-1.3); Total Protein 6.5 g/dL (6.3-8.2)
[2024-04-21] MEDS: LORazepam 1 MG TAB PO STA (21:05)
[2024-04-21] MEDS: LORazepam 2 MG/ML INJ IV STA (21:05)
--- NOTE | 2024-04-21 21:07 | XR ---
EXAMINATION TYPE: XR chest 1V portable DATE OF EXAM: 04/21/2024 8:35 PM CLINICAL INDICATION:Male, 63 years old with history of difficulty breathing; [facility] COMPARISON: CT thorax 04/01/2024. TECHNIQUE: XR chest 1V portable Frontal view of the chest. FINDINGS: Lungs/Pleura: Streaky scarring atelectasis in the lung apex on the right and left midlung. There is n o evidence of pleural effusion, focal consolidation, or pneumothorax. Pulmonary vascularity: Unremarkable. Heart/mediastinum: Cardiomediastinal silhouette is unremarkable. Redemonstration of right epicardial fat mass in the medial aspect of the right upper abdomen is unchanged from prior CTs 04/01/2024. Musculoskeletal: No acute osseous pathology. Other findings: None Lines/Tubes: Tracheostomy cannula tip projecting over the trachea. IMPRESSION: No acute cardiopulmonary disease/process. Right epicardial fat mass redemonstrated is again seen multiple prior CTs.
[2024-04-21 21:12] LABS: Calcium 13.7 mg/dL (8.4-10.2); Potassium 5.1 mmol/L (3.5-5.1)
[2024-04-21 21:23] LABS: Basophils % (A) 0 %; Eosinophils # (A) 0.1 k/uL (0-0.7); Eosinophils % (A) 0 %; HCT 29.7 % (39.0-53.0); Hypochromasia Slight; Lymphocytes # (A) 0.4 k/uL (1.0-4.8); Lymphocytes % (A) 2 %; MCH 29.6 pg (25.0-35.0); MCHC 32.7 g/dL (31.0-37.0); Mean Platelet Volume 6.9; Monocytes # (A) 0.5 k/uL (0-1.0); Monocytes % (A) 3 %; Neutrophils # (A) 14.6 k/uL (1.3-7.7); Neutrophils % (A) 94 %; Platelet Count 802 k/uL (150-450); RBC 3.29 m/uL (4.30-5.90); RDW 14.4 % (11.5-15.5); WBC 15.6 k/uL (3.8-10.6)
[2024-04-21 21:51] LABS: INR 1.1 (<1.2); Prothrombin Time 11.5 sec (10.0-12.5)
[2024-04-21 22:03] LABS: HGB 9.7 gm/dL (13.0-17.5); MCV 90.4 fL (80.0-100.0)
[2024-04-21 22:05] LABS: Partial Thromboplastin Time 20.7 sec (22.0-30.0)
[2024-04-21] MEDS ORDERED: ACETAMINOPHEN TAB 325 MG TAB PO PRN (23:01)
[2024-04-21] MEDS ORDERED: NALOXONE 0.4 MG/ML 1 ML VIAL IV PRN (23:01)
[2024-04-21] MEDS: SODIUM CHLORIDE 0.9% 1,000 ML IV STA ×2 (23:32)
[2024-04-21] MEDS: AZITHROMYCIN 500 MG in SODIUM CHLORIDE 0.9% 250 ML IVPB SCH (23:36)
[2024-04-21] MEDS: methylPREDNISolone SOD SUCCI 125 MG/2 ML VIAL IV SCH (23:40)
[2024-04-22] MEDS: HYDROmorphone 0.5 MG/0.5 ML SYRINGE IVP PRN (02:03)
[2024-04-22 04:25] LABS: Basophils % (A) 0 %; Eosinophils % (A) 0 %; HCT 27.8 % (39.0-53.0); HGB 8.7 gm/dL (13.0-17.5); Hypochromasia Moderate; Lymphocytes # (A) 0.3 k/uL (1.0-4.8); Lymphocytes % (A) 2 %; MCH 28.1 pg (25.0-35.0); MCHC 31.5 g/dL (31.0-37.0); MCV 89.2 fL (80.0-100.0); Mean Platelet Volume 6.7; Monocytes # (A) 0.2 k/uL (0-1.0); Monocytes % (A) 1 %; Neutrophils # (A) 13.3 k/uL (1.3-7.7); Neutrophils % (A) 96 %; Platelet Count 713 k/uL (150-450); RBC 3.11 m/uL (4.30-5.90); RDW 14.2 % (11.5-15.5); WBC 13.8 k/uL (3.8-10.6)
[2024-04-22 04:34] LABS: ALT 209 U/L (4-49); AST 395 U/L (17-59); African American GFR (CKD) 70 (>60 ml/min/1.73 sqM); Albumin 2.7 g/dL (3.5-5.0); Alkaline Phosphatase 920 U/L (38-126); Anion Gap 7 mmol/L; Blood Urea Nitrogen 51 mg/dL (9-20); Calcium 12.8 mg/dL (8.4-10.2); Carbon Dioxide 27 mmol/L (22-30); Chloride 100 mmol/L (98-107); Glucose 160 mg/dL (74-99); Magnesium 1.8 mg/dL (1.6-2.3); Non-African American GFR(CKD) 60 (>60 ml/min/1.73 sqM); Phosphorus 3.7 mg/dL (2.5-4.5); Potassium 4.7 mmol/L (3.5-5.1); Sodium 134 mmol/L (137-145); Total Bilirubin 1.8 mg/dL (0.2-1.3); Total Protein 5.1 g/dL (6.3-8.2)
[2024-04-22] MEDS: IPRATROPIUM-ALBUTEROL 3 ML NEB INHALATION PRN (05:59)
--- NOTE | 2024-04-22 08:04 | P.CNPUL ---
History of Present Illness Consult date: 04/22/24 Requesting physician: Yash Cohen Reason for consult: dyspnea, other Chief complaint: Shortness of breath, pain. History of present illness: Pulmonary consultation dated April 22, 2024. 63-year-old white male, who was seen in the emergency department on April 21, brought in by EMS, for difficulty breathing, and chronic pain. The patient does have a bit of a dry nonproductive cough as well. The patient was last seen by our team, in March 2024. At that time, the patient was found to have an acute non-ST segment elevation myocardial infarction, COPD exacerbation, advanced/stage IV laryngeal carcinoma, with diffuse metastasis, acute hypoxemic respiratory failure, previous tracheostomy and PEG tube placement, tracheal stenosis, left neck mass, left lung empyema, hypertension, hyperlipidemia, atrial fibrillation, and previous tobacco use. The patient is not a particularly good historian, but I gather he came into the hospital primarily for pain rather than shortness of breath. He currently has a trach collar set at 35%. He is not receiving any IV fluids. He complains of hip, and back pain, and low lumbar pain. The patient does have mets to the various osseous structures mentioned above, as well as liver metastasis. He is very cachectic, and very frail. Current labs include a white count 13.8, hemoglobin 8.7, hematocrit 27.8, and platelet count of 713,000. Sodium 134, potassium 4.7, chlorides 100, CO2 27, BUN 51, creatinine 1.26. Calcium is 12.8. Ionized calcium is elevated at 7. AST is 395. ALT is 209. Alkaline phosphatase is 920. Chest x-ray is essentially unremarkable. Review of Systems REVIEW OF SYSTEMS: CONSTITUTIONAL: Weakness. NEUROLOGIC: [ Negative.] HEENT: [ Negative.] CARDIAC: [Negative.] PULMONARY: Shortness of breath, chronic, and nonproductive cough. GI: [Negative.] : [Negative.] RHEUMATOLOGIC: Back and hip pain. IMMUNOLOGIC: [ Negative.] ENDOCRINE: [Negative. ] DERMATOLOGIC: [Negative.] Past Medical History Past Medical History: Cancer, CVA/TIA, Hyperlipidemia, Hypertension Additional Past Medical History / Comment(s): Throat CA, status post chemotherapy, radiation, tracheostomy tube placement, feeding tube with subsequent removal History of Any Multi-Drug Resistant Organisms: None Reported Past Surgical History: Orthopedic Surgery Additional Past Surgical History / Comment(s): History of left carotid endarterectomy, status post tracheostomy placement Past Anesthesia/Blood Transfusion Reactions: No Reported Reaction Past Psychological History: No Psychological Hx Reported Smoking Status: Former smoker Past Alcohol Use History: None Reported Past Drug Use History: None Reported, Marijuana - Past Family History Mother Family Medical History: Dementia Father Family Medical History: Cancer Medications and Allergies Home Medications Medication Instructions Recorded Confirmed Type Albuterol Sulfate [Ventolin HFA] 2 puff INHALATION RT-QID PRN 03/26/24 03/26/24 History HYDROcodone/APAP 10-325MG [[place] 1 tab PO Q4HR 03/26/24 03/26/24 History 10-325] Pantoprazole [Protonix] 40 mg PO BID 03/26/24 03/26/24 History Aspirin 81 mg PO DAILY tab 03/27/24 Rx Atorvastatin [Lipitor] 80 mg PO HS tab 03/27/24 Rx Budesonide [Pulmicort] 1 mg INHALATION RT-BID ml 03/27/24 Rx Calcium Carbonate [Tums] 1,000 mg PO Q4HR PRN tab 03/27/24 Rx Docusate [Colace] 100 mg PO BID PRN cap 03/27/24 Rx Formoterol Fumarate [Perforomist] 20 mcg INHALATION RT-BID ml 03/27/24 Rx Ipratropium-Albuterol Nebulize 3 ml INHALATION RT-QID each 03/27/24 Rx [Duoneb 0.5 mg-3 mg/3 ml Soln] LORazepam [Ativan] 1 mg PO Q8HR PRN tab 03/27/24 Rx Lactulose [Cephulac] 20 gm PO DAILY PRN ml 03/27/24 Rx Magnesium Hydroxide [Milk of 2,400 mg PO DAILY PRN ml 03/27/24 Rx Magnesia] Metoprolol Tartrate [Lopressor] 25 mg PO BID tab 03/27/24 Rx bisacodyL [Dulcolax] 10 mg RECTAL ONCE PRN suppositor 03/27/24 Rx Allergies Allergy/AdvReac Type Severity Reaction Status Date / Time No Known Allergies Allergy Verified 03/26/24 07:44 Physical Exam Osteopathic Statement: *. No significant issues noted on an osteopathic structural exam other than those noted in the History and Physical/Consult. Vitals: Vital Signs Temp Pulse Pulse Resp BP BP Pulse Ox 04/22/24 06:07 102 H 04/22/24 06:00 100 04/22/24 02:00 97.9 F 101 H 18 176/93 94 L 04/22/24 01:37 56 L 18 145/70 97 04/21/24 23:38 105 H 19 148/78 97 04/21/24 21:27 102 H 18 168/94 97 04/21/24 20:31 109 H 04/21/24 20:29 04/21/24 20:19 104 H 04/21/24 20:04 97.6 F 101 H 19 162/89 97 FiO2 04/22/24 06:07 04/22/24 06:00 04/22/24 02:00 04/22/24 01:37 04/21/24 23:38 04/21/24 21:27 04/21/24 20:31 04/21/24 20:29 40 04/21/24 20:19 04/21/24 20:04 Intake and Output 04/21/24 04/22/24 04/22/24 22:59 06:59 14:59 Output Total 175 Balance -175 Output: Urine 175 Other: Voiding Method Urinal Weight 56.699 kg 56.699 kg No acute distress, oriented 3. Currently getting a trach collar at 35%. The patient is very frail and cachectic appearing, and chronically ill. HEENT examination is grossly unremarkable. Mucous membranes are moist. No oral lesions. Neck supple. Full range of motion. No adenopathy thyromegaly or neck vein distention. Midline tracheostomy tube noted. Cardiovascular examination reveals regular rhythm rate. S1-S2 normal. No S3 or S4. No discernible murmur noted. Heart rate 100 bpm. Lungs reveal mild scattered rhonchi. No wheezes or crackles. Breath sounds equal. Saturations are in the mid 90s. Abdomen soft bowel sounds are heard. No masses or tenderness. PEG tube noted. Extremities are intact. No cyanosis clubbing or edema. Skin is without rash or lesion. Neurologic examination is brief but nonfocal. Results - Laboratory Findings CBC and BMP: 04/22/24 03:40 04/22/24 03:40 PT/INR, D-dimer PT 11.5 sec (10.0-12.5) 04/21/24 21:10 INR 1.1 (<1.2) 04/21/24 21:10 Abnormal lab findings: Abnormal Labs 04/21/24 04/21/24 04/21/24 20:23 20:23 21:10 WBC 15.6 H RBC 3.29 L Hgb 9.7 L D Hct 29.7 L Plt Count 802 H Neutrophils # 14.6 H Lymphocytes # 0.4 L APTT Sodium 134 L Chloride 96 L Carbon Dioxide 31 H BUN 54 H Creatinine Glucose 136 H Plasma Lactic Acid Marciano 2.2 H* Calcium 13.7 H* Ionized Calcium Yusef Total Bilirubin 1.8 H AST 445 H ALT 220 H Alkaline Phosphatase 1088 H Total Protein Albumin 04/21/24 04/21/24 04/22/24 21:10 23:20 03:40 WBC 13.8 H RBC 3.11 L Hgb 8.7 L Hct 27.8 L Plt Count 713 H Neutrophils # 13.3 H Lymphocytes # 0.3 L APTT 20.7 L Sodium Chloride Carbon Dioxide BUN Creatinine Glucose Plasma Lactic Acid Marciano 2.6 H* Calcium Ionized Calcium Yusef Total Bilirubin AST ALT Alkaline Phosphatase Total Protein Albumin 04/22/24 04/22/24 03:40 03:40 WBC RBC Hgb Hct Plt Count Neutrophils # Lymphocytes # APTT Sodium 134 L Chloride Carbon Dioxide BUN 51 H Creatinine 1.26 H Glucose 160 H Plasma Lactic Acid Marciano Calcium 12.8 H Ionized Calcium Yusef 7.0 H* Total Bilirubin 1.8 H AST 395 H ALT 209 H Alkaline Phosphatase 920 H Total Protein 5.1 L Albumin 2.7 L - Diagnostic Findings Chest x-ray: image reviewed Assessment and Plan Assessment: Acute on chronic pain, secondary to diffuse osseous metastasis. Shortness of breath, likely related to his underlying COPD. Stage IV laryngeal carcinoma, with previous chemoradiation, and status post tracheostomy tube insertion. Diffuse liver, and bony metastasis. Hypoxemic respiratory failure. History of tracheal stenosis. History of left neck mass. History of left lung empyema, status post pigtail catheter insertion. History of hypertension. History of hyperlipidemia. History of atrial fibrillation. Prior history of tobacco use. Plan: Plan dated April 22, 2024. The patient currently is on breathing treatments with albuterol sulfate ipratropium bromide. The patient is also receiving Solu-Medrol 60 mg every 6 hours. The patient is also receiving azithromycin. A procalcitonin level has been ordered. The patient continues on a trach collar at 35%. Labs, x-rays, and medications are all reviewed. The patient is overall prognosis remains extremely poor. I would recommend a palliative care or hospice consultation on this patient. Primary goal would be relief of shortness of breath, and pain control. Time with Patient: Greater than 30
[2024-04-22] MEDS: IPRATROPIUM-ALBUTEROL 3 ML NEB INHALATION SCH (08:28)
[2024-04-22] MEDS: PANTOPRAZOLE 40 MG/10 ML VIAL IV SCH (08:59)
[2024-04-22] MEDS: HYDROmorphone 0.5 MG/0.5 ML SYRINGE IVP STA (10:59)
[2024-04-22] MEDS: HYDROcodone/APAP 10-325MG 1 EACH TAB PO PRN (12:45)
[2024-04-22] MEDS: ASPIRIN 81 MG PO SCH (13:43)
[2024-04-22] MEDS: CLOPIDOGREL 75 MG TAB PO SCH (13:43)
[2024-04-22] MEDS: SENNOSIDES 8.6 MG TAB PO SCH (13:43)
[2024-04-22] MEDS: METOPROLOL TARTRATE 25 MG TAB PO SCH (13:43)
[2024-04-22] MEDS: MORPHINE SULFATE ER 60 MG TABLET PO SCH (14:09)
--- NOTE | 2024-04-22 15:04 | P.HPIM ---
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 Patient is a poor historian. Patient continued complain of abdominal pain, back pain, hip pain,. Patient appears very frail and cachectic, severely malnourished, has a trach collar set at 35%. Patient denied any fever, chills, chest pain, palpitations, complains of poor appetite and abdominal pain, denied any diarrhea or constipation. Denied any dysuria urgency frequency. Denied any weakness or numbness of the extremities. Vitals: Afebrile, heart rate 109, respiratory rate 20, blood pressure 136/82, tracheostomy with trach collar in place. Labs showed WBCs 15.6 now come down to 13.8 today. Hemoglobin was 9.7, now 8.7. Platelets 713. Lactate initially was 2.6 now down to 1.8. Calcium elevated at 12.8 with elevated ionized calcium. Elevated ALT AST and total bilirubin with elevated alkaline phosphatase at 920. Chest x-ray showed no acute cardiopulmonary process. Patient admitted to internal medicine service REVIEW OF SYSTEMS: CONSTITUTIONAL: No fever, no malaise, no fatigue. HEENT: No recent visual problems or hearing problems. Denied any sore throat. CARDIOVASCULAR: No chest pain, orthopnea, PND, no palpitations, no syncope. PULMONARY: No shortness of breath, no cough, no hemoptysis. GASTROINTESTINAL: No diarrhea, no nausea, no vomiting, no abdominal pain. NEUROLOGICAL: No headaches, no weakness, no numbness. HEMATOLOGICAL: Denies any bleeding or petechiae. GENITOURINARY: Denies any burning micturition, frequency, or urgency. MUSCULOSKELETAL/RHEUMATOLOGICAL: Denies any joint pain, swelling, or any muscle pain. ENDOCRINE: Denies any polyuria or polydipsia. The rest of the 14-point review of systems is negative. PHYSICAL EXAMINATION: GENERAL: The patient is alert and oriented x3, not in any acute distress. Well developed, well nourished. HEENT: Pupils are round and equally reacting to light. EOMI. No scleral icterus. No conjunctival pallor. Normocephalic, atraumatic. No pharyngeal erythema. No thyromegaly. CARDIOVASCULAR: S1 and S2 present. No murmurs, rubs, or gallops. PULMONARY: Chest is clear to auscultation, no wheezing or crackles. ABDOMEN: Soft, nontender, nondistended, normoactive bowel sounds. No palpable organomegaly. MUSCULOSKELETAL: No joint swelling or deformity. EXTREMITIES: No cyanosis, clubbing, or pedal edema. NEUROLOGICAL: Gross neurological examination did not reveal any focal deficits. SKIN: No rashes. Assessment and plan Acute COPD exacerbation: Stage IV laryngeal carcinoma with previous chemoradiation, status post tracheostomy: Diffuse liver and bony metastasis: Acute on chronic paincancer-related: History of tracheal stenosis History of left neck mass History of left lung empyema status post pigtail catheter insertion Pulmonary consulted and following. Continue inhaler/bronchodilator protocol Solu-Medrol Azithromycin Overall poor prognosis. Pain controlresume home morphine ER, as needed IV Dilaudid for breakthrough pain Nutrition supplements Elevated LFTs: Secondary to liver metastasis. Will obtain ultrasound abdomen Acute hepatitis panel Hold statin History of coronary artery disease: History of hypertension History of hyperlipidemia History of tobacco use: Resume home meds DVT prophylaxis. Subcutaneous Lovenox Dictation was produced using [employer] dictation software. please excuse any grammatical, word or spelling errors. Past Medical History Past Medical History: Cancer, CVA/TIA, Hyperlipidemia, Hypertension Additional Past Medical History / Comment(s): Throat CA, status post chemotherapy, radiation, tracheostomy tube placement, feeding tube with subsequent removal History of Any Multi-Drug Resistant Organisms: None Reported Past Surgical History: Orthopedic Surgery Additional Past Surgical History / Comment(s): History of left carotid endarterectomy, status post tracheostomy placement Past Anesthesia/Blood Transfusion Reactions: No Reported Reaction Past Psychological History: No Psychological Hx Reported Smoking Status: Former smoker Past Alcohol Use History: None Reported Past Drug Use History: None Reported, Marijuana - Past Family History Mother Family Medical History: Dementia Father Family Medical History: Cancer Medications and Allergies Home Medications Medication Instructions Recorded Confirmed Type Pantoprazole [Protonix] 40 mg PO BID 03/26/24 04/22/24 History Aspirin 81 mg PO DAILY tab 03/27/24 04/22/24 Rx Atorvastatin [Lipitor] 80 mg PO HS tab 03/27/24 04/22/24 Rx Metoprolol Tartrate [Lopressor] 25 mg PO BID tab 03/27/24 04/22/24 Rx Clopidogrel [Plavix] 75 mg PO DAILY 04/22/24 04/22/24 History Morphine Sulfate ER [Ms Contin] 60 mg PO Q8H 04/22/24 04/22/24 History Sennosides [Senokot] 8.6 mg PO DAILY 04/22/24 04/22/24 History dexAMETHasone [Decadron] 4 mg PO DAILY 04/22/24 04/22/24 History Allergies Allergy/AdvReac Type Severity Reaction Status Date / Time No Known Allergies Allergy Verified 04/22/24 11:26 Physical Exam Vitals: Vital Signs Temp Pulse Pulse Resp BP BP Pulse Ox 04/22/24 12:09 103 H 19 167/88 94 L 04/22/24 11:48 100 04/22/24 11:37 96 04/22/24 08:43 110 H 04/22/24 08:28 109 H 94 L 04/22/24 08:00 97.7 F 111 H 20 136/82 93 L 04/22/24 06:07 102 H 04/22/24 06:00 100 04/22/24 02:00 97.9 F 101 H 18 176/93 94 L 04/22/24 01:37 56 L 18 145/70 97 04/21/24 23:38 105 H 19 148/78 97 04/21/24 21:27 102 H 18 168/94 97 04/21/24 20:31 109 H 04/21/24 20:29 04/21/24 20:19 104 H 04/21/24 20:04 97.6 F 101 H 19 162/89 97 FiO2 04/22/24 12:09 04/22/24 11:48 04/22/24 11:37 04/22/24 08:43 04/22/24 08:28 40 04/22/24 08:00 04/22/24 06:07 04/22/24 06:00 04/22/24 02:00 04/22/24 01:37 04/21/24 23:38 04/21/24 21:27 04/21/24 20:31 04/21/24 20:29 40 04/21/24 20:19 04/21/24 20:04 Intake and Output 04/21/24 04/22/24 04/22/24 22:59 06:59 14:59 Intake Total 598 Output Total 175 325 Balance -175 273 Intake: Oral 598 Output: Urine 175 325 Other: Voiding Method Urinal Urinal # Voids 1 # Bowel Movements 1 Weight 56.699 kg 56.699 kg Results CBC & Chem 7: 04/22/24 03:40 04/22/24 03:40 Labs: Abnormal Lab Results - Last 24 Hours (Table) 04/21/24 04/21/24 04/21/24 Range/Units 20:23 20:23 21:10 WBC 15.6 H (3.8-10.6) k/uL RBC 3.29 L (4.30-5.90) m/uL Hgb 9.7 L D (13.0-17.5) gm/dL Hct 29.7 L (39.0-53.0) % Plt Count 802 H (150-450) k/uL Neutrophils # 14.6 H (1.3-7.7) k/uL Lymphocytes # 0.4 L (1.0-4.8) k/uL APTT (22.0-30.0) sec Sodium 134 L (137-145) mmol/L Chloride 96 L (98-107) mmol/L Carbon Dioxide 31 H (22-30) mmol/L BUN 54 H (9-20) mg/dL Creatinine (0.66-1.25) mg/dL Glucose 136 H (74-99) mg/dL Plasma Lactic Acid Marciano 2.2 H* (0.7-2.0) mmol/L Calcium 13.7 H* (8.4-10.2) mg/dL Ionized Calcium Yusef (4.5-5.3) mg/dL Total Bilirubin 1.8 H (0.2-1.3) mg/dL AST 445 H (17-59) U/L ALT 220 H (4-49) U/L Alkaline Phosphatase 1088 H (38-126) U/L Total Protein (6.3-8.2) g/dL Albumin (3.5-5.0) g/dL Procalcitonin (0.02-0.09) ng/mL 04/21/24 04/21/24 04/22/24 Range/Units 21:10 23:20 03:40 WBC 13.8 H (3.8-10.6) k/uL RBC 3.11 L (4.30-5.90) m/uL Hgb 8.7 L (13.0-17.5) gm/dL Hct 27.8 L (39.0-53.0) % Plt Count 713 H (150-450) k/uL Neutrophils # 13.3 H (1.3-7.7) k/uL Lymphocytes # 0.3 L (1.0-4.8) k/uL APTT 20.7 L (22.0-30.0) sec Sodium (137-145) mmol/L Chloride (98-107) mmol/L Carbon Dioxide (22-30) mmol/L BUN (9-20) mg/dL Creatinine (0.66-1.25) mg/dL Glucose (74-99) mg/dL Plasma Lactic Acid Marciano 2.6 H* (0.7-2.0) mmol/L Calcium (8.4-10.2) mg/dL Ionized Calcium Yusef (4.5-5.3) mg/dL Total Bilirubin (0.2-1.3) mg/dL AST (17-59) U/L ALT (4-49) U/L Alkaline Phosphatase (38-126) U/L Total Protein (6.3-8.2) g/dL Albumin (3.5-5.0) g/dL Procalcitonin (0.02-0.09) ng/mL 04/22/24 04/22/24 04/22/24 Range/Units 03:40 03:40 03:40 WBC (3.8-10.6) k/uL RBC (4.30-5.90) m/uL Hgb (13.0-17.5) gm/dL Hct (39.0-53.0) % Plt Count (150-450) k/uL Neutrophils # (1.3-7.7) k/uL Lymphocytes # (1.0-4.8) k/uL APTT (22.0-30.0) sec Sodium 134 L (137-145) mmol/L Chloride (98-107) mmol/L Carbon Dioxide (22-30) mmol/L BUN 51 H (9-20) mg/dL Creatinine 1.26 H (0.66-1.25) mg/dL Glucose 160 H (74-99) mg/dL Plasma Lactic Acid Marciano (0.7-2.0) mmol/L Calcium 12.8 H (8.4-10.2) mg/dL Ionized Calcium Yusef 7.0 H* (4.5-5.3) mg/dL Total Bilirubin 1.8 H (0.2-1.3) mg/dL AST 395 H (17-59) U/L ALT 209 H (4-49) U/L Alkaline Phosphatase 920 H (38-126) U/L Total Protein 5.1 L (6.3-8.2) g/dL Albumin 2.7 L (3.5-5.0) g/dL Procalcitonin 1.31 H (0.02-0.09) ng/mL Thrombosis Risk Factor Assmnt - Choose All That Apply Each Factor Represents 1 point: Abnormal pulmonary function (COPD) Other Risk Factors: Yes Each Risk Factor Represents 2 Points: Age 61-74 years, Malignancy Other congenital or acquired thrombophilia - If yes, enter type in comment: No Thrombosis Risk Factor Assessment Total Risk Factor Score: 5 Thrombosis Risk Factor Assessment Level: High Risk
[2024-04-22] MEDS: HYDROmorphone 1 MG/ML 1 ML SYRINGE IVP PRN (17:27)
--- NOTE | 2024-04-22 18:27 | US ---
EXAMINATION TYPE: US abdomen limited DATE OF EXAM: 04/22/2024 COMPARISON: CT: 03/27/24 CLINICAL INDICATION: Male, 63 years old with history of Elevated LFTs; elevated LFT's TECHNIQUE: Multiple sonographic images of the right upper quadrant are obtained. FINDINGS: EXAM MEASUREMENTS: Liver Length: 20.1 cm Gallbladder Wall: 0.3 cm CBD: not visualized Right Kidney: 9.0 x 4.6 x 4.2 cm SKIN LIFTER BACON NOTES: Pancreas: parts seen appear wnl. Duct measuring 2mm Liver: Heterogeneous and enlarged. Numerous heterogeneous masses visualized throughout liver Gallbladder: wall is upper limits of normal Evidence for sonographic Hensley's sign: No CBD: Not visualized Right Kidney: wnl IMPRESSION: Heterogenous enlarged liver with multiple liver masses. No ductal dilation.
[2024-04-22] MEDS ORDERED: ATORVASTATIN 80 MG TAB PO SCH (21:00)
[2024-04-22] MEDS: MORPHINE SULFATE ER 30 MG TABLET PO SCH (23:33)
[2024-04-23 08:07] LABS: Hepatitis A Antibody IgM Nonreactive (Nonreactive); Hepatitis B Core IgM Nonreactive (Nonreactive); Hepatitis B Surface Antigen Nonreactive (Nonreactive); Hepatitis C IgG Antibody Nonreactive (Nonreactive)
[2024-04-23 08:08] LABS: Basophils % (A) 0 %; Eosinophils % (A) 0 %; HCT 27.8 % (39.0-53.0); HGB 8.5 gm/dL (13.0-17.5); Hypochromasia Marked; Lymphocytes # (A) 0.5 k/uL (1.0-4.8); Lymphocytes % (A) 3 %; MCH 27.6 pg (25.0-35.0); MCHC 30.6 g/dL (31.0-37.0); MCV 90.1 fL (80.0-100.0); Mean Platelet Volume 6.7; Monocytes # (A) 0.4 k/uL (0-1.0); Monocytes % (A) 2 %; Neutrophils # (A) 18.7 k/uL (1.3-7.7); Neutrophils % (A) 95 %; Platelet Count 905 k/uL (150-450); RBC 3.09 m/uL (4.30-5.90); RDW 14.5 % (11.5-15.5); WBC 19.8 k/uL (3.8-10.6)
[2024-04-23 08:30] LABS: ALT 356 U/L (4-49); African American GFR (CKD) 69 (>60 ml/min/1.73 sqM); Albumin 2.9 g/dL (3.5-5.0); Alkaline Phosphatase 887 U/L (38-126); Anion Gap 9 mmol/L; Blood Urea Nitrogen 50 mg/dL (9-20); Calcium 12.8 mg/dL (8.4-10.2); Carbon Dioxide 27 mmol/L (22-30); Chloride 100 mmol/L (98-107); Glucose 124 mg/dL (74-99); Magnesium 1.9 mg/dL (1.6-2.3); Non-African American GFR(CKD) 59 (>60 ml/min/1.73 sqM); Potassium 4.7 mmol/L (3.5-5.1); Sodium 136 mmol/L (137-145); Total Bilirubin 1.7 mg/dL (0.2-1.3); Total Protein 5.4 g/dL (6.3-8.2)
[2024-04-23 08:40] LABS: AST 773 U/L (17-59)
--- NOTE | 2024-04-23 11:31 | P.PN ---
Subjective Progress Note Date: 04/23/24 Pulmonary consultation dated April 22, 2024. 63-year-old white male, who was seen in the emergency department on April 21, brought in by EMS, for difficulty breathing, and chronic pain. The patient does have a bit of a dry nonproductive cough as well. The patient was last seen by our team, in March 2024. At that time, the patient was found to have an acute non-ST segment elevation myocardial infarction, COPD exacerbation, advanced/stage IV laryngeal carcinoma, with diffuse metastasis, acute hypoxemic respiratory failure, previous tracheostomy and PEG tube placement, tracheal stenosis, left neck mass, left lung empyema, hypertension, hyperlipidemia, atrial fibrillation, and previous tobacco use. The patient is not a particularly good historian, but I gather he came into the hospital primarily f or pain rather than shortness of breath. He currently has a trach collar set at 35%. He is not receiving any IV fluids. He complains of hip, and back pain, and low lumbar pain. The patient does have mets to the various osseous structures mentioned above, as well as liver metastasis. He is very cachectic, and very frail. Current labs include a white count 13.8, hemoglobin 8.7, hematocrit 27.8, and platelet count of 713,000. Sodium 134, potassium 4.7, chlorides 100, CO2 27, BUN 51, creatinine 1.26. Calcium is 12.8. Ionized calcium is elevated at 7. AST is 395. ALT is 209. Alkaline phosphatase is 920. Chest x-ray is essentially unremarkable. The patient is seen today April 23, 2024 in follow-up on the selective care unit. He is currently resting in bed. Currently on 40% FiO2 via trach collar. Ultrasound of the abdomen revealed heterogenous enlarged liver with multiple liver masses. No ductal dilatation. White count 19.8. Hemoglobin 8.5. Platelets 905. Sodium 136. Potassium 4.7. Bicarb 27. BUN 50. Creatinine 1.28. Glucose 124. AST 773. ALT 356. Alk phos 887. Hepatitis screen negative. He remains on DuoNeb inhalations, Solu-Medrol. Pain control with morphine. Objective - Vital Signs Vital signs: Vital Signs Temp 97.5 F L 04/23/24 08:00 Pulse 92 04/23/24 09:45 Resp 19 04/23/24 08:00 BP 172/83 04/23/24 08:00 Pulse Ox 94 L 04/23/24 09:31 FiO2 40 04/23/24 09:31 Intake & Output 04/22/24 04/23/24 04/23/24 18:59 06:59 18:59 Intake Total 598 20 240 Output Total 325 700 Balance 273 -680 240 Weight 56 kg Intake: IV 20 Invasive Line 4 20 Oral 598 240 Output: Urine 325 700 Other: Voiding Method Urinal Urinal # Voids 1 1 # Bowel Movements 1 - Exam GENERAL EXAM: Alert, thin, cachectic 63-year-old male, on 40% FiO2 via trach collar, in no apparent distress. HEAD: Normocephalic. EYES: Normal reaction of pupils, equal size. NOSE: Clear with pink turbinates. THROAT: Midline tracheostomy tube secured in place. No erythema or exudates. NECK: No masses, no JVD. CHEST: No chest wall deformity. LUNGS: Equal air entry with few scattered rhonchi. CVS: S1 and S2 normal with no audible murmur, regular rhythm. ABDOMEN: PEG tube exit site clean and dry. Normal bowel sounds, no guarding or rigidity. SPINE: No scoliosis or deformity SKIN: No rashes CENTRAL NERVOUS SYSTEM: No focal deficits, tone is normal in all 4 extremities. EXTREMITIES: There is no peripheral edema. No clubbing, no cyanosis. Peripheral pulses are intact. - Labs CBC & Chem 7: 04/23/24 06:49 04/23/24 06:49 Labs: Abnormal Lab Results - Last 24 Hours (Table) 04/23/24 04/23/24 Range/Units 06:49 06:49 WBC 19.8 H (3.8-10.6) k/uL RBC 3.09 L (4.30-5.90) m/uL Hgb 8.5 L (13.0-17.5) gm/dL Hct 27.8 L (39.0-53.0) % MCHC 30.6 L (31.0-37.0) g/dL Plt Count 905 H (150-450) k/uL Neutrophils # 18.7 H (1.3-7.7) k/uL Lymphocytes # 0.5 L (1.0-4.8) k/uL Sodium 136 L (137-145) mmol/L BUN 50 H (9-20) mg/dL Creatinine 1.28 H (0.66-1.25) mg/dL Glucose 124 H (74-99) mg/dL Calcium 12.8 H (8.4-10.2) mg/dL Total Bilirubin 1.7 H (0.2-1.3) mg/dL AST 773 H (17-59) U/L ALT 356 H (4-49) U/L Alkaline Phosphatase 887 H (38-126) U/L Total Protein 5.4 L (6.3-8.2) g/dL Albumin 2.9 L (3.5-5.0) g/dL Assessment and Plan Assessment: Acute on chronic pain, secondary to diffuse osseous metastasis Shortness of breath, likely related to his underlying COPD Stage IV laryngeal carcinoma, with previous chemoradiation, and status post tracheostomy tube and PEG tube insertion Diffuse liver, and bony metastasis Hypoxemic respiratory failure Acute kidney injury History of tracheal stenosis History of left neck mass History of left lung empyema, status post pigtail catheter insertion History of hypertension History of hyperlipidemia History of atrial fibrillation Prior history of tobacco use Plan: The patient was seen and evaluated Labs and medications reviewed Abdominal ultrasound reviewed Remains on bronchodilators and steroids Morphine for pain control Prognosis is poor May need to consider palliative/hospice care I have personally seen and examined the patient, performed the documentation and the assessment and plan as written. Number of minutes spent on the visit: 10.
[2024-04-23] MEDS ORDERED: polyethylene glycoL 3350 17 GM POWD.PACK PO PRN (12:48)
--- NOTE | 2024-04-23 14:37 | P.PN ---
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 Patient is a poor historian. Patient continued complain of abdominal pain, back pain, hip pain,. Patient appears very frail and cachectic, severely malnourished, has a trach collar set at 35%. Patient denied any fever, chills, chest pain, palpitations, complains of poor appetite and abdominal pain, denied any diarrhea or constipation. Denied any dysuria urgency frequency. Denied any weakness or numbness of the extremities. Vitals: Afebrile, heart rate 109, respiratory rate 20, blood pressure 136/82, tracheostomy with trach collar in place. Labs showed WBCs 15.6 now come down to 13.8 today. Hemoglobin was 9.7, now 8.7. Platelets 713. Lactate initially was 2.6 now down to 1.8. Calcium elevated at 12.8 with elevated ionized calcium. Elevated ALT AST and total bilirubin with elevated alkaline phosphatase at 920. Chest x-ray showed no acute cardiopulmonary process. 04/23 - Patient seen at bedside today, where he presented his weak, frail and cachectic appearing. Patient complained about pain in his abdomen, back and hip. He has no current complaints apart from his pain. Percocet 10 mg Q6 added on top of his current morphine and Dilaudid with hopes of alleviating some of his discomfort. Radiation oncology consulted, had previously been consulted discussed the possibility of palliative radiation during the patient's visit in March 2024, consulted again to potentially consider this route. Additionally, medical oncology consulted further recommendation regarding possible alternative treatments to assist in the patient's discomforts. Trach collar at 40% saturat ing 90%. Patient's sister requested an informational meeting with hospice care, which will occur tomorrow 04/24. Labs drawn today - WBCs 19.8, Hgb 8.5, Hct 27.8, PLT 905, neutrophils 18.7, hepatitis serology all nonreactive. BUN 50, creatinine 1.28. REVIEW OF SYSTEMS: CONSTITUTIONAL: No fever, no malaise,. CARDIOVASCULAR: No chest pain, no palpitations, no syncope. PULMONARY: No shortness of breath, no cough, GASTROINTESTINAL: No diarrhea, no nausea, no vomiting, no abdominal pain. NEUROLOGICAL: No headaches, no weakness, PHYSICAL EXAMINATION: GENERAL: The patient is alert and oriented x3, frail, cachectic looking man in moderate distress. HEENT: Pupils are round and equally reacting to light. EOMI. No scleral icterus. No conjunctival pallor. Normocephalic, atraumatic. No pharyngeal erythema. No thyromegaly. CARDIOVASCULAR: S1 and S2 present. No murmurs, rubs, or gallops. PULMONARY: Chest is clear to auscultation, no wheezing or crackles. ABDOMEN: Soft, nontender, nondistended, normoactive bowel sounds. No palpable organomegaly. MUSCULOSKELETAL: No joint swelling or deformity. EXTREMITIES: No cyanosis, clubbing, or pedal edema. NEUROLOGICAL: Gross neurological examination did not reveal any focal deficits. Awake, alert, oriented x3. SKIN: No rashes. 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 Patient receiving morphine 60 mg every 8 hours and Dilaudid 1 mg IV every 4 hours. Pain remains uncontrolled Percocet 10 mg every 6 hours added. Monitor patient's pain levels. #Shortness of breath, likely related to his underlying COPD He is currently utilizing DuoNeb every 2 hours as needed as well as 4 times a day, as well as Solu-Medrol 40 mg IV twice a day Pulmonology will continue to follow however no additional recommendations at this time #Stage IV laryngeal carcinoma, with previous chemoradiation, status post tracheostomy tube and PEG tube insertion with diffuse liver and bony metastases Completed chemoradiation on 04/22/2022 Evidence of metastatic disease found as a result of imaging in March 17 When previously consulted in March 2020 for radiation oncology and discussed the option of palliative radiation Monitor vital signs Labs and medication were reviewed. Continue with symptomatic treatment. Resume home medication. Monitor labs and vitals. DVT and GI prophylaxis. Further recommendations as per clinical course of the patient Dictation was produced using [employer] dictation software. please excuse any grammatical, word or spelling errors. Objective - Vital Signs Vital signs: Vital Signs Temp 97.8 F 04/23/24 03:38 Pulse 102 H 07/22/24 03:38 Resp 20 04/23/24 03:38 BP 143/81 04/23/24 03:38 Pulse Ox 94 L 04/23/24 03:38 FiO2 40 04/23/24 03:38 Intake & Output 04/22/24 04/23/24 04/23/24 18:59 06:59 18:59 Intake Total 598 20 Output Total 325 700 Balance 273 -680 Weight 56 kg Intake: IV 20 Invasive Line 4 20 Oral 598 Output: Urine 325 700 Other: Voiding Method Urinal Urinal # Voids 1 # Bowel Movements 1 - Labs CBC & Chem 7: 04/23/24 06:49 04/23/24 06:49 Labs: Abnormal Lab Results - Last 24 Hours (Table) 04/22/24 04/23/24 Range/Units 03:40 06:49 WBC 19.8 H (3.8-10.6) k/uL RBC 3.09 L (4.30-5.90) m/uL Hgb 8.5 L (13.0-17.5) gm/dL Hct 27.8 L (39.0-53.0) % MCHC 30.6 L (31.0-37.0) g/dL Plt Count 905 H (150-450) k/uL Neutrophils # 18.7 H (1.3-7.7) k/uL Lymphocytes # 0.5 L (1.0-4.8) k/uL Procalcitonin 1.31 H (0.02-0.09) ng/mL
[2024-04-23 14:51] VITALS: BMI 17.6
[2024-04-23] MEDS: oxyCODONE-APAP 10-325MG 1 EACH TAB PO PRN (17:05)
[2024-04-23] MEDS: methylPREDNISolone SOD SUCCI 40 MG/ML 1 ML VIAL IV SCH (19:52)
--- NOTE | 2024-04-24 08:39 | P.PN ---
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 Prior to starting radiotherapy he required emergent trach placement due to airway compromise. 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 He underwent a course of concurrent chemoradiation for his larynx cancer finishing on 04/22/22. Unfortunately, he now presents with imaging evidence concerning for metastatic disease with left neck adenopathy, suspicious liver lesions, lung nodules and bone metastases. Biopsy of the left neck adenopathy surprisingly revealed metastatic melanoma. The patient has had a sharp decline in his functional status since discharge from [facility]. He was seen in our clinic on April 18. He was arranged to meet with Dr. Lewis regarding possible immunotherapy for metastatic melanoma on April 24, but unfortunately will miss that appointment secondary to hospitalization. At the time of my visit, the patient reports 8 out of 10 pain in the back. His family has requested an informational hospice meeting which will take place the morning of April 24. Objective - Vital Signs Vital signs: Vital Signs Temp 97.6 F 04/24/24 07:42 Pulse 101 H 04/24/24 07:42 Resp 19 04/24/24 07:42 BP 149/80 04/24/24 07:42 Pulse Ox 99 04/24/24 07:42 FiO2 40 04/24/24 07:42 Intake & Output 04/23/24 04/24/24 04/24/24 18:59 06:59 18:59 Intake Total 490 Output Total 600 Balance 490 -600 Weight 56 kg Intake: Intake, IV Titration 250 Amount Azithromycin 500 mg In 250 Sodium Chloride 0.9% 250 ml @ 250 mls/hr IVPB DAILY [facility] Rx#:[id number] Oral 240 Output: Urine 600 Other: Voiding Method Urinal Urinal # Voids 1 - Constitutional General appearance: Present: disheveled, thin - EENT Eyes: Present: EOMI, PERRLA ENT: Present: hearing grossly normal - Neck Neck: Present: lymphadenopathy (left supraclav 3 cm firm node) - Respiratory Respiratory: bilateral: CTA - Cardiovascular Rhythm: regular - Integumentary Integumentary: Present: pale - Musculoskeletal Musculoskeletal: Present: generalized weakness - Psychiatric Psychiatric: Present: A&O x's 3, appropriate affect - Labs CBC & Chem 7: 04/23/24 06:49 04/23/24 06:49 Labs: Abnormal Lab Results - Last 24 Hours (Table) 04/23/24 Range/Units 06:49 Sodium 136 L (137-145) mmol/L BUN 50 H (9-20) mg/dL Creatinine 1.28 H (0.66-1.25) mg/dL Glucose 124 H (74-99) mg/dL Calcium 12.8 H (8.4-10.2) mg/dL Total Bilirubin 1.7 H (0.2-1.3) mg/dL AST 773 H (17-59) U/L ALT 356 H (4-49) U/L Alkaline Phosphatase 887 H (38-126) U/L Total Protein 5.4 L (6.3-8.2) g/dL Albumin 2.9 L (3.5-5.0) g/dL Microbiology - Last 24 Hours (Table) 04/21/24 23:20 Blood Culture - Preliminary Blood Assessment and Plan Assessment: 63 year old male - previously treated for head/neck cancer in 2021, now presents with newly diagnosed metastatic melanoma with significant disease involving the bone, liver and lungs. 1. Back pain: This is secondary to his underlying metastatic disease in the bone. Patient was having difficulty with optimizing pain control as an outpatient. We were scheduled to have the patient undergo palliative radiotherapy simulation a few days ago, but he was unable to lie flat for the procedure. If the patient does not enroll with hospice, we could certainly attempt to repeat simulation while he is in-house. If the patient does elect for hospice care, I would likely not push for palliative radiotherapy as the patient has previously had difficulty with the positioning required. 2. Metastatic Melanoma: Eval with medical oncology - unfortunately patient was scheduled for outpatient consultation on 04/24. Uncertain if patient has a good enough performance status for systemic therapy at this time.
--- NOTE | 2024-04-24 11:06 | P.PN ---
Subjective Progress Note Date: 04/24/24 Pulmonary consultation dated April 22, 2024. 63-year-old white male, who was seen in the emergency department on April 21, brought in by EMS, for difficulty breathing, and chronic pain. The patient does have a bit of a dry nonproductive cough as well. The patient was last seen by our team, in March 2024. At that time, the patient was found to have an acute non-ST segment elevation myocardial infarction, COPD exacerbation, advanced/stage IV laryngeal carcinoma, with diffuse metastasis, acute hypoxemic respiratory failure, previous tracheostomy and PEG tube placement, tracheal stenosis, left neck mass, left lung empyema, hypertension, hyperlipidemia, atrial fibrillation, and previous tobacco use. The patient is not a particularly good historian, but I gather he came into the hospital primarily f or pain rather than shortness of breath. He currently has a trach collar set at 35%. He is not receiving any IV fluids. He complains of hip, and back pain, and low lumbar pain. The patient does have mets to the various osseous structures mentioned above, as well as liver metastasis. He is very cachectic, and very frail. Current labs include a white count 13.8, hemoglobin 8.7, hematocrit 27.8, and platelet count of 713,000. Sodium 134, potassium 4.7, chlorides 100, CO2 27, BUN 51, creatinine 1.26. Calcium is 12.8. Ionized calcium is elevated at 7. AST is 395. ALT is 209. Alkaline phosphatase is 920. Chest x-ray is essentially unremarkable. The patient is seen today April 23, 2024 in follow-up on the selective care unit. He is currently resting in bed. Currently on 40% FiO2 via trach collar. Ultrasound of the abdomen revealed heterogenous enlarged liver with multiple liver masses. No ductal dilatation. White count 19.8. Hemoglobin 8.5. Platelets 905. Sodium 136. Potassium 4.7. Bicarb 27. BUN 50. Creatinine 1.28. Glucose 124. AST 773. ALT 356. Alk phos 887. Hepatitis screen negative. He remains on DuoNeb inhalations, Solu-Medrol. Pain control with morphine. The patient is seen today April 24, 2024 in follow-up on the selective care unit. He is currently resting in bed. He states his pain is better controlled. He is quite weak and cachectic. He is maintaining O2 saturations in the 90s on 40% FiO2 via trach collar. He remains on bronchodilators and steroids. Dilaudid and morphine for pain control. No new labs today. Objective - Vital Signs Vital signs: Vital Signs Temp 97.6 F 04/24/24 07:42 Pulse 104 H 04/24/24 10:12 Resp 19 04/24/24 07:42 BP 149/80 04/24/24 07:42 Pulse Ox 99 04/24/24 07:42 FiO2 40 04/24/24 10:01 Intake & Output 04/23/24 04/24/24 04/24/24 18:59 06:59 18:59 Intake Total 490 Output Total 600 Balance 490 -600 Weight 56 kg Intake: Intake, IV Titration 250 Amount Azithromycin 500 mg In 250 Sodium Chloride 0.9% 250 ml @ 250 mls/hr IVPB DAILY [facility] Rx#:[id number] Oral 240 Output: Urine 600 Other: Voiding Method Urinal Urinal # Voids 1 - Exam GENERAL EXAM: Alert, thin, cachectic 63-year-old male, on 40% FiO2 via trach collar. HEAD: Normocephalic. EYES: Normal reaction of pupils, equal size. NOSE: Clear with pink turbinates. THROAT: Midline tracheostomy tube secured in place. No erythema or exudates. NECK: No masses, no JVD. CHEST: No chest wall deformity. LUNGS: Equal air entry with few scattered rhonchi. CVS: S1 and S2 normal with no audible murmur, regular rhythm. ABDOMEN: PEG tube exit site clean and dry. Normal bowel sounds, no guarding or rigidity. SPINE: No scoliosis or deformity SKIN: No rashes CENTRAL NERVOUS SYSTEM: No focal deficits, tone is normal in all 4 extremities. EXTREMITIES: There is no peripheral edema. No clubbing, no cyanosis. Peripheral pulses are intact. - Labs CBC & Chem 7: 04/23/24 06:49 04/23/24 06:49 Labs: Microbiology - Last 24 Hours (Table) 04/21/24 23:20 Blood Culture - Preliminary Blood Assessment and Plan Assessment: Acute on chronic pain, secondary to diffuse osseous metastasis Shortness of breath, likely related to his underlying COPD Stage IV laryngeal carcinoma, with previous chemoradiation, and status post tracheostomy tube and PEG tube insertion Diffuse liver, and bony metastasis Hypoxemic respiratory failure Acute kidney injury History of tracheal stenosis History of left neck mass History of left lung empyema, status post pigtail catheter insertion History of hypertension History of hyperlipidemia History of atrial fibrillation Prior history of tobacco use Plan: The patient was seen and evaluated Medications reviewed Remains on bronchodilators and steroids Morphine and Dilaudid for pain control Family is meeting with hospice today I have personally seen and examined the patient, performed the documentation and the assessment and plan as written. Number of minutes spent on the visit: 10.
--- NOTE | 2024-04-24 11:41 | CDI ---
Documentation Clarification Form Date: 04/24/2024 From: Opal Hill Phone: [phone] Admit Date: 04/21/2024 11:02:00 PM Patient Name: Azeem Gray Visit Number: [id number] Discharge Date: ATTENTION: The Clinical Documentation Specialists (CDI) and [facility] Coding Staff appreciate your assistance in clarifying documentation. Please respond to the clarification below the line at the bottom and electronically sign. The CDI & [facility] Coding staff will review the response and follow-up if needed. Please note: Queries are made part of the Legal Health Record. If you have any questions, please contact the author of this message via ITS. Doctor/Provider: Yash Cohen MD: There is documentation of severely malnourished in the H&P 04/22. Additional clarification is requested. History/Risk Factors: 63-year-old Male with a history of COPD, Stage 4 laryngeal carcinoma, with diffuse metastasis to liver and bones, HTN AFIb, who presents with worsening SOB, worsening bone pain and dry cough Clinical Indicators: 04/22 H&P, HPI: "Patient appears very frail and cachectic, severely malnourished." 04/23 RD Assessment, BMI: 17.7, BMI Index classification: "Underweight", Nutrition Diagnosis: "Inadequate oral intake" Patient reports stable weight 04/21 Patient weight 56kg Patient height 5ft 10in BMI: 17.7 04/21-04/23 Total Protein: 6.5, 5.1, 5.4 Treatment: Regular diet Magic cups BID Can you please clarify the diagnosis of severely malnourished? [ ] Cachectic and underweight [ x ] Severe protein calorie malnutrition [ ] Other, please specify [ ] Unable to determine Reference: Using the ASPEN Guidelines, Undernutrition (Malnutrition) is characterized by at least two of the following six findings. The severity can be determined based on the criteria listed below. Malnutrition Characteristics for Moderate and Severe Malnutrition Type of Malnutrition Acute Illness or Injury Chronic Illness Degree of Malnutrition Non-severe (moderate) Malnutrition Severe Malnutrition Non-severe (moderate) Malnutrition Severe Malnutrition Energy Intake <75% for >7 days = 50% for = 5 days <75% for = 1 month =75% for = 1 month Weight Loss 1-2% in one week, 5% in 1 month, 7.5% in 3 months 2% in one week, >5% in 1 month, >7.5% in 3 months 5% in one month, 7.5% in 3 months, 10% in 6 months, 20% in 1 year >5% in one month, >7.5% in 3 months, >10% in 6 months, >20% in 1 year Body Fat Wasting Mild Moderate Mild Severe Muscle Wasting Mild Moderate Mild Severe Presence of Edema Mild Moderate to Severe Mild Severe Resident Director Strength Not applicable Measurably Reduced Not applicable Measurably Reduced Source: Joseph BurciagaV, Bernardo P, Omar G, et al. Consensus statement: Academy of Nutrition and Dietetics and [place] Society for Parenteral and Enteral Nutrition: characteristics recommended for the identification and documentation of adult malnutrition (undernutrition).JPANGE J Parenter Enteral Nutr. 2012;36(3):275-283. MTDD
--- NOTE | 2024-04-24 11:57 | CDI ---
Documentation Clarification Form Date: 04/24/2024 From: Opal Hill Phone: [phone] Admit Date: 04/21/2024 11:02:00 PM Patient Name: Azeem Gray Visit Number: [id number] Discharge Date: ATTENTION: The Clinical Documentation Specialists (CDI) and [facility] Coding Staff appreciate your assistance in clarifying documentation. Please respond to the clarification below the line at the bottom and electronically sign. The CDI & [facility] Coding staff will review the response and follow-up if needed. Please note: Queries are made part of the Legal Health Record. If you have any questions, please contact the author of this message via ITS. Doctor/Provider: Joe Sal DO: There is documentation of hypoxemic respiratory failure in the Pulmonary consult note 04/22 and in subsequent Pulmonary notes. Additional clarification of the acuity of the condition is requested. History/Risk Factors: 63-year-old Male with a history of COPD, Stage 4 laryngeal carcinoma and tracheostomy, with diffuse metastasis to liver and bones, HTN, AFIb, who presents with worsening SOB, worsening bone pain and dry cough Clinical Indicators: 04/21 Triage VS: 162/89, 97.6, 101, 19, 97% 6 liters nasal cannula 04/22 Pulmonology consult, Assessment and Plan: "Hypoxemic respiratory failure." Plan: "The patient continues on a trach collar at 35%." 04/21 Nasal cannula 6 liters nasal cannula, then switched to 40% Trach collar throughout documented VS Treatment: Trach Collar, monitor oxygen saturations Can you please clarify the acuity of the hypoxemic respiratory failure? [ ] Acute [ X ] Chronic [ ] Other, please specify [ ] Unable to determine MTDD
[2024-04-24] MEDS: DEXTROSE 5%-0.9% NACL 1,000 ML IV SCH (12:10)
[2024-04-24] MEDS ORDERED: ZOLEDRONIC ACID 4 MG in SODIUM CHLORIDE 0.9% 100 ML IV NR (13:00)
[2024-04-24] MEDS: CALCITONIN INJ 200 UNIT/ML (MDV) VIAL SQ ONE (13:33)
--- NOTE | 2024-04-24 16:00 | P.DS ---
Providers Date of admission: 04/21/24 23:02 Attending physician: Yash Cohen MD Consults: 04/21/24 23:01 Consult Physician Urgent Consulting Provider: Joe Sal Consult Reason/Comments: dyspnea Do you want consulting provider notified?: Yes 04/23/24 12:32 Consult Physician Routine Consulting Provider: Kenny Stephens Consult Reason/Comments: Possible palliative radiation therapy Do you want consulting provider notified?: Yes 04/23/24 12:37 Consult Physician Routine Consulting Provider: Maile Newell Consult Reason/Comments: Advanced metastatic disease; potential alternative treatments Do you want consulting provider notified?: Yes Primary care physician: Ye Mane MD Hospital Course: Discharge diagnoses; #Acute on chronic pain, secondary to diffuse osseous metastases Patient receiving morphine 60 mg every 8 hours and Dilaudid 1 mg IV every 4 hours. Pain remains uncontrolled Percocet 10 mg every 6 hours added. Monitor patient's pain levels. #Shortness of breath, likely related to his underlying COPD He is currently utilizing DuoNeb every 2 hours as needed as well as 4 times a day, as well as Solu-Medrol 40 mg IV twice a day Pulmonology will continue to follow however no additional recommendations at this time #Stage IV laryngeal carcinoma, with previous chemoradiation, status post tracheostomy tube and PEG tube insertion with diffuse liver and bony metastases Completed chemoradiation on 04/22/2022 Evidence of metastatic disease found as a result of imaging in March 17 When previously consulted in March 2020 for radiation oncology and discussed the option of palliative radiation Hospital course; 63-year-old male patient with past medical history significant for COPD, advanced/stage IV laryngeal carcinoma with diffuse metastasis to liver and bones, previous history of tracheostomy and PEG tube placement, tracheal stenosis, left neck mass, left lung empyema, hypertension, hyperlipidemia, A- fib, previous tobacco use who was brought in for shortness of breath, worsening bone pain, dry nonproductive cough. Patient is a poor historian. Patient continued complain of abdominal pain, back pain, hip pain,. Patient appears very frail and cachectic, severely malnourished, has a trach collar set at 35%. Patient denied any fever, chills, chest pain, palpitations, complains of poor appetite and abdominal pain, denied any diarrhea or constipation. Denied any dysuria urgency frequency. Denied any weakness or numbness of the extremities. Vitals: Afebrile, heart rate 109, respiratory rate 20, blood pressure 136/82, tracheostomy with trach collar in place. Labs showed WBCs 15.6 now come down to 13.8 today. Hemoglobin was 9.7, now 8.7. Platelets 713. Lactate initially was 2.6 now down to 1.8. Calcium elevated at 12.8 with elevated ionized calcium. Elevated ALT AST and total bilirubin with elevated alkaline phosphatase at 920. Chest x-ray showed no acute cardiopulmonary process. 04/23 - Patient seen at bedside today, where he presented his weak, frail and cachectic appearing. Patient complained about pain in his abdomen, back and hip. He has no current complaints apart from his pain. Percocet 10 mg Q6 added on top of his current morphine and Dilaudid with hopes of alleviating some of his discomfort. Radiation oncology consulted, had previously been consulted discussed the possibility of palliative radiation during the patient's visit in March 2024, consulted again to potentially consider this route. Additionally, medical oncology consulted further recommendation regarding possible alternative treatments to assist in the patient's discomforts. Trach collar at 40% saturating 90%. Patient's sister requested an informational meeting with hospice care, which will occur tomorrow 04/24. Labs drawn today - WBCs 19.8, Hgb 8.5, Hct 27.8, PLT 905, neutrophils 18.7, hepatitis serology all nonreactive. BUN 50, creatinine 1.28. 04/24 - Patient seen at bedside today, where he presented his weak, frail and cachectic appearing. Yesterday, Percocet 10 mg every 6 hours as needed was added on top of the patient's morphine and Dilaudid to assist with pain control, according to the patient this has. Patient stated to me that his pain has gotten better, and he is more comfortable. Additionally, the patient's sister was present yesterday and requested an informational meeting with hospice care. Radiation and medical oncology were consulted yesterday. Radiation oncology saw the patient this morning, stated that patient has had a sharp decline in his functional status since he was discharged from [facility], and seen in their clinic on April 18. He was scheduled to have an appointment with Dr. Lewis regarding the possibility of immunotherapy for metastatic melanoma on April 24, but will unfortunately missed that appointment as a result of his hospitalization. They continue to state that the patient was scheduled to receive a palliative radiation simulation a few days ago however was unable to lie flat for the procedure. Radiation oncology states that if the patient does not enroll in hospice care, they could attempt the simulation again while in- house, however if the patient does elect to enroll in hospice care they would not push to pursue palliative radiotherapy. Following the informational hospice care meeting, the patient, along with some of his family present, elected to proceed with hospice care. PHYSICAL EXAMINATION: GENERAL: The patient is alert and oriented x3, not in any acute distress. Well developed, well nourished. HEENT: Pupils are round and equally reacting to light. EOMI. No scleral icterus. No conjunctival pallor. Normocephalic, atraumatic. No pharyngeal erythema. No thyromegaly. CARDIOVASCULAR: S1 and S2 present. No murmurs, rubs, or gallops. PULMONARY: Chest is clear to auscultation, no wheezing or crackles. ABDOMEN: Soft, nontender, nondistended, normoactive bowel sounds. No palpable organomegaly. MUSCULOSKELETAL: No joint swelling or deformity. EXTREMITIES: No cyanosis, clubbing, or pedal edema. NEUROLOGICAL: Gross neurological examination did not reveal any focal deficits. SKIN: No rashes. Dictation was produced using [employer] dictation software. please excuse any grammatical, word or spelling errors. Plan - Discharge Summary Discharge Rx Participant: No New Discharge Prescriptions: Continue Aspirin 81 mg PO DAILY tab Atorvastatin [Lipitor] 80 mg PO HS tab Metoprolol Tartrate [Lopressor] 25 mg PO BID tab Sennosides [Senokot] 8.6 mg PO DAILY Morphine Sulfate ER [Ms Contin] 60 mg PO Q8H dexAMETHasone [Decadron] 4 mg PO DAILY Pantoprazole [Protonix] 40 mg PO BID Clopidogrel [Plavix] 75 mg PO DAILY Discharge Medication List Pantoprazole [Protonix] 40 mg PO BID 03/26/24 [History] Aspirin 81 mg PO DAILY tab 03/27/24 [Rx] Atorvastatin [Lipitor] 80 mg PO HS tab 03/27/24 [Rx] Metoprolol Tartrate [Lopressor] 25 mg PO BID tab 03/27/24 [Rx] Clopidogrel [Plavix] 75 mg PO DAILY 04/22/24 [History] Morphine Sulfate ER [Ms Contin] 60 mg PO Q8H 04/22/24 [History] Sennosides [Senokot] 8.6 mg PO DAILY 04/22/24 [History] dexAMETHasone [Decadron] 4 mg PO DAILY 04/22/24 [History] Follow up Appointment(s)/Referral(s): None,Stated [REFERRING] - 1-2 days
[2024-04-24] MEDS: HYDROmorphone 1 MG/ML 1 ML SYRINGE IVP PRN (18:08)
--- NOTE | 2024-04-24 18:31 | P.CONS ---
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 He is a patient of Dr. 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 He underwent treatment with concurrent chemo/RT, and completed treatment April 2022. He also underwent surgical resection for a malignant melanoma of the left lower extremity in December 2021. Patient had repeat PET scan on 05/13/2023 which revealed areas of surrounding abnormal vocal cord were smaller and more discrete but showed increased SUV values. New areas of abnormal uptake within the lungs including lateral right apex and lingula. New area of increased uptake within the intercostal space between the first and second right ribs. And increasing intensity within the cecum and ascending colon, which could be physiologic versus neoplasm. CT chest on 06/20/2023 revealed new necrotic masses in the left upper lobe and left lingula with associated pleural thickening and intercostal nodularity. Thick walled cystic structure of the right upper lobe and subcarinal adenopathy and baker bcentimeter low right paratracheal lymph node. He had subseqent follow up scheduled but had missed multiple follow up appts. He then f/u in clinic on 09/2023 and was scheduled for repeat PET CT in 11/2023. PET scan obtained by rad onc on revealed left lower neck and mediastinal lymph nodes as well as at least 2 pulmonary nodules which increased in size with increased FDG activity and number of pulmonary nodules which have elevated FDG activity. Indeterminate uptake near the falciform ligament possibly secondary to misregistration artifact. Patient has been following with radiation oncology, Dr. Stephens. Patient missed follow-up in clinic on 03/13/2024 and again on 04/23/24. He has n ot followed up since September 2023. He was was evaluated in the ER on 03/17/2024 for shortness of breath and underwent CTA chest and CT soft tissue of neck, scans revealed no evidence for PE. Progression of disease with enlarging left neck mass, larynx abnormal soft tissue with evidence of increasing size of pulmonary nodules and evidence of osseous and liver metastatic disease. He was then seen on consult on 03/26/24 for progressing SOB. Imaging during this admission noted worsening metastasis in lungs, with new osseous and liver mets. Ill-defined osseous lesion posterior left ilium with possible pathological fracture, and anterior wedge shaped compression defect at T2 and T8. CT soft tissue neck showed similar compromise of the hypopharyngeal and laryngeal airway secondary to abnormal soft tissue. Downstream tracheostomy stoma with similar mild to moderate tracheal stenosis at the level of the stoma. Abnormal soft tissue/lymphadenopathy lower left neck measuring up to 5.7 cm. Morris guajardo was transferred to [facility] to be evaluated by his surgeon, Dr. Brumfield for tracheostomy placement. Due to history of melanoma, requested biopsy of left neck mass to evaluate for disease recurrence vs metastatic melanoma vs new primary. Biopsy of the left neck adenopathy did reveal metastatic melanoma. He was scheduled for palliaitve RT to back but was unable to tolerate laying flat, and had f/u scheduled with Dr. Lewis on 04/23 to discuss treatment options/immunotherapy but was missed due to current hospitalization. Patient presented to the emergency room with complaints of shortness of breath, weakness and intractable back pain. HPI was provided by family at bedside today, as patient was rather lethargic and fell asleep during conversation. Family states symptoms have been progressing since his last admission at the end of March but was still ambulating and taking care of himself at home up until 3 days ago, at which time patient was unable to walk on his own and was having de creased oral intake causing him to present to the ER for further evaluation. He is still able to tolerate oral intake and took his medications this morning, denies dysphagia and N/V. Had normal BM yesterday. On admission chest x-ray showed no acute cardiopulmonary processes. Abdominal ultrasound revealed heterogeneous enlarged liver with multiple liver masses with no ductal dilation. Labs reviewed, WBC 19.8, hemoglobin 8.5, platelets 905,000. Bilirubin elevated at 1.7, with increasing LFTs. Creatinine 1.28, GFR 59. Calcium was elevated at 13.7 on admit, and patient was given 1 L bolus of normal saline and started on continuous IV fluids which has since been discontinued. Repeat calcium 12.8 with ionized calcium 7.0. Corrected calcium 13.7. Patient afebrile, SpO2 99% on trach collar 10 L oxygen. Procalcitonin elevated at 1.31. 3 doses of azithromycin have been given. Blood cultures negative. Review of Systems 10 point ROS is negative except as stated in the HPI Past Medical History Past Medical History: Cancer, CVA/TIA, Hyperlipidemia, Hypertension Additional Past Medical History / Comment(s): Throat CA, status post chemotherapy, radiation, tracheostomy tube placement, feeding tube with subsequent removal History of Any Multi-Drug Resistant Organisms: None Reported Past Surgical History: Orthopedic Surgery Additional Past Surgical History / Comment(s): History of left carotid endarterectomy, status post tracheostomy placement Past Anesthesia/Blood Transfusion Reactions: No Reported Reaction Past Psychological History: No Psychological Hx Reported Smoking Status: Former smoker Past Alcohol Use History: None Reported Past Drug Use History: None Reported, Marijuana - Past Family History Mother Family Medical History: Dementia Father Family Medical History: Cancer Medications and Allergies Home Medications Medication Instructions Recorded Confirmed Type Pantoprazole [Protonix] 40 mg PO BID 03/26/24 04/22/24 History Aspirin 81 mg PO DAILY tab 03/27/24 04/22/24 Rx Atorvastatin [Lipitor] 80 mg PO HS tab 03/27/24 04/22/24 Rx Metoprolol Tartrate [Lopressor] 25 mg PO BID tab 03/27/24 04/22/24 Rx Clopidogrel [Plavix] 75 mg PO DAILY 04/22/24 04/22/24 History Morphine Sulfate ER [Ms Contin] 60 mg PO Q8H 04/22/24 04/22/24 History Sennosides [Senokot] 8.6 mg PO DAILY 04/22/24 04/22/24 History dexAMETHasone [Decadron] 4 mg PO DAILY 04/22/24 04/22/24 History Allergies Allergy/AdvReac Type Severity Reaction Status Date / Time No Known Allergies Allergy Verified 04/22/24 11:26 Physical Exam Vitals: Vital Signs Temp Pulse Pulse Resp BP Pulse Ox FiO2 04/24/24 07:42 97.6 F 101 H 19 149/80 99 40 04/24/24 03:54 98.5 F 114 H 19 168/99 94 L 40 04/24/24 00:00 98.8 F 119 H 19 148/87 96 40 04/23/24 20:50 99 04/23/24 20:37 101 H 04/23/24 20:00 98.6 F 118 H 19 122/75 95 40 04/23/24 16:30 99.6 F 106 H 18 169/93 98 40 04/23/24 16:01 98 04/23/24 15:51 104 H 04/23/24 12:43 100 04/23/24 12:37 98.1 F 94 18 154/82 98 40 04/23/24 12:31 100 04/23/24 09:45 92 04/23/24 09:31 90 94 L 40 Intake and Output 04/23/24 04/24/24 04/24/24 22:59 06:59 14:59 Intake Total 250 Output Total 600 Balance 250 -600 Intake: Intake, IV Titration 250 Amount Azithromycin 500 mg In 250 Sodium Chloride 0.9% 250 ml @ 250 mls/hr IVPB DAILY [facility] Rx#:[id number] Output: Urine 600 Other: Voiding Method Urinal Urinal Urinal - Constitutional General appearance: no acute distress, thin - Respiratory Respiratory: bilateral: diminished, rhonchi - Cardiovascular Rhythm: regular - Gastrointestinal General gastrointestinal: no tenderness - Integumentary Integumentary: no cyanotic - Neurologic lethargic - Musculoskeletal Musculoskeletal: generalized weakness Results CBC & Chem 7: 04/23/24 06:49 04/23/24 06:49 Labs: Microbiology - Last 24 Hours (Table) 04/21/24 23:20 Blood Culture - Preliminary Blood Chest x-ray: report reviewed CT scan - abdomen: report reviewed CT scan - chest: report reviewed CT scan - pelvis: report reviewed US - abdomen: report reviewed Assessment and Plan (1) Intractable pain Current Visit: Yes Status: Acute Priority: High Code(s): R52 - PAIN, UNSPECIFIED SNOMED Code(s): 09975641 (2) Metastatic melanoma Current Visit: Yes Status: Acute Priority: High Code(s): C43.9 - MALIGNANT MELANOMA OF SKIN, UNSPECIFIED SNOMED Code(s): 560009402 (3) Dehydration Current Visit: Yes Status: Acute Priority: High Code(s): E86.0 - DEHYDRATION SNOMED Code(s): 81581929 (4) Hypercalcemia Current Visit: Yes Status: Acute Priority: High Code(s): E83.52 - HYPERCALCEMIA SNOMED Code(s): 19907729 (5) Squamous cell carcinoma of head and neck Current Visit: No Status: Acute Priority: Medium Code(s): C76.0 - MALIGNANT NEOPLASM OF HEAD, FACE AND NECK SNOMED Code(s): 037401236 Plan: Hypercalcemia of malignancy, weakness, intractable pain: Presented to the emergency room with complaints of shortness of breath, weakness and intractable back pain. Family states symptoms have been progressing since his last admission at the end of March but patient was ambulating and taking care of himself at home up until 3 days ago. Family reports patient is still able to swallow, tolerating his oral medications and denies dysphagia and N/V, but appet ite has been quite diminished -On admission calcium was elevated at 13.7, and was given 1 L bolus of normal saline and started on continuous IV fluids which has since been discontinued. Repeat calcium 12.8 with ionized calcium 7.0. Corrected calcium 13.7 -Bilirubin elevated at 1.7, with increasing LFTs. Creatinine 1.28, GFR 59. Abdominal ultrasound revealed heterogeneous enlarged liver with multiple liver masses with no ductal dilation. -CXR negative for acute cardiopulmonary processes. Procalcitonin 1.31. 3 doses azithromycin given -Intractable back pain better controlled on current pain medications. Bowel regimen ordered Metastatic melanoma, hx squamous cell carcinoma of larynx: -Full onoclogical history in [facility] -Completed concurrent chemo/RT in April 2022 for laryngeal cancer. Patient follows with Dr. Newell and Dr. Stephens. Patient has missed last 2 follow-up appts and has not followed up in clinic since September 2023. -Patient was seen on consult on 03/26/24 at [facility] due to progressing SOB. Imaging during this admission noted worsening metastasis in lungs, with new osseous and liver mets. Ill-defined osseous lesion posterior left ilium with possible pathological fracture, and anterior wedge shaped compression defect at T2 and T8. CT soft tissue neck showed similar compromise of the hypopharyngeal and laryngeal airway secondary to abnormal soft tissue. Downstream tracheostomy stoma with similar mild to moderate tracheal stenosis at the level of the stoma. Abnormal soft tissue/lymphadenopathy lower left neck measuring up to 5.7 cm. Patient was transferred to [facility] to be evaluated by his surgeon, Dr. Brumfield for tracheostomy placement. Due to history of melanoma, requested a biopsy of left neck mass to evaluate for disease recurrence vs metastatic melanoma vs new primary. Biopsy of the left neck mass which revealed metastatic melanoma. -He was scheduled for palliative RT to back but was unable to tolerate laying flat, and had f/u scheduled with Dr. Lewis on 04/23/24 to discuss treatment options/immunotherapy but was missed due to current hospitalization Had lengthy discussion with family at today's visit, regarding patient's advanced metastatic disease, prognosis, treatment options, and that hopes were to start patient on palliative RT and immunotherapy for recently diagnosed metastatic melanoma. However, unfortunately in his current condition he would not be a candidate for systemic treatment. And although IO is an effective treatment for his type of cancer, it would typically take a couple cycles to see a meaningful improvement which unfortunately does not appear to be feasible in his current state. However, after discussion with family today, although his PS has been declining over the last month, patient was still ambulating and caring for himself up until his admission 3 days ago, and with noted hypercalcemia, with a corrected calcium of 13.7 that has not been adequately treated, it would be reasonable to treat the elevated calcium, and continue IV hydration and IV steroids over the next day or so, to see if there is any improvement in his symptoms. They were agreeable to the same, and stated the patient's wishes have been to pursue active treatment for his cancer. Hospice and comfort care were also discussed, and we recommended that if no meaningful improvement is noted, with treating the hypercalcemia, and with IV hydration and steroids, then comfort care measures would be most appropriate. They verbalized understanding and were agreeable with plan. All questions and concerns were addressed -Continue Solumedrol 40mg BID. D5 0.9 IV fluids started. Calcitonin and zometa ordered. Will repeat calcium levels in the morning -Hospice team is scheduled to meet with patient and family later today for informational session attests: I have seen and examined pt, performed H&P, developed impression and plan of care. Discussed with dictator. Agree with documentation, dictated as a scribe. Time with Patient: Greater than 30
[2024-04-25 03:39] VITALS: PULSE 100; TEMP 98.3
[2024-04-25 08:31] VITALS: BP 158/75; RESP 18
[2024-04-25 09:10] LABS: HCT 25.8 % (39.0-53.0); Hypochromasia Marked; MCHC 30.9 g/dL (31.0-37.0); MCV 90.8 fL (80.0-100.0); Mean Platelet Volume 6.6; Platelet Count 641 k/uL (150-450); RBC 2.84 m/uL (4.30-5.90); RDW 15.2 % (11.5-15.5)
[2024-04-25 09:13] LABS: ALT 608 U/L (4-49); African American GFR (CKD) 58 (>60 ml/min/1.73 sqM); Albumin 2.5 g/dL (3.5-5.0); Alkaline Phosphatase 687 U/L (38-126); Anion Gap 4 mmol/L; Blood Urea Nitrogen 53 mg/dL (9-20); Calcium 11.7 mg/dL (8.4-10.2); Carbon Dioxide 26 mmol/L (22-30); Chloride 106 mmol/L (98-107); Glucose 128 mg/dL (74-99); Non-African American GFR(CKD) 51 (>60 ml/min/1.73 sqM); Potassium 4.2 mmol/L (3.5-5.1); Sodium 136 mmol/L (137-145); Total Bilirubin 2.4 mg/dL (0.2-1.3); Total Protein 4.8 g/dL (6.3-8.2)
[2024-04-25 09:26] LABS: AST 947 U/L (17-59)
--- NOTE | 2024-04-25 11:03 | P.PN ---
Subjective Progress Note Date: 04/25/24 Pulmonary consultation dated April 22, 2024. 63-year-old white male, who was seen in the emergency department on April 21, brought in by EMS, for difficulty breathing, and chronic pain. The patient does have a bit of a dry nonproductive cough as well. The patient was last seen by our team, in March 2024. At that time, the patient was found to have an acute non-ST segment elevation myocardial infarction, COPD exacerbation, advanced/stage IV laryngeal carcinoma, with diffuse metastasis, acute hypoxemic respiratory failure, previous tracheostomy and PEG tube placement, tracheal stenosis, left neck mass, left lung empyema, hypertension, hyperlipidemia, atrial fibrillation, and previous tobacco use. The patient is not a particularly good historian, but I gather he came into the hospital primarily f or pain rather than shortness of breath. He currently has a trach collar set at 35%. He is not receiving any IV fluids. He complains of hip, and back pain, and low lumbar pain. The patient does have mets to the various osseous structures mentioned above, as well as liver metastasis. He is very cachectic, and very frail. Current labs include a white count 13.8, hemoglobin 8.7, hematocrit 27.8, and platelet count of 713,000. Sodium 134, potassium 4.7, chlorides 100, CO2 27, BUN 51, creatinine 1.26. Calcium is 12.8. Ionized calcium is elevated at 7. AST is 395. ALT is 209. Alkaline phosphatase is 920. Chest x-ray is essentially unremarkable. The patient is seen today April 23, 2024 in follow-up on the selective care unit. He is currently resting in bed. Currently on 40% FiO2 via trach collar. Ultrasound of the abdomen revealed heterogenous enlarged liver with multiple liver masses. No ductal dilatation. White count 19.8. Hemoglobin 8.5. Platelets 905. Sodium 136. Potassium 4.7. Bicarb 27. BUN 50. Creatinine 1.28. Glucose 124. AST 773. ALT 356. Alk phos 887. Hepatitis screen negative. He remains on DuoNeb inhalations, Solu-Medrol. Pain control with morphine. The patient is seen today April 24, 2024 in follow-up on the selective care unit. He is currently resting in bed. He states his pain is better controlled. He is quite weak and cachectic. He is maintaining O2 saturations in the 90s on 40% FiO2 via trach collar. He remains on bronchodilators and steroids. Dilaudid and morphine for pain control. No new labs today. The patient is seen today April 25, 2024 in follow-up on the selective care unit. He is currently resting in bed. Awake and alert in no acute distress. He is maintaining good O2 saturations in the 90s on 40% trach collar. He is continued on DuoNeb inhalations, Solu-Medrol. Dilaudid and morphine for pain control. Protonix for GI prophylaxis. Blood cultures revealed no growth. White count 19.6. Hemoglobin 8.0. Platelets 641. Sodium 136. Potassium 4.2. Bicarb 26. BUN 53. Creatinine 1.46. Glucose 128. AST 947. ALT 608. Alk phos 687. Objective - Vital Signs Vital signs: Vital Signs Temp 98.3 F 04/25/24 03:39 Pulse 100 04/25/24 08:00 Resp 18 04/25/24 08:00 BP 158/75 04/25/24 08:00 Pulse Ox 97 04/25/24 08:00 FiO2 40 04/25/24 08:15 Intake & Output 04/24/24 04/25/24 04/25/24 18:59 06:59 18:59 Intake Total 118 Output Total 450 Balance -450 118 Weight 55.4 kg Intake: Oral 118 Output: Urine 450 Other: Voiding Method Urinal Urinal # Voids 1 1 - Exam GENERAL EXAM: Alert, weak, cachectic 63-year-old male patient, on 40% FiO2 via trach collar. HEAD: Normocephalic. EYES: Normal reaction of pupils, equal size. NOSE: Clear with pink turbinates. THROAT: Midline tracheostomy tube secured in place. No erythema or exudates. NECK: No masses, no JVD. CHEST: No chest wall deformity. LUNGS: Equal air entry with few scattered rhonchi. CVS: S1 and S2 normal with no audible murmur, regular rhythm. ABDOMEN: PEG tube exit site clean and dry. Normal bowel sounds, no guarding or rigidity. SPINE: No scoliosis or deformity SKIN: No rashes CENTRAL NERVOUS SYSTEM: No focal deficits, tone is normal in all 4 extremities. EXTREMITIES: There is no peripheral edema. No clubbing, no cyanosis. Peripheral pulses are intact. - Labs CBC & Chem 7: 04/25/24 08:33 04/25/24 08:33 Labs: Abnormal Lab Results - Last 24 Hours (Table) 04/25/24 04/25/24 Range/Units 08:33 08:33 WBC 19.6 H (3.8-10.6) k/uL RBC 2.84 L (4.30-5.90) m/uL Hgb 8.0 L (13.0-17.5) gm/dL Hct 25.8 L (39.0-53.0) % MCHC 30.9 L (31.0-37.0) g/dL Plt Count 641 H (150-450) k/uL Sodium 136 L (137-145) mmol/L BUN 53 H (9-20) mg/dL Creatinine 1.46 H (0.66-1.25) mg/dL Glucose 128 H (74-99) mg/dL Calcium 11.7 H (8.4-10.2) mg/dL Total Bilirubin 2.4 H (0.2-1.3) mg/dL AST 947 H (17-59) U/L ALT 608 H (4-49) U/L Alkaline Phosphatase 687 H (38-126) U/L Total Protein 4.8 L (6.3-8.2) g/dL Albumin 2.5 L (3.5-5.0) g/dL Microbiology - Last 24 Hours (Table) 04/21/24 23:20 Blood Culture - Preliminary Blood Assessment and Plan Assessment: Acute on chronic pain, secondary to diffuse osseous metastasis Shortness of breath, likely related to his underlying COPD Stage IV laryngeal carcinoma, with previous chemoradiation, and status post tracheostomy tube and PEG tube insertion Diffuse liver, and bony metastasis Chronic hypoxemic respiratory failure due to metastatic laryngeal carcinoma and underlying COPD Acute kidney injury History of tracheal stenosis History of left neck mass History of left lung empyema, status post pigtail catheter insertion History of hypertension History of hyperlipidemia History of atrial fibrillation Prior history of tobacco use Plan: The patient was seen and evaluated Medications and labs reviewed Remains on bronchodilators and steroids Morphine and Dilaudid for pain control Plan is for home with hospice possibly today I have personally seen and examined the patient, performed the documentation and the assessment and plan as written. Number of minutes spent on the visit: 10.
[2024-04-25] MEDS: ZOLEDRONIC ACID 4 MG in SODIUM CHLORIDE 0.9% 100 ML IV STA (11:16)
[2024-04-25 11:19] LABS: Band Neutrophils % 1 %; Metamyelocytes % 1 %; Myelocytes % 1 %; Neutrophils % (M) 97 %; Nucleated Red Blood Cells 3 /100 WBC (0-0); Total Cells Counted 200
[2024-04-25 11:20] LABS: Lymphocytes # (M) 0.19 k/uL (1.0-4.8); Metamyelocytes # (M) 0.19 k/uL (0); Myelocytes # (M) 0.19 k/uL (0)
[2024-04-25 11:21] LABS: Polychromasia Present
--- NOTE | 2024-04-25 13:59 | P.PN ---
Subjective Progress Note Date: 04/25/24 No acute events. Patient is alert to verbal and tactile stimuli and is answering questions appropriately, but does remain quite lethargic. Calcium improved today, corrected calcium 12.9 from 13.7 yesterday. However Zometa was not given. Family states the patient did have some improvement over the last 24 hours and was able to sit up on the edge of the bed as previously he was not. Bilirubin, AST and ALT increasing. Hemodynamically stable. Plan for discharge today with hospice Objective - Vital Signs Vital signs: Vital Signs Temp 98.3 F 04/25/24 03:39 Pulse 100 04/25/24 08:00 Resp 18 04/25/24 08:00 BP 158/75 04/25/24 08:00 Pulse Ox 97 04/25/24 08:00 FiO2 40 04/25/24 08:15 Intake & Output 04/24/24 04/25/24 04/25/24 18:59 06:59 18:59 Intake Total 118 Output Total 450 Balance -450 118 Weight 55.4 kg Intake: Oral 118 Output: Urine 450 Other: Voiding Method Urinal Urinal # Voids 1 1 - Constitutional General appearance: Present: no acute distress, thin - EENT ENT: Present: hearing grossly normal - Respiratory Details: breathing is even and unlabored - Integumentary Integumentary: Present: jaundiced - Neurologic Neurologic Comment(s): lethargic - Musculoskeletal Musculoskeletal: Present: generalized weakness - Labs CBC & Chem 7: 04/25/24 08:33 04/25/24 08:33 Labs: Abnormal Lab Results - Last 24 Hours (Table) 04/25/24 04/25/24 Range/Units 08:33 08:33 WBC 19.6 H (3.8-10.6) k/uL RBC 2.84 L (4.30-5.90) m/uL Hgb 8.0 L (13.0-17.5) gm/dL Hct 25.8 L (39.0-53.0) % MCHC 30.9 L (31.0-37.0) g/dL Plt Count 641 H (150-450) k/uL Sodium 136 L (137-145) mmol/L BUN 53 H (9-20) mg/dL Creatinine 1.46 H (0.66-1.25) mg/dL Glucose 128 H (74-99) mg/dL Calcium 11.7 H (8.4-10.2) mg/dL Total Bilirubin 2.4 H (0.2-1.3) mg/dL AST 947 H (17-59) U/L ALT 608 H (4-49) U/L Alkaline Phosphatase 687 H (38-126) U/L Total Protein 4.8 L (6.3-8.2) g/dL Albumin 2.5 L (3.5-5.0) g/dL Microbiology - Last 24 Hours (Table) 04/21/24 23:20 Blood Culture - Preliminary Blood Assessment and Plan (1) Intractable pain Status: Acute Priority: High Code(s): R52 - PAIN, UNSPECIFIED SNOMED Code(s): 41873734 (2) Metastatic melanoma Status: Acute Priority: High Code(s): C43.9 - MALIGNANT MELANOMA OF SKIN, UNSPECIFIED SNOMED Code(s): 597379273 (3) Dehydration Status: Acute Priority: High Code(s): E86.0 - DEHYDRATION SNOMED Code(s): 26490475 (4) Hypercalcemia Status: Acute Priority: High Code(s): E83.52 - HYPERCALCEMIA SNOMED Code(s): 05899769 (5) Squamous cell carcinoma of head and neck Status: Acute Priority: Medium Code(s): C76.0 - MALIGNANT NEOPLASM OF HEAD, FACE AND NECK SNOMED Code(s): 268797276 Plan: Hypercalcemia of malignancy, weakness, intractable pain: Presented to the emergency room with complaints of shortness of breath, weakness and intractable back pain. Family states symptoms have been progressing since his last admission at the end of March but patient was ambulating and taking care of himself at home up until 3 days ago. Family reports patient is still able to swallow, tolerating his oral medications and denies dysphagia and N/V, but appetite has been quite diminished -On admission calcium was elevated at 13.7, and was given 1 L bolus of normal saline and started on continuous IV fluids which has since been discontinued. Repeat calcium 12.8 with ionized calcium 7.0. Corrected calcium 13.7 -Bilirubin elevated at 1.7, with increasing LFTs. Creatinine 1.28, GFR 59. Abdominal ultrasound revealed heterogeneous enlarged liver with multiple liver masses with no ductal dilation. -CXR negative for acute cardiopulmonary processes. Procalcitonin 1.31. 3 doses azithromycin given -Intractable back pain better controlled on current pain medications. Bowel regimen ordered -Calcium improved today, corrected calcium 12.9 from 13.7 yesterday, after IV fluids and calcitonin, however, Zometa was not given. Family states the patient did have some improvement over the last 24 hours and was able to sit up on the edge of the bed as previously he was not, but he does remain quite lethargic. -Patient and family have decided to go home with hospice, plan is for discharge today. Have requested Zometa to be given prior to discharge Metastatic melanoma, hx squamous cell carcinoma of larynx: -Full onoclogical history in [facility] -Completed concurrent chemo/RT in April 2022 for laryngeal cancer. Patient follows with Dr. Newell and Dr. Stephens. Patient has missed last 2 follow-up appts and has not followed up in clinic since September 2023. -Patient was seen on consult on 03/26/24 at [facility] due to progressing SOB. Imaging during this admission noted worsening metastasis in lungs, with new osseous and liver mets. Ill-defined osseous lesion posterior left ilium with possible pathological fracture, and anterior wedge shaped compression defect at T2 and T8. CT soft tissue neck showed similar compromise of the hypopharyngeal and laryngeal airway secondary to abnormal soft tissue. Downstream tracheostomy stoma with similar mild to moderate tracheal stenosis at the level of the stoma. Abnormal soft tissue/lymphadenopathy lower left neck measuring up to 5.7 cm. Patient was transferred to [facility] to be evaluated by his surgeon, Dr. Brumfield for tracheostomy placement. Due to history of melanoma, requested a biopsy of left neck mass to evaluate for disease recurrence vs metastatic melanoma vs new primary. Biopsy of the left neck mass which revealed metastatic melanoma. -He was scheduled for palliative RT to back but was unable to tolerate laying flat, and had f/u scheduled with Dr. Lewis on 04/23/24 to discuss treatment options/immunotherapy but was missed due to current hospitalization Had lengthy discussion with family at today's visit, regarding patient's advanced metastatic disease, prognosis, treatment options, and that hopes were to start patient on palliative RT and immunotherapy for recently diagnosed metastatic melanoma. However, unfortunately in his current condition he would not be a candidate for systemic treatment. And although IO is an effective treatment for his type of cancer, it would typically take a couple cycles to see a meaningful improvement which unfortunately does not appear to be feasible in his current state. However, after discussion with family today, although his PS has been declining over the last month, patient was still ambulating and caring for himself up until his admission 3 days ago, and with noted hypercalcemia, with a corrected calcium of 13.7 that has not been adequately treated, it would be reasonable to treat the elevated calcium, and continue IV hydration and IV steroids over the next day or so, to see if there is any improvement in his symptoms. They were agreeable to the same, and stated the patient's wishes have been to pursue active treatment for his cancer. Hospice and comfort care were also discussed, and we recommended that if no meaningful improvement is noted, with treating the hypercalcemia, and with IV hydration and steroids, then comfort care measures would be most appropriate. They verbalized understanding and were agreeable with plan. All questions and concerns were addressed -Continue Solumedrol 40mg BID. D5 0.9 IV fluids started. Calcitonin and zometa ordered. -Hospice team is scheduled to meet with patient and family for informational session. -After hospice meeting yesterday, pt and family have decided to go home with hospice care, plan is for discharge today. Had further discussion today with family regarding comfort care measures, and all their questions/concerns were addressed. Please do not hesitate to contact our service for any further assistance
--- NOTE | 2024-04-25 15:18 | P.DS ---
Providers Date of admission: 04/21/24 23:02 Attending physician: Yash Cohen MD Consults: 04/21/24 23:01 Consult Physician Urgent Consulting Provider: Joe Sal Consult Reason/Comments: dyspnea Do you want consulting provider notified?: Yes 04/23/24 12:32 Consult Physician Routine Consulting Provider: Kenny Stephens Consult Reason/Comments: Possible palliative radiation therapy Do you want consulting provider notified?: Yes 04/23/24 12:37 Consult Physician Routine Consulting Provider: Maile Newell Consult Reason/Comments: Advanced metastatic disease; potential alternative treatments Do you want consulting provider notified?: Yes Primary care physician: Ye Mane MD Hospital Course: Discharge diagnoses; #Acute on chronic pain, secondary to diffuse osseous metastases Patient receiving morphine 60 mg every 8 hours and Dilaudid 1 mg IV every 4 hours. Pain remains uncontrolled Percocet 10 mg every 6 hours added. Monitor patient's pain levels. #Shortness of breath, likely related to his underlying COPD He is currently utilizing DuoNeb every 2 hours as needed as well as 4 times a day, as well as Solu-Medrol 40 mg IV twice a day Pulmonology will continue to follow however no additional recommendations at this time #Stage IV laryngeal carcinoma, with previous chemoradiation, status post tracheostomy tube and PEG tube insertion with diffuse liver and bony metastases Completed chemoradiation on 04/22/2022 Evidence of metastatic disease found as a result of imaging in March 17 When previously consulted in March 2020 for radiation oncology and discussed the option of palliative radiation Hospital course; 63-year-old male patient with past medical history significant for COPD, advanced/stage IV laryngeal carcinoma with diffuse metastasis to liver and bones, previous history of tracheostomy and PEG tube placement, tracheal stenosis, left neck mass, left lung empyema, hypertension, hyperlipidemia, A- fib, previous tobacco use who was brought in for shortness of breath, worsening bone pain, dry nonproductive cough. Patient is a poor historian. Patient continued complain of abdominal pain, back pain, hip pain,. Patient appears very frail and cachectic, severely malnourished, has a trach collar set at 35%. Patient denied any fever, chills, chest pain, palpitations, complains of poor appetite and abdominal pain, denied any diarrhea or constipation. Denied any dysuria urgency frequency. Denied any weakness or numbness of the extremities. Vitals: Afebrile, heart rate 109, respiratory rate 20, blood pressure 136/82, tracheostomy with trach collar in place. Labs showed WBCs 15.6 now come down to 13.8 today. Hemoglobin was 9.7, now 8.7. Platelets 713. Lactate initially was 2.6 now down to 1.8. Calcium elevated at 12.8 with elevated ionized calcium. Elevated ALT AST and total bilirubin with elevated alkaline phosphatase at 920. Chest x-ray showed no acute cardiopulmonary process. 04/23 - Patient seen at bedside today, where he presented his weak, frail and cachectic appearing. Patient complained about pain in his abdomen, back and hip. He has no current complaints apart from his pain. Percocet 10 mg Q6 added on top of his current morphine and Dilaudid with hopes of alleviating some of his discomfort. Radiation oncology consulted, had previously been consulted discussed the possibility of palliative radiation during the patient's visit in March 2024, consulted again to potentially consider this route. Additionally, medical oncology consulted further recommendation regarding possible alternative treatments to assist in the patient's discomforts. Trach collar at 40% saturating 90%. Patient's sister requested an informational meeting with hospice care, which will occur tomorrow 04/24. Labs drawn today - WBCs 19.8, Hgb 8.5, Hct 27.8, PLT 905, neutrophils 18.7, hepatitis serology all nonreactive. BUN 50, creatinine 1.28. 04/24 - Patient seen at bedside today, where he presented his weak, frail and cachectic appearing. Yesterday, Percocet 10 mg every 6 hours as needed was added on top of the patient's morphine and Dilaudid to assist with pain control, according to the patient this has. Patient stated to me that his pain has gotten better, and he is more comfortable. Additionally, the patient's sister was present yesterday and requested an informational meeting with hospice care. Radiation and medical oncology were consulted yesterday. Radiation oncology saw the patient this morning, stated that patient has had a sharp decline in his functional status since he was discharged from [facility], and seen in their clinic on April 18. He was scheduled to have an appointment with Dr. Lewis regarding the possibility of immunotherapy for metastatic melanoma on April 24, but will unfortunately missed that appointment as a result of his hospitalization. They continue to state that the patient was scheduled to receive a palliative radiation simulation a few days ago however was unable to lie flat for the procedure. Radiation oncology states that if the patient does not enroll in hospice care, they could attempt the simulation again while in- house, however if the patient does elect to enroll in hospice care they would not push to pursue palliative radiotherapy. Following the informational hospice care meeting, the patient, along with some of his family present, elected to proceed with hospice care. 04/25 -patient was originally scheduled to be discharged on 04/24, however hospice care needed some requirements for fulfilled which was unable to occur on 04/24. As of this morning, the requirements were taking care of with regards to the oxygen at home and the respiratory therapist meeting with the patient at home. Everything was set, and the patient was agreeable to be discharged the morning of 04/25. PHYSICAL EXAMINATION: GENERAL: The patient is alert and oriented x3, not in any acute distress. Well developed, well nourished. HEENT: Pupils are round and equally reacting to light. EOMI. No scleral icterus. No conjunctival pallor. Normocephalic, atraumatic. No pharyngeal erythema. No th yromegaly. CARDIOVASCULAR: S1 and S2 present. No murmurs, rubs, or gallops. PULMONARY: Chest is clear to auscultation, no wheezing or crackles. ABDOMEN: Soft, nontender, nondistended, normoactive bowel sounds. No palpable organomegaly. MUSCULOSKELETAL: No joint swelling or deformity. EXTREMITIES: No cyanosis, clubbing, or pedal edema. NEUROLOGICAL: Gross neurological examination did not reveal any focal deficits. SKIN: No rashes. Dictation was produced using [employer] dictation software. please excuse any grammatical, word or spelling errors. Plan - Discharge Summary Discharge Rx Participant: No New Discharge Prescriptions: Continue Aspirin 81 mg PO DAILY tab Atorvastatin [Lipitor] 80 mg PO HS tab Metoprolol Tartrate [Lopressor] 25 mg PO BID tab Sennosides [Senokot] 8.6 mg PO DAILY Morphine Sulfate ER [Ms Contin] 60 mg PO Q8H dexAMETHasone [Decadron] 4 mg PO DAILY Pantoprazole [Protonix] 40 mg PO BID Clopidogrel [Plavix] 75 mg PO DAILY Discharge Medication List Pantoprazole [Protonix] 40 mg PO BID 03/26/24 [History] Aspirin 81 mg PO DAILY tab 03/27/24 [Rx] Atorvastatin [Lipitor] 80 mg PO HS tab 03/27/24 [Rx] Metoprolol Tartrate [Lopressor] 25 mg PO BID tab 03/27/24 [Rx] Clopidogrel [Plavix] 75 mg PO DAILY 04/22/24 [History] Morphine Sulfate ER [Ms Contin] 60 mg PO Q8H 04/22/24 [History] Sennosides [Senokot] 8.6 mg PO DAILY 04/22/24 [History] dexAMETHasone [Decadron] 4 mg PO DAILY 04/22/24 [History] Follow up Appointment(s)/Referral(s): None,Stated [REFERRING] - 1-2 days Discharge Disposition: HOME WITH HOSPICE
== END 2024-04-25 12:15 | disposition hospice, home (50) | DRG 861 ==
LOC: EC 20:01 → 4SSUR 23:02 → 3SCARD 04-22 01:08
PROVIDERS: ADMIT Internal Medicine; ATTEND Internal Medicine
DX: G89.3 Neoplasm related pain (acute) (chronic) (principal); J44.1 Chronic obstructive pulmonary disease with (acute) exacerbation; J96.11 Chronic respiratory failure with hypoxia; N17.9 Acute kidney failure, unspecified; R13.10 Dysphagia, unspecified; R64 Cachexia; I48.91 Unspecified atrial fibrillation; I21.4 Non-ST elevation (NSTEMI) myocardial infarction; C32.9 Malignant neoplasm of larynx, unspecified; C78.00 Secondary malignant neoplasm of unspecified lung; C78.7 Secondary malignant neoplasm of liver and intrahepatic bile duct; C79.51 Secondary malignant neoplasm of bone; I10 Essential (primary) hypertension; E43 Unspecified severe protein-calorie malnutrition; C77.0 Secondary and unspecified malignant neoplasm of lymph nodes of head, face and neck; Z68.1 Body mass index [BMI] 19.9 or less, adult; E78.5 Hyperlipidemia, unspecified; Z93.0 Tracheostomy status; Z92.3 Personal history of irradiation; Z92.21 Personal history of antineoplastic chemotherapy; Z51.5 Encounter for palliative care; Z66 Do not resuscitate; Z71.3 Dietary counseling and surveillance; E83.52 Hypercalcemia; E86.0 Dehydration; Z79.02 Long term (current) use of antithrombotics/antiplatelets; Z79.82 Long term (current) use of aspirin; Z79.899 Other long term (current) drug therapy; Z85.820 Personal history of malignant melanoma of skin; Z87.891 Personal history of nicotine dependence
CPT/HCPCS: 36415; 71045; 76705; 80053; 80074; 82330; 83605; 83735; 84100; 84145; 85025; 85610; 85730; 87040; 93005; 94640; 94760; 96365; 96366; 96375; 99285